=== PATIENT | male | born 1940 | race Caucasian/White ===

== ENCOUNTER → 2017-02-26 | Outpatient (CLI) | payer OTHER ==
[~2017-02-26] VITALS: Ht 165.1 cm; Wt 70.1 kg
[~2017-02-26] MED LIST: ACET-1222 PO; ACET650S10 PO; AMLO-110 PO; ATOR10TA88 PO; CLB/200 PO; FERR1TAB13 PO; FINA5TAB PO; FLV1 PO; LOVA20TA4 PO; METH2.5T PO; MULT-506 PO; OXYC-57 PO; PRLSR20 PO; PSEU30TA20 PO; RXC5 PO; TAMS0.4C59 PO; TERA1CAP63 PO; TRAM-10 PO; TRMCR2515 TOP; XRL10 PO; [UNRECOGNIZED DRUG - CODE] PO
[2017-02-26 14:38] VITALS: Ht 165.1 cm; Wt 70.1 kg
--- NOTE | 2017-02-26 15:14 | PAT Medication Instructions ---
Service Date Feb 26, 2017. Current Home Medication List Acetaminophen (Tylenol), 1,300 MG PO Q6H PRN for RN Amlodipine (Norvasc), 5 MG PO HS Atorvastatin (Lipitor), 10 MG PO QPM Celecoxib (CeleBREX), 200 MG PO PRN Finasteride (Proscar), 5 MG PO HS Multivitamin (Multivitamin), 1 TABLET PO QAM Oxycodone/Acetaminophen 5MG/325MG (Percocet 5MG/325MG), 1 TABLET PO Q4H PRN for Pain Terazosin Hcl (Hytrin), 10 MG PO HS Medication Instructions For Your Scheduled Surgery - Hold the following medications the morning of surgery: Celecoxib (CeleBREX), 200 MG PO PRN (otherwise okay to continue per surgeon) Multivitamin (Multivitamin), 1 TABLET PO QAM - Take the following medications the morning of surgery with a sip of water OTHERWISE NOTHING TO EAT OR DRINK AFTER MIDNIGHT: Acetaminophen (Tylenol), 1,300 MG PO Q6H PRN (may take if needed up to 4 hours prior to surgery) Oxycodone/Acetaminophen 5MG/325MG (Percocet 5MG/325MG), 1 TABLET PO Q4H PRN for Pain (may take if needed up to 4 hours prior to surgery) - Take the following medications as scheduled the night before surgery: Amlodipine (Norvasc), 5 MG PO HS Terazosin Hcl (Hytrin), 10 MG PO HS Atorvastatin (Lipitor), 10 MG PO QPM Finasteride (Proscar), 5 MG PO HS Acetaminophen (Tylenol), 1,300 MG PO Q6H PRN Oxycodone/Acetaminophen 5MG/325MG (Percocet 5MG/325MG), If you have any questions please call us at [phone] or [phone] or [phone]
[2017-02-26 15:57] LABS: BASO % 0.3 %; BASO ABS # 0.02 K/uL (0-0.2); COMPLETE YES; EOS % 0.8 %; HEMATOCRIT 31.2 % (42-52); IG% 0.2 %; LYMPH % 12.6 %; LYMPH ABS # 0.77 K/uL (1.2-3.4); MEAN CELL VOLUME 88.6 fL (80-100); MEAN CORPUSCULAR HEMOGLOBIN 27.3 pg (25-34); MEAN CORPUSCULAR HGB CONC 30.8 g/dl (32-36); MEAN PLATELET VOLUME 9.7 fL (7.4-10.4); NEUT % 78.1 %; PLATELET COUNT 330 K/uL (130-400); RED BLOOD COUNT 3.52 M/uL (4.7-6.1); WHITE BLOOD COUNT 6.13 K/uL (4.8-10.8)
--- NOTE | 2017-02-26 15:58 | DIAGNOSTIC IMAGING REPORT ---
CHEST 2 VIEWS ROUTINE HISTORY:77 yearsMal[age] exam. Patient is asymptomatic. COMPARISON: None available. TECHNIQUE: Frontal and lateral views of the chest. FINDINGS: Cardiomediastinal and hilar silhouettes are within normal limits. There is atherosclerosis of the aorta. No pneumothorax, pleural effusion or focal airspace consolidation. No overt pulmonary edema. Lungs are mildly hyperinflated. Metallic anchor device of the right humeral head is partially imaged from prior rotator cuff repair. There has been prior osteotomy of the left distal clavicle. IMPRESSION: Mild hyperinflation without acute cardiopulmonary process. The above report was generated using voice recognition software. It may contain grammatical, syntax or spelling errors. Electronically signed by: Saji Jefferson 02/26/2017 3:57 PM Dictated Date/Time: 02/26/2017 3:56 PM
[2017-02-26 16:01] LABS: URINE APPEARANCE CLEAR (CLEAR); URINE BILIRUBIN NEG (NEG); URINE COLOR YELLOW; URINE NITRITE NEG (NEG); URINE SPECIFIC GRAVITY 1.027 (1.000-1.030); UROBILINOGEN NEG (NEG); ZZUR CULT IF INDIC CLEAN CATCH NO
[2017-02-26 16:10] LABS: INR 1.1 (0.9-1.1); PARTIAL THROMBOPLASTIN RATIO 1.5; PROTHROMBIN TIME (PATIENT) 11.6 SECONDS (9.0-12.0)
[2017-02-26 16:15] LABS: BUN/CREATININE RATIO 20.6 (10-20); CREATININE 1.2 mg/dl (0.60-1.40); POTASSIUM 4.1 mmol/L (3.5-5.1)
[2017-02-26 16:15] LABS: MANUAL MICROSCOPIC REQUIRED? NO; REVIEW REQ? NO
[2017-02-27 07:21] LABS: ESTIMATED AVERAGE GLUCOSE 134 mg/dl; HA1C FLAG Normal (Normal)
--- NOTE | 2017-03-02 10:35 | History and Physical ---
History & Physical Date & Time of Service: Mar 02, 2017 at 10:29 Chief Complaint: Right Hip Degenerative Joint Disease Primary Care Physician: Robin Canseoc D.O. History of Present Illness Source: patient Chronic rt hip pain, failed injections, narcotics, tylenol and the use of a cane. Dx w end staged OA rt hip radiographically. Past Medical/Surgical History HTN Hyperlipidemia OA Acid reflux BPH Dental implants Social History Smoking Status: Former Smoker Alcohol Use: occasionally Drug Use: none Marital Status: Housing status: lives with family Multi-Drug Resistant Organisms History of MDRO: No Allergies Coded Allergies: Lisinopril (Unverified Allergy, Unknown, COUGH, 02/26/17) Home Medications Scheduled Amlodipine (Norvasc), 5 MG PO HS Atorvastatin (Lipitor), 10 MG PO QPM Celecoxib (CeleBREX), 200 MG PO PRN Finasteride (Proscar), 5 MG PO HS Multivitamin (Multivitamin), 1 TABLET PO QAM Terazosin Hcl (Hytrin), 10 MG PO HS Scheduled PRN Acetaminophen (Tylenol), 1,300 MG PO Q6H PRN for RN Oxycodone/Acetaminophen 5MG/325MG (Percocet 5MG/325MG), 1 TABLET PO Q4H PRN for Pain Review of Systems Musculoskeletal: + joint pain, + muscle pain (rt hip) Physical Exam General Appearance: WD/WN, no apparent distress Head: normocephalic, atraumatic Eyes: normal inspection, PERRL ENT: normal ENT inspection Respiratory/Chest: lungs clear Cardiovascular: regular rate, rhythm Abdomen/GI: normal bowel sounds, non tender +pain with PROM at the rt hip, + flexion contracture, rt hip, N/V+, 4/5 strength w pain Impression Assessment and Plan Right hip OA HTN Hyperlipidemia OA Acid reflux BPH Dental implants Advanced Directives Existing Living Will: No Existing 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
--- NOTE | 2017-05-18 11:26 | CODING QUERY MEDICAL NECESSITY ---
CQSUPPORTING DIAGNOSIS NEEDED A supporting diagnosis is required for the test/procedure performed on this patient in order for us to be reimbursed by the patient's insurance. Please provide a supporting diagnosis for the following test/procedure listed below next to the test name along with your signature. *If there is no additional diagnosis for this patient that would support the following test/procedure please document that below next to the test/procedure. Test(s)/Procedure(s) that require a supporting diagnosis: JAYY 02/26/17 GLYCATED HEMOGLOBIN TEST Provider Signature: Date: Thank you Jelly Galloway Health Information Management Once completed, please kindly fax back to [phone] For questions please call [phone]
== END | disposition home or self-care (01) ==
LOC: C.LAB 08:00 → EDSTATUS 03-03 12:46
PROVIDERS: ATTEND Orthopaedic Surgery Sports Medicine
DX: Z01.811 Encounter for preprocedural respiratory examination (principal); Z01.812 Encounter for preprocedural laboratory examination

== ENCOUNTER 2017-04-28 09:13 | Inpatient (IN) | payer OTHER ==
[2017-04-19 14:59] VITALS: BMI 24.0
--- NOTE | 2017-04-19 15:41 | PAT Medication Instructions ---
Service Date Apr 19, 2017. Current Home Medication List Acetaminophen (Acetaminophen Extra Stren), 2 TAB PO Q6 PRN for Pain Ferrous Sulfate (Kp Ferrous Sulfate), 1 TAB PO BID Finasteride (Proscar), 5 MG PO HS Folic Acid (Folic Acid), 1 TAB PO QAM Methotrexate (Methotrexate), 2.5 MG PO WK Multivitamin (Multivitamin), 1 TABLET PO QAM Omeprazole (Prilosec), 20 MG PO QAM Pseudoephedrine (Sudafed), 30 MG PO DAILY PRN for stuffiness Terazosin Hcl (Hytrin), 10 MG PO HS Tramadol (Ultram), 50 MG PO Q4H PRN for Pain Medication Instructions For Your Scheduled Surgery - Check with surgeon/outside sales associate for instructions: Methotrexate (Methotrexate), 2.5 MG PO WK - Hold the following medications the morning of surgery: Pseudoephedrine (Sudafed), 30 MG PO DAILY PRN for stuffiness Multivitamin (Multivitamin), 1 TABLET PO QAM Folic Acid (Folic Acid), 1 TAB PO QAM Ferrous Sulfate (Kp Ferrous Sulfate), 1 TAB PO BID - Take the following medications the morning of surgery with a sip of water: Acetaminophen (Acetaminophen Extra Stren), 2 TAB PO Q6 PRN for Pain (if needed) Omeprazole (Prilosec), 20 MG PO QAM Tramadol (Ultram), 50 MG PO Q4H PRN for Pain(okay to take up to 4 hours prior to surgery if needed) - Take the following medications as scheduled the night before surgery: Tramadol (Ultram), 50 MG PO Q4H PRN for Pain (if needed) Terazosin Hcl (Hytrin), 10 MG PO HS Pseudoephedrine (Sudafed), 30 MG PO DAILY PRN for stuffiness (if needed) Finasteride (Proscar), 5 MG PO HS Ferrous Sulfate (Kp Ferrous Sulfate), 1 TAB PO BID If you have any questions please call us at [phone] or [phone] or [phone]
--- NOTE | 2017-04-19 16:05 | DIAGNOSTIC IMAGING REPORT ---
LATERAL RADIOGRAPHS OF THE CERVICAL SPINE, INCLUDING FLEXION AND EXTENSION CLINICAL HISTORY: PREOP, RHEUMATOID ARTHRITIS COMPARISON STUDY: No previous studies for comparison. FINDINGS: Slight anterolisthesis of C7 on T1 is noted. This does not change with flexion or extension. C1-C2 alignment is anatomic. There is no evidence for cervical spine instability during flexion or extension. There is moderate disc space narrowing and osteophytosis at C5-6 and C6-C7. No fracture or suspicious lesion is identified on lateral projections. IMPRESSION: 1. No evidence for cervical spine instability during flexion or extension. 2. Moderate multilevel degenerative disc disease and facet arthrosis, most pronounced at C5-C6 and C6-C7. 3. Slight anterolisthesis of C7 on T1 which does not change with flexion or extension. Electronically signed by: Gautam Street M.D. 04/19/2017 4:03 PM Dictated Date/Time: 04/19/2017 4:02 PM
[2017-04-19 16:54] LABS: PARTIAL THROMBOPLASTIN RATIO 1.4; PROTHROMBIN TIME (PATIENT) 10.6 SECONDS (9.0-12.0)
--- NOTE | 2017-04-27 21:06 | HISTORY & PHYSICAL EXAMINATION ---
DATE OF ADMISSION: 04/27/2017 CHIEF COMPLAINT: Chronic right hip pain. HISTORY OF PRESENT ILLNESS: This is a 77-year-old male patient of Dr. Mendoza, who is complaining of chronic right hip pain, longstanding, now progressively getting worse. The patient has been diagnosed with end-stage osteoarthritis per clinical and radiographic exams. The patient has failed conservative treatment including, intraarticular injections, use of narcotic medication, see the medicine and the use of a walker. The patient has increased pain with weightbearing activities. His pain does interfere with his activities of daily living. The patient wishes to proceed with a right total hip arthroplasty. PAST MEDICAL HISTORY: Osteoarthritis, acid reflux, BPH, otherwise a healthy 77-year-old male. SOCIAL HISTORY: Nonsmoker, occasional drinker. PAST SURGICAL HISTORY: Shoulder surgery x3, hernia surgery, and carpal tunnel surgery. FAMILY HISTORY: Noncontributory. REVIEW OF SYSTEMS: The patient complains of chronic right hip pain. Otherwise, denies any shortness of breath, chest pain, nausea, vomiting or any other joint complaints. MEDICATIONS: 1. Finasteride 5 mg daily. 2. Terazosin 10 mg daily. 3. Methotrexate 2.5 mg six per week. 4. Omeprazole 20 mg daily. 5. Tylenol as needed. 6. Tramadol as needed. 7. Folic acid 1 mg daily. 8. Ferrous sulfate 325 b.i.d. ALLERGIES: No known drug allergies. PHYSICAL EXAMINATION: GENERAL: Well-developed, well-nourished 77-year-old male, in no acute distress. He is alert and oriented x3 and pleasant. HEENT: Normocephalic, atraumatic. Extraocular motions are intact. Pupils are equal and reactive to light. HEART: Regular rate and rhythm, no murmurs appreciated. LUNGS: Clear. ABDOMEN: Soft, nontender, bowel sounds present. EXTREMITIES: Right hip reveals a range of motion of negative 15 to 115. He does have crepitation, soreness with pain to passive range of motion. He has 4/5 strength in his lower right extremity. NEUROLOGIC: Neurovascularly, he is intact in his right lower extremity. DIAGNOSES: 1. Right hip end-stage osteoarthritis, failure of conservative treatment with a history of osteoarthritis. 2. Acid reflux. 3. Benign prostatic hyperplasia. PLAN: The patient was advised of his diagnosis. Indications, risks, benefits, and postop course have all been reviewed. The patient wishes to proceed with right total hip arthroplasty. Necessary consent forms, preoperative testing and clearances will be obtained.
[2017-04-28] VITALS (8 sets, daily range): BP systolic 94–131; BP diastolic 54–85; PULSE 68–88; TEMP 36.5–37.3; O2SAT 94–99; Ht 165.1 cm; Wt 66.7 kg
[~2017-04-28] VITALS: Ht 165.1 cm; Wt 66.7 kg
[~2017-04-28 09:13] MED LIST changes: -ACET650S10 PO; +ACETAMINOPHEN 500 MG TAB PO SCH; -AMLO-110 PO; -ATOR10TA88 PO; +BUPIVACAINE 0.5 % 5 MG/1 ML PF 10ML VIAL ONE; +CEFAZOLIN 1000MG/55 ML D5W 55 ML IV SCH; -CLB/200 PO; +CeleBREX 200 MG CAP PO SCH; +DEXAMETHASONE 4 MG TAB PO SCH; +FAMOTIDINE 20 MG TAB PO SCH; +GABAPENTIN 300 MG CAP PO SCH; +LACTATED RINGER'S 1000ML 1,000 ML IV SCH; +LACTATED RINGER'S 1000ML 500 ML IV ONE; +LACTATED RINGER'S 1000ML IV SCH; -LOVA20TA4 PO; +METOCLOPRAMIDE HCL 10 MG TAB PO SCH; -OXYC-57 PO; +ROPIVACAINE 5MG/ML 30 ML 150 MG, BUPIVACAINE/EPINEPHR 0.5% MPF 30 ML, KETOROLAC TROMETH... INFIL SCH; -RXC5 PO; -TAMS0.4C59 PO; -TRMCR2515 TOP; -XRL10 PO; -[UNRECOGNIZED DRUG - CODE] PO
[2017-04-28] MEDS ORDERED: FENTANYL CITRATE INJ 50 MCG/1 ML 2 ML VIAL ONE (11:03)
[2017-04-28] MEDS ORDERED: MIDAZOLAM HCL 1 MG/ML 2ML VIAL ONE (11:03)
--- NOTE | 2017-04-28 11:13 | History & Physical Bridge Note ---
H&P Re-Evaluation Bridge Note: I have examined the patient, reviewed the History & Physical and in the interval since the performance of the History & Physical I have noted the following changes of clinical significance: No changes noted
[2017-04-28] MEDS: TRANEXAMIC ACID INJ 1,000 MG in SODIUM CHLORIDE 0.9% 100ML 100 ML IV SCH ×2 (11:18→17:28)
[2017-04-28] MEDS ORDERED: FENTANYL CITRATE INJ 50 MCG/1 ML 2 ML VIAL IV PRN (11:30)
[2017-04-28] MEDS ORDERED: ATROPINE SULFATE 0.1 MG/ML 5ML SYR IV PRN (11:30)
[2017-04-28] MEDS ORDERED: ONDANSETRON INJ 2 MG/ML 2 ML VIAL IV PRN (11:30)
[2017-04-28] MEDS ORDERED: EpHEDrine SULFATE INJ 50 MG/ML AMP IV PRN (11:30)
[2017-04-28] MEDS ORDERED: ORTHO JOINT ANESTHETIC ONE (11:47)
[2017-04-28] MEDS ORDERED: POVIDONE-IODINE OP SOLN 30 ML BTL ONE (11:47)
[2017-04-28] MEDS ORDERED: BACITRACIN 50000 UNIT VIAL ONE (11:47)
[2017-04-28] MEDS ORDERED: PROPOFOL IV EMULSION 10 MG/ML 20 ML VIAL IV ONE (12:19)
[2017-04-28] MEDS ORDERED: LIDOCAINE HCL 2% 2 ML VIAL (20MG/ML) ONE (12:19)
[2017-04-28] MEDS ORDERED: ZOLPIDEM TARTRATE 5 MG TAB PO PRN (15:00)
[2017-04-28] MEDS ORDERED: PSEUDOEPHEDRINE HCL 30 MG TAB PO PRN (15:00)
[2017-04-28] MEDS ORDERED: NO NSAIDS SCH (15:00)
[2017-04-28] MEDS ORDERED: DiphenhydrAMINE HCL 50 MG/ML VIAL IV PRN (15:00)
[2017-04-28] MEDS ORDERED: MAGNESIUM HYDROXIDE SUSP 30 ML UDC PO PRN (15:00)
[2017-04-28] MEDS ORDERED: ALUMINUM/MAGNESIUM/SIMETH (MAALOX MAX) 30 ML UDC PO PRN (15:00)
[2017-04-28] MEDS ORDERED: MoRPHine SULFATE 2 MG/ML CARP IV PRN (15:00)
--- NOTE | 2017-04-28 15:00 | Anesthesiology Progress Note ---
Anesthesia Post Op Note Date & Time Apr 28, 2017 at 14:59 Vital Signs Pain Intensity: 0 Vital Signs Past 12 Hours Date Time Temp Pulse Resp B/P (MAP) Pulse Ox O2 Delivery O2 Flow Rate FiO2 04/28/17 14:49 62 16 98 04/28/17 14:49 62 16 04/28/17 14:46 124/71 04/28/17 14:44 67 23 97 04/28/17 14:44 67 23 04/28/17 14:41 118/67 04/28/17 14:40 116/73 04/28/17 14:39 75 22 92 04/28/17 14:39 70 22 04/28/17 14:39 37.2 71 16 116/73 95 Nasal Cannula 2 04/28/17 09:51 37.3 88 20 129/85 94 Room Air Notes Mental Status: alert / awake / arousable, participated in evaluation Pt Amnestic to Procedure: Yes Nausea / Vomiting: adequately controlled Pain: adequately controlled Airway Patency, RR, SpO2: stable & adequate BP & HR: stable & adequate Hydration State: stable & adequate Neuraxial Anesthesia: was administered, sensory block is resolving Anesthetic Complications: no major complications apparent
--- NOTE | 2017-04-28 15:14 | [facility] Operative Report ---
Operative Report Operative Date Apr 28, 2017. Pre-Operative Diagnosis Right hip end-stage osteoarthritis Post-Operative Diagnosis same Procedure(s) Performed Right total hip arthroplasty Surgeon Dr Mendoza [employer] Surgeon(s) Sourav Botello PA-C Estimated Blood Loss 100cc Findings end stage osteoarthritis arthritis and rheumatoid arthritis with grade 4 degenerative arthritis possible traumatic chondral injury to acetabulum Specimens As per Surgeon A. Right Femoral Head Drains 2 Hemovac Anesthesia spinal, sedation,orhtomix Complication(s) None Disposition Recovery Room / PACU Indications End-stage arthritis right hip Description of Procedure Patient taken to the operating room and anesthetized under spinal anesthesia. Patient was placed supine on the operating table. Exam of the involved extremity demonstrated he had some decreased internal rotation and flexion he also has some flexion contracture of his right knee. He was a thin individual.. Patient was placed on a sacral pad the involved leg was placed on a foot bump to flex knee 90 and hip 60. A [place]-type approach was performed to the right hip. A longitudinal lateral incision was made over the hip. The skin was incised sharply. The fat was divided down to the fascia. Subcutaneous bleeders are cauterized. There was some thickened trochanteric bursa. Trochanter bursa was resected. The gluteus medius was noted to be intact.. A split was made in the gluteus medius muscle between the anterior 40 % and posterior 60%. The minimus was divided longitudinally reflected off the underlying capsule. The capsule was incised down to the hip joint. Intra- articular findings demonstrated grade 4 wear on the superior head of the femur with surrounding osteophytes and the acetabulum had a large cleft with some articular cartilage loss possibly from old trauma and a hypertrophic labrum with circumferential osteophytes and synovium that had significant synovitis and inflammatory changes consistent with rheumatoid arthritis.. An incision was made through the gluteus medius leaving a cuff of tendon for repair on the greater trochanter. The vastus lateralis was split longitudinally for about 3 cm. A muscular capsular flap was elevated off the hip. The hip was dislocated with use of bone hook with flexion and external rotation. The femoral neck cut was made approximately 15 mm proximal to the lesser trochanter in neutral anteversion. Head and neck fragment were removed. T A sharp Rose superior tractor was placed and a a blunt Rose retractor was placed anteriorly a double angled inferior retractor was placed on the ishium. The acetabular labrum was resected all osteophytes were resected soft tissue in the acetabular fossa was resected. An intracapsular release was performed. Some the capsule was resected for exposure. The first reamer 48 mm was used to medialize reaming to the inner table and then sequential reamers for the acetabulum were used in 2 mm increments up to a size 58 mm reamer. I used the [employer] total hip arthroplasty system using a PSL type cup. Trial reduction demonstrated a 58 millimeter cup was the appropriate size and fit. The placement of the final implant was performed after irrigating the acetabulum with antibiotic solution with pulsatile lavage. The position of the cup was approximately 15 anteversion 45 abduction. Good fixation was performed. 2 screws were placed in the posterior superior quadrant for further fixation through the cup. The acetabular liner was impacted into position. The 36 mm G 10 acetabular liner was used. Retractors removed and attention was taken to the femur. The femur was exposed with flexion external rotation. Canal reamer was used followed by sequential broaches up to a size 4 with 127 neck angle. This had a good fit and fill. Trial reduction was performed on 127 neck angle based on preoperative templating. A +2.5 neck length gave equal leg lengths and stable range of motion through full flexion flexion adduction and internal rotation and extension and external rotation. The trials removed a Betadine soak was performed the hip was copiously irrigated with antibiotic solution with bacitracin the anesthetic cocktail was injected and after irrigation again and the final implant was impacted which was the Accolade 2 size #4 with 127 neck angle. The Biolox ceramic head size 36 with +2.5 mm neck was used. After final implants were placed the reduction was noted to be stable. 2 drains were placed deep. These were brought out laterally and connected to Hemovac. The minimus was closed with interrupted [id number] #1 Vicryl sutures. The medius was closed with transosseous #5 FiberWire sutures using Manny Arcadio stitch technique. Lateral row soft tissue repair was performed with figure of 8 #2 FiberWire sutures. The medius split was closed with interrupted figure-of- eight #1 Vicryl sutures. The vastus lateralis was closed with interrupted figure eight Vicryl sutures. The fascia shin was closed with interrupted figure of 8 number 1 Vicryl sutures. The fat was closed with [id number] # 2 Vicryl sutures. Skin was closed with corinne sterile silvalon dressing was applied. The patient tolerated procedure well.Sourav HUYNH , my physician hotel administrative assistant assisted me in the procedure with patient positioning And draping soft tissue retraction instrument management suture management and assisted in the outer layer closure and will participate in the postoperative care the patient thank you. I attest to the content of the Intraoperative Record and any orders documented therein. Any exceptions are noted below.
--- NOTE | 2017-04-28 15:35 | DIAGNOSTIC IMAGING REPORT ---
SINGLE VIEW PELVIS; SINGLE VIEW RIGHT HIP CLINICAL HISTORY: Postoperative examination. FINDINGS: An AP portable view of the hips and pelvis with a crosstable lateral portable view of the right hip are obtained. A bipolar right hip arthroplasty is in near-anatomic alignment. At least 2 cortical lag screws transfixes the acetabular cup. No acute fracture is identified. Mild arthritic change is seen in the left hip. There are expected postoperative changes overlying the right hip including skin clips, subcutaneous gas, a surgical drain, and soft tissue swelling. Calcified phleboliths are seen in the pelvis. IMPRESSION: Expected postoperative findings status post right hip arthroplasty. No acute fracture is seen. Electronically signed by: Haider Mullins M.D. 04/28/2017 3:33 PM Dictated Date/Time: 04/28/2017 3:33 PM
[2017-04-28] MEDS: D5W AND 1/2NSS + 20MEQ KCL 1,000 ML IV SCH (17:20)
[2017-04-28] MEDS: FERROUS GLUCONATE 324 MG TAB PO SCH (18:16)
[2017-04-28] MEDS: OXYCODONE HCL 10 MG TABCR (OXYCONTIN) PO SCH (18:16)
--- NOTE | 2017-04-28 19:57 | Medical Consult ---
Consultation Date of Consultation: Apr 28, 2017. Attending Physician: Javy Mendoza M.D. Reason for Consultation: Post Op Medical Management History of Present Illness 77 year old male who is s/p right ORA today by Dr. Mendoza. Patient has been having increasing right hip pain for the past several months. He failed outpatient conservative measures and therefore presented for the planned procedure today. Post operatively the patient is doing well. He reports his pain is well controlled. He denies numbness or tingling to the RLE. No chest pain or shortness of breath. He denies lightheadedness and dizziness. No abdominal pain or nausea. He has been ambulating in the halls. Past Medical/Surgical History Medical Problems: (1) BPH (benign prostatic hyperplasia) Status: Chronic (2) Renal cyst Status: Chronic (3) Rheumatoid arthritis Status: Chronic Surgical Problems: (1) H/O inguinal hernia repair Status: Chronic (2) Hx of nasal septoplasty Status: Chronic (3) S/P carpal tunnel release Status: Chronic (4) S/P rotator cuff repair Status: Chronic Family History FH: CAD (coronary artery disease) BROTHER Social History Smoking Status: Former Smoker Alcohol Use: none Allergies Coded Allergies: Lisinopril (Verified Adverse Reaction, Unknown, COUGH, 04/28/17) Home Medications Sudafed (Pseudoephedrine HCl) 30 Mg Tab 30 Mg PO DAILY PRN Kp Ferrous Sulfate (Ferrous Sulfate) 325 Mg Tab 1 Tab PO BID 30 Days Folic Acid 1 Mg Tab 1 Tab PO QAM Ultram (Tramadol HCl) 50 Mg Tab 50 Mg PO Q4H PRN Prilosec (Omeprazole) 20 Mg Capcr 20 Mg PO QAM Methotrexate 2.5 Mg Tab 2.5 Mg PO WK Acetaminophen Extra Stren (Acetaminophen) 500 Mg Tab 2 Tab PO Q6 PRN Proscar (Finasteride) 5 Mg Tab 5 Mg PO HS Multivitamin (Multivitamins) Tab 1 Tablet PO QAM Hytrin (Terazosin Hcl) 10 Mg Cap 10 Mg PO HS Current Inpatient Medications Current Inpatient Medications Medications (Trade) Dose Ordered Sig/Yrn Route Start Time Stop Time Status Last Admin Dose Admin Potassium Chloride/Dextrose/ Sod Cl 1,000 ml @ 100 mls/hr Q10H IV 04/28/17 17:00 04/29/17 16:59 04/28/17 17:20 100 MLS/HR Miscellaneous Medication (No Nsaids) 1 ea UD N/A 04/28/17 15:00 05/28/17 14:59 Oxycodone HCl (Roxicodone Immediate Rel Tab) 1 TABLET FOR PAIN RATING... Q4H PRN PO 04/28/17 15:00 05/12/17 14:59 Morphine Sulfate (MoRPHine SULFATE INJ) 2 mg 4XDQ3H PRN IV 04/28/17 15:00 05/12/17 14:59 Acetaminophen (Tylenol Tab) 1,000 mg Q8 PO 04/28/17 22:00 05/28/17 21:59 Magnesium Hydroxide (Milk Of Magnesia Susp) 30 ml Q6H PRN PO 04/28/17 15:00 05/28/17 14:59 Docusate Sodium (coLACE CAP) 100 mg BID PO 04/28/17 21:00 05/28/17 20:59 Diphenhydramine HCl (Benadryl Cap) 25 mg Q8H PRN PO 04/28/17 15:00 05/28/17 14:59 Diphenhydramine HCl (Benadryl Inj) 25 mg Q8H PRN IV 04/28/17 15:00 05/28/17 14:59 Al Hydrox/Mg Hydrox/Simethicone (Maalox Max Susp) 15 ml Q4H PRN PO 04/28/17 15:00 05/28/17 14:59 Zolpidem Tartrate (Ambien Tab) 5 mg HSZ PRN PO 04/28/17 15:00 05/28/17 14:59 Multivitamins (Multivitamin Tab) 1 tab QAM PO 04/29/17 09:00 05/29/17 08:59 Ferrous Gluconate (Ferrous Gluconate Tab) 324 mg TIDM PO 04/28/17 17:45 05/28/17 17:59 04/28/17 18:16 324 MG Pantoprazole Sodium (Protonix Tab) 40 mg QAM PO 04/29/17 09:00 05/29/17 08:59 Cefazolin Sodium 1000 mg/Dextrose 55 ml @ 100 mls/hr Q8H IV 04/28/17 20:00 04/29/17 04:32 Oxycodone HCl (Oxycontin Tab) 10 mg Q12H PO 04/28/17 18:00 05/12/17 17:59 04/28/17 18:16 10 MG Finasteride (Proscar Tab) 5 mg HS PO 04/28/17 21:00 05/28/17 20:59 Folic Acid (Folvite Tab) 1 mg QAM PO 04/29/17 09:00 05/29/17 08:59 Pseudoephedrine HCl (Sudafed Tab) 30 mg DAILY PRN PO 04/28/17 15:00 05/28/17 14:59 Terazosin HCl (Hytrin Cap) 10 mg HS PO 04/28/17 21:00 05/28/17 20:59 Rivaroxaban (Xarelto Tab) 10 mg Q24H PO 04/29/17 15:00 05/29/17 14:59 Review of Systems ROS per HPI, all other systems reviewed and negative Physical Exam Date Time Temp Pulse Resp B/P (MAP) Pulse Ox O2 Delivery O2 Flow Rate FiO2 04/28/17 18:54 36.5 82 18 94/54 (67) 96 Room Air 04/28/17 17:53 37.2 84 18 118/70 (86) 98 Nasal Cannula 2.0 04/28/17 16:50 36.5 70 18 111/66 (81) 98 Nasal Cannula 2.0 04/28/17 16:28 36.5 71 18 131/80 (97) 99 Nasal Cannula 2.0 04/28/17 16:15 Nasal Cannula 2.0 04/28/17 15:45 99 Nasal Cannula 2.0 04/28/17 15:45 36.6 68 18 120/70 (87) 99 Nasal Cannula 2.0 04/28/17 15:39 37.5 04/28/17 15:37 66 15 99 04/28/17 15:37 65 15 04/28/17 15:36 126/77 04/28/17 15:32 66 17 99 04/28/17 15:32 66 17 04/28/17 15:31 128/76 04/28/17 15:27 66 20 04/28/17 15:27 66 20 97 04/28/17 15:26 128/76 04/28/17 15:22 66 15 04/28/17 15:22 66 15 97 04/28/17 15:21 121/72 04/28/17 15:17 65 20 04/28/17 15:17 66 20 97 04/28/17 15:16 119/71 04/28/17 15:12 68 14 95 04/28/17 15:12 65 14 04/28/17 15:11 127/73 04/28/17 15:08 37.5 04/28/17 15:07 64 13 97 04/28/17 15:07 65 13 04/28/17 15:06 64 18 04/28/17 15:06 64 18 112/76 97 04/28/17 15:01 64 15 04/28/17 15:01 65 15 120/70 98 04/28/17 15:00 63 16 98 04/28/17 15:00 63 16 04/28/17 14:56 122/74 04/28/17 14:55 63 13 98 04/28/17 14:55 64 13 04/28/17 14:51 107/71 04/28/17 14:50 64 14 04/28/17 14:50 63 14 97 04/28/17 14:49 62 16 98 04/28/17 14:49 62 16 04/28/17 14:46 124/71 04/28/17 14:44 67 23 97 04/28/17 14:44 67 23 04/28/17 14:41 118/67 04/28/17 14:40 116/73 04/28/17 14:39 75 22 92 04/28/17 14:39 70 22 04/28/17 14:39 37.2 71 16 116/73 95 Nasal Cannula 2 04/28/17 09:51 37.3 88 20 129/85 94 Room Air General Appearance: no apparent distress Head: normocephalic, atraumatic Eyes: normal inspection, sclerae normal ENT: hearing grossly normal Neck: supple, no JVD Respiratory/Chest: lungs clear, normal breath sounds, no respiratory distress Cardiovascular: regular rate, rhythm, no edema, normal peripheral pulses Abdomen/GI: normal bowel sounds, non tender, soft Extremities/Musculoskelatal: + pertinent finding (s/p right hip surgery, surgical dressing intact, CSM checks intact to RLE ) Neurologic/Psych: no motor/sensory deficits, alert, normal mood/affect, oriented x 3 Skin: normal color, warm/dry Assessment & Plan S/P RIGHT ORA - POD#0 - activity and wound care orders as per ortho - pain control with bowel regimen - PT/OT - monitor H/H for acute blood loss anemia and transfuse blood products PRN RHEUMATOID ARTHRITIS - methotrexate on hold during the immediate post op period BPH - continue terazosin and finasteride DVT PROPHYLAXIS - Xarelto as per ortho Thank you for this consultation. We will follow the patient with you during their hospital stay. You can reach a member of the [facility]ist Team 15/03 via pager @ . Attending addendum: Agree with the above H&P consultation; please refer to above for more details. Patient is a 77 yo male who is post op from R ORA; he states that he was in severe pain prior to surgery and had failed conservative measures. He was just seen ambulating in the halls with a walker and minimum assistance. He denies any complaints other than a pulling sensation at the incision/drain sites. No pain. Cardiac: RR, S1 and S2 auscultated Resp: CTA B/L no wheezes, rales, rhonchi GI: soft, NT, ND, +BS POSTOPERATIVE STATE: S/P R ORA -pain control, activity, DVT prophylaxis as per primary team -will monitor for post op anemia of blood loss -encourage bowel regimen -encourage IS -resume home meds as above
[2017-04-28] MEDS: CEFAZOLIN IV 1,000 MG in DEXTROSE 5% 50ML 50 ML IV SCH (20:12)
[2017-04-28] MEDS: FINASTERIDE 5 MG TAB PO SCH (21:08)
[2017-04-28] MEDS: DOCUSATE SODIUM 100 MG CAP PO SCH (21:09)
[2017-04-28] MEDS: ACETAMINOPHEN 500 MG TAB PO SCH (21:40)
[2017-04-29] MEDS: D5W AND 1/2NSS + 20MEQ KCL 1,000 ML IV SCH (02:58)
[2017-04-29 03:00] VITALS: BP 127/60; PULSE 65; TEMP 36.8; O2SAT 95
[2017-04-29] MEDS: CEFAZOLIN IV 1,000 MG in DEXTROSE 5% 50ML 50 ML IV SCH (04:19)
[2017-04-29] MEDS: ACETAMINOPHEN 500 MG TAB PO SCH ×3 (05:53→21:31)
[2017-04-29] MEDS: OXYCODONE HCL 10 MG TABCR (OXYCONTIN) PO SCH ×2 (05:53→18:02)
[2017-04-29 05:58] LABS: BASO % 0.1 %; BASO ABS # 0.01 K/uL (0-0.2); HEMATOCRIT 26.4 % (42-52); IG% 0.4 %; LYMPH % 4.8 %; LYMPH ABS # 0.58 K/uL (1.2-3.4); MEAN CELL VOLUME 90.1 fL (80-100); MEAN CORPUSCULAR HEMOGLOBIN 28.7 pg (25-34); MEAN CORPUSCULAR HGB CONC 31.8 g/dl (32-36); MEAN PLATELET VOLUME 9.5 fL (7.4-10.4); MONO % 8.4 %; NEUT % 86.3 %; PLATELET COUNT 326 K/uL (130-400); RED BLOOD COUNT 2.93 M/uL (4.7-6.1); WHITE BLOOD COUNT 12.21 K/uL (4.8-10.8)
[2017-04-29 06:17] LABS: INR 1.1 (0.9-1.1); PROTHROMBIN TIME (PATIENT) 11.3 SECONDS (9.0-12.0)
[2017-04-29 06:34] LABS: BUN/CREATININE RATIO 20.5 (10-20); CALCIUM 8.7 mg/dl (8.5-10.1); CREATININE 1.1 mg/dl (0.60-1.40); POTASSIUM 4.3 mmol/L (3.5-5.1)
[2017-04-29 07:13] VITALS: BP 115/66; PULSE 67; TEMP 36.5; O2SAT 96
[2017-04-29 07:22] LABS: ANISOCYTOSIS PRESENT; COMPLETE YES; HYPERSEGMENTED POLYS 1+
--- NOTE | 2017-04-29 07:44 | Orthopedic Progress Note ---
Orthopedic Progress Note Date of Service Apr 29, 2017. Subjective Post OP Day: 1 Reports: feeling well Objective N/V intact, dressing C/D/I (Hemovac in place), toes mobile Date Time Temp Pulse Resp B/P (MAP) Pulse Ox O2 Delivery O2 Flow Rate FiO2 04/29/17 07:13 36.5 67 16 115/66 (82) 96 Room Air 04/29/17 03:00 36.8 65 18 127/60 (82) 95 Room Air 04/28/17 23:28 Room Air 04/28/17 23:18 36.7 70 16 100/54 (69) 96 Room Air 04/28/17 21:05 105/69 (81) 04/28/17 18:54 36.5 82 18 94/54 (67) 96 Room Air 04/28/17 17:53 37.2 84 18 118/70 (86) 98 Nasal Cannula 2.0 04/28/17 16:50 36.5 70 18 111/66 (81) 98 Nasal Cannula 2.0 04/28/17 16:28 36.5 71 18 131/80 (97) 99 Nasal Cannula 2.0 04/28/17 16:15 Nasal Cannula 2.0 04/28/17 15:45 99 Nasal Cannula 2.0 04/28/17 15:45 36.6 68 18 120/70 (87) 99 Nasal Cannula 2.0 04/28/17 15:39 37.5 04/28/17 15:37 66 15 99 04/28/17 15:37 65 15 04/28/17 15:36 126/77 04/28/17 15:32 66 17 99 04/28/17 15:32 66 17 04/28/17 15:31 128/76 04/28/17 15:27 66 20 04/28/17 15:27 66 20 97 04/28/17 15:26 128/76 04/28/17 15:22 66 15 04/28/17 15:22 66 15 97 04/28/17 15:21 121/72 04/28/17 15:17 65 20 04/28/17 15:17 66 20 97 04/28/17 15:16 119/71 04/28/17 15:12 68 14 95 04/28/17 15:12 65 14 04/28/17 15:11 127/73 04/28/17 15:08 37.5 04/28/17 15:07 64 13 97 04/28/17 15:07 65 13 04/28/17 15:06 64 18 04/28/17 15:06 64 18 112/76 97 04/28/17 15:01 64 15 04/28/17 15:01 65 15 120/70 98 04/28/17 15:00 63 16 98 04/28/17 15:00 63 16 04/28/17 14:56 122/74 04/28/17 14:55 63 13 98 04/28/17 14:55 64 13 04/28/17 14:51 107/71 04/28/17 14:50 64 14 04/28/17 14:50 63 14 97 04/28/17 14:49 62 16 98 04/28/17 14:49 62 16 04/28/17 14:46 124/71 04/28/17 14:44 67 23 97 04/28/17 14:44 67 23 04/28/17 14:41 118/67 04/28/17 14:40 116/73 04/28/17 14:39 75 22 92 04/28/17 14:39 70 22 04/28/17 14:39 37.2 71 16 116/73 95 Nasal Cannula 2 04/28/17 09:51 37.3 88 20 129/85 94 Room Air Laboratory Results 24 Hours: Test 04/29/17 05:23 White Blood Count 12.21 K/uL Red Blood Count 2.93 M/uL Hemoglobin 8.4 g/dL Hematocrit 26.4 % Mean Corpuscular Volume 90.1 fL Mean Corpuscular Hemoglobin 28.7 pg Mean Corpuscular Hemoglobin Concent 31.8 g/dl Platelet Count 326 K/uL Mean Platelet Volume 9.5 fL Neutrophils (%) (Auto) 86.3 % Lymphocytes (%) (Auto) 4.8 % Monocytes (%) (Auto) 8.4 % Eosinophils (%) (Auto) 0.0 % Basophils (%) (Auto) 0.1 % Neutrophils # (Auto) 10.54 K/uL Lymphocytes # (Auto) 0.58 K/uL Monocytes # (Auto) 1.03 K/uL Eosinophils # (Auto) 0.00 K/uL Basophils # (Auto) 0.01 K/uL Prothromb Time International Ratio 1.1 Prothrombin Time 11.3 SECONDS Assessment & Plan Assessment: 77 yo male stable POD #1 s/p right ORA, acute blood loss anemia, VSS Plan: 1. Med management 2. DVT prophylaxis- Xarelian SCDs 3. PT/OT 4. D/C planning- home w/ HH
[2017-04-29] MEDS: DOCUSATE SODIUM 100 MG CAP PO SCH ×2 (08:32→20:40)
[2017-04-29] MEDS: MULTIVITAMIN TAB PO SCH (08:33)
[2017-04-29] MEDS: FERROUS GLUCONATE 324 MG TAB PO SCH ×3 (08:33→18:02)
[2017-04-29] MEDS: PANTOprazole SOD 40 MG TAB PO SCH (08:33)
--- NOTE | 2017-04-29 09:19 | Anesthesiology Progress Note ---
Anesthesia Post Op Note Date & Time Apr 29, 2017 at 09:19 Vital Signs Pain Intensity: 0.0 Vital Signs Past 12 Hours Date Time Temp Pulse Resp B/P (MAP) Pulse Ox O2 Delivery O2 Flow Rate FiO2 04/29/17 07:13 36.5 67 16 115/66 (82) 96 Room Air 04/29/17 03:00 36.8 65 18 127/60 (82) 95 Room Air 04/28/17 23:28 Room Air 04/28/17 23:18 36.7 70 16 100/54 (69) 96 Room Air Notes Mental Status: alert / awake / arousable, participated in evaluation Pt Amnestic to Procedure: Yes Nausea / Vomiting: adequately controlled Pain: adequately controlled Airway Patency, RR, SpO2: stable & adequate BP & HR: stable & adequate Hydration State: stable & adequate Neuraxial Anesthesia: sensory block resolved Anesthetic Complications: no major complications apparent
[2017-04-29 09:25] VITALS: BP 104/64; PULSE 91; O2SAT 98
[2017-04-29 11:07] VITALS: BP 103/55; PULSE 81; TEMP 36.8; O2SAT 96
[2017-04-29] MEDS: OXYCODONE HCL IR 5 MG TAB (IMMEDIATE RELEASE) PO PRN ×3 (11:37→23:42)
--- NOTE | 2017-04-29 13:05 | Progress Note ---
Internal Med Progress Note Date of Service: Apr 29, 2017. Provider Documentation: Hospitalist Medicine Consultation follow up SUBJECTIVE: Patient s/p hip arthroplasty. Seen sitting on chair. Patient denies chest pain or shortness of breath or abdominal pain. Has ice pack next to right hip where he had surgery. Surgical site with hemovac drainage. OBJECTIVE: General Appearance: no apparent distress Head: normocephalic, atraumatic Eyes: normal inspection, sclerae normal, EOMI ENT: hearing grossly normal Neck: supple, no JVD Respiratory/Chest: lungs clear, normal breath sounds, no respiratory distress Cardiovascular: regular rate, rhythm, no JVD Abdomen/GI: normal bowel sounds, non tender, soft Extremities/Musculoskelatal: Has ice pack next to right hip where he had surgery. Surgical site with hemovac drainage Neurologic/Psych: no motor/sensory deficits, alert, normal mood/affect, oriented x 3 Skin: normal color, warm/dry ASSESSMENT & PLAN: S/P RIGHT ORA - POD#1 - activity and wound care orders as per ortho - pain control with bowel regimen - PT/OT - Hemoglobin 8.4 today RHEUMATOID ARTHRITIS -can restart methotrexate for treatment of rheumatoid arthritis maintenance regimen upon discharge BPH - continue terazosin and finasteride DVT PROPHYLAXIS - Xarelto as per ortho Vital Signs: Date Time Temp Pulse Resp B/P (MAP) Pulse Ox O2 Delivery O2 Flow Rate FiO2 04/29/17 11:07 36.8 81 16 103/55 (71) 96 Room Air 04/29/17 09:25 91 98 04/29/17 08:35 Room Air 04/29/17 07:13 36.5 67 16 115/66 (82) 96 Room Air 04/29/17 03:00 36.8 65 18 127/60 (82) 95 Room Air 04/28/17 23:28 Room Air 04/28/17 23:18 36.7 70 16 100/54 (69) 96 Room Air 04/28/17 21:05 105/69 (81) 04/28/17 18:54 36.5 82 18 94/54 (67) 96 Room Air 04/28/17 17:53 37.2 84 18 118/70 (86) 98 Nasal Cannula 2.0 04/28/17 16:50 36.5 70 18 111/66 (81) 98 Nasal Cannula 2.0 9/6/17 16:28 36.5 71 18 131/80 (97) 99 Nasal Cannula 2.0 04/28/17 16:15 Nasal Cannula 2.0 /6/17 15:45 99 Nasal Cannula 2.0 /6/17 15:45 36.6 68 18 120/70 (87) 99 Nasal Cannula 2.0 04/28/17 15:39 37.5 04/28/17 15:37 66 15 99 /6/17 15:37 65 15 04/28/17 15:36 126/77 17 15:32 66 17 99 /6/17 15:32 66 17 /17 15:31 128/76 17 15:27 66 20 04/28/17 15:27 66 20 97 04/28/17 15:26 128/76 04/28/17 15:22 66 15 04/28/17 15:22 66 15 97 04/28/17 15:21 121/72 04/28/17 15:17 65 20 04/28/17 15:17 66 20 97 04/28/17 15:16 119/71 04/28/17 15:12 68 14 95 04/28/17 15:12 65 14 04/28/17 15:11 127/73 04/28/17 15:08 37.5 04/28/17 15:07 64 13 97 04/28/17 15:07 65 13 04/28/17 15:06 64 18 04/28/17 15:06 64 18 112/76 97 04/28/17 15:01 64 15 04/28/17 15:01 65 15 120/70 98 04/28/17 15:00 63 16 98 04/28/17 15:00 63 16 04/28/17 14:56 122/74 04/28/17 14:55 63 13 98 04/28/17 14:55 64 13 04/28/17 14:51 107/71 04/28/17 14:50 64 14 04/28/17 14:50 63 14 97 04/28/17 14:49 62 16 98 04/28/ 14:49 62 16 04/28/17 14:46 124/71 04/28/17 14:44 67 23 97 04/28/ 14:44 67 23 04/28/17 14:41 118/67 04/28/17 14:40 116/73 04/28/17 14:39 75 22 92 04/28/17 14:39 70 22 04/28/17 14:39 37.2 71 16 116/73 95 Nasal Cannula 2 Lab Results: Results Past 24 Hours Test 04/29/17 05:23 Range/Units White Blood Count 12.21 4.8-10.8 K/uL Red Blood Count 2.93 4.7-6.1 M/uL Hemoglobin 8.4 14.0-18.0 g/dL Hematocrit 26.4 42-52 % Mean Corpuscular Volume 90.1 80-100 fL Mean Corpuscular Hemoglobin 28.7 25-34 pg Mean Corpuscular Hemoglobin Concent 31.8 32-36 g/dl Platelet Count 326 130-400 K/uL Mean Platelet Volume 9.5 7.4-10.4 fL Neutrophils (%) (Auto) 86.3 % Lymphocytes (%) (Auto) 4.8 % Monocytes (%) (Auto) 8.4 % Eosinophils (%) (Auto) 0.0 % Basophils (%) (Auto) 0.1 % Neutrophils # (Auto) 10.54 1.4-6.5 K/uL Lymphocytes # (Auto) 0.58 1.2-3.4 K/uL Monocytes # (Auto) 1.03 0.11-0.59 K/uL Eosinophils # (Auto) 0.00 0-0.5 K/uL Basophils # (Auto) 0.01 0-0.2 K/uL RDW Standard Deviation 63.0 36.4-46.3 fL RDW Coefficient of Variation 19.1 11.5-14.5 % Immature Granulocyte % (Auto) 0.4 % Immature Granulocyte # (Auto) 0.05 0.00-0.02 K/uL Hypersegmented Polys 1+ Anisocytosis PRESENT Prothrombin Time 11.3 9.0-12.0 SECONDS Prothromb Time International Ratio 1.1 0.9-1.1 Sodium Level 138 136-145 mmol/L Potassium Level 4.3 3.5-5.1 mmol/L Chloride Level 105 98-107 mmol/L Carbon Dioxide Level 26 21-32 mmol/L Anion Gap 7.0 3-11 mmol/L Blood Urea Nitrogen 23 7-18 mg/dl Creatinine 1.10 0.60-1.40 mg/dl Est Creatinine Clear Calc Drug Dose 48.9 ml/min Estimated GFR () 74.7 Estimated GFR (Non- 64.4 BUN/Creatinine Ratio 20.5 10-20 Random Glucose 175 70-99 mg/dl Calcium Level 8.7 8.5-10.1 mg/dl
[2017-04-29] MEDS: RIVAROXABAN 10 MG TAB PO SCH (14:55)
[2017-04-29 15:52] VITALS: BP 145/68; PULSE 98; TEMP 36.8; O2SAT 95
[2017-04-29] MEDS: FINASTERIDE 5 MG TAB PO SCH (21:31)
[2017-04-29 23:01] VITALS: BP 128/69; PULSE 85; TEMP 37.3; O2SAT 95
[2017-04-30] MEDS: OXYCODONE HCL 10 MG TABCR (OXYCONTIN) PO SCH ×2 (05:16→18:02)
[2017-04-30] MEDS: ACETAMINOPHEN 500 MG TAB PO SCH ×3 (05:16→20:53)
[2017-04-30 07:34] VITALS: BP 117/58; PULSE 79; TEMP 36.7; O2SAT 95
--- NOTE | 2017-04-30 07:54 | Progress Note ---
Orthopedic SOAP Note Subjective Date of Service: Apr 30, 2017. Reports: feeling well, pain controlled w PO medications Objective N/V intact, hip located, dressing C/D/I Date Time Temp Pulse Resp B/P (MAP) Pulse Ox O2 Delivery O2 Flow Rate FiO2 04/30/17 07:34 36.7 79 16 117/58 (77) 95 Room Air 04/29/17 23:30 Room Air 04/29/17 23:01 37.3 85 17 128/69 (88) 95 Room Air 04/29/17 15:52 36.8 98 18 145/68 (93) 95 Room Air 04/29/17 15:20 Room Air 04/29/17 11:07 36.8 81 16 103/55 (71) 96 Room Air 04/29/17 09:25 91 98 04/29/17 08:35 Room Air Assessment 77 yo male stable POD #2 s/p right ORA, acute blood loss anemia, VSS Plan 1. Med management 2. DVT prophylaxis- Xarelto, SCDs 3. PT/OT 4. D/C planning- home w/ HH
[2017-04-30 08:11] LABS: HEMATOCRIT 25.1 % (42-52); MEAN CELL VOLUME 90.6 fL (80-100); MEAN CORPUSCULAR HEMOGLOBIN 29.2 pg (25-34); MEAN CORPUSCULAR HGB CONC 32.3 g/dl (32-36); MEAN PLATELET VOLUME 8.9 fL (7.4-10.4); PLATELET COUNT 272 K/uL (130-400); RED BLOOD COUNT 2.77 M/uL (4.7-6.1); WHITE BLOOD COUNT 7.05 K/uL (4.8-10.8)
[2017-04-30] MEDS: DOCUSATE SODIUM 100 MG CAP PO SCH ×2 (08:22→20:52)
[2017-04-30] MEDS: MULTIVITAMIN TAB PO SCH (08:22)
[2017-04-30] MEDS: FERROUS GLUCONATE 324 MG TAB PO SCH ×3 (08:22→18:00)
[2017-04-30] MEDS: PANTOprazole SOD 40 MG TAB PO SCH (08:22)
[2017-04-30] MEDS: OXYCODONE HCL IR 5 MG TAB (IMMEDIATE RELEASE) PO PRN (11:55)
[2017-04-30] MEDS: RIVAROXABAN 10 MG TAB PO SCH (14:31)
[2017-04-30 15:16] VITALS: BP 111/64; PULSE 110; TEMP 37.1; O2SAT 93
[2017-04-30 16:30] VITALS: O2SAT 93
[2017-04-30] MEDS: FINASTERIDE 5 MG TAB PO SCH (20:52)
[2017-04-30 22:57] VITALS: BP 98/52; PULSE 104; TEMP 37.4; O2SAT 96
[2017-05-01] MEDS: ACETAMINOPHEN 500 MG TAB PO SCH ×2 (05:52→14:50)
[2017-05-01] MEDS: OXYCODONE HCL 10 MG TABCR (OXYCONTIN) PO SCH (05:53)
[2017-05-01 06:55] VITALS: BP 134/66; PULSE 103; TEMP 37.4; O2SAT 97
[2017-05-01] MEDS: MULTIVITAMIN TAB PO SCH (08:43)
[2017-05-01] MEDS: DOCUSATE SODIUM 100 MG CAP PO SCH (08:43)
[2017-05-01] MEDS: OXYCODONE HCL IR 5 MG TAB (IMMEDIATE RELEASE) PO PRN (08:56)
[2017-05-01] MEDS: FERROUS GLUCONATE 324 MG TAB PO SCH ×2 (08:57→13:35)
[2017-05-01] MEDS: PANTOprazole SOD 40 MG TAB PO SCH (08:57)
--- NOTE | 2017-05-01 09:59 | Orthopedic Progress Note ---
Orthopedic Progress Note Date of Service May 01, 2017. Subjective Post OP Day: 2 Reports: feeling well, Denies: chest pain, SOB, nausea / vomiting, light headedness Additional Notes: Awake, alert, sitting in chair. States that he was a little "loopy" yesterday which he feels was from some of his pain medications. No other complaints. Hip "feels fine". Objective calves soft nontender, N/V intact, hip located, dressing C/D/I, A&O x3, toes mobile Date Time Temp Pulse Resp B/P (MAP) Pulse Ox O2 Delivery O2 Flow Rate FiO2 05/01/17 07:15 Room Air 05/01/17 06:55 37.4 103 17 134/66 (88) 97 Room Air 05/01/17 00:15 Room Air 04/30/17 22:57 37.4 104 16 98/52 (67) 96 Room Air 04/30/17 16:30 93 Room Air 04/30/17 15:16 37.1 110 16 111/64 (80) 93 Room Air Laboratory Results 24 Hours: Test 05/01/17 09:45 Assessment & Plan Assessment: 77 yo male stable POD #3 s/p right ORA, acute blood loss anemia Mild Tachycardia today, otherwise asymptomatic Plan: DC Oxycontin. Likely the cause of his confusion yesterday Recheck H/H today Continue PT/OT Possible dc to home today with HH services if H/H stable and tolerating current pain regimen. Inhouse Planning Pain Management: PO Tylenol, Oxy IR DVT Prophylaxis: TEDs, SCDs, Xarelto Discharge Planning Discharge Planning: home with home health
[2017-05-01] MEDS ORDERED: RXC5 PO (10:04)
[2017-05-01] MEDS ORDERED: XRL10 PO ×2 (10:04→11:27)
[2017-05-01] MEDS ORDERED: ACET-1222 PO (10:04)
[2017-05-01 10:10] LABS: HEMATOCRIT 27.4 % (42-52); MEAN CORPUSCULAR HEMOGLOBIN 28.2 pg (25-34); MEAN PLATELET VOLUME 9.2 fL (7.4-10.4); PLATELET COUNT 348 K/uL (130-400); RED BLOOD COUNT 3.01 M/uL (4.7-6.1); WHITE BLOOD COUNT 8.44 K/uL (4.8-10.8)
--- NOTE | 2017-05-01 10:10 | Discharge Instructions ---
Discharge Instructions Date of Service May 01, 2017. Admission Reason for Admission: Right Hip Degenerative Joint Disease Discharge Discharge Diagnosis / Problem: Right Hip Djd Discharge Goals Goal(s): Decrease discomfort, Improve function Activity Recommendations Activity Limitations: per Instructions/Follow-up section Weightbearing Status: Right non-weightbearing . Instructions / Follow-Up Instructions / Follow-Up ACTIVITY RECOMMENDATIONS: SELF CARE INSTRUCTIONS AFTER TOTAL HIP REPLACEMENT Until the incision and soft tissues around your hip have healed, there is a possibility that the hip prosthesis could dislocate. A. Observe the following precautions to prevent dislocation: 1. Don't bend your hip greater than 90 degrees. 2. Avoid crossing your legs or ankles while standing or lying. 3. Sit with your feet placed 6 inches apart. 4. When sitting, keep your knees below your hips. Sit on a firm surface, avoid deep, soft chairs and couches. Use an elevated toilet seat in the bathroom. 5. Don't bend over at the waist. Use a long handled shoehorn and a sock aid to help you put on your shoes and socks. A building insulation installer can help you cook pickled meat objects that are too high or too low to reach. 6. Keep car riding to a minimum for at least one month after surgery. B. Your balance may be shaky for a while. Use crutches or a walker until directed by your doctor. C. Use hand rails when walking on stairs. D. Wear low heeled shoes with non-slip soles. E. Be sure that your floors are free of things that could trip you - throw rugs , electrical cords, small objects. Avoid wet and waxed floors, especially with crutches and canes. F. Try to walk several times a day with rest periods between. G. Continue with all the exercises taught to you in the hospital. Again, make walking a part of your daily routine. SPECIAL CARE INSTRUCTIONS: VERY IMPORTANT TO READ AND REVIEW A. You may still be at risk for phlebitis and blood clots. 1. Wear surgical stockings (MERVAT hose) for 2 weeks after surgery to improve circulation and reduce swelling. 2. Take Xarelto once daily for 4 weeks. This is your blood thinner B. You must take antibiotics before having dental work, bladder, bowel and other surgery. Your doctor will provide you with a permanent card to carry describing precautions. C. Call [facility] if you have a fever, redness or swelling around the incision, cloudy drainage from incision, or sudden increase in pain in your hip, not relieved by your regular pain medication. D. Please call the office at if you have any concerns or questions about your operation or recovery. * YOU MAY SHOWER, NO TUB BATHS UNTIL CLEARED BY YOUR DOCTOR. * WEAR MERVAT HOSE 20 HOURS PER DAY FOR 2 WEEKS. * YOU SHOULD USE A WALKER OR CRUTCHES FOR 2-4 WEEKS. THIS WILL HELP PREVENT STRAIN ON YOUR HIP MUSCLE AND ALLOW IT TO HEAL PROPERLY. YOU MAY WEAN TO A CANE TOLERATED. * MOST PATIENTS WILL HAVE HOME NURSING FOR THERAPY. IF YOU DECIDE TO DO OUTPATIENT PHYSICAL THERAPY, PLEASE SCHEDULE THIS 3 TIMES PER WEEK. * Silverlon- This is a large adhesive bandage that contains silver ions. This helps your incision heal by fighting off bacteria and protecting it from the outside environment. You are permitted to shower with this dressing. This will remain on your incision for 7 days and then should be removed. Some visible blood or drainage through the dressing window is normal. If there is significant drainage or leaking noted before the 7 days notify your doctor's office immediately. Once removed, keep incision clean and dry. If there is any drainage or redness noted, please call your surgeon. . FOLLOW UP VISIT: If appointment is not already scheduled: Please call [facility] to make a follow-up appointment for 2 weeks after your surgery at . Current Hospital Diet Patient's current hospital diet: Regular Diet Discharge Diet Recommended Diet: Regular Diet Procedures Procedures Performed: Right Total Hip Arthroplasty Uncemented Pending Studies Studies pending at discharge: no Laboratory Results Hemoglobin A1c Test 02/26/17 15:21 Range/Units Estimated Average Glucose 134 mg/dl Hemoglobin A1c 6.3 H 4.5-5.6 % Medical Emergencies . Who to Call and When: Medical Emergencies: If at any time you feel your situation is an emergency, please call 911 immediately. . Non-Emergent Contact Non-Emergency issues call your: Surgeon Call Non-Emergent contact if: temperature is above 101.5, your pain is not controlled, your pain is worsening, wound has increased drainage, wound has increased redness . "Provider Documentation" section prepared by Sourav Botello. . VTE Core Measure Inpt VTE Proph given/why not?: Other Anticoagulation, T.E.Luiz Stockings, SCD's [place] Drug Monitoring Program Search Results: patient reviewed within database, no issues identified
[2017-05-01 10:41] LABS: BUN/CREATININE RATIO 15.2 (10-20); CALCIUM 8.9 mg/dl (8.5-10.1); CREATININE 1.1 mg/dl (0.60-1.40); POTASSIUM 3.6 mmol/L (3.5-5.1)
[2017-05-01] MEDS ORDERED: TRAM-10 PO (11:12)
[2017-05-01] MEDS ORDERED: NURSING VERBAL MED ORDER ONE (11:30)
[2017-05-01] MEDS ORDERED: TRAMADOL HCL 50 MG TAB PO PRN (11:45)
[2017-05-01 13:42] VITALS: BP 134/66; PULSE 103; TEMP 37.4; O2SAT 97
[2017-05-01] MEDS: RIVAROXABAN 10 MG TAB PO SCH (14:49)
--- NOTE | 2017-05-07 00:12 | DISCHARGE SUMMARY ---
DISCHARGE DIAGNOSIS: Degenerative joint disease, right hip. SECONDARY DIAGNOSES: Gastroesophageal reflux disease, benign prostatic hypertrophy. CONSULTS: AMARJIT Mendieta/Dr. Barcenas. COMPLICATIONS: None. PROCEDURES: Right total hip arthroplasty performed by Dr. Mendoza on 04/28/2017. BRIEF HISTORY: As dictated in the history and physical. HOSPITAL SUMMARY: The patient was admitted on the above noted date and had the above noted surgery performed which he tolerated well. On the first postoperative day, patient was feeling well and had no complaints. Neurovascularly intact. Dressings clean, dry and intact. Toes were mobile. Vital signs were stable and he was afebrile. Hemoglobin was 8.4 and he was started on physical therapy protocol and continued on DVT prophylaxis and pain management. By his second postoperative day, he was awake and alert, sitting in his chair; and states that he was a little loopy the day before on pain medications, but had no other complaints, the hip was feeling fine, and he was oriented. Calves were soft and nontender. Neurovascularly intact. Hip was located. Dressings clean, dry and intact. Toes were mobile. Vital signs were stable and he was afebrile. He was progressing well with his physical therapy. OxyContin had been discontinued because of his somewhat confusion on the day before. He was otherwise remaining stable and it was felt he could be discharged to home on 05/01/2017. For further review, please see chart. LAB AND X-RAY DATA: As per chart. DISCHARGE INSTRUCTIONS: The patient was discharged to home in satisfactory condition with home health services on 05/01/2017. DIET: Regular. ACTIVITY: Follow ORA instruction sheets and special care instructions as noted. Follow up with Dr. Mendoza in 2 weeks. The patient to call for appointment if one has not been made for you. DISCHARGE MEDICATIONS: Rivaroxaban 10 mg p.o. daily x30 days. Resume home meds as listed. The patient to have acetaminophen 500 mg tablet 2 tablets p.o. q. 8 hours for 30 days, tramadol 50 mg tablet 1-2 tabs p.o. q. 4 hours p.r.n. pain. Stop taking methotrexate.
== END 2017-05-01 15:45 | disposition home health service (06) | DRG 470 ==
LOC: C.ACU 09:13 → C.3E 09:44 → ENRESERV 15:18
PROVIDERS: ADMIT Orthopaedic Surgery Sports Medicine; ATTEND Orthopaedic Surgery Sports Medicine
PROC: 0SR90JZ Replacement of Right Hip Joint with Synthetic Substitute, Open Approach (ICD-10-PCS; principal; 2017-04-28 11:50)
DX: M16.11 Unilateral primary osteoarthritis, right hip (principal); D62 Acute posthemorrhagic anemia; M06.9 Rheumatoid arthritis, unspecified; N40.0 Benign prostatic hyperplasia without lower urinary tract symptoms; K21.9 Gastro-esophageal reflux disease without esophagitis; Z51.81 Encounter for therapeutic drug level monitoring; Z79.899 Other long term (current) drug therapy; Z79.52 Long term (current) use of systemic steroids; Z87.891 Personal history of nicotine dependence; Z82.49 Family history of ischemic heart disease and other diseases of the circulatory system

== ENCOUNTER 2017-08-04 06:08 | Inpatient (IN) | payer OTHER ==
[2017-07-06 11:06] VITALS: BMI 24.0
--- NOTE | 2017-07-06 11:41 | PAT Medication Instructions ---
Service Date Jul 06, 2017. Current Home Medication List Acetaminophen (Tylenol), 1,000 MG PO prn Ferrous Sulfate (Kp Ferrous Sulfate), 1 TAB PO BID Finasteride (Proscar), 5 MG PO HS Folic Acid (Folic Acid), 1 TAB PO QAM Leflunomide (Arava), 20 MG PO HS Multivitamin (Multivitamin), 1 TABLET PO QAM Omeprazole (Prilosec), 20 MG PO QAM Prednisone (Prednisone), 5 MG PO QAM Pseudoephedrine Hcl (Sudafed Nasal Decongestan), 1 TAB PO prn Terazosin Hcl (Hytrin), 10 MG PO HS Medication Instructions For Your Scheduled Surgery - Hold the following medications the morning of surgery: Folic Acid (Folic Acid), 1 TAB PO QAM Multivitamin (Multivitamin), 1 TABLET PO QAM Pseudoephedrine Hcl (Sudafed Nasal Decongestan), 1 TAB PO prn Ferrous Sulfate (Kp Ferrous Sulfate), 1 TAB PO BID - Take the following medications the morning of surgery with a sip of water OTHERWISE NOTHING TO EAT OR DRINK AFTER MIDNIGHT: Omeprazole (Prilosec), 20 MG PO QAM Prednisone (Prednisone), 5 MG PO QAM Acetaminophen (Tylenol), 1,000 MG PO prn (may take if needed up to 4 hours prior to surgery) - Take the following medications as scheduled the night before surgery: Leflunomide (Arava), 20 MG PO HS Finasteride (Proscar), 5 MG PO HS Terazosin Hcl (Hytrin), 10 MG PO HS Acetaminophen (Tylenol), 1,000 MG PO prn Pseudoephedrine Hcl (Sudafed Nasal Decongestan), 1 TAB PO prn Ferrous Sulfate (Kp Ferrous Sulfate), 1 TAB PO BID If you have any questions please call us at [phone] or [phone] or [phone]
[2017-07-06 12:56] LABS: BASO % 0.3 %; BASO ABS # 0.02 K/uL (0-0.2); COMPLETE YES; EOS % 0.7 %; HEMATOCRIT 33.6 % (42-52); IG% 0.4 %; LYMPH % 9.7 %; LYMPH ABS # 0.68 K/uL (1.2-3.4); MEAN CELL VOLUME 88.9 fL (80-100); MEAN CORPUSCULAR HEMOGLOBIN 26.2 pg (25-34); MEAN CORPUSCULAR HGB CONC 29.5 g/dl (32-36); MEAN PLATELET VOLUME 9.9 fL (7.4-10.4); NEUT % 84.9 %; PLATELET COUNT 205 K/uL (130-400); RED BLOOD COUNT 3.78 M/uL (4.7-6.1); WHITE BLOOD COUNT 7.03 K/uL (4.8-10.8)
[2017-07-06 13:05] LABS: PARTIAL THROMBOPLASTIN RATIO 1.3; PROTHROMBIN TIME (PATIENT) 10.4 SECONDS (9.0-12.0)
[2017-07-06 13:14] LABS: URINE APPEARANCE CLEAR (CLEAR); URINE BILIRUBIN NEG (NEG); URINE COLOR YELLOW; URINE NITRITE NEG (NEG); URINE PH 5.5 (4.5-7.5); URINE SPECIFIC GRAVITY 1.017 (1.000-1.030); UROBILINOGEN NEG (NEG); ZZUR CULT IF INDIC CLEAN CATCH NO
[2017-07-06 13:19] LABS: MANUAL MICROSCOPIC REQUIRED? NO; REVIEW REQ? NO
[2017-07-06 13:29] LABS: ESTIMATED AVERAGE GLUCOSE 103 mg/dl; HA1C FLAG Normal (Normal)
--- NOTE | 2017-08-03 20:12 | HISTORY & PHYSICAL EXAMINATION ---
DATE OF ADMISSION: 08/04/2017 CHIEF COMPLAINT: Chronic left knee pain. HISTORY OF PRESENT ILLNESS: This is a 77-year-old male patient of Dr. Mendoza'becki complaining of chronic left knee pain, longstanding, now progressively getting worse. The patient has failed conservative treatment including intraarticular injections, anti-inflammatories, narcotics, and the use of a brace and a cane. The patient has increased pain with weightbearing activities and his pain does interfere with his activities of daily living. PAST MEDICAL HISTORY: Osteoarthritis, rheumatoid arthritis, acid reflux, BPH. PAST SURGICAL HISTORY: Left shoulder, right shoulder, hernia, right hip replacement, right carpal tunnel and vocal cord nodule surgery. REVIEW OF SYSTEMS: The patient complains of chronic left knee pain, otherwise denies any shortness of breath, chest pain, nausea, vomiting or any other joint complaints. FAMILY HISTORY: Noncontributory. MEDICATIONS: Include terazosin 10 mg daily, finasteride 5 mg daily, Tylenol as needed, iron 325 mg daily, Prilosec 10 mg daily, Folic acid 1 mg daily, leflunomide 20 mg daily, Prednisone 5 mg daily. ALLERGIES: No known drug allergies. PHYSICAL EXAMINATION: GENERAL: Well-developed, well-nourished 77-year-old male in no acute distress. He is alert and oriented x3 and pleasant. HEENT: Normocephalic, atraumatic. Extraocular motions are intact. Pupils are equal and reactive to light. HEART: Regular rate and rhythm. No murmurs are appreciated. LUNGS: Clear. ABDOMEN: Soft and nontender, bowel sounds are present. EXTREMITIES: Left knee reveals a varus deformity with mild effusion. He has medial joint line tenderness. He has crepitation with passive range of motion. He has 5/5 strength. NEUROLOGIC: Neurovascularly he is intact in his left lower extremity. DIAGNOSES: Left knee end-stage osteoarthritis, rheumatoid arthritis, acid reflux, benign prostate hypertrophy. PLAN: The patient was advised of his diagnosis. Indications, risks, benefits, and postop course have all been reviewed. The patient wishes to proceed with a left total knee arthroplasty. Necessary consent forms, preoperative testing and clearances will be obtained.
[2017-08-04] VITALS (9 sets, daily range): BP systolic 134–164; BP diastolic 75–94; PULSE 64–93; TEMP 36.3–36.7; O2SAT 93–98; Ht 165.1 cm; Wt 68.4 kg
[~2017-08-04] VITALS: Ht 165.1 cm; Wt 68.4 kg
[~2017-08-04 06:08] MED LIST changes: -ACET-1222 PO; +ACET-1256 PO; -BUPIVACAINE 0.5 % 5 MG/1 ML PF 10ML VIAL ONE; +CEFAZOLIN 1000MG IV PUSH 5 ML IV SCH; -CEFAZOLIN 1000MG/55 ML D5W 55 ML IV SCH; +HYDROCORTISONE IV 100 MG in SYRINGE 0 ML IV SCH; +LEFL20TA PO; -METH2.5T PO; +PRED-301 PO; -PSEU30TA20 PO; +PSEU30TA3 PO; +ROPIVACAINE 5MG/ML 30 ML 150 MG, BUPIVACAINE 0.5% MPF INJ 30 ML, EpINEphrine HCL INJ 0.... INFIL SCH; -ROPIVACAINE 5MG/ML 30 ML 150 MG, BUPIVACAINE/EPINEPHR 0.5% MPF 30 ML, KETOROLAC TROMETH... INFIL SCH; -TRAM-10 PO
[2017-08-04] MEDS ORDERED: BUPIVACAINE 0.5 % 5 MG/1 ML PF 10ML VIAL ONE (06:25)
[2017-08-04] MEDS ORDERED: BUPIVACAINE 0.25% 30 ML VIAL ONE (06:25)
[2017-08-04] MEDS ORDERED: EpINEphrine INJ 1MG/ML AMP 1 MG/ML AMP ONE (06:26)
[2017-08-04] MEDS ORDERED: DEXAMETHASONE SOD INJ 4 MG/ML VIAL ONE (06:26)
[2017-08-04] MEDS ORDERED: POVIDONE-IODINE OP SOLN 30 ML BTL ONE (06:53)
[2017-08-04] MEDS ORDERED: BACITRACIN 50000 UNIT VIAL ONE (06:53)
[2017-08-04] MEDS ORDERED: ORTHO JOINT ANESTHETIC ONE (06:53)
[2017-08-04] MEDS ORDERED: DOCU-94 PO (07:00)
[2017-08-04] MEDS: TRANEXAMIC ACID INJ 1,000 MG in SYRINGE 0 ML IV SCH ×2 (07:03→11:23)
[2017-08-04] MEDS ORDERED: MIDAZOLAM HCL 1 MG/ML 2ML VIAL ONE (07:24)
[2017-08-04] MEDS ORDERED: FENTANYL CITRATE INJ 50 MCG/1 ML 2 ML VIAL ONE (07:24)
[2017-08-04] MEDS ORDERED: LIDOCAINE HCL 2% 2 ML VIAL (20MG/ML) ONE ×2 (07:25→10:23)
[2017-08-04] MEDS ORDERED: PROPOFOL IV EMULSION 10 MG/ML 20 ML VIAL IV ONE ×2 (07:25→10:23)
[2017-08-04] MEDS ORDERED: FENTANYL CITRATE INJ 50 MCG/1 ML 2 ML VIAL IV PRN (08:15)
[2017-08-04] MEDS ORDERED: EpHEDrine SULFATE INJ 50 MG/ML AMP IV PRN (08:15)
[2017-08-04] MEDS ORDERED: ONDANSETRON INJ 2 MG/ML 2 ML VIAL IV PRN ×2 (08:15→10:45)
[2017-08-04] MEDS ORDERED: ATROPINE SULFATE 0.1 MG/ML 5ML SYR IV PRN (08:15)
--- NOTE | 2017-08-04 10:05 | [facility] Post Operative Brief Note ---
Immediate Operative Summary Operative Date Aug 04, 2017. Pre-Operative Diagnosis Left Knee End-Stage Osteoarthritis Post-Operative Diagnosis Same Procedure(s) Performed Left Total Knee Arthroplasty Surgeon Dr. Javy Mendoza Childcare Worker Surgeon(s) Sourav Botello PA-C Estimated Blood Loss 10 ML Findings tricompartmental djd oa varus grade 4 medial Specimens A. Left Knee Bone and Tissue Drains 2 hemovac Anesthesia spinal sedation adductor block and orthomix Complication(s) None Disposition Recovery Room / PACU
[2017-08-04] MEDS ORDERED: MAGNESIUM HYDROXIDE SUSP 30 ML UDC PO PRN (10:45)
[2017-08-04] MEDS ORDERED: ALUMINUM/MAGNESIUM/SIMETH (MAALOX MAX) 30 ML UDC PO PRN (10:45)
--- NOTE | 2017-08-04 11:01 | DIAGNOSTIC IMAGING REPORT ---
LEFT KNEE 2 VIEWS History: Left total knee arthroplasty. Degenerative arthritis. Postop. FINDINGS: The patient is status post a left total knee arthroplasty. The hardware is intact. No fracture or dislocation. Skin corinne and surgical drains are in place. IMPRESSION: Left total knee arthroplasty. No evidence for hardware complication. Electronically signed by: Delfino Ruelas M.D. 08/04/2017 10:59 AM Dictated Date/Time: 08/04/2017 10:59 AM
--- NOTE | 2017-08-04 11:27 | Anesthesiology Progress Note ---
Anesthesia Post Op Note Date & Time Aug 04, 2017 at 11:27 Vital Signs Pain Intensity: 0 Vital Signs Past 12 Hours Date Time Temp Pulse Resp B/P (MAP) Pulse Ox O2 Delivery O2 Flow Rate FiO2 08/04/17 11:15 36.4 63 12 144/80 100 Nasal Cannula 2 08/04/17 11:00 66 12 140/84 99 Nasal Cannula 2 08/04/17 10:50 69 14 145/79 97 Nasal Cannula 2 08/04/17 10:40 73 12 138/81 99 Nasal Cannula 2 08/04/17 10:30 36.0 80 15 137/78 98 Nasal Cannula 2 08/04/17 06:45 36.7 93 20 163/94 95 Room Air Notes Mental Status: alert / awake / arousable, participated in evaluation Pt Amnestic to Procedure: Yes Nausea / Vomiting: adequately controlled Pain: adequately controlled Airway Patency, RR, SpO2: stable & adequate BP & HR: stable & adequate Hydration State: stable & adequate Anesthetic Complications: no major complications apparent
[2017-08-04] MEDS: TRAMADOL HCL 50 MG TAB PO PRN ×2 (13:08→19:29)
--- NOTE | 2017-08-04 13:12 | Medical Consult ---
Consultation Date of Consultation: Aug 04, 2017. Attending Physician: Javy Mendoza M.D. Reason for Consultation: Post Op Medical Management History of Present Illness 77 year old male who is s/p left knee replacement today by Dr. Mendoza. Post op the patient is doing well. He reports his pain is well controlled. He reports some mild residual numbness to the BLLE. He denies chest pain and shortness of breath. No abdominal pain, nausea, or vomiting. He denies lightheadedness and dizziness. Past Medical/Surgical History Medical Problems: (1) BPH (benign prostatic hyperplasia) Status: Chronic (2) Chronic anemia Status: Chronic (3) Renal cyst Status: Chronic (4) Rheumatoid arthritis Status: Chronic Surgical Problems: (1) H/O inguinal hernia repair Status: Chronic (2) History of left knee replacement Status: Chronic (3) History of right hip replacement Status: Chronic (4) Hx of nasal septoplasty Status: Chronic (5) S/P carpal tunnel release Status: Chronic (6) S/P rotator cuff repair Status: Chronic Family History FH: CAD (coronary artery disease) BROTHER Social History Smoking Status: Former Smoker Alcohol Use: occasionally Allergies Coded Allergies: Lisinopril (Verified Adverse Reaction, Mild, COUGH, 08/04/17) Home Medications Colace (Docusate Sodium) 100 Mg Cap 1 Cap PO HS 15 Days Sudafed Nasal Decongestan (Pseudoephedrine Hcl) 30 Mg Tab 1 Tab PO PRN 10 Days Tylenol (Acetaminophen) 500 Mg Tab 1,000 Mg PO PRN Prednisone 5 Mg Tab 5 Mg PO QAM Arava (Leflunomide) 20 Mg Tab 20 Mg PO HS Kp Ferrous Sulfate (Ferrous Sulfate) 325 Mg Tab 1 Tab PO BID 30 Days Folic Acid 1 Mg Tab 1 Tab PO QAM Prilosec (Omeprazole) 20 Mg Capcr 20 Mg PO QAM Proscar (Finasteride) 5 Mg Tab 5 Mg PO HS Multivitamin (Multivitamins) Tab 1 Tablet PO QAM Hytrin (Terazosin Hcl) 10 Mg Cap 10 Mg PO HS Current Inpatient Medications Current Inpatient Medications Medications (Trade) Dose Ordered Sig/Yrn Route Start Time Stop Time Status Last Admin Dose Admin Lactated Ringer's 1,000 ml @ 60 mls/hr [id number] IV 08/04/17 06:00 08/04/17 22:39 Cefazolin Sodium 5 ml @ 1.667 mls/ min PREOP IV 08/04/17 06:00 08/04/17 18:00 08/04/17 08:37 1.667 MLS/MIN Acetaminophen (Tylenol Tab) 1,000 mg PREOP PO 08/04/17 06:00 08/04/17 18:00 08/04/17 07:02 1,000 MG Celecoxib (CeleBREX CAP) 200 mg PREOP PO 08/04/17 06:00 08/04/17 18:00 08/04/17 07:02 200 MG Dexamethasone (Decadron Tab) 8 mg PREOP PO 08/04/17 06:00 08/04/17 18:00 08/04/17 07:02 8 MG Famotidine (Pepcid Tab) 20 mg PREOP PO 08/04/17 06:00 08/04/17 18:00 08/04/17 07:02 20 MG Gabapentin (Neurontin Cap) 300 mg PREOP PO 08/04/17 06:00 08/04/17 18:00 08/04/17 07:01 300 MG Metoclopramide HCl (Reglan Tab) 10 mg PREOP PO 08/04/17 06:00 08/04/17 18:00 08/04/17 07:02 10 MG Lactated Ringer's 1,000 ml @ 15 mls/hr Q24H IV 08/04/17 06:00 08/05/17 05:59 Fentanyl Citrate (Fentanyl Inj) 50 mcg Q5M PRN IV 08/04/17 08:15 08/04/17 13:15 Ondansetron HCl (Zofran Inj) 4 mg ONE PRN IV 08/04/17 08:15 08/04/17 13:15 Ephedrine Sulfate (EpHEDrine SULFATE INJ) 5 mg Q5M PRN IV 08/04/17 08:15 08/04/17 13:15 Atropine Sulfate (Atropine Sulfate 0.1MG/Ml Inj) 0.5 mg Q1M PRN IV 08/04/17 08:15 08/04/17 13:15 Finasteride (Proscar Tab) 5 mg HS PO 08/04/17 21:00 09/03/17 20:59 Prednisone (PredniSONE TAB) 5 mg QAM PO 08/05/17 09:00 09/04/17 08:59 Terazosin HCl (Hytrin Cap) 10 mg HS PO 08/04/17 21:00 09/03/17 20:59 Potassium Chloride/Dextrose/ Sod Cl 1,000 ml @ 100 mls/hr Q10H IV 08/04/17 13:15 08/05/17 10:31 Cefazolin Sodium 1000 mg/Syringe 5 ml @ 100 mls/hr Q8H IV 08/04/17 16:00 08/05/17 00:02 Ketorolac Tromethamine (Toradol Inj) 15 mg Q6H IV. 08/04/17 14:00 08/05/17 08:01 Acetaminophen/ Hydrocodone Bitart ([place] 5/325 Tab) 1 TABLET FOR PAIN RATING... Q4H PRN PO 08/04/17 10:45 08/18/17 10:44 Magnesium Hydroxide (Milk Of Magnesia Susp) 30 ml Q6H PRN PO 08/04/17 10:45 09/03/17 10:44 Senna (Senokot Tab) 17.2 mg HS PO 08/04/17 21:00 09/03/17 20:59 Docusate Sodium (coLACE CAP) 100 mg BID PO 08/04/17 21:00 09/03/17 20:59 Al Hydrox/Mg Hydrox/Simethicone (Maalox Max Susp) 15 ml Q4H PRN PO 08/04/17 10:45 09/03/17 10:44 Multivitamins (Multivitamin Tab) 1 tab QAM PO 08/05/17 09:00 09/04/17 08:59 Ondansetron HCl (Zofran Inj) 4 mg Q6H PRN IV 08/04/17 10:45 09/03/17 10:44 Ferrous Gluconate (Ferrous Gluconate Tab) 324 mg TIDM PO 08/04/17 17:45 09/03/17 17:44 Tramadol HCl (Ultram Tab) 1 tablet for pain rating... Q4H PRN PO 08/04/17 10:45 09/03/17 10:44 Aspirin (Ecotrin Tab) 81 mg BID PO 08/04/17 21:00 09/03/17 20:59 Ranitidine HCl (zANTac TAB) 150 mg BID PO 08/04/17 21:00 09/03/17 20:59 Review of Systems ROS per HPI, all other systems reviewed and negative Physical Exam Date Time Temp Pulse Resp B/P (MAP) Pulse Ox O2 Delivery O2 Flow Rate FiO2 08/04/17 12:35 36.3 71 18 134/83 (100) 96 Room Air 08/04/17 11:30 Nasal Cannula 2.0 08/04/17 11:30 36.6 70 16 138/78 (98) 96 Nasal Cannula 2.0 08/04/17 11:30 Nasal Cannula 08/04/17 11:15 36.4 63 12 144/80 100 Nasal Cannula 2 08/04/17 11:00 66 12 140/84 99 Nasal Cannula 2 08/04/17 10:50 69 14 145/79 97 Nasal Cannula 2 08/04/17 10:40 73 12 138/81 99 Nasal Cannula 2 08/04/17 10:30 36.0 80 15 137/78 98 Nasal Cannula 2 08/04/17 06:45 36.7 93 20 163/94 95 Room Air General Appearance: WD/WN, no apparent distress Head: normocephalic, atraumatic Eyes: normal inspection, EOMI, sclerae normal ENT: hearing grossly normal, + pertinent finding (mucous membranes moist) Neck: supple, no JVD, trachea midline Respiratory/Chest: lungs clear, normal breath sounds, no respiratory distress Cardiovascular: regular rate, rhythm, no edema, normal peripheral pulses Abdomen/GI: normal bowel sounds, non tender, soft, no organomegaly Extremities/Musculoskelatal: + pertinent finding (s/p left knee surgery, surgical dressing intact, drain in place draining bloody drainage, CSM checks intact to LLE) Neurologic/Psych: no motor/sensory deficits, alert, normal mood/affect, oriented x 3 Skin: normal color, warm/dry Assessment & Plan S/P LEFT TKA - POD#0 - activity and wound care orders as per ortho - pain control with bowel regimen - PT/OT - monitor H/H for acute blood loss anemia and transfuse blood products PRN RHEUMATOID ARTHRITIS - continue chronic prednisone - leflunomide on hold due to recent surgery BPH - continue terazosin CHRONIC ANEMIA - monitor H/H - continue iron replacement DVT PROPHYLAXIS - ASA 81mg BID per ortho Thank you for this consultation. We will follow the patient with you during their hospital stay. You can reach a member of the [facility]ist Team 15/03 via pager @ . ADDENDUM: This is a 77 year old male with a PMH of Rheumatoid Arthritis on prednisone and leflunomide, BPH, chronic anemia - presents for a scheduled L TKA. Doing well post-operatively. Pain controlled drain is in place, draining blood we will monitor labs start prednisone, hold leflunomide for about a week DVT ppx - as per ortho
[2017-08-04] MEDS: D5W AND 1/2NSS + 20MEQ KCL 1,000 ML IV SCH ×2 (13:47→23:35)
[2017-08-04] MEDS: KETOROLAC TROMETHAMINE 15 MG/ML VIAL IV. SCH ×2 (13:49→22:05)
[2017-08-04] MEDS: CEFAZOLIN IV 1,000 MG in SYRINGE 0 ML IV SCH ×2 (16:30→23:35)
[2017-08-04] MEDS: FERROUS GLUCONATE 324 MG TAB PO SCH (19:28)
--- NOTE | 2017-08-04 20:36 | OPERATIVE REPORT ---
DATE OF OPERATION: 08/04/2017 INDICATION FOR PROCEDURE: The patient is a 77-year-old male who presents with chronic progressive osteoarthritis in his left knee. He has end-stage osteoarthritis and he has failed all conservative management including injections. He radiographically has [id number] in the medial compartment with a varus knee. He has a tight varus knee with a varus thrust when he walks with some dressing out of his MCL. He does have a little pseudolaxity on the medial side on exam as well. He does have tricompartmental DJD with [id number] to medial compartment with some minor bone loss. PREOPERATIVE DIAGNOSIS: End-stage osteoarthritis, left knee. POSTOPERATIVE DIAGNOSIS: Same. PROCEDURE: Left total knee arthroplasty. SURGEON: Dr. Mendoza. FORMS ANALYST: AMINA Sorto. ANESTHESIA: Spinal, adductor nerve block and Orthomix. OPERATIVE PROCEDURE: The patient was taken to the operating room and anesthetized under anesthesia as dictated. He was placed supine on the operating room table. Pneumatic tourniquet was placed into his left upper thigh. Left lower extremity was prepped and draped in sterile fashion. Exam was as per dictation. He had good range of motion. After his leg was prepped and draped, elevated and exsanguinated, the tourniquet was raised to 300 mmHg. An anterior incision was made across the left knee. Skin was incised sharply and subcutaneous flaps were elevated. He had some thickened prepatellar bursitis that was resected. The incision was made through medial retinaculum and was extended up in the mid third of the quadriceps tendon and extended down to the medial tibial tubercle. Intraarticular findings demonstrated a varus knee, grade 4 DJD, eburnated bone on medial sided. Tricompartmental areas of grade 4 DJD on the lateral femoral condyle, small areas of wear there down to grade 4, as well as the patella had area of grade 4 DJD on this well. There were tricompartmental osteophytes. The [employer] 2.0 total knee arthroplasty system was used using iCurrent MRI templating. Used template for a 6 femur, 5 tibia. The knee was exposed by excising the infrapatellar fat pad, excising the fat pad over the anterior femur just below the joint line for placement of the component in that area. The lateral synovial bands were released. The cruciate ligaments were resected. The meniscal remnants were resected. We had to do some releases around the medial and posteromedial knee because he had a tight medial compartment. The femur was exposed. The custom femoral cutting block was pinned in position and the distal femoral cut was made. The 5-1 cutting block was placed at the 6 femur component. Anterior and posterior chamfer cuts were made. The knee was then extended. A subperiosteal dissection was performed around the lateral patella and then the patella width was measured and width was reproduced using a 35 mm patellar component and drill holes were made for the patellar component. We used a free hand cut technique for the cut. The excess lateral facet was beveled off to prevent any impingement. Then the tibia was subluxed and the custom tibial cutting block was pinned in position and the proximal tibial cut was made. The size 5 tibial trial was externally rotated in line with the tibial tubercle, pinned in position and the punch for the stem was used. The 6 femoral trial was inserted, centered and the notch cutting devices were used. Collet was placed. We did a trial reduction and still too tight medially compared to his laterally because the lateral collateral ligaments were stretched out from his varus thrust. So, we went ahead and used the lamina unit nurse pie crusted the MCL, so just to get the ligaments in appropriate balance and then went ahead and did a 50 mm trial which gave him full extension, flexion and no midflexion instability and had full range of motion and stability. The patella tracked centrally. The trials were removed and then the anesthetic cocktail was injected per protocol. The knee was copiously irrigated with pulsatile lavage antibiotic solution with bacitracin. The bony surfaces were dried. The final components were cemented with Simplex G cement. Final components were a 6 Oxinium posterior stabilized [employer] 2.0 femur for the left knee the 5 tibial baseplate. The 15 high flex poly insert and 35 patella. While the cement cured, the Betadine soaked was used per protocol. Then after cement cured, the knee was copiously irrigated with pulsatile lavage antibiotic solution and bacitracin. Then, the quadriceps tendon and medial retinaculum were closed with interrupted [id number] #1 Vicryl sutures. Subcutaneous tissues closed with interrupted 2-0 Vicryl sutures. The skin was then closed with corinne, sterile dressings were applied and the patient tolerated the procedure well. AMINA Sorto was my server service assistant and he functioned as diver assistant through the entire procedure. He assisted in leg positioning, soft tissue retraction, instrument management, and he performed the fascial, subcutaneous and skin closure and will participate in postoperative care of the patient. I attest to the content of the Intraoperative Record and any orders documented therein. Any exception s are noted below.
[2017-08-04] MEDS: DOCUSATE SODIUM 100 MG CAP PO SCH (21:00)
[2017-08-04] MEDS: ASPIRIN 81 MG ECTAB PO SCH (22:02)
[2017-08-04] MEDS: FINASTERIDE 5 MG TAB PO SCH (22:03)
[2017-08-04] MEDS: SENNA 8.6 MG TAB PO SCH (22:04)
[2017-08-04] MEDS: RANITIDINE HCL 150 MG TAB PO SCH (22:04)
[2017-08-05] VITALS (8 sets, daily range): BP systolic 134–156; BP diastolic 72–91; PULSE 66–83; TEMP 36.6–36.7; O2SAT 93–97
[2017-08-05] MEDS: KETOROLAC TROMETHAMINE 15 MG/ML VIAL IV. SCH ×2 (01:36→08:09)
[2017-08-05 05:48] LABS: HEMATOCRIT 30.1 % (42-52); MEAN CELL VOLUME 84.1 fL (80-100); MEAN CORPUSCULAR HEMOGLOBIN 25.7 pg (25-34); MEAN CORPUSCULAR HGB CONC 30.6 g/dl (32-36); PLATELET COUNT 219 K/uL (130-400); RED BLOOD COUNT 3.58 M/uL (4.7-6.1); WHITE BLOOD COUNT 13.28 K/uL (4.8-10.8)
[2017-08-05 06:18] LABS: BUN/CREATININE RATIO 22.1 (10-20); CALCIUM 8.5 mg/dl (8.5-10.1); CREATININE 1.07 mg/dl (0.60-1.40); POTASSIUM 4.2 mmol/L (3.5-5.1)
[2017-08-05] MEDS: FERROUS GLUCONATE 324 MG TAB PO SCH ×3 (08:10→19:04)
[2017-08-05] MEDS: RANITIDINE HCL 150 MG TAB PO SCH ×2 (08:10→20:44)
[2017-08-05] MEDS: DOCUSATE SODIUM 100 MG CAP PO SCH ×2 (08:10→20:44)
[2017-08-05] MEDS: ASPIRIN 81 MG ECTAB PO SCH ×2 (08:10→20:44)
[2017-08-05] MEDS: MULTIVITAMIN TAB PO SCH (08:11)
[2017-08-05] MEDS: D5W AND 1/2NSS + 20MEQ KCL 1,000 ML IV SCH (09:03)
--- NOTE | 2017-08-05 10:29 | Orthopedic Progress Note ---
Orthopedic Progress Note Date of Service Aug 05, 2017. Subjective Post OP Day: 1 Reports: feeling well, pain controlled w PO medications, Denies: complaints, chest pain, SOB, nausea / vomiting, light headedness, calf pain Objective calves soft nontender, N/V intact, capillary refill less than 2 sec., dressing C /D/I, A&O x3, toes mobile Date Time Temp Pulse Resp B/P (MAP) Pulse Ox O2 Delivery O2 Flow Rate FiO2 08/05/17 07:00 36.7 81 18 156/72 (100) 95 Room Air 08/05/17 03:19 36.7 66 14 139/74 (95) 97 Room Air 08/04/17 23:53 36.5 64 16 146/75 (98) 94 Room Air 08/04/17 23:46 Room Air 08/04/17 18:44 36.6 70 18 155/87 (109) 96 Room Air 08/04/17 15:50 Room Air 08/04/17 14:50 36.5 67 18 149/83 (105) 93 Room Air 08/04/17 14:24 36.6 68 20 137/79 (98) 95 Room Air 08/04/17 13:34 36.5 75 19 152/84 (106) 95 Room Air 08/04/17 12:35 36.3 71 18 134/83 (100) 96 Room Air 08/04/17 12:00 36.4 71 19 164/88 (113) 98 Nasal Cannula 2.0 08/04/17 11:30 Nasal Cannula 2.0 08/04/17 11:30 36.6 70 16 138/78 (98) 96 Nasal Cannula 2.0 08/04/17 11:30 Nasal Cannula 08/04/17 11:15 36.4 63 12 144/80 100 Nasal Cannula 2 08/04/17 11:00 66 12 140/84 99 Nasal Cannula 2 08/04/17 10:50 69 14 145/79 97 Nasal Cannula 2 08/04/17 10:40 73 12 138/81 99 Nasal Cannula 2 08/04/17 10:30 36.0 80 15 137/78 98 Nasal Cannula 2 Laboratory Results 24 Hours: Test 08/05/17 05:30 Hematocrit 30.1 % Hemoglobin 9.2 g/dL Assessment & Plan Assessment: POD #1, Left TKA Plan: pt/ ot DVT Proph- ASA D/C planning- Home w HH As per medicine. Inhouse Planning Pain Management: [place] DVT Prophylaxis: TEDs, SCDs, ASA Discharge Planning Discharge Planning: home with home health Pain Management: [place] DVT Prophylaxis: TEDs, ASA Therapy: Physical Therapy, Occupational Therapy
[2017-08-05] MEDS: TRAMADOL HCL 50 MG TAB PO PRN ×2 (12:43→17:06)
--- NOTE | 2017-08-05 18:23 | Progress Note ---
Internal Med Progress Note Date of Service: Aug 05, 2017. Provider Documentation: SUBJECTIVE: no complain of SOB or chest pain no fever or chills minimum pain on left knee OBJECTIVE: Vital Signs-as noted below Exam: General-no sign of distress Eyes-sclera non icteric , PERRLA/EOMI ENT-moist oral mucosa , normal oropharynx Neck-trachea midline , no thyromegaly Lungs-clear to auscultate , no wheeze or rales Heart-regular S1/S2 Abdomen-soft, non tender Extremities-s/p left knee surgery Neuro-AAO x3, no focal neurological deficit Lab data as noted below. ASSESSMENT & PLAN: S/P LEFT TKA - POD# 1 -recovering well post op cont PT/OT further post op management as per Ortho RHEUMATOID ARTHRITIS - continue chronic prednisone - leflunomide on hold due to recent surgery -can be resumed one week post op BPH - continue terazosin CHRONIC ANEMIA - Hb at approx baseline - continue iron replacement DVT PROPHYLAXIS - ASA 81mg BID per ortho DISPOSITION per Primary team medically stable Vital Signs: Date Time Temp Pulse Resp B/P (MAP) Pulse Ox O2 Delivery O2 Flow Rate FiO2 08/06/17 08:21 36.8 89 16 95 Room Air 08/06/17 08:13 36.8 89 16 148/76 (100) 95 Room Air 08/06/17 08:00 95 Room Air 08/06/17 06:48 36.7 95 18 176/96 (122) 93 Room Air 08/05/17 23:30 Room Air 08/05/17 23:13 36.6 83 16 150/91 (110) 93 Room Air 08/05/17 20:02 95 Room Air 08/05/17 19:50 36.7 76 20 151/86 (107) 95 Room Air 08/05/17 15:58 36.7 68 20 134/76 (95) 93 Room Air 08/05/17 15:15 Room Air 08/05/17 11:37 36.6 69 18 143/76 (98) 95 Room Air Lab Results:
[2017-08-05] MEDS: HYDROCODONE/ACETAMOPHEN 5/325MG TAB PO PRN (20:10)
[2017-08-05] MEDS: SENNA 8.6 MG TAB PO SCH (20:45)
[2017-08-05] MEDS: FINASTERIDE 5 MG TAB PO SCH (20:45)
[2017-08-06] MEDS: TRAMADOL HCL 50 MG TAB PO PRN (06:42)
[2017-08-06 06:48] VITALS: BP 176/96; PULSE 95; TEMP 36.7; O2SAT 93
[2017-08-06] MEDS: HYDROCODONE/ACETAMOPHEN 5/325MG TAB PO PRN (07:56)
[2017-08-06] MEDS: FERROUS GLUCONATE 324 MG TAB PO SCH ×2 (07:57→12:20)
[2017-08-06 08:00] VITALS: O2SAT 95
[2017-08-06 08:13] VITALS: BP 148/76; PULSE 89; TEMP 36.8; O2SAT 95
[2017-08-06 08:21] VITALS: BP 148/76; PULSE 89; TEMP 36.8; O2SAT 95
--- NOTE | 2017-08-06 09:10 | Orthopedic Progress Note ---
Orthopedic Progress Note Date of Service Aug 06, 2017. Subjective Post OP Day: 2 Reports: feeling well, pain controlled w PO medications, Denies: complaints, chest pain, SOB, nausea / vomiting, light headedness, calf pain Objective calves soft nontender, N/V intact, capillary refill less than 2 sec., dressing C /D/I, A&O x3, toes mobile SILVERLON IN TACT Date Time Temp Pulse Resp B/P (MAP) Pulse Ox O2 Delivery O2 Flow Rate FiO2 08/06/17 08:21 36.8 89 16 95 Room Air 08/06/17 08:13 36.8 89 16 148/76 (100) 95 Room Air 08/06/17 08:00 95 Room Air 08/06/17 06:48 36.7 95 18 176/96 (122) 93 Room Air 08/05/17 23:30 Room Air 08/05/17 23:13 36.6 83 16 150/91 (110) 93 Room Air 08/05/17 20:02 95 Room Air 08/05/17 19:50 36.7 76 20 151/86 (107) 95 Room Air 08/05/17 15:58 36.7 68 20 134/76 (95) 93 Room Air 08/05/17 15:15 Room Air 08/05/17 11:37 36.6 69 18 143/76 (98) 95 Room Air Assessment & Plan Assessment: POD #2, Left TKA Plan: pt/ ot DVT Proph- ASA D/C planning- Home w HH TODAY As per medicine. Inhouse Planning Pain Management: Tra Bender DVT Prophylaxis: TEDs, SCDs, ASA Discharge Planning Discharge Planning: home with home health Pain Management: Nye DVT Prophylaxis: TEDs, ASA Therapy: Physical Therapy, Occupational Therapy
[2017-08-06] MEDS ORDERED: HYDR-5688 PO (09:13)
[2017-08-06] MEDS ORDERED: ASPEC81 PO (09:13)
--- NOTE | 2017-08-06 09:14 | Discharge Instructions ---
Discharge Instructions Date of Service Aug 06, 2017. Admission Reason for Admission: Left Knee Osteoarthritis Discharge Discharge Diagnosis / Problem: LEFT TKA Discharge Goals Goal(s): Improve function Activity Recommendations Activity Limitations: as noted below . Instructions / Follow-Up Instructions / Follow-Up ACTIVITY RECOMMENDATIONS: SELF CARE INSTRUCTIONS AFTER TOTAL KNEE REPLACEMENT A. You may need to continue a physical therapy program after discharge from the hospital. There are several options available to you. Your doctor will assist you in selecting the best one for you. 1. An out-patient facility 2 to 3 times a week for therapy or home therapy. 2. Continue working on all exercises taught to you in the hospital. Your goals should be to increase bending of your knee to 90 degrees and beyond and to fully straighten your knee. B. You may progress at your own pace from walking with a walker or crutches to a cane; then to no assistive devices. C. Make walking a part of your daily routine. Be up as much as comfortable with rest periods throughout the day. Rest with leg elevation is very important. Use the ice wrap frequently for the first 3-4 weeks. D. There are no restrictions on activities. You may ride in a car, shop, participate in journeyman carpenter and all social activities. E. Wear the long elastic stockings (MERVAT hose) 20 hours a day for 2 weeks after surgery. They can be removed several times a day for laundering and for a bath. F. You may shower, no tub baths until cleared by your doctor. SPECIAL CARE INSTRUCTIONS: VERY IMPORTANT TO READ AND REVIEW A. There are a few signs you need to watch for after you are home. Call [facility] if you notice any of the followin. Increased severe knee pain. Some pain is expected especially when you exercise. 2. Increased swelling in your leg or knee; pain or swelling of the calf muscle in either lower leg. 3. Any fluid drainage from the incision. 4. Shortness of breath or chest pain. B. Please call [facility] at if you have any concerns or questions about your operation or recovery. The doctor or his nurse will return your call promptly. C. You must take antibiotics before dental work, bladder, bowel or other surgery. Your doctor will provide you with a permanent care to carry describing this precaution. IMPORTANT: * REMEMBER TO TAKE ASPIRIN, 81 MG, TWICE DAILY FOR 4 WEEKS UNLESS OTHERWISE DIRECTED. THIS IS YOUR BLOOD THINNER. * HIGH RISK PATIENTS MAY BE PRESCRIBED A STRONGER BLOOD THINNER. THIS WILL BE PROVIDED AT DISCHARGE. * CALL IF INCREASED PAIN, REDNESS, DRAINAGE OR FEVER GREATER THAT 101. * WEAR MERVAT HOSE 20 HOURS PER DAY FOR 2 WEEKS. * YOU MAY HAVE A LARGE BAND-AID LIKE DRESSING (SILVERON). THIS WILL REMAIN ON YOUR INCISION FOR 7 DAYS, THEN CAN BE REMOVED. IF INCISION IS LEAKING THROUGH DRESSING, CALL THE OFFICE . FOLLOW UP VISIT: If appointment is not already scheduled: Please call [facility] to make a follow-up appointment for 2 weeks after your surgery at . Current Hospital Diet Patient's current hospital diet: Regular Diet Discharge Diet Recommended Diet: Regular Diet Procedures Procedures Performed: Left Total Knee Arthroplasty Pending Studies Studies pending at discharge: no Laboratory Results Hemoglobin A1c Test 07/06/17 11:51 Range/Units Estimated Average Glucose 103 mg/dl Hemoglobin A1c 5.2 4.5-5.6 % Medical Emergencies . Who to Call and When: Medical Emergencies: If at any time you feel your situation is an emergency, please call 911 immediately. . Non-Emergent Contact Non-Emergency issues call your: Primary Care Provider . "Provider Documentation" section prepared by Carlos Dunlap. . VTE Core Measure Inpt VTE Proph given/why not?: Other Anticoagulation (ASA), T.E.D. Stockings, SCD's [place] Drug Monitoring Program Search Results: patient reviewed within database, no issues identified
[2017-08-06] MEDS: ASPIRIN 81 MG ECTAB PO SCH (09:32)
[2017-08-06] MEDS: RANITIDINE HCL 150 MG TAB PO SCH (09:32)
[2017-08-06] MEDS: DOCUSATE SODIUM 100 MG CAP PO SCH (09:32)
[2017-08-06] MEDS: MULTIVITAMIN TAB PO SCH (09:32)
[2017-08-06 09:39] VITALS: O2SAT 95
--- NOTE | 2017-08-06 11:25 | DISCHARGE SUMMARY ---
DISCHARGE DIAGNOSIS: Degenerative joint disease left knee. SECONDARY DIAGNOSES: Rheumatoid arthritis, GERD, BPH, osteoarthritis. CONSULTS: AMARJIT Mendieta/Dr. Nicola DO. COMPLICATIONS: None. PROCEDURES: Left total knee arthroplasty performed by Dr. Mendoza in 08/04/2017. BRIEF HISTORY: As dictated in history and physical. HOSPITAL SUMMARY: The patient was admitted on the above-noted date and had the above-noted surgery performed which the patient tolerated well. On first postoperative day, he was feeling well and pain was controlled and had no complaints. Calves were soft, nontender, neurovascularly intact. Dressings clean, dry and intact. Toes were mobile. Vital signs were stable. He was afebrile. Hemoglobin was 9.2. He had mild increase in his systolic blood pressure which was treated accordingly by medicine service. By his second postoperative day, he was feeling well, pain was controlled, calves were soft, nontender, neurovascularly intact. Dressings clean, dry and intact. Toes were mobile. Vital signs were stable. He was afebrile. He was progressing well with his physical therapy and remained medically stable and it was felt that he could be discharged to home with home health services. For further review, please see chart. LAB AND X-RAY DATA: As per chart. DISCHARGE INSTRUCTIONS: The patient was discharged to home in satisfactory condition on 08/06/2017. DIET: Regular. ACTIVITY: Follow TKA instruction sheets and special care instructions as noted. Follow up with Dr. Mendoza in 2 weeks. The patient to call for appointment if one has not been made for you. DISCHARGE MEDICATIONS: Aspirin 81 mg p.o. b.i.d., [place] 5/325 1-2 tabs p.o. q. 4 hours p.r.n. Resume home meds as listed and stop taking Tylenol at home.
== END 2017-08-06 12:21 | disposition home health service (06) | DRG 470 ==
LOC: C.ACU 06:08 → C.3E 06:30 → ENRESERV 10:55
PROVIDERS: ADMIT Orthopaedic Surgery Sports Medicine; ATTEND Orthopaedic Surgery Sports Medicine
PROC: 0SRD0J9 Replacement of Left Knee Joint with Synthetic Substitute, Cemented, Open Approach (ICD-10-PCS; principal; 2017-08-04 08:30)
DX: M17.12 Unilateral primary osteoarthritis, left knee (principal); K21.9 Gastro-esophageal reflux disease without esophagitis; N40.0 Benign prostatic hyperplasia without lower urinary tract symptoms; M06.9 Rheumatoid arthritis, unspecified; D64.9 Anemia, unspecified; Z79.52 Long term (current) use of systemic steroids; Z79.899 Other long term (current) drug therapy; Z87.891 Personal history of nicotine dependence

== ENCOUNTER → 2017-10-08 | Outpatient (CLI) | payer OTHER ==
[~2017-10-08] MED LIST changes: -ACET-1256 PO; -ACETAMINOPHEN 500 MG TAB PO SCH; +ASPEC81 PO; -CEFAZOLIN 1000MG IV PUSH 5 ML IV SCH; -CeleBREX 200 MG CAP PO SCH; -DEXAMETHASONE 4 MG TAB PO SCH; +DOCU-94 PO; -FAMOTIDINE 20 MG TAB PO SCH; -GABAPENTIN 300 MG CAP PO SCH; +HYDR-5688 PO; -HYDROCORTISONE IV 100 MG in SYRINGE 0 ML IV SCH; -LACTATED RINGER'S 1000ML 1,000 ML IV SCH; -LACTATED RINGER'S 1000ML 500 ML IV ONE; -LACTATED RINGER'S 1000ML IV SCH; -METOCLOPRAMIDE HCL 10 MG TAB PO SCH; -ROPIVACAINE 5MG/ML 30 ML 150 MG, BUPIVACAINE 0.5% MPF INJ 30 ML, EpINEphrine HCL INJ 0.... INFIL SCH
[2017-10-08 13:24] LABS: BLOOD UREA NITROGEN 47 mg/dl (7-18); CALCIUM 9.2 mg/dl (8.5-10.1); CARBON DIOXIDE 25 mmol/L (21-32); CREATININE 2.49 mg/dl (0.60-1.40); GLUCOSE 99 mg/dl (70-99); POTASSIUM 3.6 mmol/L (3.5-5.1); SODIUM 140 mmol/L (136-145)
== END | disposition home or self-care (01) ==
LOC: C.LABMFLN 09:05
PROVIDERS: ATTEND Family Medicine
DX: N17.9 Acute kidney failure, unspecified (principal)

== ENCOUNTER 2017-10-17 11:42 | Inpatient (IN) | payer OTHER ==
[~2017-10-17] VITALS: Ht 165.1 cm; Wt 65.7 kg
[2017-10-17] MEDS ORDERED: ACET325T82 PO (12:23)
[2017-10-17] MEDS ORDERED: METO25TA56 PO (12:23)
[2017-10-17] MEDS ORDERED: PRED20TA PO (12:23)
[2017-10-17] MEDS ORDERED: ASCO500T16 PO (12:23)
[2017-10-17] MEDS ORDERED: TAMS0.4C38 PO (12:23)
[2017-10-17] MEDS ORDERED: POTA10CA28 PO (12:23)
[2017-10-17] MEDS ORDERED: RANI150T85 PO (12:23)
[2017-10-17] MEDS ORDERED: TYLOTC500 PO (12:25)
[2017-10-17] MEDS ORDERED: HYDROCODONE/ACETAMIN 5/325MG TAB PO STA (13:26)
[2017-10-17 13:36] LABS: EOS % 0.1 %; EOS ABS # 0.02 K/uL (0-0.5); HEMATOCRIT 32.1 % (42-52); HEMOGLOBIN 10.1 g/dL (14.0-18.0); IG# 0.09 K/uL (0.00-0.02); LYMPH % 2.7 %; LYMPH ABS # 0.56 K/uL (1.2-3.4); MEAN CELL VOLUME 84.3 fL (80-100); MEAN CORPUSCULAR HEMOGLOBIN 26.5 pg (25-34); MEAN CORPUSCULAR HGB CONC 31.5 g/dl (32-36); MEAN PLATELET VOLUME 10.3 fL (7.4-10.4); MONO % 4.4 %; MONO ABS # 0.91 K/uL (0.11-0.59); NEUT % 92.4 %; NEUT ABS # 19.33 K/uL (1.4-6.5); PLATELET COUNT 182 K/uL (130-400); RED CELL DISTRIBUTION WIDTH CV 23.5 % (11.5-14.5); WHITE BLOOD COUNT 20.91 K/uL (4.8-10.8)
[2017-10-17 13:49] LABS: CREATININE 2.11 mg/dl (0.60-1.40); POTASSIUM 4.2 mmol/L (3.5-5.1)
[2017-10-17] MEDS ORDERED: CEFTRIAXONE SOD INJ 1 GM ADDVIAL IV STA (14:24)
--- NOTE | 2017-10-17 14:59 | EMERGENCY ROOM VISIT NOTE ---
History First contact with patient: 13:10 Chief Complaint: FLANK PAIN Stated Complaint: RECENT ACUTE RENAL FAILURE,SEVERE LEFT FLANK PAIN History of Present Illness The patient is a 77 year old male who presents to the Emergency Room with complaints of left back pain. The patient was recently hospitalized at [facility] for acute renal failure from September 24 - October 06. His also states that she thinks he had a UTI at that time. She does not know what antibiotic he was on. She states that his urine has cleared but he has a catheter in place and she noticed over the past 2 days that the urine looks more red and has sediment in the urine. The home health nurse did a urine micral on him yesterday and it revealed positive blood positive nitrates and positive leukocytes. This was sent to his family physician, Dr. Calvo but since it was a week and it was not addressed yet. The patient also states that he has some burning sensation over the suprapubic region. Due to having the catheter he cannot say if he is having urgency or frequency. The patient denies any fever. The also stated that he had repeat labs done on October 14 and she thinks his creatinine was 2 but does not know what his BUN was at that time. He was taking 60 mg of prednisone daily but just dropped down to 40 mg daily. He has been seeing Dr. Vargas, nephrology but the states they would like to get switched over to a mammal control agent with [facility] since he is being switched over to Dr. Garcia and Dr. salmeron at [facility] urology and has an appointment set up on Wednesday. This is for his prostate. Since her family doctor is Dr. Calvo, [facility] physician group they would like to get all their physicians within [facility] group. Review of Systems 10 system review was performed and was negative unless stated otherwise history of present illness. Past Medical/Surgical History Medical Problems: (1) BPH (benign prostatic hyperplasia) (2) Chronic anemia (3) Renal cyst (4) Rheumatoid arthritis Surgical Problems: (1) H/O inguinal hernia repair (2) History of left knee replacement (3) History of right hip replacement (4) Hx of nasal septoplasty (5) S/P carpal tunnel release (6) S/P rotator cuff repair Acute renal failure Family History FH: CAD (coronary artery disease) BROTHER Social History Smoking Status: Former Smoker Alcohol Use: none Marital Status: Housing Status: lives with family Occupation Status: retired Current/Historical Medications Scheduled Ascorbic Acid (Ascorbic Acid), Unknown Dose PO BID Aspirin (Aspirin EC Low Dose), 81 MG PO BID Docusate Sodium (Colace), 1 CAP PO HS Ferrous Sulfate (Kp Ferrous Sulfate), 1 TAB PO BID Finasteride (Proscar), 5 MG PO HS Folic Acid (Folic Acid), 1 TAB PO QAM Metoprolol Tartrate (Lopressor) (Lopressor), 25 MG PO DAILY Multivitamin (Multivitamin), 1 TABLET PO QAM Omeprazole (Prilosec), 20 MG PO QAM Potassium Chloride (Micro-K Ext Rel), 20 MEQ PO BID Prednisone (Prednisone), 40 MG PO DAILY Ranitidine (Zantac), 150 MG PO BID Tamsulosin Hcl (Flomax), 0.4 MG PO DAILY Scheduled PRN Acetaminophen (Tylenol), 1,000 MG PO UD PRN for Pain Physical Exam Vital Signs Date Time Temp Pulse Resp B/P (MAP) Pulse Ox O2 Delivery O2 Flow Rate FiO2 10/17/17 13:43 78 18 161/62 95 Room Air 10/17/17 11:47 36.6 74 20 183/88 98 Room Air Physical Exam GENERAL: 77-year-old male appears in no acute distress. MENTAL Status: Alert and oriented 3. MOUTH: Mucosa is moist NECK: Supple, no lymphadenopathy noted. No carotid bruits noted. LUNGS: Clear auscultation without wheezes rales or rhonchi. CARDIAC: Regular rate and rhythm without murmur. Pulses is full and equal throughout. BACK: Left CVA tenderness noted. ABDOMEN: Positive bowel sounds all 4 quadrants. Soft, mild tenderness palpation over the suprapubic region and left lower quadrant otherwise nontender to palpation without organomegaly or masses. EXTREMITIES: No cyanosis or edema noted. Medical Decision & Procedures Laboratory Results 10/17/17 13:15 Red Blood Count 3.81, Mean Corpuscular Volume 84.3, Mean Corpuscular Hemoglobin 26.5, Mean Corpuscular Hemoglobin Concent 31.5, Mean Platelet Volume 10.3, Neutrophils (%) (Auto) 92.4, Lymphocytes (%) (Auto) 2.7, Monocytes (%) (Auto) 4.4, Eosinophils (%) (Auto) 0.1, Basophils (%) (Auto) 0.0, Neutrophils # (Auto) 19.33, Lymphocytes # (Auto) 0.56, Monocytes # (Auto) 0.91, Eosinophils # (Auto) 0.02, Basophils # (Auto) 0.00 10/17/17 13:15 Test 10/17/17 13:15 10/17/17 14:08 White Blood Count 20.91 K/uL (4.8-10.8) Red Blood Count 3.81 M/uL (4.7-6.1) Hemoglobin 10.1 g/dL (14.0-18.0) Hematocrit 32.1 % (42-52) Mean Corpuscular Volume 84.3 fL (80-100) Mean Corpuscular Hemoglobin 26.5 pg (25-34) Mean Corpuscular Hemoglobin Concent 31.5 g/dl (32-36) Platelet Count 182 K/uL (130-400) Mean Platelet Volume 10.3 fL (7.4-10.4) Neutrophils (%) (Auto) 92.4 % Lymphocytes (%) (Auto) 2.7 % Monocytes (%) (Auto) 4.4 % Eosinophils (%) (Auto) 0.1 % Basophils (%) (Auto) 0.0 % Neutrophils # (Auto) 19.33 K/uL (1.4-6.5) Lymphocytes # (Auto) 0.56 K/uL (1.2-3.4) Monocytes # (Auto) 0.91 K/uL (0.11-0.59) Eosinophils # (Auto) 0.02 K/uL (0-0.5) Basophils # (Auto) 0.00 K/uL (0-0.2) RDW Standard Deviation 70.0 fL (36.4-46.3) RDW Coefficient of Variation 23.5 % (11.5-14.5) Immature Granulocyte % (Auto) 0.4 % Immature Granulocyte # (Auto) 0.09 K/uL (0.00-0.02) Anisocytosis PRESENT Anion Gap 7.0 mmol/L (3-11) Est Creatinine Clear Calc Drug Dose 25.5 ml/min Estimated GFR () 34.0 Estimated GFR (Non- 29.3 BUN/Creatinine Ratio 23.4 (10-20) Calcium Level 9.0 mg/dl (8.5-10.1) Urine Color DK YELLOW Urine Appearance CLOUDY (CLEAR) Urine pH 8.5 (4.5-7.5) Urine Specific [place] 1.016 (1.000-1.030) Urine Protein 1+ (NEG) Urine Glucose (UA) NEG (NEG) Urine Ketones NEG (NEG) Urine Occult Blood 3+ (NEG) Urine Nitrite POS (NEG) Urine Bilirubin NEG (NEG) Urine Urobilinogen NEG (NEG) Urine Leukocyte Esterase LARGE (NEG) Urine WBC (Auto) >30 /hpf (0-5) Urine RBC (Auto) >30 /hpf (0-4) Urine Hyaline Casts (Auto) 1-5 /lpf (0-5) Urine Epithelial Cells (Auto) 0-5 /lpf (0-5) Urine Bacteria (Auto) 1+ (NEG) Medications Administered Medications (Trade) Dose Ordered Sig/Yrn Route Start Time Stop Time Status Last Admin Dose Admin Acetaminophen/ Hydrocodone Bitart ([place] 5/325 Tab) 1 tab NOW STAT PO 10/17/17 13:26 10/17/17 13:30 DC 10/17/17 13:37 1 TAB ED Course The patient was evaluated. Patient is EMR medication list were reviewed. The patient's last renal profile that we have on record here from October 08, 2017 reveal a BUN of 47 and a creatinine of 2.49. I am having the machine adjuster leader case trim get the recent records from [facility] for his recent hospitalization from September 24 - October 06. IV access was obtained. CBC and renal profile was ordered. Urinalysis and culture was also ordered. The patient was given [place] 5/325 mg 1 tablet p.o. for pain. Labs are reviewed. The patient's white count was elevated at 20,000. His BUN was 49 and creatinine 2.11. Urinalysis revealed positive leukocytes, positive blood positive nitrates and positive bacteria. Culture is pending. Blood cultures were ordered. Lactic acid was ordered. The patient was given Rocephin 1 g IV. The patient was independently evaluated by Dr. Padilla who agreed with treatment plan. The patient was informed of all findings. The hospitalist was consulted for admission. Medical Decision Differential diagnoses include UTI, pyelonephritis, sepsis, ureteral calculi, acute renal failure Due to the patient's recent history of hospitalization with acute renal failure and UTI my suspicions were high for the same at this time. [place] Drug Monitoring Program Search Results: patient reviewed within database Medication Reconcilliation Current Medication List: was personally reviewed by me Blood Pressure Screening Patient's blood pressure: Elevated blood pressure Blood pressure disposition: Elevated BP felt to be situational Impression Primary Impression: Urinary tract infection Additional Impressions: Acute renal failure Leukocytosis Departure Information Dispostion Being Evaluated By Hospitalist Condition GOOD Referrals Haider Calvo M.D. (PCP) Patient Instructions [facility] Problem Qualifiers Primary Impression: Urinary tract infection Urinary tract infection type: acute cystitis Hematuria presence: with hematuria Qualified Codes: N30.01 - Acute cystitis with hematuria Additional Impressions: Acute renal failure Acute renal failure type: unspecified Qualified Codes: N17.9 - Acute kidney failure, unspecified Leukocytosis Leukocytosis type: unspecified Qualified Codes: D72.829 - Elevated white blood cell count, unspecified
[2017-10-17 15:06] VITALS: BMI 24.1
--- NOTE | 2017-10-17 15:28 | History and Physical ---
History & Physical Date & Time of Service: Oct 17, 2017 at 15:27 Chief Complaint: Recent Acute Renal Failure,Severe Left Flank Pain Primary Care Physician: Haider Calvo M.D. History of Present Illness 77 yo male PMH: Rheumatoid arthritis on prednisone, BPH, Anemia of chronic disease, HTN, HLD, primary OA, presents to ED with 12 hour hx of Left-sided CVA pain and suprapubic pain on top of a 3 day hx of increasing sediment, pus, and orange color of urine in his indwelling catheter. He was recently admitted to [facility] from 09/24- for TYRONE in setting of urinary retention 2/2 worsening BPH. During that admission he was found to have left sided hydroureteronephrosis. Was treated for complicated UTI with rocephin x 5 days. He had been seen by urology who had discussed possibility of inserting a stent but as he clinically improved, they decided to opt for outpatient follow up, which has not occurred yet. He has been afebrile, no chills/nausea/vomiting/ chest pain/dyspnea Past Medical/Surgical History Medical Problems: (1) BPH (benign prostatic hyperplasia) (2) Chronic anemia (3) CVA tenderness (4) Renal cyst (5) Rheumatoid arthritis (6) Suprapubic pain, acute Surgical Problems: (1) H/O inguinal hernia repair (2) History of left knee replacement (3) History of right hip replacement (4) Hx of nasal septoplasty (5) S/P carpal tunnel release (6) S/P rotator cuff repair Family History FH: CAD (coronary artery disease) BROTHER Social History Smoking Status: Former Smoker Marital Status: Housing status: lives with family Occupational Status: retired Multi-Drug Resistant Organisms History of MDRO: No Allergies Coded Allergies: Lisinopril (Verified Adverse Reaction, Mild, COUGH, 08/04/17) Home Medications Scheduled Ascorbic Acid (Ascorbic Acid), Unknown Dose PO BID Aspirin (Aspirin EC Low Dose), 81 MG PO BID Docusate Sodium (Colace), 1 CAP PO HS Ferrous Sulfate (Kp Ferrous Sulfate), 1 TAB PO BID Finasteride (Proscar), 5 MG PO HS Folic Acid (Folic Acid), 1 TAB PO QAM Metoprolol Tartrate (Lopressor) (Lopressor), 25 MG PO DAILY Multivitamin (Multivitamin), 1 TABLET PO QAM Omeprazole (Prilosec), 20 MG PO QAM Potassium Chloride (Micro-K Ext Rel), 20 MEQ PO BID Prednisone (Prednisone), 40 MG PO DAILY Ranitidine (Zantac), 150 MG PO BID Tamsulosin Hcl (Flomax), 0.4 MG PO DAILY Scheduled PRN Acetaminophen (Tylenol), 1,000 MG PO UD PRN for Pain Review of Systems Constitutional: + weight loss (30 pounds in last several months), No fever, No chills, No sweats, No weakness, No fatigue, No problem reported Respiratory: No cough, No sputum, No wheezing, No shortness of breath, No dyspnea on exertion, No dyspnea at rest, No hemoptysis, No problem reported Cardiovascular: No chest pain, No orthopnea, No PND, No claudication, No palpitations, No problem reported Abdomen: + pain (left flank and suprapubic), No nausea, No vomiting, No diarrhea, No constipation, No GI bleeding, No problem reported Genitourinary - Male: + hematuria, + urinary retention (indwelling catheter), + problem reported (chronic worsening BPH) Physical Exam Vital Signs Date Time Temp Pulse Resp B/P (MAP) Pulse Ox O2 Delivery O2 Flow Rate FiO2 10/17/17 13:43 78 18 161/62 95 Room Air 10/17/17 11:47 36.6 74 20 183/88 98 Room Air General Appearance: WD/WN, no apparent distress Head: normocephalic, atraumatic Eyes: normal inspection, PERRL, EOMI, sclerae normal ENT: hearing grossly normal, pharynx normal, + pertinent finding (dry mucous membranes) Neck: no JVD, no carotid bruits, trachea midline Respiratory/Chest: chest non-tender, lungs clear, normal breath sounds, no respiratory distress, no accessory muscle use Cardiovascular: regular rate, rhythm, no JVD, no murmur, normal peripheral pulses Abdomen/GI: normal bowel sounds, soft, + tenderness (Left flank, suprapubic) Back: normal inspection, + left CVA tenderness Extremities/Musculoskelatal: normal inspection, no calf tenderness, normal range of motion, non-tender, + pedal edema (trace to 1+ bilaterally) 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, no motor/sensory deficits, alert, normal mood/affect, oriented x 3 Skin: normal color, warm/dry, no rash Diagnostics Laboratory Results Results Past 24 Hours Test 10/17/17 13:15 10/17/17 14:08 Range/Units White Blood Count 20.91 4.8-10.8 K/uL Red Blood Count 3.81 4.7-6.1 M/uL Hemoglobin 10.1 14.0-18.0 g/dL Hematocrit 32.1 42-52 % Mean Corpuscular Volume 84.3 80-100 fL Mean Corpuscular Hemoglobin 26.5 25-34 pg Mean Corpuscular Hemoglobin Concent 31.5 32-36 g/dl Platelet Count 182 130-400 K/uL Mean Platelet Volume 10.3 7.4-10.4 fL Neutrophils (%) (Auto) 92.4 % Lymphocytes (%) (Auto) 2.7 % Monocytes (%) (Auto) 4.4 % Eosinophils (%) (Auto) 0.1 % Basophils (%) (Auto) 0.0 % Neutrophils # (Auto) 19.33 1.4-6.5 K/uL Lymphocytes # (Auto) 0.56 1.2-3.4 K/uL Monocytes # (Auto) 0.91 0.11-0.59 K/uL Eosinophils # (Auto) 0.02 0-0.5 K/uL Basophils # (Auto) 0.00 0-0.2 K/uL RDW Standard Deviation 70.0 36.4-46.3 fL RDW Coefficient of Variation 23.5 11.5-14.5 % Immature Granulocyte % (Auto) 0.4 % Immature Granulocyte # (Auto) 0.09 0.00-0.02 K/uL Anisocytosis PRESENT Sodium Level 139 136-145 mmol/L Potassium Level 4.2 3.5-5.1 mmol/L Chloride Level 103 98-107 mmol/L Carbon Dioxide Level 29 21-32 mmol/L Anion Gap 7.0 3-11 mmol/L Blood Urea Nitrogen 49 7-18 mg/dl Creatinine 2.11 0.60-1.40 mg/dl Est Creatinine Clear Calc Drug Dose 25.5 ml/min Estimated GFR () 34.0 Estimated GFR (Non- 29.3 BUN/Creatinine Ratio 23.4 10-20 Random Glucose 90 70-99 mg/dl Calcium Level 9.0 8.5-10.1 mg/dl Urine Color DK YELLOW Urine Appearance CLOUDY CLEAR Urine pH 8.5 4.5-7.5 Urine Specific [place] 1.016 1.000-1.030 Urine Protein 1+ NEG Urine Glucose (UA) NEG NEG Urine Ketones NEG NEG Urine Occult Blood 3+ NEG Urine Nitrite POS NEG Urine Bilirubin NEG NEG Urine Urobilinogen NEG NEG Urine Leukocyte Esterase LARGE NEG Urine WBC (Auto) >30 0-5 /hpf Urine RBC (Auto) >30 0-4 /hpf Urine Hyaline Casts (Auto) 1-5 0-5 /lpf Urine Epithelial Cells (Auto) 0-5 0-5 /lpf Urine Bacteria (Auto) 1+ NEG Microbiology Results 10/17/17 Blood Culture, Ordered Pending 10/17/17 Blood Culture, Ordered Pending 10/17/17 Urine Culture, Received Pending Diagnostic Radiology CT OF THE ABDOMEN AND PELVIS WITHOUT CONTRAST, STONE PROTOCOL CLINICAL HISTORY: Left flank pain. COMPARISON STUDY: None. TECHNIQUE: Helical axial images of the abdomen and pelvis were obtained without IV or oral contrast according to renal stone protocol. A dose lowering technique was utilized adhering to the principles of ALARA. FINDINGS: Unenhanced images of the liver, spleen, adrenal glands are unremarkable with exception of calcified granulomas within the spleen. There is moderate dilatation of the pancreatic duct to the level the ampulla, measuring 6 mm in caliber. There is no biliary ductal dilatation. There is no pancreatic glandular atrophy. No pancreatic mass is identified although sensitivity is diminished on this unenhanced exam. There is no pneumatosis, free air or portal venous gas. There is no evidence for a bowel obstruction. There is left colon diverticulosis without evidence for acute diverticulitis. The appendix is normal. There is no lymphadenopathy. There are numerous bilateral renal lesions. These are suboptimally assessed on this exam but the majority measure water attenuation and likely reflect cysts. There is a 1.5 cm hypodense lesion within the midpole of the right kidney. There is a complex 4 cm cystic lesion within the midpole of the left kidney which contains thin septations with thin calcification. There is moderate left hydroureteronephrosis with moderate perinephric infiltration. The left ureter is dilated to the level of the distal left ureter. As a 3 mm calculus within the left lateral aspect of the bladder. There is marked enlargement of the prostate. The prostate indents the base of the bladder. A Geiger balloon is present within the bladder. Evaluation of the bladder suboptimal given lack of contrast as well as streak artifact from right hip arthroplasty. There are punctate bilateral renal calculi. There are no suspicious osseous lesions. IMPRESSION: 1. Moderate left hydroureteronephrosis with dilatation of the left ureter to the level the distal ureter. No ureteral calculi. Moderate left perinephric infiltration. Differential considerations for the dilatation include a recently passed calculus, occult distal left ureteral/bladder urothelial lesion or infectious process. Urologic consultation might be considered. A short-term follow-up CT could be obtained to evaluate for resolution of the left hydroureteronephrosis. No right hydronephrosis. Marked enlargement of the prostate. 2. Punctate bilateral nephrolithiasis. 3. Numerous bilateral renal lesions are suboptimally assessed on this exam but likely reflect cysts. 4 cm cystic left renal lesion contains thin septations within calcification. This is probably benign but a follow-up nonemergent renal protocol CT or MRI is recommended. 1.5 cm hypodense right renal lesion which favors a hyperdense cyst which can be assessed on subsequent study. Electronically signed by: Gautam Street M.D. 10/17/2017 4:41 PM Dictated Date/Time: 10/17/2017 4:28 PM Impression Assessment and Plan 77 yo male PMH: Rheumatoid arthritis on prednisone, BPH, Anemia of chronic disease, HTN, HLD, primary OA, presented to ED with 12 hour hx of Left-sided CVA pain and suprapubic pain on top of a 3 day hx of increasing sediment, pus, and orange color of urine in his indwelling catheter. Recent admission to [facility] from 09/24- for TYRONE in setting of urinary retention 2/2 worsening BPH. During that admission he was found to have left sided hydroureteronephrosis. Was treated for complicated UTI with rocephin x 5 days. He had been seen by urology who had discussed possibility of inserting a stent but as he clinically improved, they decided to opt for outpatient follow up, which has not occurred yet. He has been afebrile, no chills/nausea/vomiting/chest pain/dyspnea. CT showed moderate left hydroureteronephrosis with dilatation of the left ureter to the level the distal ureter. No ureteral calculi. Moderate left perinephric infiltration. Pyelonephritis/Left VUJ obstruction/L Hydroureteronephrosis Ceftriaxone x 1 G given in ED; will continue as clinically stable; if becomes more septic, in which case change to zosyn Urology consulted [facility] 22 Lactate 2.4: repeat at 1830 1 mg dilaudid given in ED Percocet prn q4; consider other options in setting of TYRONE (fentanyl) IVF 100 mL/hr NPO until urology assesses. Considering recent admission of L VUJ obstruction, with worsening symptoms, would likely benefit from intervention/stenting Acute Kidney Injury Cr: 2.11, at baseline from recent admission to [facility], but far worse than prior relatively recent baseline Continue to hold amlodipine 5 (held prior to admission) IVF 100mL/hr Repeat BMP at 1830 BPH, chronic x 15 years, worsening Continue flomax and finasteride Patient started on indwelling catheter at [facility] Microcytic anemia of chronic disease Likely related to RA Hgb 10.1 Continue iron supplementation Had been given procrit at [facility] as well as 4 units of venofer RA Continue to hold leflunomide 2/2 recent weight loss Steroid taper from recent hospitalization, converted from 60 mg to 40 mg today; he is unsure of steroid taper length/course Takes 5 mg daily at baseline HTN Metoprolol 25 mg OD HLD ASA 81 mg DVTP: Heparin Code: Full Dispo: Med/surg. Would involve PT/OT after decision re: urology intervention Resident Physician Supervision Note: I interviewed and examined the patient. Discussed with Dr. Brown and agree with findings and plan as documented in the note. Any exceptions or clarifications are listed here: None Documented By: Arie Dick flank pain, worsening suprapubic pain and increased sediment in cath no f/c/s ongoing ureteral obstruction vitals noted fatigued but nad breathing unlabored CT reviweed personally as well as report, labs reviewed dr brown d/w urology who notes they'll see pt today flank pain / hydronephrosis / subacute renal failure (?how much reversible) / infection (recurrent vs resolving?) w septic picture (but not severe fortunately ) -abx, urology eval - anticipate cysto and stenting in near future Level of Care Med/Surg Resuscitation Status FULL RESUSCITATION VTE Prophylaxis VTE Risk Assessment Done? Y/N: Yes Risk Level: Moderate Given or contraindicated: Unfractionated heparin SQ
[2017-10-17 15:44] VITALS: O2SAT 95; Ht 165.1 cm; Wt 65.7 kg
[2017-10-17] MEDS ORDERED: MAGNESIUM HYDROXIDE SUSP 30 ML UDC PO PRN (15:45)
[2017-10-17] MEDS ORDERED: ONDANSETRON INJ 2 MG/ML 2 ML VIAL IV PRN (15:45)
[2017-10-17] MEDS ORDERED: ALUMINUM/MAGNESIUM/SIMETH (MAALOX MAX) 30 ML UDC PO PRN (15:45)
[2017-10-17] MEDS ORDERED: ACETAMINOPHEN 325 MG TAB PO PRN (15:45)
[2017-10-17] MEDS ORDERED: HEPARIN SOD 5000 UNIT/0.5 ML CARP SQ SCH (15:45)
[2017-10-17] MEDS ORDERED: POLYETHYLENE (MIRALAX) 17 GM PACK PO PRN (15:45)
[2017-10-17] MEDS ORDERED: HYDROmorphone INJ 1 MG/ML SYR ONE (15:56)
--- NOTE | 2017-10-17 16:42 | DIAGNOSTIC IMAGING REPORT ---
CT OF THE ABDOMEN AND PELVIS WITHOUT CONTRAST, STONE PROTOCOL CLINICAL HISTORY: Left flank pain. COMPARISON STUDY: None. TECHNIQUE: Helical axial images of the abdomen and pelvis were obtained without IV or oral contrast according to renal stone protocol. A dose lowering technique was utilized adhering to the principles of ALARA. FINDINGS: Unenhanced images of the liver, spleen, adrenal glands are unremarkable with exception of calcified granulomas within the spleen. There is moderate dilatation of the pancreatic duct to the level the ampulla, measuring 6 mm in caliber. There is no biliary ductal dilatation. There is no pancreatic glandular atrophy. No pancreatic mass is identified although sensitivity is diminished on this unenhanced exam. There is no pneumatosis, free air or portal venous gas. There is no evidence for a bowel obstruction. There is left colon diverticulosis without evidence for acute diverticulitis. The appendix is normal. There is no lymphadenopathy. There are numerous bilateral renal lesions. These are suboptimally assessed on this exam but the majority measure water attenuation and likely reflect cysts. There is a 1.5 cm hypodense lesion within the midpole of the right kidney. There is a complex 4 cm cystic lesion within the midpole of the left kidney which contains thin septations with thin calcification. There is moderate left hydroureteronephrosis with moderate perinephric infiltration. The left ureter is dilated to the level of the distal left ureter. As a 3 mm calculus within the left lateral aspect of the bladder. There is marked enlargement of the prostate. The prostate indents the base of the bladder. A Geiger balloon is present within the bladder. Evaluation of the bladder suboptimal given lack of contrast as well as streak artifact from right hip arthroplasty. There are punctate bilateral renal calculi. There are no suspicious osseous lesions. IMPRESSION: 1. Moderate left hydroureteronephrosis with dilatation of the left ureter to the level the distal ureter. No ureteral calculi. Moderate left perinephric infiltration. Differential considerations for the dilatation include a recently passed calculus, occult distal left ureteral/bladder urothelial lesion or infectious process. Urologic consultation might be considered. A short-term follow-up CT could be obtained to evaluate for resolution of the left hydroureteronephrosis. No right hydronephrosis. Marked enlargement of the prostate. 2. Punctate bilateral nephrolithiasis. 3. Numerous bilateral renal lesions are suboptimally assessed on this exam but likely reflect cysts. 4 cm cystic left renal lesion contains thin septations within calcification. This is probably benign but a follow-up nonemergent renal protocol CT or MRI is recommended. 1.5 cm hypodense right renal lesion which favors a hyperdense cyst which can be assessed on subsequent study. Electronically signed by: Gautam Street M.D. 10/17/2017 4:41 PM Dictated Date/Time: 10/17/2017 4:28 PM
[2017-10-17 17:03] VITALS: BP 154/88; PULSE 96; TEMP 36.8; O2SAT 95
[2017-10-17] MEDS: SODIUM CHLORIDE 0.9% 1000ML 1,000 ML IV SCH (17:43)
[2017-10-17] MEDS: FERROUS SULFATE 325 MG TAB PO SCH (17:44)
[2017-10-17] MEDS ORDERED: PIPERACILL/TAZOBAC IV 3.375 GM in DEXTROSE 5% 100ML 100 ML IV ONE (18:57)
[2017-10-17] MEDS ORDERED: PIPERACILL/TAZOBAC CONSULT ACTIVE PRN (19:00)
--- NOTE | 2017-10-17 19:00 | Urology Consultation ---
History General Date of Service: Oct 17, 2017. Chief Complaint: Retention. Left [place]/Pyelo Primary Care Physician: Haider Calvo M.D. Pt seen a urologist before?: Yes History of Present Illness Presents with UTI and flank pain on left. Has history of Retention and UTI with significant BPH. Had catheter placed 1 month ago due to retention and UTI. Has been draining well but recently developed new and worsening symptoms with discharge from catheter and flank pain on left radiating to abd and pelvis. Comes in waves and moderate at times. Improved currently with hydration and supportive care. Admitted for IV abx and monitoring. Imaging shows hydroureter to bladder without obvious obstructing stone or other blockage. Large prostate partially obscured by hip implant artifact. notable thickening of bladder and ? large median lobe of prostate. had seen urologist approx 1 year ago for worsening issues. Currently on dual therapy but worsening urinary problems. Laboratory Labs were reviewed and are within normal limits unless listed below. Labs are available in the chart and at [facility] Problem List Medical Problems: (1) Acute renal failure Status: Acute (2) Leukocytosis Status: Acute (3) Urinary tract infection Status: Acute Past History arthritis Past Surgical History: orthopedic surgery Family History FH: CAD (coronary artery disease) BROTHER Social History Hx Tobacco Use In Past Year?: No (SMOKED QUIT 40+ YRS AGO) Marital status: Housing status: lives with family Occupation status: retired History of MDRO No Allergies Coded Allergies: Lisinopril (Verified Adverse Reaction, Mild, COUGH, 08/04/17) Medications Home Medications: Home Meds and Scripts Medications Dose Route/Sig Max Daily Dose Days Date Category Tylenol (Acetaminophen) 500 Mg Tab 1,000 Mg PO UD PRN 10/17/17 Reported Flomax (Tamsulosin Hcl) 0.4 Mg Cap 0.4 Mg PO DAILY 10/17/17 Reported Zantac (Ranitidine HCl) 150 Mg Tab 150 Mg PO BID 10/17/17 Reported Ascorbic Acid 500 Mg Tab Unknown Dose PO BID 10/17/17 Reported Micro-K Ext Rel (Potassium Chloride) 10 Meq Capcr 20 Meq PO BID 10/17/17 Reported Prednisone 20 Mg Tab 40 Mg PO DAILY 10/17/17 Reported Lopressor (Metoprolol Tartrate) 25 Mg Tab 25 Mg PO DAILY 10/17/17 Reported Aspirin EC Low Dose (Aspirin) 81 Mg Ectab 81 Mg PO BID 30 08/06/17 Rx Colace (Docusate Sodium) 100 Mg Cap 1 Cap PO HS 15 08/04/17 Reported Kp Ferrous Sulfate (Ferrous Sulfate) 325 Mg Tab 1 Tab PO BID 30 04/19/17 Reported Folic Acid 1 Mg Tab 1 Tab PO QAM 04/19/17 Reported Prilosec (Omeprazole) 20 Mg Capcr 20 Mg PO QAM 04/19/17 Reported Proscar (Finasteride) 5 Mg Tab 5 Mg PO HS 02/26/17 Reported Multivitamin (Multivitamins) Tab 1 Tablet PO QAM 02/12/12 Reported Inpatient Medications: Current Inpatient Medications Medications (Trade) Dose Ordered Sig/Yrn Route Start Time Stop Time Status Last Admin Dose Admin Acetaminophen (Tylenol Tab) 650 mg Q4H PRN PO 10/17/17 15:45 11/16/17 15:44 Al Hydrox/Mg Hydrox/Simethicone (Maalox Max Susp) 15 ml Q4H PRN PO 10/17/17 15:45 11/16/17 15:44 Magnesium Hydroxide (Milk Of Magnesia Susp) 30 ml Q6H PRN PO 10/17/17 15:45 11/16/17 15:44 Polyethylene (Miralax Powder Packet) 17 gm DAILY PRN PO 10/17/17 15:45 11/16/17 15:44 Ondansetron HCl (Zofran Inj) 4 mg Q6H PRN IV 10/17/17 15:45 11/16/17 15:44 Aspirin (Ecotrin Tab) 81 mg BID PO 10/17/17 20:00 11/16/17 20:59 Finasteride (Proscar Tab) 5 mg HS PO 10/17/17 21:00 11/16/17 20:59 Folic Acid (Folvite Tab) 1 mg QAM PO 10/18/17 08:00 11/17/17 08:59 Metoprolol Tartrate (Lopressor Tab) 25 mg DAILY PO 10/18/17 08:00 11/17/17 08:59 Multivitamins (Multivitamin Tab) 1 tab QAM PO 10/18/17 08:00 11/17/17 08:59 Potassium Chloride (Klor-Con Tab) 20 meq BID PO 10/17/17 20:00 11/16/17 20:59 Prednisone (PredniSONE TAB) 40 mg DAILY PO 10/18/17 08:00 11/17/17 08:59 Ranitidine HCl (zANTac TAB) 150 mg BID PO 10/17/17 20:00 11/16/17 20:59 Tamsulosin HCl (Flomax Cap) 0.4 mg DAILY PO 10/18/17 08:00 11/17/17 08:59 Ferrous Sulfate (Feosol Tab) 325 mg BIDM PO 10/17/17 17:00 11/16/17 17:59 10/17/17 17:44 325 MG Pantoprazole Sodium (Protonix Tab) 40 mg QAM PO 10/18/17 08:00 11/17/17 08:59 Sodium Chloride 1,000 ml @ 100 mls/hr Q10H IV 10/17/17 16:00 11/16/17 15:59 10/17/17 17:43 100 MLS/HR Oxycodone/ Acetaminophen (Percocet 5-325mg Tab) 1 tab Q4H PRN PO 10/17/17 15:45 10/31/17 15:44 Piperacillin Sod/ Tazobactam Sod 3.375 gm/Dextrose 115 ml @ 200 mls/hr Q6 IV 10/18/17 00:00 10/28/17 00:00 UNV Miscellaneous Information (Consult) 1 ea UD PRN N/A 10/17/17 19:00 11/16/17 18:59 UNV Review of Systems Review of Systems All Other Systems: Reviewed and Negative (all reviewed. pertinent positives and negatives in HPI) Physical Exam Vital Signs: Vital Signs Past 12 Hours Date Time Temp Pulse Resp B/P (MAP) Pulse Ox O2 Delivery O2 Flow Rate FiO2 10/17/17 17:03 36.8 96 19 154/88 (110) 95 Room Air 10/17/17 16:37 89 17 151/87 95 Room Air 10/17/17 15:44 95 Room Air 10/17/17 15:30 90 16 157/91 95 Room Air 10/17/17 13:43 78 18 161/62 95 Room Air 10/17/17 11:47 36.6 74 20 183/88 98 Room Air Physical Exam: General Appearance: WD/WN, no apparent distress Eyes: bilateral eyes normal inspection ENT: normal ENT inspection, hearing grossly normal Neck: supple, no JVD Respiratory/Chest: no respiratory distress, no accessory muscle use Cardiovascular: regular rate, rhythm Gastrointestinal: Abdomen: diffuse Bladder: normal bladder Renal: cva tenderness Genitourinary - Male: Penis: normal penis (Wright in place draining clear urine with white sediment ) Extremities: normal range of motion, non-tender, normal inspection, no pedal edema, no calf tenderness 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 Retention 2. Pyelonephritis 3. Left hydronephrosis Plan to continue drainage and monitor for resolution of UTI/pyelo. Discussed option of stent and drainage. Currently doing okay with wright. Has 12 Fr wright in for almost 1 month. Will likely need to change catheter to larger calibre with next change. Had appt with my office on this wednesday to establish care with one of my partners. Will likely need surgical intervention at some point due to multiple UTI and retention failing dual therapy for BPH. Discussed some of these options. Will await urine culture and sensitivities. Will add diet for time being. Will add antifungal due to sediment and concern with wright. Will follow. Considering changing catheter if not improving. If sudden change or worsening or nonresolution, may need left stent. Imaging reviewed and intrepretted by myself.
[2017-10-17 19:13] LABS: CALCIUM 8.6 mg/dl (8.5-10.1); CREATININE 2.47 mg/dl (0.60-1.40); POTASSIUM 4.6 mmol/L (3.5-5.1)
[2017-10-17 19:32] VITALS: O2SAT 95
[2017-10-17] MEDS ORDERED: SODIUM CHLORIDE 0.9% 1000ML 1,000 ML IV STA (19:39)
[2017-10-17] MEDS: OXYCODONE/ACETAMINOPHEN 5-325 TAB PO PRN (19:48)
[2017-10-17] MEDS: ASPIRIN 81 MG ECTAB PO SCH (19:49)
[2017-10-17] MEDS: POTASSIUM CHLORIDE 20 MEQ TABCR PO SCH (19:49)
[2017-10-17] MEDS: FINASTERIDE 5 MG TAB PO SCH (19:50)
[2017-10-17] MEDS: RANITIDINE HCL 150 MG TAB PO SCH (19:50)
[2017-10-17] MEDS: FLUCONAZOLE / NSS 100 MG in PREMIXED NSS 50 ML IV SCH (20:27)
[2017-10-17 23:10] VITALS: BP 105/61; PULSE 98; TEMP 36.7; O2SAT 98
[2017-10-18] VITALS (7 sets, daily range): BP systolic 110–160; BP diastolic 64–81; PULSE 59–89; TEMP 36.3–36.7; O2SAT 95–99
[2017-10-18] MEDS: OXYCODONE/ACETAMINOPHEN 5-325 TAB PO PRN ×4 (02:18→21:48)
[2017-10-18] MEDS: PIPERACILL/TAZOBAC IV 3.375 GM in DEXTROSE 5% 100ML IV SCH ×3 (02:19→18:00)
[2017-10-18] MEDS ORDERED: SODIUM CHLORIDE 0.9% 1000ML 1,000 ML IV STA (04:33)
[2017-10-18] MEDS ORDERED: NURSING VERBAL MED ORDER ONE (04:45)
[2017-10-18] MEDS: SODIUM CHLORIDE 0.9% 1000ML 1,000 ML IV SCH ×3 (06:14→21:42)
[2017-10-18 06:35] LABS: HEMATOCRIT 25.6 % (42-52); HEMOGLOBIN 7.9 g/dL (14.0-18.0); MEAN CORPUSCULAR HEMOGLOBIN 26.2 pg (25-34); MEAN CORPUSCULAR HGB CONC 30.9 g/dl (32-36); MEAN PLATELET VOLUME 10.6 fL (7.4-10.4); PLATELET COUNT 136 K/uL (130-400); RED CELL DISTRIBUTION WIDTH CV 24.8 % (11.5-14.5)
[2017-10-18 07:07] LABS: CALCIUM 7.4 mg/dl (8.5-10.1); CREATININE 2.86 mg/dl (0.60-1.40); POTASSIUM 4.6 mmol/L (3.5-5.1)
[2017-10-18] MEDS: METOPROLOL TARTRATE 25 MG TAB PO SCH (09:14)
[2017-10-18] MEDS: MULTIVITAMIN TAB PO SCH (09:14)
[2017-10-18] MEDS: TAMSULOSIN HCL 0.4 MG CAP PO SCH (09:14)
[2017-10-18] MEDS: ASPIRIN 81 MG ECTAB PO SCH ×2 (09:15→21:38)
[2017-10-18] MEDS: RANITIDINE HCL 150 MG TAB PO SCH ×2 (09:15→21:39)
[2017-10-18] MEDS: FERROUS SULFATE 325 MG TAB PO SCH ×2 (09:16→17:30)
[2017-10-18] MEDS: POTASSIUM CHLORIDE 20 MEQ TABCR PO SCH ×2 (09:16→21:40)
[2017-10-18] MEDS: PANTOprazole SOD 40 MG TAB PO SCH (09:17)
--- NOTE | 2017-10-18 09:39 | Progress Note ---
Subjective Date of Service: Oct 18, 2017. (Sherry Ruelas CRNP) Subjective Pt evaluation today including: conversation w/ patient, chart review, lab review Voiding: wright catheter in place (patent, draining clear, yellow urine) 77 yo male with left hydro, sepsis. Pt continues to have back pain this morning. White count increased slightly to 23.60 this morning. Cr trending up to 2.86. Blood cultures growing gram positive bacilli. UC&S growing staph aureus. (Sherry Ruelas CRNP) Problem List Medical Problems: (1) Acute renal failure Status: Acute (2) Leukocytosis Status: Acute (3) Urinary tract infection Status: Acute (Sherry Ruelas CRNP) Review of Systems Constitutional: No fever, No chills Respiratory: No shortness of breath Cardiac: No chest pain Abdomen: + pain (suprapubic pain ), No nausea, No vomiting Musculoskeletal: + problem reported (low back pain ) Heme: No abnormal bleeding/bruising (Sherry Ruelas CRNP) Objective Vital Signs Date Time Temp Pulse Resp B/P (MAP) Pulse Ox O2 Delivery O2 Flow Rate FiO2 10/18/17 08:27 95 Room Air 10/18/17 07:39 36.7 89 19 110/64 (79) 96 Room Air 10/18/17 00:40 Room Air 10/17/17 23:10 36.7 98 21 105/61 (76) 98 Room Air 10/17/17 19:32 95 Room Air 10/17/17 17:03 36.8 96 19 154/88 (110) 95 Room Air 10/17/17 16:37 89 17 151/87 95 Room Air 10/17/17 15:44 95 Room Air 10/17/17 15:30 90 16 157/91 95 Room Air 10/17/17 13:43 78 18 161/62 95 Room Air 10/17/17 11:47 36.6 74 20 183/88 98 Room Air (Sherry Ruelas CRNP) Physical Exam General Appearance: no apparent distress Eyes: normal inspection ENT: hearing grossly normal Neck: no JVD Respiratory/Chest: no respiratory distress, no accessory muscle use Cardiovascular: no JVD Extremities: normal inspection Neurologic/Psychiatric: alert, normal mood/affect, oriented x 3 Skin: normal color (Sherry Ruelas COOLER MAN) Laboratory Results Last 24 Hours Test 10/17/17 13:15 10/17/17 14:08 10/17/17 15:31 10/17/17 18:48 White Blood Count 20.91 K/uL Red Blood Count 3.81 M/uL Hemoglobin 10.1 g/dL Hematocrit 32.1 % Mean Corpuscular Volume 84.3 fL Mean Corpuscular Hemoglobin 26.5 pg Mean Corpuscular Hemoglobin Concent 31.5 g/dl Platelet Count 182 K/uL Mean Platelet Volume 10.3 fL Neutrophils (%) (Auto) 92.4 % Lymphocytes (%) (Auto) 2.7 % Monocytes (%) (Auto) 4.4 % Eosinophils (%) (Auto) 0.1 % Basophils (%) (Auto) 0.0 % Neutrophils # (Auto) 19.33 K/uL Lymphocytes # (Auto) 0.56 K/uL Monocytes # (Auto) 0.91 K/uL Eosinophils # (Auto) 0.02 K/uL Basophils # (Auto) 0.00 K/uL RDW Standard Deviation 70.0 fL RDW Coefficient of Variation 23.5 % Immature Granulocyte % (Auto) 0.4 % Immature Granulocyte # (Auto) 0.09 K/uL Anisocytosis PRESENT Sodium Level 139 mmol/L 139 mmol/L Potassium Level 4.2 mmol/L 4.6 mmol/L Chloride Level 103 mmol/L 103 mmol/L Carbon Dioxide Level 29 mmol/L 30 mmol/L Anion Gap 7.0 mmol/L 6.0 mmol/L Blood Urea Nitrogen 49 mg/dl 53 mg/dl Creatinine 2.11 mg/dl 2.47 mg/dl Est Creatinine Clear Calc Drug Dose 25.5 ml/min 21.8 ml/min Estimated GFR () 34.0 28.1 Estimated GFR (Non- 29.3 24.2 BUN/Creatinine Ratio 23.4 21.3 Random Glucose 90 mg/dl 91 mg/dl Calcium Level 9.0 mg/dl 8.6 mg/dl Urine Color DK YELLOW Urine Appearance CLOUDY Urine pH 8.5 Urine Specific [place] 1.016 Urine Protein 1+ Urine Glucose (UA) NEG Urine Ketones NEG Urine Occult Blood 3+ Urine Nitrite POS Urine Bilirubin NEG Urine Urobilinogen NEG Urine Leukocyte Esterase LARGE Urine WBC (Auto) >30 /hpf Urine RBC (Auto) >30 /hpf Urine Hyaline Casts (Auto) 1-5 /lpf Urine Epithelial Cells (Auto) 0-5 /lpf Urine Bacteria (Auto) 1+ Lactic Acid Level 2.4 mmol/L 1.9 mmol/L Test 10/18/17 05:50 White Blood Count 23.60 K/uL Red Blood Count 3.01 M/uL Hemoglobin 7.9 g/dL Hematocrit 25.6 % Mean Corpuscular Volume 85.0 fL Mean Corpuscular Hemoglobin 26.2 pg Mean Corpuscular Hemoglobin Concent 30.9 g/dl RDW Standard Deviation 74.0 fL RDW Coefficient of Variation 24.8 % Platelet Count 136 K/uL Mean Platelet Volume 10.6 fL Sodium Level 140 mmol/L Potassium Level 4.6 mmol/L Chloride Level 106 mmol/L Carbon Dioxide Level 27 mmol/L Anion Gap 7.0 mmol/L Blood Urea Nitrogen 56 mg/dl Creatinine 2.86 mg/dl Est Creatinine Clear Calc Drug Dose 18.8 ml/min Estimated GFR () 23.5 Estimated GFR (Non- 20.3 BUN/Creatinine Ratio 19.6 Random Glucose 81 mg/dl Calcium Level 7.4 mg/dl (Sherry Ruelas CRNP) Assessment and Plan A/P: Left hydronephrosis, BPH with obstruction, sepsis, suspected pyelonephritis AFVSS. Pt with persistent pain; rising Cr. Suspect pyelonephritis. Discussed with Dr. Love this morning, will plan for cysto with left ureteral stent placement today. Risks and benefits of the procedure discussed with the pt. All questions answered. Will order a pre-op chest x-ray and EKG. Continue IV abx and fluconazole pending culture sensitivities. Would then transition to 4-6 weeks of oral abx such as Cipro or Bactrim DS to tx for suspected prostatitis. Pt scheduled to f/u with Dr. Garcia this Wednesday10-22-17. Will keep as scheduled to discuss options for management of BPH. Will continue to follow along with primary service. (Sherry Ruelas CRNP) Urinary retention; left hydro; leukocytosis; infection - discussed the findings - recommended cysto and left ureteral stent placement - will eval prostate during the scope for future interventions (Graham Love M.D.)
--- NOTE | 2017-10-18 10:13 | DIAGNOSTIC IMAGING REPORT ---
CHEST 2 VIEWS ROUTINE CLINICAL HISTORY: 77 years-old Male presenting with pre-op. TECHNIQUE: PA and lateral views of the chest were obtained. COMPARISON: 02/26/2017. FINDINGS: Atherosclerosis of the aortic arch. Cardiac silhouette normal in size. Lungs and pleural spaces clear. Degenerative changes of the thoracic spine. Anchors noted in the right humeral head. Chronic widening of the acromioclavicular joints greater on the left. Upper abdomen normal. IMPRESSION: 1. No acute cardiopulmonary disease. Electronically signed by: Keith Alanis M.D. 10/18/2017 10:12 AM Dictated Date/Time: 10/18/2017 10:11 AM
--- NOTE | 2017-10-18 10:39 | Family Medicine Progress Note ---
Progress Note Date of Service Oct 18, 2017. Subjective Pt evaluation today including: conversation w/ patient, physical exam, chart review, lab review, review of inpatient medication list Pain: Bilateral back pain and suprapubic pain noted PO Intake: NPO except meds Voiding: wright catheter in place Mr. Hoffman reports suprapubic pain and bilateral flank pain. He states yesterday the flank pain was left sided, but today he is experiencing the pain on both sides. He denies fever, chills, chest pain, SOB, n/v, or feeling dizzy. He notes he has had this catheter in for almost 1 month. Constitutional: No fever, No chills Respiratory: No cough, No sputum, No wheezing, No shortness of breath Cardiovascular: No chest pain Abdomen: + pain, No nausea, No vomiting Male : No hematuria All Other Systems: Reviewed and Negative Medications Current Inpatient Medications Medications (Trade) Dose Ordered Sig/Yrn Route Start Time Stop Time Status Last Admin Dose Admin Acetaminophen (Tylenol Tab) 650 mg Q4H PRN PO 10/17/17 15:45 11/16/17 15:44 Al Hydrox/Mg Hydrox/Simethicone (Maalox Max Susp) 15 ml Q4H PRN PO 10/17/17 15:45 11/16/17 15:44 Magnesium Hydroxide (Milk Of Magnesia Susp) 30 ml Q6H PRN PO 10/17/17 15:45 11/16/17 15:44 Polyethylene (Miralax Powder Packet) 17 gm DAILY PRN PO 10/17/17 15:45 11/16/17 15:44 Ondansetron HCl (Zofran Inj) 4 mg Q6H PRN IV 10/17/17 15:45 11/16/17 15:44 Aspirin (Ecotrin Tab) 81 mg BID PO 10/17/17 20:00 11/16/17 20:59 10/18/17 09:15 81 MG Finasteride (Proscar Tab) 5 mg HS PO 10/17/17 21:00 11/16/17 20:59 10/17/17 19:50 5 MG Folic Acid (Folvite Tab) 1 mg QAM PO 10/18/17 08:00 11/17/17 08:59 10/18/17 09:16 1 MG Metoprolol Tartrate (Lopressor Tab) 25 mg DAILY PO 10/18/17 08:00 11/17/17 08:59 10/18/17 09:14 25 MG Multivitamins (Multivitamin Tab) 1 tab QAM PO 10/18/17 08:00 11/17/17 08:59 10/18/17 09:14 1 TAB Potassium Chloride (Klor-Con Tab) 20 meq BID PO 10/17/17 20:00 11/16/17 20:59 10/18/17 09:16 20 MEQ Prednisone (PredniSONE TAB) 40 mg DAILY PO 10/18/17 08:00 11/17/17 08:59 10/18/17 09:15 40 MG Ranitidine HCl (zANTac TAB) 150 mg BID PO 10/17/17 20:00 11/16/17 20:59 10/18/17 09:15 150 MG Tamsulosin HCl (Flomax Cap) 0.4 mg DAILY PO 10/18/17 08:00 11/17/17 08:59 10/18/17 09:14 0.4 MG Ferrous Sulfate (Feosol Tab) 325 mg BIDM PO 10/17/17 17:00 11/16/17 17:59 10/18/17 09:16 325 MG Pantoprazole Sodium (Protonix Tab) 40 mg QAM PO 10/18/17 08:00 11/17/17 08:59 10/18/17 09:17 40 MG Sodium Chloride 1,000 ml @ 100 mls/hr Q10H IV 10/17/17 16:00 11/16/17 15:59 10/18/17 06:14 100 MLS/HR Oxycodone/ Acetaminophen (Percocet 5-325mg Tab) 1 tab Q4H PRN PO 10/17/17 15:45 10/31/17 15:44 10/18/17 09:17 1 TAB Miscellaneous Information (Consult) 1 ea UD PRN N/A 10/17/17 19:00 11/16/17 18:59 Fluconazole/ Sodium Chloride 100 mg/Prmx 50 ml @ 100 mls/hr Q24H IV 10/17/17 20:00 10/27/17 19:59 10/17/17 20:27 100 MLS/HR Piperacillin Sod/ Tazobactam Sod 3.375 gm/Dextrose 115 ml @ 28.75 mls/ hr Q8H IV 10/18/17 02:00 10/27/17 01:59 10/18/17 09:48 28.75 MLS/HR Objective Vital Signs Date Time Temp Pulse Resp B/P (MAP) Pulse Ox O2 Delivery O2 Flow Rate FiO2 10/18/17 09:15 Room Air 10/18/17 08:27 95 Room Air 10/18/17 07:39 36.7 89 19 110/64 (79) 96 Room Air 10/18/17 00:40 Room Air 10/17/17 23:10 36.7 98 21 105/61 (76) 98 Room Air 10/17/17 19:32 95 Room Air 10/17/17 17:03 36.8 96 19 154/88 (110) 95 Room Air 10/17/17 16:37 89 17 151/87 95 Room Air 10/17/17 15:44 95 Room Air 10/17/17 15:30 90 16 157/91 95 Room Air 10/17/17 13:43 78 18 161/62 95 Room Air Physical Exam General Appearance: WD/WN, no apparent distress, + pertinent finding (wright catheter in place, draining dark yellow urine) Respiratory/Chest: chest non-tender, lungs clear, normal breath sounds, no respiratory distress Cardiovascular: regular rate, rhythm, no edema, no gallop, no JVD, no murmur Abdomen: normal bowel sounds, soft, + tenderness (over suprapubic area), + pertinent finding (b/l flank tenderness) Laboratory Results Last 24 Hours Test 10/17/17 14:08 10/17/17 15:31 10/17/17 18:48 10/18/17 05:50 Urine Color DK YELLOW Urine Appearance CLOUDY Urine pH 8.5 Urine Specific [place] 1.016 Urine Protein 1+ Urine Glucose (UA) NEG Urine Ketones NEG Urine Occult Blood 3+ Urine Nitrite POS Urine Bilirubin NEG Urine Urobilinogen NEG Urine Leukocyte Esterase LARGE Urine WBC (Auto) >30 /hpf Urine RBC (Auto) >30 /hpf Urine Hyaline Casts (Auto) 1-5 /lpf Urine Epithelial Cells (Auto) 0-5 /lpf Urine Bacteria (Auto) 1+ Lactic Acid Level 2.4 mmol/L 1.9 mmol/L Sodium Level 139 mmol/L 140 mmol/L Potassium Level 4.6 mmol/L 4.6 mmol/L Chloride Level 103 mmol/L 106 mmol/L Carbon Dioxide Level 30 mmol/L 27 mmol/L Anion Gap 6.0 mmol/L 7.0 mmol/L Blood Urea Nitrogen 53 mg/dl 56 mg/dl Creatinine 2.47 mg/dl 2.86 mg/dl Est Creatinine Clear Calc Drug Dose 21.8 ml/min 18.8 ml/min Estimated GFR () 28.1 23.5 Estimated GFR (Non- 24.2 20.3 BUN/Creatinine Ratio 21.3 19.6 Random Glucose 91 mg/dl 81 mg/dl Calcium Level 8.6 mg/dl 7.4 mg/dl White Blood Count 23.60 K/uL Red Blood Count 3.01 M/uL Hemoglobin 7.9 g/dL Hematocrit 25.6 % Mean Corpuscular Volume 85.0 fL Mean Corpuscular Hemoglobin 26.2 pg Mean Corpuscular Hemoglobin Concent 30.9 g/dl RDW Standard Deviation 74.0 fL RDW Coefficient of Variation 24.8 % Platelet Count 136 K/uL Mean Platelet Volume 10.6 fL Test 10/18/17 11:30 Prothrombin Time 12.5 SECONDS Prothromb Time International Ratio 1.2 Assessment and Plan Mr. Hoffman is a 77 year old male with a past medical history of rheumatoid arthritis on prednisone, BPH, Anemia of chronic disease, HTN, HLD, primary OA who was admitted for 12 hours of left-sided CVA pain and suprapubic pain on top of a 3 day hx of increasing sediment, pus, and orange color of urine in his indwelling catheter. Recent admission to [facility] from 09/24- for TYRONE in setting of urinary retention secondary to worsening BPH. During that admission he was found to have left sided hydroureteronephrosis. Was treated for complicated UTI with rocephin x 5 days. He had been seen by urology who had discussed possibility of inserting a stent but as he clinically improved, they decided to opt for outpatient follow up, which has not occurred yet. Pyelonephritis/Left VUJ obstruction/L Hydroureteronephrosis - Ceftriaxone x 1 G given in ED - currently on zosyn - CT showed moderate left hydroureteronephrosis with dilatation of the left ureter to the level the distal ureter. No ureteral calculi. Moderate left perinephric infiltration. - blood cultures grew gram positive cocci x2 and urine culture grew staph aureus - may need widening of coverage to include MRSA - will consult ID - thank you to urology for consult - NPO for cystoscopy and placement of left ureteral stent today - continue IV zosyn (2.25 g IV q 8 hours due to EGFR) and fluconazole pending culture sensitivities - 4-6 weeks oral cipro or bactrim on d/c for suspected prostatitis - WCC elevated at 23 - Lactate 2.4, repeat 1.9 - Percocet prn q4h for pain management - NaCl at 100 mL/hr Acute Kidney Injury - creatinine elevated to 2.86. Pt states baseline recently has been around 2, but this is far worse than prior relatively recent baseline of 1 in 2017 - urinary output decreased - pt produced 19mls/kg/hr yesterday - Continue to hold amlodipine (held prior to admission) - thank you to nephrology for consult - monitor serial BMP - outpatient metabolic stone eval once stable - contrast and abdominal CT/MRI for left kidney complex cyst after resolution of TYRONE Anemia - likely anemia of chronic disease related to RA - Hgb dropped from 10.1 to 7.9 -> probably dilutional - will transfuse if Hgb drops below 7.5 as per nephro recommendations - Type and screen ordered - Continue iron supplementation - 325mg ferrous sulfate bid - Had been given procrit at [facility] as well as 4 units of venofer BPH, chronic x 15 years, worsening - Continue flomax and finasteride - Patient started on indwelling catheter at [facility] RA - Continue to hold leflunomide 2/2 recent weight loss - Steroid taper from recent hospitalization - was taking 60mg on admission. Today, he received 40mg. Will taper to 20mg tomorrow. - Takes 5 mg daily at baseline - continue folic acid HTN - continue Metoprolol 25 mg OD - continue ASA 81 mg DVT Prophylaxis: SCDs Code: Full Dispo: remains on med/surg Resident Physician Supervision Note: I was present with the resident physician during the history and exam. I discussed the case with the resident and agree with the findings and plan as documented in the note. Patient for cystoscopy and possible ureteral stenting this afternoon; appreciate nephrology and infectious disease consultations. 1) daptomycin added to current regimen pending culture sensitivities 2) consider transfusion if hemoglobin less than 7.5 3) cystoscopy and possible ureteral stenting this afternoon 4) continue present taper (from prior hospitalization) Documented By: Mino Holder Resident Tracking Resident Involvement: Resident Care Provided Care Provided: Adult Hospital Medicine
[2017-10-18] MEDS ORDERED: CONSULT PHARMACY STA (11:28)
--- NOTE | 2017-10-18 11:28 | Nephrology Consultation ---
Nephrology Consultation Date & Providers Date of Consultation: Oct 18, 2017. Primary Care Provider: Haider Calvo M.D. Referring Provider: Reason for Consultation TYRONE History of Present Illness Mr. Hoffman is a 77 year old white male who is seen at the request of Dr. Isaacs for evaluation of TYRONE. Medical records in the hospital EMR were reviewed and are summarized as follows: Mr. Hoffman resides in [place], [place]. His PCP is Dr. Calvo. Mr. Hoffman has had two recent hospitalizations at [facility] and has requested admission to [facility] with the [facility] for evaluation of TYRONE, BPH and L hydronephrosis. Mr. Hoffman notes that he may have passed a kidney stone several years ago. He did not require hospitalization or further outpatient evaluation at that time. He has no CKD that he is aware of. Medical records indicate that his baseline creatinine was ~ 1.0 in 08/08. Mr. Hoffman was hospitalized 09/09 at [facility] w/ diarrhea and TYRONE. Creatinine was 4.1 on admission but improved to 2.6 with IV hydration. Abdominal CT performed at that time did reveal L hydronephrosis and BPH but no kidney stone was seen. A wright catheter was placed and Mr. Hoffman was scheduled for outpatient follow up w/ Dr. Haley and [facility]. On 09/24/17 Mr. Hoffman was readmitted to [facility] for evaluation of worsening kidney function. Urine microscopy was positive for eosinophils and patient's Prednisone dose was increased from 5 mg to 40 mg daily for treatment of potential AIN. IVF was administered. Again creatinine improved to 2.4 and Mr. Hoffman was discharged from the hospital. On 10/08 Mr. Hoffman was seen by his PCP. He was experiencing low grade fever and L flank pain. Creatinine was relatively stable at 2.6. Dr. Calvo advised hospital evaluation for probable pyelonephritis. Mr. Hoffman requested hospitalization at [facility] and care provided by [facility]. This morning Mr. Hoffman is resting comfortably flat in bed on room air. He currently denies fever, flank pain or diarrhea. He is receiving broad spectrum antibiotic therapy. Contrast negative abdominal CT films were reviewed this morning - bilateral punctate kidney stones, bilateral kidney cysts, L lower pole kidney cyst appears complex, moderate L hydronephrosis, 3 mm stone within the L side of the bladder. Urine culture is positive for staph aureus. Sensitivities are pending. Case discussed w/ Urology this morning - patient is scheduled for cystoscopy w/ L ureteral stent insertion this afternoon. Past Medical/Surgical History Medical: # Baseline creatinine 0.9 08/08 # BPH # Kidney stones # HTN # Iron deficiency anemia # Chronic GERD # Chronic constipation # Remote h/o tobacco use # Arthritis managed w/ Leflunomide and Prednisone therapy Surgical: # Hip & knee replacement Allergies Coded Allergies: Lisinopril (Verified Adverse Reaction, Mild, COUGH, 08/04/17) Inpatient Medications Current Inpatient Medications Medications (Trade) Dose Ordered Sig/Yrn Route Start Time Stop Time Status Last Admin Dose Admin Acetaminophen (Tylenol Tab) 650 mg Q4H PRN PO 10/17/17 15:45 11/16/17 15:44 Al Hydrox/Mg Hydrox/Simethicone (Maalox Max Susp) 15 ml Q4H PRN PO 10/17/17 15:45 11/16/17 15:44 Magnesium Hydroxide (Milk Of Magnesia Susp) 30 ml Q6H PRN PO 10/17/17 15:45 11/16/17 15:44 Polyethylene (Miralax Powder Packet) 17 gm DAILY PRN PO 10/17/17 15:45 11/16/17 15:44 Ondansetron HCl (Zofran Inj) 4 mg Q6H PRN IV 10/17/17 15:45 11/16/17 15:44 Aspirin (Ecotrin Tab) 81 mg BID PO 10/17/17 20:00 11/16/17 20:59 10/18/17 09:15 81 MG Finasteride (Proscar Tab) 5 mg HS PO 10/17/17 21:00 11/16/17 20:59 10/17/17 19:50 5 MG Folic Acid (Folvite Tab) 1 mg QAM PO 10/18/17 08:00 11/17/17 08:59 10/18/17 09:16 1 MG Metoprolol Tartrate (Lopressor Tab) 25 mg DAILY PO 10/18/17 08:00 11/17/17 08:59 10/18/17 09:14 25 MG Multivitamins (Multivitamin Tab) 1 tab QAM PO 10/18/17 08:00 11/17/17 08:59 10/18/17 09:14 1 TAB Potassium Chloride (Klor-Con Tab) 20 meq BID PO 10/17/17 20:00 11/16/17 20:59 10/18/17 09:16 20 MEQ Prednisone (PredniSONE TAB) 40 mg DAILY PO 10/18/17 08:00 11/17/17 08:59 10/18/17 09:15 40 MG Ranitidine HCl (zANTac TAB) 150 mg BID PO 10/17/17 20:00 11/16/17 20:59 10/18/17 09:15 150 MG Tamsulosin HCl (Flomax Cap) 0.4 mg DAILY PO 10/18/17 08:00 11/17/17 08:59 10/18/17 09:14 0.4 MG Ferrous Sulfate (Feosol Tab) 325 mg BIDM PO 10/17/17 17:00 11/16/17 17:59 10/18/17 09:16 325 MG Pantoprazole Sodium (Protonix Tab) 40 mg QAM PO 10/18/17 08:00 11/17/17 08:59 10/18/17 09:17 40 MG Sodium Chloride 1,000 ml @ 100 mls/hr Q10H IV 10/17/17 16:00 11/16/17 15:59 10/18/17 06:14 100 MLS/HR Oxycodone/ Acetaminophen (Percocet 5-325mg Tab) 1 tab Q4H PRN PO 10/17/17 15:45 10/31/17 15:44 10/18/17 09:17 1 TAB Miscellaneous Information (Consult) 1 ea UD PRN N/A 10/17/17 19:00 11/16/17 18:59 Fluconazole/ Sodium Chloride 100 mg/Prmx 50 ml @ 100 mls/hr Q24H IV 10/17/17 20:00 10/27/17 19:59 10/17/17 20:27 100 MLS/HR Piperacillin Sod/ Tazobactam Sod 3.375 gm/Dextrose 115 ml @ 28.75 mls/ hr Q8H IV 10/18/17 02:00 10/27/17 01:59 10/18/17 09:48 28.75 MLS/HR Family History FH: CAD (coronary artery disease) BROTHER Negative for CKD / ESRD Social History Smoking Status: Former Smoker Marital Status: Housing Status: lives with family Occupation: retired . Retired. 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 Review of Systems Constitutional: No fever Respiratory: No cough Cardiovascular: No chest pain Abdomen: No pain, No nausea, No vomiting, No diarrhea A complete review of systems was performed. Pertinent positives are noted above. All other systems are negative. Physical Exam Date Time Temp Pulse Resp B/P (MAP) Pulse Ox O2 Delivery O2 Flow Rate FiO2 10/18/17 09:15 Room Air 10/18/17 08:27 95 Room Air 10/18/17 07:39 36.7 89 19 110/64 (79) 96 Room Air 10/18/17 00:40 Room Air 10/17/17 23:10 36.7 98 21 105/61 (76) 98 Room Air 10/17/17 19:32 95 Room Air 10/17/17 17:03 36.8 96 19 154/88 (110) 95 Room Air 10/17/17 16:37 89 17 151/87 95 Room Air 10/17/17 15:44 95 Room Air 10/17/17 15:30 90 16 157/91 95 Room Air 10/17/17 13:43 78 18 161/62 95 Room Air 10/17/17 11:47 36.6 74 20 183/88 98 Room Air General Appearance: no apparent distress Head: normocephalic, atraumatic Eyes: PERRL, EOMI Neck: no adenopathy, no JVD Respiratory/Chest: lungs clear, no respiratory distress Cardiovascular: regular rate, rhythm Abdomen/GI: normal bowel sounds, non tender, soft Back: + left CVA tenderness Extremities/Musculoskelatal: no calf tenderness, no pedal edema Neurologic/Psych: alert, oriented x 3 Skin: warm/dry Laboratory Results Last 24 Hours Test 10/17/17 13:15 10/17/17 14:08 10/17/17 15:31 10/17/17 18:48 White Blood Count 20.91 K/uL Red Blood Count 3.81 M/uL Hemoglobin 10.1 g/dL Hematocrit 32.1 % Mean Corpuscular Volume 84.3 fL Mean Corpuscular Hemoglobin 26.5 pg Mean Corpuscular Hemoglobin Concent 31.5 g/dl Platelet Count 182 K/uL Mean Platelet Volume 10.3 fL Neutrophils (%) (Auto) 92.4 % Lymphocytes (%) (Auto) 2.7 % Monocytes (%) (Auto) 4.4 % Eosinophils (%) (Auto) 0.1 % Basophils (%) (Auto) 0.0 % Neutrophils # (Auto) 19.33 K/uL Lymphocytes # (Auto) 0.56 K/uL Monocytes # (Auto) 0.91 K/uL Eosinophils # (Auto) 0.02 K/uL Basophils # (Auto) 0.00 K/uL RDW Standard Deviation 70.0 fL RDW Coefficient of Variation 23.5 % Immature Granulocyte % (Auto) 0.4 % Immature Granulocyte # (Auto) 0.09 K/uL Anisocytosis PRESENT Sodium Level 139 mmol/L 139 mmol/L Potassium Level 4.2 mmol/L 4.6 mmol/L Chloride Level 103 mmol/L 103 mmol/L Carbon Dioxide Level 29 mmol/L 30 mmol/L Anion Gap 7.0 mmol/L 6.0 mmol/L Blood Urea Nitrogen 49 mg/dl 53 mg/dl Creatinine 2.11 mg/dl 2.47 mg/dl Est Creatinine Clear Calc Drug Dose 25.5 ml/min 21.8 ml/min Estimated GFR () 34.0 28.1 Estimated GFR (Non- 29.3 24.2 BUN/Creatinine Ratio 23.4 21.3 Random Glucose 90 mg/dl 91 mg/dl Calcium Level 9.0 mg/dl 8.6 mg/dl Urine Color DK YELLOW Urine Appearance CLOUDY Urine pH 8.5 Urine Specific [place] 1.016 Urine Protein 1+ Urine Glucose (UA) NEG Urine Ketones NEG Urine Occult Blood 3+ Urine Nitrite POS Urine Bilirubin NEG Urine Urobilinogen NEG Urine Leukocyte Esterase LARGE Urine WBC (Auto) >30 /hpf Urine RBC (Auto) >30 /hpf Urine Hyaline Casts (Auto) 1-5 /lpf Urine Epithelial Cells (Auto) 0-5 /lpf Urine Bacteria (Auto) 1+ Lactic Acid Level 2.4 mmol/L 1.9 mmol/L Test 10/18/17 05:50 White Blood Count 23.60 K/uL Red Blood Count 3.01 M/uL Hemoglobin 7.9 g/dL Hematocrit 25.6 % Mean Corpuscular Volume 85.0 fL Mean Corpuscular Hemoglobin 26.2 pg Mean Corpuscular Hemoglobin Concent 30.9 g/dl RDW Standard Deviation 74.0 fL RDW Coefficient of Variation 24.8 % Platelet Count 136 K/uL Mean Platelet Volume 10.6 fL Sodium Level 140 mmol/L Potassium Level 4.6 mmol/L Chloride Level 106 mmol/L Carbon Dioxide Level 27 mmol/L Anion Gap 7.0 mmol/L Blood Urea Nitrogen 56 mg/dl Creatinine 2.86 mg/dl Est Creatinine Clear Calc Drug Dose 18.8 ml/min Estimated GFR () 23.5 Estimated GFR (Non- 20.3 BUN/Creatinine Ratio 19.6 Random Glucose 81 mg/dl Calcium Level 7.4 mg/dl Impression (1) Acute renal failure (2) Hydronephrosis (3) Kidney stones (4) Pyelonephritis (5) BPH (benign prostatic hyperplasia) (6) Renal cyst (7) Chronic anemia Recommendations ACUTE KIDNEY INJURY: -- Agree w/ cystoscopy w/ stenting to assess for and alleviate any obstruction of the L ureter -- Will monitor serial PRP ANEMIA: -- Will check INR and order type & screen prior to Urologic procedure this afternoon -- Recommend transfusion if Hgb drops below 7.5 or if patient becomes symptomatic ID: -- Preliminary culture is positive for Staph aureus. -- Recommend reducing Zosyn to 2.25 g IV q 8 hours due to EGFR 18 - 20 cc/min -- Will consult Pharmacy to assist w/ antibiotic dosing -- Await sensitivities. Patient may require Vancomycin RHEUM: -- Patient has a h/o RA treated w/ Leflunomide and Prednisone therapy -- Recommend tapering Prednisone therapy to 5 - 10 mg per day KIDNEY STONES: -- Will benefit from outpatient metabolic stone evaluation once medically stable KIDNEY CYSTS: -- L kidney has complex cyst in the lower pole. Patient will likely require contrast + abdominal CT or MRI once kidney function recovers
[2017-10-18 11:48] LABS: INR 1.2 (0.9-1.1)
[2017-10-18] MEDS ORDERED: LIDOCAINE HCL 2% 2 ML VIAL (20MG/ML) ONE (15:01)
[2017-10-18] MEDS ORDERED: SODIUM CHLORIDE 0.9% INJ 10 ML VIAL ONE (15:01)
[2017-10-18] MEDS ORDERED: PROPOFOL IV EMULSION 10 MG/ML 20 ML VIAL IV ONE ×2 (15:01→15:58)
[2017-10-18] MEDS ORDERED: FENTANYL CITRATE INJ 50 MCG/1 ML 2 ML VIAL ONE (15:02)
[2017-10-18] MEDS ORDERED: MIDAZOLAM HCL 1 MG/ML 2ML VIAL ONE (15:02)
[2017-10-18] MEDS ORDERED: KETAMINE HCL INJ 50 MG/ML 10 ML VIAL ONE (15:02)
[2017-10-18] MEDS ORDERED: ONDANSETRON INJ 2 MG/ML 2 ML VIAL IV PRN (15:15)
[2017-10-18] MEDS ORDERED: FENTANYL CITRATE INJ 50 MCG/1 ML 2 ML VIAL IV PRN (15:15)
[2017-10-18] MEDS ORDERED: EpHEDrine SULFATE INJ 50 MG/ML AMP IV PRN (15:15)
[2017-10-18] MEDS ORDERED: ATROPINE SULFATE 0.1 MG/ML 5ML SYR IV PRN (15:15)
[2017-10-18] MEDS ORDERED: PROMETHAZINE HCL INJ 6.25 MG in SODIUM CHLORIDE 0.9% 50ML 50 ML IV PRN (15:15)
--- NOTE | 2017-10-18 15:23 | Medical Consult ---
Consultation Date of Consultation: Oct 18, 2017. Attending Physician: Mino Holder D.O. Reason for Consultation: Gram-positive cocci bacteremia History of Present Illness 77-year-old male with longstanding rheumatoid arthritis on prednisone therapy, BPH, chronic kidney disease, who was hospitalized in August with acute kidney injury and obstructive uropathy. Had Geiger placed because of obstruction from enlarged prostate, but apparently patient developed complicated urinary tract infection and was given course of IV ceftriaxone. He was discharged home for plans for follow-up for his left hydronephrosis. Over the days prior to admission, patient developed progressively worsening left flank pain associated with cloudy urine and fever. He was admitted to the hospital, found to have significant left hydronephrosis on CT scan, read by me, and blood and urine cultures now growing Staph aureus, sensitivities are pending. Patient now waiting OR for probable stenting. Patient has been started on IV Zosyn. Past Medical/Surgical History Medical Problems: (1) Acute renal failure Status: Acute (2) Leukocytosis Status: Acute (3) Urinary tract infection Status: Acute Medical Problems: (1) BPH (benign prostatic hyperplasia) (2) Chronic anemia (3) CVA tenderness (4) Hydronephrosis (5) Kidney stones (6) Pyelonephritis (7) Renal cyst (8) Rheumatoid arthritis (9) Suprapubic pain, acute Surgical Problems: (1) H/O inguinal hernia repair (2) History of left knee replacement (3) History of right hip replacement (4) Hx of nasal septoplasty (5) S/P carpal tunnel release (6) S/P rotator cuff repair Family History FH: CAD (coronary artery disease) BROTHER Social History Smoking Status: Former Smoker Marital Status: Housing Status: lives with family Occupation Status: retired Allergies Coded Allergies: Lisinopril (Verified Adverse Reaction, Mild, COUGH, 08/04/17) Current Inpatient Medications Current Inpatient Medications Medications (Trade) Dose Ordered Sig/Yrn Route Start Time Stop Time Status Last Admin Dose Admin Acetaminophen (Tylenol Tab) 650 mg Q4H PRN PO 10/17/17 15:45 11/16/17 15:44 Al Hydrox/Mg Hydrox/Simethicone (Maalox Max Susp) 15 ml Q4H PRN PO 10/17/17 15:45 11/16/17 15:44 Magnesium Hydroxide (Milk Of Magnesia Susp) 30 ml Q6H PRN PO 10/17/17 15:45 11/16/17 15:44 Polyethylene (Miralax Powder Packet) 17 gm DAILY PRN PO 10/17/17 15:45 11/16/17 15:44 Ondansetron HCl (Zofran Inj) 4 mg Q6H PRN IV 10/17/17 15:45 11/16/17 15:44 Aspirin (Ecotrin Tab) 81 mg BID PO 10/17/17 20:00 11/16/17 20:59 10/18/17 09:15 81 MG Finasteride (Proscar Tab) 5 mg HS PO 10/17/17 21:00 11/16/17 20:59 10/17/17 19:50 5 MG Folic Acid (Folvite Tab) 1 mg QAM PO 10/18/17 08:00 11/17/17 08:59 10/18/17 09:16 1 MG Metoprolol Tartrate (Lopressor Tab) 25 mg DAILY PO 10/18/17 08:00 11/17/17 08:59 10/18/17 09:14 25 MG Multivitamins (Multivitamin Tab) 1 tab QAM PO 10/18/17 08:00 11/17/17 08:59 10/18/17 09:14 1 TAB Potassium Chloride (Klor-Con Tab) 20 meq BID PO 10/17/17 20:00 11/16/17 20:59 10/18/17 09:16 20 MEQ Ranitidine HCl (zANTac TAB) 150 mg BID PO 10/17/17 20:00 11/16/17 20:59 10/18/17 09:15 150 MG Tamsulosin HCl (Flomax Cap) 0.4 mg DAILY PO 10/18/17 08:00 11/17/17 08:59 10/18/17 09:14 0.4 MG Ferrous Sulfate (Feosol Tab) 325 mg BIDM PO 10/17/17 17:00 11/16/17 17:59 10/18/17 09:16 325 MG Pantoprazole Sodium (Protonix Tab) 40 mg QAM PO 10/18/17 08:00 11/17/17 08:59 10/18/17 09:17 40 MG Sodium Chloride 1,000 ml @ 100 mls/hr Q10H IV 10/17/17 16:00 11/16/17 15:59 10/18/17 13:49 100 MLS/HR Oxycodone/ Acetaminophen (Percocet 5-325mg Tab) 1 tab Q4H PRN PO 10/17/17 15:45 10/31/17 15:44 10/18/17 09:17 1 TAB Miscellaneous Information (Consult) 1 ea UD PRN N/A 10/17/17 19:00 11/16/17 18:59 Fluconazole/ Sodium Chloride 100 mg/Prmx 50 ml @ 100 mls/hr Q24H IV 10/17/17 20:00 10/27/17 19:59 10/17/17 20:27 100 MLS/HR Piperacillin Sod/ Tazobactam Sod 3.375 gm/Dextrose 115 ml @ 28.75 mls/ hr Q8H IV 10/18/17 02:00 10/27/17 01:59 10/18/17 09:48 28.75 MLS/HR Prednisone (PredniSONE TAB) 20 mg DAILY PO 10/19/17 08:00 11/17/17 08:59 Fentanyl Citrate (Fentanyl Inj) 50 mcg Q5M PRN IV 10/18/17 15:15 10/18/17 20:00 Ondansetron HCl (Zofran Inj) 4 mg ONE PRN IV 10/18/17 15:15 Promethazine HCl 6.25 mg/Sodium Chloride 50.25 ml @ 202 mls/hr ONE PRN IV 10/18/17 15:15 Ephedrine Sulfate (EpHEDrine SULFATE INJ) 5 mg Q5M PRN IV 10/18/17 15:15 10/18/17 20:00 Atropine Sulfate (Atropine Sulfate 0.1mg/ml Inj) 0.5 mg Q1M PRN IV 10/18/17 15:15 10/18/17 20:00 Review of Systems Constitutional: + weakness, No fever Eyes: No problem reported ENT: No problem reported Respiratory: No problem reported Cardiovascular: No problem reported Abdomen: + pain Genitourinary - Male: + problem reported (Indwelling Geiger with cloudy urine, left flank pain) Neurologic: No problem reported Psychiatric: No problem reported Endocrine: No problem reported Hematologic / Lymphatic: No problem reported Integumentary: No problem reported Allergic / Immunologic: No problem reported Physical Exam Date Time Temp Pulse Resp B/P (MAP) Pulse Ox O2 Delivery O2 Flow Rate FiO2 10/18/17 14:41 36.5 58 18 106/65 (79) 95 Room Air 10/18/17 14:34 36.4 62 20 110/64 (79) 95 Room Air 10/18/17 09:15 Room Air 10/18/17 08:27 95 Room Air 10/18/17 07:39 36.7 89 19 110/64 (79) 96 Room Air 10/18/17 00:40 Room Air 10/17/17 23:10 36.7 98 21 105/61 (76) 98 Room Air 10/17/17 19:32 95 Room Air 10/17/17 17:03 36.8 96 19 154/88 (110) 95 Room Air 10/17/17 16:37 89 17 151/87 95 Room Air 10/17/17 15:44 95 Room Air 10/17/17 15:30 90 16 157/91 95 Room Air General Appearance: WD/WN, no apparent distress Head: normocephalic, atraumatic Eyes: normal inspection, EOMI, sclerae normal ENT: normal ENT inspection, hearing grossly normal, pharynx normal Neck: supple, no adenopathy, thyroid normal, trachea midline Respiratory/Chest: chest non-tender, lungs clear, normal breath sounds, no respiratory distress Cardiovascular: regular rate, rhythm, no gallop, no murmur Abdomen/GI: normal bowel sounds, non tender, soft, no organomegaly Back: normal inspection, + left CVA tenderness Extremities/Musculoskelatal: normal inspection, no calf tenderness, normal capillary refill, non-tender Neurologic/Psych: alert, oriented x 3 Skin: normal color, warm/dry, no rash Lymphatic: no adenopathy Laboratory Results Date/Time Source Procedure Growth Status 10/17/17 15:39 Blood Blood Culture - Preliminary Gram Positive Cocci Resulted 10/17/17 15:31 Blood Blood Culture - Preliminary Gram Positive Cocci Resulted Last 24 Hours Test 10/17/17 15:31 10/17/17 18:48 10/18/17 05:50 10/18/17 11:30 Lactic Acid Level 2.4 mmol/L 1.9 mmol/L Sodium Level 139 mmol/L 140 mmol/L Potassium Level 4.6 mmol/L 4.6 mmol/L Chloride Level 103 mmol/L 106 mmol/L Carbon Dioxide Level 30 mmol/L 27 mmol/L Anion Gap 6.0 mmol/L 7.0 mmol/L Blood Urea Nitrogen 53 mg/dl 56 mg/dl Creatinine 2.47 mg/dl 2.86 mg/dl Est Creatinine Clear Calc Drug Dose 21.8 ml/min 18.8 ml/min Estimated GFR () 28.1 23.5 Estimated GFR (Non- 24.2 20.3 BUN/Creatinine Ratio 21.3 19.6 Random Glucose 91 mg/dl 81 mg/dl Calcium Level 8.6 mg/dl 7.4 mg/dl White Blood Count 23.60 K/uL Red Blood Count 3.01 M/uL Hemoglobin 7.9 g/dL Hematocrit 25.6 % Mean Corpuscular Volume 85.0 fL Mean Corpuscular Hemoglobin 26.2 pg Mean Corpuscular Hemoglobin Concent 30.9 g/dl RDW Standard Deviation 74.0 fL RDW Coefficient of Variation 24.8 % Platelet Count 136 K/uL Mean Platelet Volume 10.6 fL Prothrombin Time 12.5 SECONDS Prothromb Time International Ratio 1.2 Test 10/18/17 15:00 CT OF THE ABDOMEN AND PELVIS WITHOUT CONTRAST, STONE PROTOCOL CLINICAL HISTORY: Left flank pain. COMPARISON STUDY: None. TECHNIQUE: Helical axial images of the abdomen and pelvis were obtained without IV or oral contrast according to renal stone protocol. A dose lowering technique was utilized adhering to the principles of ALARA. FINDINGS: Unenhanced images of the liver, spleen, adrenal glands are unremarkable with exception of calcified granulomas within the spleen. There is moderate dilatation of the pancreatic duct to the level the ampulla, measuring 6 mm in caliber. There is no biliary ductal dilatation. There is no pancreatic glandular atrophy. No pancreatic mass is identified although sensitivity is diminished on this unenhanced exam. There is no pneumatosis, free air or portal venous gas. There is no evidence for a bowel obstruction. There is left colon diverticulosis without evidence for acute diverticulitis. The appendix is normal. There is no lymphadenopathy. There are numerous bilateral renal lesions. These are suboptimally assessed on this exam but the majority measure water attenuation and likely reflect cysts. There is a 1.5 cm hypodense lesion within the midpole of the right kidney. There is a complex 4 cm cystic lesion within the midpole of the left kidney which contains thin septations with thin calcification. There is moderate left hydroureteronephrosis with moderate perinephric infiltration. The left ureter is dilated to the level of the distal left ureter. As a 3 mm calculus within the left lateral aspect of the bladder. There is marked enlargement of the prostate. The prostate indents the base of the bladder. A Geiger balloon is present within the bladder. Evaluation of the bladder suboptimal given lack of contrast as well as streak artifact from right hip arthroplasty. There are punctate bilateral renal calculi. There are no suspicious osseous lesions. IMPRESSION: 1. Moderate left hydroureteronephrosis with dilatation of the left ureter to the level the distal ureter. No ureteral calculi. Moderate left perinephric infiltration. Differential considerations for the dilatation include a recently passed calculus, occult distal left ureteral/bladder urothelial lesion or infectious process. Urologic consultation might be considered. A short-term follow-up CT could be obtained to evaluate for resolution of the left hydroureteronephrosis. No right hydronephrosis. Marked enlargement of the prostate. 2. Punctate bilateral nephrolithiasis. 3. Numerous bilateral renal lesions are suboptimally assessed on this exam but likely reflect cysts. 4 cm cystic left renal lesion contains thin septations within calcification. This is probably benign but a follow-up nonemergent renal protocol CT or MRI is recommended. 1.5 cm hypodense right renal lesion which favors a hyperdense cyst which can be assessed on subsequent study. Electronically signed by: Gautam Street M.D. 10/17/2017 4:41 PM Dictated Date/Time: 10/17/2017 4:28 PM The status of this report is Signed. Draft = Not yet reviewed or approved by Radiologist. Signed = Reviewed and approved by Radiologist. <AttendingPhy></AttendingPhy> <FamilyPhy>Haider Calvo M.D.</FamilyPhy> < PrimaryPhy>Haider Calvo M.D.</PrimaryPhy> <UnitNumber>[id number]</UnitNumber> < VisitNumber>[id number]</VisitNumber> <PatientName>JOEY MONCADA</PatientName> <DateOfBirth>1940</DateOfBirth> <Location>[facility]</Location> <ServiceDate></ServiceDate> <MNE>ESINDI</MNE> <OrderingPhy>Arie Dick D.O.</ OrderingPhy> <OrderingPhyMNE>f rep ord dr serrato</OrderingPhyMNE> <DictatingPhyMNE> f rep dict dr serrato</DictatingPhyMNE> <CCListMNE>f rep Assessment & Plan Gram-positive bacteremia with positive urine culture for Staph aureus in the setting of obstructive uropathy and left hydronephrosis. Patient awaiting urologic intervention with probable stenting. Will add IV daptomycin until final blood culture identification and sensitivities available. Length of IV antibiotics yet to be determined. Will follow.
[2017-10-18] MEDS ORDERED: DAPTOmycin IV 400 MG in SODIUM CHLORIDE 0.9% 50ML 50 ML IV SCH (15:30)
[2017-10-18] MEDS ORDERED: PHENYLEPHRINE 100MCG/ML 5ML SYR ONE (15:58)
[2017-10-18] MEDS ORDERED: Cysto-Conray II 17.2% 250ML BOTTLE ONE (16:12)
--- NOTE | 2017-10-18 16:29 | [facility] Operative Report ---
Operative Report Operative Date Oct 18, 2017. Pre-Operative Diagnosis Hydronephrosis, Urinary Retention Post-Operative Diagnosis Hydronephrosis, Urinary Retention Procedure(s) Performed Cystoscopy, Left Ureteral Stent Insertion ([id number]) Surgeon Dr. Love Rn Orthopaedic Surgeon(s) none Estimated Blood Loss 0 ml Findings grossly purulent urine in the left kidney; severe J-hooking of the ureter Specimens none per surgoen Drains 20F wright; [id number] stent Anesthesia Type MAC Complication(s) none Disposition no Recovery Room / PACU Indications leukocytosis; hydronephrosis; BPH Description of Procedure Patient was identified in the preoperative holding area, appropriate informed consents reviewed and completed he was transported to the operating suite. After note he has been on Zosyn and ceftriaxone on the floor no additional antibiotics were provided at the immediate time of surgery. Upon arrival in the operative suite he received appropriate sedation was placed in dorsal lithotomy position where his catheter was removed and he was sterilely prepped and draped in standard fashion. I began the case by passing a 22 Israeli cystoscope with 30 lens. Inspection of the urethra revealed no evidence of stricture disease. His prostate was inspected and noted to be quite large. He has significant lateral lobe hypertrophy as well as a large intravesical component. It does appear that he would be a candidate for a TURP in the future to help with his retention. Following my inspection of the prostate, conducted a full evaluation of the bladder. He is moderately to severely trabeculated. As I search for the ureteral orifices, the right ureteral orifice was easily identified the left appear to be easily identified as well. Given the left hydronephrosis, I turned my attention to this left ureteral orifice and attempted to cannulate it with a sensor wire and open-ended catheter. Became immediately apparent at the angle of this ureter was going to be easy to allow quick cannulation. I ultimately switched to an angle tipped sensor wire as well as a Squad Leader catheter and a 70 lens to help facilitate appropriate visualization and angulation to allow the wire to pass. After numerous efforts and struggles, I was able to successfully guide a wire into the ureter and around the severely J-hooked distal aspect. With care, I was able to pass the catheter over this wire into the mid ureter before straightening the distal J-hook. I then was able to advance the wire further encountering's further tortuosity in the proximal ureter. I was able to pass a significant amount of wire through the loop of the proximal ureter and into the kidney before advancing the catheter over it and then retracting slightly to straighten this aspect of the ureter as well. After positioning the tip of the catheter into the presumed renal pelvis, I withdrew the wire and I injected a small amount of contrast into the renal pelvis to confirm my location. Fortunately, this did confirm a renal pelvic location. As I gently marcello back on the catheter with a syringe, I noted purulent urine from the left kidney. A wire was replaced in the mid kidney followed by placement of a 6 Israeli by 22- 32 cm double-J ureteral stent. A good curl in the midportion of the kidney as well as in the bladder. A 20 Israeli coud catheter was placed without difficulty and the case was concluded. He was reversed from anesthesia and taken to the PACU in stable condition. I attest to the content of the Intraoperative Record and any orders documented therein. Any exceptions are noted below.
--- NOTE | 2017-10-18 16:37 | DIAGNOSTIC IMAGING REPORT ---
RETROGRADE INCLUDES KUB CLINICAL HISTORY: LEFT SIDE STENT PLACEMENT COMPARISON STUDY: CT scan dated 10/17/2017 FINDINGS: 4 intraoperative fluoroscopic spot images are provided for interpretation. 116 seconds of fluoroscopic time was utilized. Images demonstrate retrograde catheterization of the left ureter. There is left-sided hydronephrosis. The final image demonstrates the proximal pigtail of a left-sided nephroureteral stent IMPRESSION: Intraprocedural radiographs demonstrating left-sided hydronephrosis and placement of a left-sided nephroureteral stent Electronically signed by: Cheng Duarte M.D. 10/18/2017 4:36 PM Dictated Date/Time: 10/18/2017 4:34 PM
[2017-10-18] MEDS: DAPTOmycin IV 400 MG in SYRINGE 0 ML IV SCH (17:30)
--- NOTE | 2017-10-18 17:34 | Anesthesiology Progress Note ---
Anesthesia Post Op Note Date & Time Oct 18, 2017 at 17:34 Vital Signs Pain Intensity: 0 Vital Signs Past 12 Hours Date Time Temp Pulse Resp B/P (MAP) Pulse Ox O2 Delivery O2 Flow Rate FiO2 10/18/17 17:00 36.2 63 14 148/90 99 Nasal Cannula 2 10/18/17 16:50 36.2 66 14 130/86 98 Nasal Cannula 2 10/18/17 16:40 56 14 141/75 98 Nasal Cannula 2 10/18/17 16:32 36.2 56 14 139/75 98 Nasal Cannula 2 10/18/17 14:41 36.5 58 18 106/65 (79) 95 Room Air 10/18/17 14:34 36.4 62 20 110/64 (79) 95 Room Air 10/18/17 09:15 Room Air 10/18/17 08:27 95 Room Air 10/18/17 07:39 36.7 89 19 110/64 (79) 96 Room Air Notes Mental Status: alert / awake / arousable, participated in evaluation Pt Amnestic to Procedure: Yes Nausea / Vomiting: adequately controlled Pain: adequately controlled Airway Patency, RR, SpO2: stable & adequate BP & HR: stable & adequate Hydration State: stable & adequate Anesthetic Complications: no major complications apparent
[2017-10-18 19:05] LABS: HEMATOCRIT 27.2 % (42-52); HEMOGLOBIN 8.3 g/dL (14.0-18.0); MEAN CELL VOLUME 85.5 fL (80-100); MEAN CORPUSCULAR HEMOGLOBIN 26.1 pg (25-34); MEAN CORPUSCULAR HGB CONC 30.5 g/dl (32-36); MEAN PLATELET VOLUME 10.6 fL (7.4-10.4); PLATELET COUNT 127 K/uL (130-400); RED CELL DISTRIBUTION WIDTH SD 75.1 fL (36.4-46.3); WHITE BLOOD COUNT 19.36 K/uL (4.8-10.8)
[2017-10-18 19:23] LABS: CREATININE 3.07 mg/dl (0.60-1.40); POTASSIUM 5.1 mmol/L (3.5-5.1)
[2017-10-18] MEDS: FLUCONAZOLE / NSS 100 MG in PREMIXED NSS 50 ML IV SCH (21:38)
[2017-10-18] MEDS: FINASTERIDE 5 MG TAB PO SCH (21:39)
[2017-10-19] VITALS: O2SAT 97
[2017-10-19] MEDS: PIPERACILL/TAZOBAC IV 3.375 GM in DEXTROSE 5% 100ML IV SCH (02:22)
[2017-10-19] MEDS: OXYCODONE/ACETAMINOPHEN 5-325 TAB PO PRN ×4 (03:30→19:53)
[2017-10-19 03:54] VITALS: BP 151/80; PULSE 79; TEMP 36.7; O2SAT 96
[2017-10-19 05:42] LABS: HEMATOCRIT 24.5 % (42-52); HEMOGLOBIN 7.8 g/dL (14.0-18.0); MEAN CELL VOLUME 84.5 fL (80-100); MEAN CORPUSCULAR HEMOGLOBIN 26.9 pg (25-34); MEAN CORPUSCULAR HGB CONC 31.8 g/dl (32-36); MEAN PLATELET VOLUME 10.5 fL (7.4-10.4); PLATELET COUNT 112 K/uL (130-400); RED CELL DISTRIBUTION WIDTH CV 24.6 % (11.5-14.5); RED CELL DISTRIBUTION WIDTH SD 73.3 fL (36.4-46.3); WHITE BLOOD COUNT 17.18 K/uL (4.8-10.8)
[2017-10-19 06:17] LABS: CALCIUM 7.9 mg/dl (8.5-10.1); CREATININE 2.98 mg/dl (0.60-1.40); POTASSIUM 4.3 mmol/L (3.5-5.1)
[2017-10-19 07:07] VITALS: BP 130/69; PULSE 69; TEMP 36.3; O2SAT 96
[2017-10-19] MEDS: MULTIVITAMIN TAB PO SCH (08:23)
[2017-10-19] MEDS: PANTOprazole SOD 40 MG TAB PO SCH (08:23)
[2017-10-19] MEDS: RANITIDINE HCL 150 MG TAB PO SCH ×2 (08:23→19:54)
[2017-10-19] MEDS: METOPROLOL TARTRATE 25 MG TAB PO SCH (08:24)
[2017-10-19] MEDS: FERROUS SULFATE 325 MG TAB PO SCH ×2 (08:24→16:11)
[2017-10-19] MEDS: TAMSULOSIN HCL 0.4 MG CAP PO SCH (08:25)
[2017-10-19] MEDS: POTASSIUM CHLORIDE 20 MEQ TABCR PO SCH ×2 (08:25→19:53)
[2017-10-19] MEDS: ASPIRIN 81 MG ECTAB PO SCH ×2 (08:25→19:54)
[2017-10-19 08:44] LABS: EOS % 0.6 %; HEMATOCRIT 27.6 % (42-52); HEMOGLOBIN 8.6 g/dL (14.0-18.0); IG# 0.05 K/uL (0.00-0.02); LYMPH % 4.5 %; LYMPH ABS # 0.79 K/uL (1.2-3.4); MEAN CELL VOLUME 84.7 fL (80-100); MEAN CORPUSCULAR HEMOGLOBIN 26.4 pg (25-34); MEAN CORPUSCULAR HGB CONC 31.2 g/dl (32-36); MEAN PLATELET VOLUME 10.6 fL (7.4-10.4); MONO % 1.8 %; MONO ABS # 0.32 K/uL (0.11-0.59); NEUT % 92.8 %; NEUT ABS # 16.43 K/uL (1.4-6.5); PLATELET COUNT 132 K/uL (130-400); RED CELL DISTRIBUTION WIDTH CV 24.9 % (11.5-14.5); RED CELL DISTRIBUTION WIDTH SD 74.1 fL (36.4-46.3); WHITE BLOOD COUNT 17.69 K/uL (4.8-10.8)
--- NOTE | 2017-10-19 09:01 | Family Medicine Progress Note ---
Progress Note Date of Service Oct 19, 2017. Subjective Pt evaluation today including: conversation w/ patient, physical exam, chart review, lab review, review of inpatient medication list Pain: Suprapubic pain noted PO Intake: Tolerating PO intake Voiding: wright catheter in place Mr. Hoffman reports he feels as though he has turned the corner today. His bilateral back pain has resolved. He remains with suprapubic pain that occurs in waves, and is quite severe. He notes that percocet takes the edge off of the pain. He denies fever, chills, n/v, chest pain, SOB and is eating and drinking well. Constitutional: No fever, No chills Respiratory: No cough, No sputum, No wheezing, No shortness of breath Cardiovascular: No chest pain Abdomen: + pain, No nausea, No vomiting Male : + hematuria All Other Systems: Reviewed and Negative Medications Current Inpatient Medications Medications (Trade) Dose Ordered Sig/Yrn Route Start Time Stop Time Status Last Admin Dose Admin Acetaminophen (Tylenol Tab) 650 mg Q4H PRN PO 10/17/17 15:45 11/16/17 15:44 Al Hydrox/Mg Hydrox/Simethicone (Maalox Max Susp) 15 ml Q4H PRN PO 10/17/17 15:45 11/16/17 15:44 Magnesium Hydroxide (Milk Of Magnesia Susp) 30 ml Q6H PRN PO 10/17/17 15:45 11/16/17 15:44 Polyethylene (Miralax Powder Packet) 17 gm DAILY PRN PO 10/17/17 15:45 11/16/17 15:44 Ondansetron HCl (Zofran Inj) 4 mg Q6H PRN IV 10/17/17 15:45 11/16/17 15:44 Aspirin (Ecotrin Tab) 81 mg BID PO 10/17/17 20:00 11/16/17 20:59 10/19/17 08:25 81 MG Finasteride (Proscar Tab) 5 mg HS PO 10/17/17 21:00 11/16/17 20:59 10/18/17 21:39 5 MG Folic Acid (Folvite Tab) 1 mg QAM PO 10/18/17 08:00 11/17/17 08:59 10/19/17 08:25 1 MG Metoprolol Tartrate (Lopressor Tab) 25 mg DAILY PO 10/18/17 08:00 11/17/17 08:59 10/19/17 08:24 25 MG Multivitamins (Multivitamin Tab) 1 tab QAM PO 10/18/17 08:00 11/17/17 08:59 10/19/17 08:23 1 TAB Potassium Chloride (Klor-Con Tab) 20 meq BID PO 10/17/17 20:00 11/16/17 20:59 10/19/17 08:25 20 MEQ Ranitidine HCl (zANTac TAB) 150 mg BID PO 10/17/17 20:00 11/16/17 20:59 10/19/17 08:23 150 MG Tamsulosin HCl (Flomax Cap) 0.4 mg DAILY PO 10/18/17 08:00 11/17/17 08:59 10/19/17 08:25 0.4 MG Ferrous Sulfate (Feosol Tab) 325 mg BIDM PO 10/17/17 17:00 11/16/17 17:59 10/19/17 08:24 325 MG Pantoprazole Sodium (Protonix Tab) 40 mg QAM PO 10/18/17 08:00 11/17/17 08:59 10/19/17 08:23 40 MG Sodium Chloride 1,000 ml @ 100 mls/hr Q10H IV 10/17/17 16:00 11/16/17 15:59 10/18/17 21:42 100 MLS/HR Oxycodone/ Acetaminophen (Percocet 5-325mg Tab) 1 tab Q4H PRN PO 10/17/17 15:45 10/31/17 15:44 10/19/17 08:16 1 TAB Miscellaneous Information (Consult) 1 ea UD PRN N/A 10/17/17 19:00 11/16/17 18:59 Fluconazole/ Sodium Chloride 100 mg/Prmx 50 ml @ 100 mls/hr Q24H IV 10/17/17 20:00 10/27/17 19:59 10/18/17 21:38 100 MLS/HR Prednisone (PredniSONE TAB) 20 mg DAILY PO 10/19/17 08:00 11/17/17 08:59 10/19/17 08:22 20 MG Ondansetron HCl (Zofran Inj) 4 mg ONE PRN IV 10/18/17 15:15 Promethazine HCl 6.25 mg/Sodium Chloride 50.25 ml @ 202 mls/hr ONE PRN IV 10/18/17 15:15 Daptomycin 400 mg/ Syringe 8 ml @ 4 mls/min Q48H IV 10/18/17 16:00 11/01/17 15:59 10/18/17 17:30 4 MLS/MIN Piperacillin Sod/ Tazobactam Sod 3.375 gm/Dextrose 115 ml @ 28.75 mls/ hr Q12H IV 10/19/17 14:00 10/27/17 01:59 Oxybutynin Chloride (Ditropan Tab) 5 mg TID PO 10/19/17 14:00 11/18/17 13:59 UNV Objective Vital Signs Date Time Temp Pulse Resp B/P (MAP) Pulse Ox O2 Delivery O2 Flow Rate FiO2 10/19/17 07:07 36.3 69 17 130/69 (89) 96 Room Air 10/19/17 03:54 36.7 79 20 151/80 (103) 96 Room Air 10/19/17 00:00 97 Room Air 10/18/17 23:20 36.5 73 18 125/76 (92) 95 Room Air 10/18/17 20:23 36.4 68 20 124/75 (91) 96 Room Air 10/18/17 20:23 97 Nasal Cannula 2.0 10/18/17 19:33 36.3 59 20 160/81 (107) 97 Room Air 10/18/17 17:15 99 Nasal Cannula 2.0 10/18/17 17:00 36.2 63 14 148/90 99 Nasal Cannula 2 10/18/17 16:50 36.2 66 14 130/86 98 Nasal Cannula 2 10/18/17 16:40 56 14 141/75 98 Nasal Cannula 2 10/18/17 16:32 36.2 56 14 139/75 98 Nasal Cannula 2 10/18/17 14:41 36.5 58 18 106/65 (79) 95 Room Air 10/18/17 14:34 36.4 62 20 110/64 (79) 95 Room Air 10/18/17 09:15 Room Air Physical Exam General Appearance: WD/WN, no apparent distress Respiratory/Chest: chest non-tender, lungs clear, normal breath sounds, no respiratory distress, no accessory muscle use Cardiovascular: regular rate, rhythm, no edema, no gallop, no JVD Abdomen: soft, + tenderness (over suprapubic region), + pertinent finding (no flank tenderness) Laboratory Results Last 24 Hours Test 10/18/17 11:30 10/18/17 18:29 10/18/17 20:22 10/19/17 05:20 Prothrombin Time 12.5 SECONDS Prothromb Time International Ratio 1.2 White Blood Count 19.36 K/uL 17.18 K/uL Red Blood Count 3.18 M/uL 2.90 M/uL Hemoglobin 8.3 g/dL 7.8 g/dL Hematocrit 27.2 % 24.5 % Mean Corpuscular Volume 85.5 fL 84.5 fL Mean Corpuscular Hemoglobin 26.1 pg 26.9 pg Mean Corpuscular Hemoglobin Concent 30.5 g/dl 31.8 g/dl RDW Standard Deviation 75.1 fL 73.3 fL RDW Coefficient of Variation 25.0 % 24.6 % Platelet Count 127 K/uL 112 K/uL Mean Platelet Volume 10.6 fL 10.5 fL Sodium Level 138 mmol/L 139 mmol/L Potassium Level 5.1 mmol/L 4.3 mmol/L Chloride Level 106 mmol/L 108 mmol/L Carbon Dioxide Level 23 mmol/L 22 mmol/L Anion Gap 8.0 mmol/L 9.0 mmol/L Blood Urea Nitrogen 58 mg/dl 56 mg/dl Creatinine 3.07 mg/dl 2.98 mg/dl Est Creatinine Clear Calc Drug Dose 17.5 ml/min 18.1 ml/min Estimated GFR () 21.6 22.4 Estimated GFR (Non- 18.6 19.3 BUN/Creatinine Ratio 18.8 18.9 Random Glucose 139 mg/dl 108 mg/dl Calcium Level 8.0 mg/dl 7.9 mg/dl Bedside Glucose 131 mg/dl Test 10/19/17 07:50 10/19/17 08:25 Bedside Glucose 95 mg/dl White Blood Count 17.69 K/uL Red Blood Count 3.26 M/uL Hemoglobin 8.6 g/dL Hematocrit 27.6 % Mean Corpuscular Volume 84.7 fL Mean Corpuscular Hemoglobin 26.4 pg Mean Corpuscular Hemoglobin Concent 31.2 g/dl Platelet Count 132 K/uL Mean Platelet Volume 10.6 fL Neutrophils (%) (Auto) 92.8 % Lymphocytes (%) (Auto) 4.5 % Monocytes (%) (Auto) 1.8 % Eosinophils (%) (Auto) 0.6 % Basophils (%) (Auto) 0.0 % Neutrophils # (Auto) 16.43 K/uL Lymphocytes # (Auto) 0.79 K/uL Monocytes # (Auto) 0.32 K/uL Eosinophils # (Auto) 0.10 K/uL Basophils # (Auto) 0.00 K/uL RDW Standard Deviation 74.1 fL RDW Coefficient of Variation 24.9 % Immature Granulocyte % (Auto) 0.3 % Immature Granulocyte # (Auto) 0.05 K/uL Assessment and Plan Mr. Hoffman is a 77 year old male with a past medical history of rheumatoid arthritis on prednisone, BPH, Anemia of chronic disease, HTN, HLD, primary OA who was admitted for 12 hours of left-sided CVA pain and suprapubic pain on top of a 3 day hx of increasing sediment, pus, and orange color of urine in his indwelling catheter. Recent admission to [facility] from 09/24- for TYRONE in setting of urinary retention secondary to worsening BPH. During that admission he was found to have left sided hydroureteronephrosis. Was treated for complicated UTI with rocephin x 5 days. He had been seen by urology who had discussed possibility of inserting a stent but as he clinically improved, they decided to opt for outpatient follow up, which has not occurred yet. Pyelonephritis/Left VUJ obstruction/L Hydroureteronephrosis - currently on daptomycin (thank you to ID for consult) - d/c zosyn as urine culture shows staph aureus is pansensitive - blood cultures positive x2 for staph aureus as well - pt may need PICC line on d/c for extended abx coverage - will discuss w/ID - CT showed moderate left hydroureteronephrosis with dilatation of the left ureter to the level the distal ureter. No ureteral calculi. Moderate left perinephric infiltration. - thank you to urology for consult - left ureteral stent placed yesterday - d/c fluconazole - 4-6 weeks oral cipro on d/c for suspected prostatitis - Percocet prn q4h for pain management - NaCl increased from 100 mL/hr to 150mls/hr Acute Kidney Injury - creatinine elevated to 2.98. Pt states baseline recently has been around 2, but this is far worse than prior relatively recent baseline of 1 in 2017 - creatinine has not improved since yesterday, but urine output improved - Continue to hold amlodipine (held prior to admission) - thank you to nephrology for consult - monitor serial BMP - outpatient metabolic stone eval once stable - contrast and abdominal CT/MRI for left kidney complex cyst after resolution of TYRONE Anemia - likely anemia of chronic disease related to RA - improved from 7.8 to 8.6 today - will transfuse if Hgb drops below 7.5 as per nephro recommendations - Type and screen ordered - Continue iron supplementation - 325mg ferrous sulfate bid - Had been given procrit at [facility] as well as 4 units of venofer BPH, chronic x 15 years, worsening - Continue flomax and finasteride - Patient started on indwelling catheter at [facility] RA - Continue to hold leflunomide 2/2 recent weight loss - Steroid taper from recent hospitalization - was taking 60mg on admission. Tapered back down to 5mg - his baseline - continue folic acid HTN - continue Metoprolol 25 mg OD - continue ASA 81 mg DVT Prophylaxis: SCDs Code: Full Dispo: remains on med/surg Resident Physician Supervision Note: I interviewed and examined the patient. Discussed with the resident and agree with findings and plan as documented in the note. I also discussed the case with urology and nephrology. Any exceptions or clarifications are listed here: I my examination, the patient had a focal area of suprapubic tenderness. PLAN 1) Increase IVF to 150 cc/hr 2) Decrease Prednisone to 5 mg (his chronic dose). 3) Will discuss antibiotics with ID and pharmacy. Documented By: Mino Holder Resident Tracking Resident Involvement: Resident Care Provided Care Provided: Adult Hospital Medicine
--- NOTE | 2017-10-19 09:05 | Progress Note ---
Subjective Date of Service: Oct 19, 2017. Subjective Pt evaluation today including: conversation w/ patient, physical exam, chart review, lab review Moderate stent pain overnight -no longer CVA tenderness, now with left lower quadrant tenderness Mild hematuria Some improvement in his leukocytosis No improvement in his renal function yet Problem List Medical Problems: (1) Acute renal failure Status: Acute (2) Leukocytosis Status: Acute (3) Urinary tract infection Status: Acute Review of Systems Constitutional: No see HPI, No fever, No chills, No sweats, No weight loss, No weakness, No fatigue, No problem reported Eyes: No see HPI, No worsening of vision, No eye pain, No redness, No discharge , No diplopia, No problem reported ENT: No see HPI, No hearing loss, No unusual epistaxis, No nasal symptoms, No sore throat, No tinnitus, No dental problems, No trouble swallowing, No problem reported Respiratory: No see HPI, No cough, No sputum, No wheezing, No shortness of breath, No dyspnea on exertion, No dyspnea at rest, No hemoptysis, No problem reported Cardiac: No see HPI, No chest pain, No orthopnea, No PND, No edema, No claudication, No palpitations, No problem reported Breast: No see HPI, No breast lump, No change in shape, No nipple discharge, No breast pain, No problem reported Abdomen: + pain Musculoskeletal: No see HPI, No joint pain, No muscle pain, No swelling, No calf pain, No problem reported Male : + see HPI, + dysuria, + hematuria, No urinary frequency, No incontinence, No nocturia more than once/night, No slowing stream, No sexual dysfunction, No problem reported Neurologic: No see HPI, No memory loss, No paralysis, No weakness, No numbness/ tingling, No vertigo, No balance problems, No problem reported Psychiatric: No see HPI, No depression symptoms, No anhedonism, No anxiety, No insomnia, No substance abuse, No problem reported Objective Vital Signs Date Time Temp Pulse Resp B/P (MAP) Pulse Ox O2 Delivery O2 Flow Rate FiO2 10/19/17 07:07 36.3 69 17 130/69 (89) 96 Room Air 10/19/17 03:54 36.7 79 20 151/80 (103) 96 Room Air 10/19/17 00:00 97 Room Air 10/18/17 23:20 36.5 73 18 125/76 (92) 95 Room Air 10/18/17 20:23 36.4 68 20 124/75 (91) 96 Room Air 10/18/17 20:23 97 Nasal Cannula 2.0 10/18/17 19:33 36.3 59 20 160/81 (107) 97 Room Air 10/18/17 17:15 99 Nasal Cannula 2.0 10/18/17 17:00 36.2 63 14 148/90 99 Nasal Cannula 2 10/18/17 16:50 36.2 66 14 130/86 98 Nasal Cannula 2 10/18/17 16:40 56 14 141/75 98 Nasal Cannula 2 10/18/17 16:32 36.2 56 14 139/75 98 Nasal Cannula 2 10/18/17 14:41 36.5 58 18 106/65 (79) 95 Room Air 10/18/17 14:34 36.4 62 20 110/64 (79) 95 Room Air 10/18/17 09:15 Room Air Physical Exam General Appearance: no apparent distress Eyes: normal inspection ENT: hearing grossly normal Neck: no adenopathy Respiratory/Chest: no respiratory distress, no accessory muscle use Cardiovascular: no edema Abdomen: non tender, soft Extremities: non-tender, no pedal edema, no calf tenderness Neurologic/Psychiatric: alert, normal mood/affect, oriented x 3 Skin: warm/dry Lymphatic: no adenopathy Laboratory Results Last 24 Hours Test 10/18/17 11:30 10/18/17 18:29 10/18/17 20:22 10/19/17 05:20 Prothrombin Time 12.5 SECONDS Prothromb Time International Ratio 1.2 White Blood Count 19.36 K/uL 17.18 K/uL Red Blood Count 3.18 M/uL 2.90 M/uL Hemoglobin 8.3 g/dL 7.8 g/dL Hematocrit 27.2 % 24.5 % Mean Corpuscular Volume 85.5 fL 84.5 fL Mean Corpuscular Hemoglobin 26.1 pg 26.9 pg Mean Corpuscular Hemoglobin Concent 30.5 g/dl 31.8 g/dl RDW Standard Deviation 75.1 fL 73.3 fL RDW Coefficient of Variation 25.0 % 24.6 % Platelet Count 127 K/uL 112 K/uL Mean Platelet Volume 10.6 fL 10.5 fL Sodium Level 138 mmol/L 139 mmol/L Potassium Level 5.1 mmol/L 4.3 mmol/L Chloride Level 106 mmol/L 108 mmol/L Carbon Dioxide Level 23 mmol/L 22 mmol/L Anion Gap 8.0 mmol/L 9.0 mmol/L Blood Urea Nitrogen 58 mg/dl 56 mg/dl Creatinine 3.07 mg/dl 2.98 mg/dl Est Creatinine Clear Calc Drug Dose 17.5 ml/min 18.1 ml/min Estimated GFR () 21.6 22.4 Estimated GFR (Non- 18.6 19.3 BUN/Creatinine Ratio 18.8 18.9 Random Glucose 139 mg/dl 108 mg/dl Calcium Level 8.0 mg/dl 7.9 mg/dl Bedside Glucose 131 mg/dl Test 10/19/17 07:50 10/19/17 08:25 Bedside Glucose 95 mg/dl White Blood Count 17.69 K/uL Red Blood Count 3.26 M/uL Hemoglobin 8.6 g/dL Hematocrit 27.6 % Mean Corpuscular Volume 84.7 fL Mean Corpuscular Hemoglobin 26.4 pg Mean Corpuscular Hemoglobin Concent 31.2 g/dl Platelet Count 132 K/uL Mean Platelet Volume 10.6 fL Neutrophils (%) (Auto) 92.8 % Lymphocytes (%) (Auto) 4.5 % Monocytes (%) (Auto) 1.8 % Eosinophils (%) (Auto) 0.6 % Basophils (%) (Auto) 0.0 % Neutrophils # (Auto) 16.43 K/uL Lymphocytes # (Auto) 0.79 K/uL Monocytes # (Auto) 0.32 K/uL Eosinophils # (Auto) 0.10 K/uL Basophils # (Auto) 0.00 K/uL RDW Standard Deviation 74.1 fL RDW Coefficient of Variation 24.9 % Immature Granulocyte % (Auto) 0.3 % Immature Granulocyte # (Auto) 0.05 K/uL Assessment and Plan Urinary retention; left hydronephrosis; leukocytosis; renal failure Stent placed yesterday -very challenging placement secondary to tortuosity of the ureter, all suspected to be driven by enlargement of the prostate and subsequent ureteral obstruction. Grossly purulent urine drained from the left kidney after stent placement. Current pain is as expected after his procedure. Geiger catheter in position again Lengthy discussion today about our plan from here Continue antibiotics -priority #1 will be complete control of any infectious process Once we have achieved resolution of infectious issues, we can consider planning for TURP and potential stent removal He reports his renal function was quite good several months ago, and I am hopeful we will make some progress back towards his baseline -he is being followed by Dr. Dey as well For the time being, he needs to continue with a left ureteral stent
[2017-10-19] MEDS: SODIUM CHLORIDE 0.9% 1000ML 1,000 ML IV SCH ×3 (09:58→23:12)
--- NOTE | 2017-10-19 11:09 | Anesthesiology Progress Note ---
Anesthesia Post Op Note Date & Time Oct 19, 2017 at 11:07 Vital Signs Pain Intensity: 8.0 Vital Signs Past 12 Hours Date Time Temp Pulse Resp B/P (MAP) Pulse Ox O2 Delivery O2 Flow Rate FiO2 10/19/17 09:25 Room Air 10/19/17 08:15 Room Air 10/19/17 07:07 36.3 69 17 130/69 (89) 96 Room Air 10/19/17 03:54 36.7 79 20 151/80 (103) 96 Room Air 10/19/17 00:00 97 Room Air 10/18/17 23:20 36.5 73 18 125/76 (92) 95 Room Air Notes Mental Status: alert / awake / arousable, participated in evaluation Pt Amnestic to Procedure: Yes Nausea / Vomiting: adequately controlled Pain: adequately controlled Airway Patency, RR, SpO2: stable & adequate BP & HR: stable & adequate Hydration State: stable & adequate Anesthetic Complications: no major complications apparent Awake, pain improved with post op pain medication. Satisfied with anesthesia care. VSS.
--- NOTE | 2017-10-19 11:16 | Nephrology Progress Note ---
Nephrology Progress Note Date of Service Oct 19, 2017. Chief Complaint TYRONE Subjective Mr. Hoffman was seen & examined in his hospital room this morning. He tolerated cystoscopy w/ stent placement well without complication. He has a wright catheter in place draining bloody urine. Mr. Hoffman currently denies fever. He reports that his flank pain is mildly improved. Review of Systems Constitutional: No fever Cardiovascular: No chest pain Respiratory: No dyspnea at rest Abdomen: No pain, No nausea, No vomiting Extremities: No leg edema A complete review of systems was performed. Pertinent positives are noted above. All other systems are negative. Vital Signs Last 8 Hrs Date Time Temp Pulse Resp B/P (MAP) Pulse Ox O2 Delivery O2 Flow Rate FiO2 10/19/17 09:25 Room Air 10/19/17 08:15 Room Air 10/19/17 07:07 36.3 69 17 130/69 (89) 96 Room Air 10/19/17 03:54 36.7 79 20 151/80 (103) 96 Room Air Last Recorded Weight Weight (Kilograms): 65.700 Physical Exam General Appearance: no apparent distress Head: normocephalic, atraumatic Eyes: PERRL, EOMI Neck: no adenopathy Respiratory/Chest: lungs clear, no respiratory distress Cardiovascular: regular rate, rhythm Abdomen/GI: normal bowel sounds, non tender, soft Genitourinary - Male: + pertinent finding (wright catheter w/ bloody urine) Extremities/Musculoskelatal: no calf tenderness, no pedal edema Neurologic/Psych: alert, oriented x 3 Family History FH: CAD (coronary artery disease) BROTHER Negative for CKD / ESRD Social History Smoking Status: Former smoker Marital Status: Housing Status: lives with family Occupation: retired . Retired. 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 Laboratory Results Past 24 Hours 10/18/17 18:29 10/19/17 05:20 10/19/17 08:25 Red Blood Count 3.26, Mean Corpuscular Volume 84.7, Mean Corpuscular Hemoglobin 26.4, Mean Corpuscular Hemoglobin Concent 31.2, Mean Platelet Volume 10.6, Neutrophils (%) (Auto) 92.8, Lymphocytes (%) (Auto) 4.5, Monocytes (%) (Auto) 1.8, Eosinophils (%) (Auto) 0.6, Basophils (%) (Auto) 0.0, Neutrophils # (Auto) 16.43, Lymphocytes # (Auto) 0.79, Monocytes # (Auto) 0.32, Eosinophils # (Auto) 0.10, Basophils # (Auto) 0.00 10/18/17 18:29 10/19/17 05:20 Test 10/18/17 11:30 10/18/17 18:29 10/18/17 20:22 10/19/17 05:20 Prothrombin Time 12.5 SECONDS (9.0-12.0) Prothromb Time International Ratio 1.2 (0.9-1.1) Red Blood Count 3.18 M/uL (4.7-6.1) 2.90 M/uL (4.7-6.1) Mean Corpuscular Volume 85.5 fL (80-100) 84.5 fL (80-100) Mean Corpuscular Hemoglobin 26.1 pg (25-34) 26.9 pg (25-34) Mean Corpuscular Hemoglobin Concent 30.5 g/dl (32-36) 31.8 g/dl (32-36) RDW Standard Deviation 75.1 fL (36.4-46.3) 73.3 fL (36.4-46.3) RDW Coefficient of Variation 25.0 % (11.5-14.5) 24.6 % (11.5-14.5) Mean Platelet Volume 10.6 fL (7.4-10.4) 10.5 fL (7.4-10.4) Anion Gap 8.0 mmol/L (3-11) 9.0 mmol/L (3-11) Est Creatinine Clear Calc Drug Dose 17.5 ml/min 18.1 ml/min Estimated GFR () 21.6 22.4 Estimated GFR (Non- 18.6 19.3 BUN/Creatinine Ratio 18.8 (10-20) 18.9 (10-20) Calcium Level 8.0 mg/dl (8.5-10.1) 7.9 mg/dl (8.5-10.1) Bedside Glucose 131 mg/dl (70-99) Test 10/19/17 07:50 10/19/17 08:25 Bedside Glucose 95 mg/dl (70-99) White Blood Count 17.69 K/uL (4.8-10.8) Red Blood Count 3.26 M/uL (4.7-6.1) Hemoglobin 8.6 g/dL (14.0-18.0) Hematocrit 27.6 % (42-52) Mean Corpuscular Volume 84.7 fL (80-100) Mean Corpuscular Hemoglobin 26.4 pg (25-34) Mean Corpuscular Hemoglobin Concent 31.2 g/dl (32-36) Platelet Count 132 K/uL (130-400) Mean Platelet Volume 10.6 fL (7.4-10.4) Neutrophils (%) (Auto) 92.8 % Lymphocytes (%) (Auto) 4.5 % Monocytes (%) (Auto) 1.8 % Eosinophils (%) (Auto) 0.6 % Basophils (%) (Auto) 0.0 % Neutrophils # (Auto) 16.43 K/uL (1.4-6.5) Lymphocytes # (Auto) 0.79 K/uL (1.2-3.4) Monocytes # (Auto) 0.32 K/uL (0.11-0.59) Eosinophils # (Auto) 0.10 K/uL (0-0.5) Basophils # (Auto) 0.00 K/uL (0-0.2) RDW Standard Deviation 74.1 fL (36.4-46.3) RDW Coefficient of Variation 24.9 % (11.5-14.5) Immature Granulocyte % (Auto) 0.3 % Immature Granulocyte # (Auto) 0.05 K/uL (0.00-0.02) Anisocytosis PRESENT Microcytosis PRESENT Echinocytes 1+ Allergies Coded Allergies: Lisinopril (Verified Adverse Reaction, Mild, COUGH, 08/04/17) Medications Current Inpatient Medications Medications (Trade) Dose Ordered Sig/Yrn Route Start Time Stop Time Status Last Admin Dose Admin Acetaminophen (Tylenol Tab) 650 mg Q4H PRN PO 10/17/17 15:45 11/16/17 15:44 Al Hydrox/Mg Hydrox/Simethicone (Maalox Max Susp) 15 ml Q4H PRN PO 10/17/17 15:45 11/16/17 15:44 Magnesium Hydroxide (Milk Of Magnesia Susp) 30 ml Q6H PRN PO 10/17/17 15:45 11/16/17 15:44 Polyethylene (Miralax Powder Packet) 17 gm DAILY PRN PO 10/17/17 15:45 11/16/17 15:44 Ondansetron HCl (Zofran Inj) 4 mg Q6H PRN IV 10/17/17 15:45 11/16/17 15:44 Aspirin (Ecotrin Tab) 81 mg BID PO 10/17/17 20:00 11/16/17 20:59 10/19/17 08:25 81 MG Finasteride (Proscar Tab) 5 mg HS PO 10/17/17 21:00 11/16/17 20:59 10/18/17 21:39 5 MG Folic Acid (Folvite Tab) 1 mg QAM PO 10/18/17 08:00 11/17/17 08:59 10/19/17 08:25 1 MG Metoprolol Tartrate (Lopressor Tab) 25 mg DAILY PO 10/18/17 08:00 11/17/17 08:59 10/19/17 08:24 25 MG Multivitamins (Multivitamin Tab) 1 tab QAM PO 10/18/17 08:00 11/17/17 08:59 10/19/17 08:23 1 TAB Potassium Chloride (Klor-Con Tab) 20 meq BID PO 10/17/17 20:00 11/16/17 20:59 10/19/17 08:25 20 MEQ Ranitidine HCl (zANTac TAB) 150 mg BID PO 10/17/17 20:00 11/16/17 20:59 10/19/17 08:23 150 MG Tamsulosin HCl (Flomax Cap) 0.4 mg DAILY PO 10/18/17 08:00 11/17/17 08:59 10/19/17 08:25 0.4 MG Ferrous Sulfate (Feosol Tab) 325 mg BIDM PO 10/17/17 17:00 11/16/17 17:59 10/19/17 08:24 325 MG Pantoprazole Sodium (Protonix Tab) 40 mg QAM PO 10/18/17 08:00 11/17/17 08:59 10/19/17 08:23 40 MG Sodium Chloride 1,000 ml @ 100 mls/hr Q10H IV 10/17/17 16:00 11/16/17 15:59 10/19/17 09:58 100 MLS/HR Oxycodone/ Acetaminophen (Percocet 5-325mg Tab) 1 tab Q4H PRN PO 10/17/17 15:45 10/31/17 15:44 10/19/17 08:16 1 TAB Miscellaneous Information (Consult) 1 ea UD PRN N/A 10/17/17 19:00 11/16/17 18:59 Fluconazole/ Sodium Chloride 100 mg/Prmx 50 ml @ 100 mls/hr Q24H IV 10/17/17 20:00 10/27/17 19:59 10/18/17 21:38 100 MLS/HR Prednisone (PredniSONE TAB) 20 mg DAILY PO 10/19/17 08:00 11/17/17 08:59 10/19/17 08:22 20 MG Daptomycin 400 mg/ Syringe 8 ml @ 4 mls/min Q48H IV 10/18/17 16:00 11/01/17 15:59 10/18/17 17:30 4 MLS/MIN Piperacillin Sod/ Tazobactam Sod 3.375 gm/Dextrose 115 ml @ 28.75 mls/ hr Q12H IV 10/19/17 14:00 10/27/17 01:59 Oxybutynin Chloride (Ditropan Tab) 5 mg TID PO 10/19/17 14:00 11/18/17 13:59 Impression (1) Acute renal failure (2) Hydronephrosis (3) Kidney stones (4) Pyelonephritis (5) BPH (benign prostatic hyperplasia) (6) Renal cyst (7) Chronic anemia Recommendations ACUTE KIDNEY INJURY: -- Urology operative note reviewed today. Patient underwent cystoscopy w/ L ureteral stent placement yesterday. Purulent urine obtained from ureteral stent following placement -- Kidney function is unchanged but electrolyte balance is acceptable. Urine output has improved. ANEMIA: -- INR is 1.2. Hgb has improved to 8.6 ID: -- Blood & urine cultures are + for Staph Aureus sensitive to Daptomycin -- Recommend narrowing antibiotic spectrum. Pharmacy is assisting w/ drug dosing due to TYRONE. -- Await further ID input RHEUM: -- Patient has a h/o RA treated w/ Leflunomide and Prednisone therapy -- Recommend tapering Prednisone therapy to 5 - 10 mg per day KIDNEY STONES: -- Will benefit from outpatient metabolic stone evaluation once medically stable KIDNEY CYSTS: -- L kidney has complex cyst in the lower pole. Patient will likely require contrast + abdominal CT or MRI once kidney function recovers
[2017-10-19] MEDS: OXYBUTYNIN CHLORIDE 5 MG TAB PO SCH ×2 (13:53→19:54)
[2017-10-19] MEDS ORDERED: PIPERACILL/TAZOBAC IV 3.375 GM in DEXTROSE 5% 100ML IV SCH (14:00)
[2017-10-19 15:55] VITALS: BP 152/78; PULSE 68; TEMP 36.4; O2SAT 98
[2017-10-19] MEDS: FINASTERIDE 5 MG TAB PO SCH (19:55)
--- NOTE | 2017-10-19 20:52 | Infectious Disease Progress Nt ---
Progress Note Date of Service Oct 19, 2017. Subjective Pt evaluation today including: conversation w/ patient, physical exam, chart review, lab review, review of studies, conversation w/ farm service consultant, review of inpatient medication list Patient is status post placement of ureteral stent with copious purulent material from kidney obtained. Feels better, less flank and abdominal pain. Currently afebrile and hemodynamically stable. All Other Systems: Reviewed and Negative Medications Current Inpatient Medications Medications (Trade) Dose Ordered Sig/Yrn Route Start Time Stop Time Status Last Admin Dose Admin Acetaminophen (Tylenol Tab) 650 mg Q4H PRN PO 10/17/17 15:45 11/16/17 15:44 Al Hydrox/Mg Hydrox/Simethicone (Maalox Max Susp) 15 ml Q4H PRN PO 10/17/17 15:45 11/16/17 15:44 Magnesium Hydroxide (Milk Of Magnesia Susp) 30 ml Q6H PRN PO 10/17/17 15:45 11/16/17 15:44 Polyethylene (Miralax Powder Packet) 17 gm DAILY PRN PO 10/17/17 15:45 11/16/17 15:44 Ondansetron HCl (Zofran Inj) 4 mg Q6H PRN IV 10/17/17 15:45 11/16/17 15:44 Aspirin (Ecotrin Tab) 81 mg BID PO 10/17/17 20:00 11/16/17 20:59 10/19/17 19:54 81 MG Finasteride (Proscar Tab) 5 mg HS PO 10/17/17 21:00 11/16/17 20:59 10/19/17 19:55 5 MG Folic Acid (Folvite Tab) 1 mg QAM PO 10/18/17 08:00 11/17/17 08:59 10/19/17 08:25 1 MG Metoprolol Tartrate (Lopressor Tab) 25 mg DAILY PO 10/18/17 08:00 11/17/17 08:59 10/19/17 08:24 25 MG Multivitamins (Multivitamin Tab) 1 tab QAM PO 10/18/17 08:00 11/17/17 08:59 10/19/17 08:23 1 TAB Potassium Chloride (Klor-Con Tab) 20 meq BID PO 10/17/17 20:00 11/16/17 20:59 10/19/17 19:53 20 MEQ Ranitidine HCl (zANTac TAB) 150 mg BID PO 10/17/17 20:00 11/16/17 20:59 10/19/17 19:54 150 MG Tamsulosin HCl (Flomax Cap) 0.4 mg DAILY PO 10/18/17 08:00 11/17/17 08:59 10/19/17 08:25 0.4 MG Ferrous Sulfate (Feosol Tab) 325 mg BIDM PO 10/17/17 17:00 11/16/17 17:59 10/19/17 16:11 325 MG Pantoprazole Sodium (Protonix Tab) 40 mg QAM PO 10/18/17 08:00 11/17/17 08:59 10/19/17 08:23 40 MG Sodium Chloride 1,000 ml @ 150 mls/hr Q6H40M IV 10/17/17 16:00 11/16/17 15:59 10/19/17 16:32 150 MLS/HR Oxycodone/ Acetaminophen (Percocet 5-325mg Tab) 1 tab Q4H PRN PO 10/17/17 15:45 10/31/17 15:44 10/19/17 19:53 1 TAB Daptomycin 400 mg/ Syringe 8 ml @ 4 mls/min Q48H IV 10/18/17 16:00 11/01/17 15:59 10/18/17 17:30 4 MLS/MIN Oxybutynin Chloride (Ditropan Tab) 5 mg TID PO 10/19/17 14:00 11/18/17 13:59 10/19/17 19:54 5 MG Prednisone (PredniSONE TAB) 5 mg DAILY PO 10/20/17 08:00 11/17/17 08:59 Objective Vital Signs Date Time Temp Pulse Resp B/P (MAP) Pulse Ox O2 Delivery O2 Flow Rate FiO2 10/19/17 15:55 36.4 68 22 152/78 (102) 98 Room Air 10/19/17 09:25 Room Air 10/19/17 08:15 Room Air 10/19/17 07:07 36.3 69 17 130/69 (89) 96 Room Air 10/19/17 03:54 36.7 79 20 151/80 (103) 96 Room Air 2/27/18 00:00 97 Room Air 10/18/17 23:20 36.5 73 18 125/76 (92) 95 Room Air Physical Exam General Appearance: WD/WN, no apparent distress Eyes: normal inspection, EOMI, sclerae normal ENT: normal ENT inspection, hearing grossly normal, pharynx normal Neck: supple, no adenopathy, thyroid normal, trachea midline Respiratory/Chest: chest non-tender, lungs clear, normal breath sounds, no respiratory distress Cardiovascular: regular rate, rhythm, no gallop, no murmur Abdomen: normal bowel sounds, non tender, soft, no organomegaly, + pertinent finding (Geiger with bloody urine) Extremities: non-tender, no calf tenderness, normal capillary refill Neurologic/Psychiatric: alert, oriented x 3 Skin: normal color, warm/dry, no rash Lymphatic: no adenopathy Laboratory Results RUN DATE: 10/19/17 [facility] LAB PAGE 1 RUN TIME: 1109 Specimen Inquiry PATIENT: JOEY MONCADA LOC: [place] U # : [id number] AGE/SX: 77/M ROOM: E407 REG : 10/17/[address]: Mino Holder D.O : 1940 BED: 1 DIS : STATUS: ADM IN TLOC: SPEC #: [id number] ROBBIE: 10/17/17 STATUS: COMP REQ #: [id number] RECD: 10/17/[address] [facility] [address]: Maria Del Carmen Villegas PA-C SOURCE: BLOOD ENTR: 10/17/17-[address] [facility] [address]: Haider Calvo M.D. SPDESC: Chris Padilla M.D. Miller, Howard I., MD, Urology ORDERED: BLOOD CULTURE COMMENTS: Comments to [employer] SAME TIME DIFFERENT SITES Procedure Result Verified Site BLD CULT Final 10/19/17-1109 Organism 1 STAPHYLOCOCCUS AUREUS SENS NO SENSITIVITY TO FOLLOW PLEASE SEE CULTURE NUMBER [id number] FOR SENSITIVITIES. Phoned Positive Blood Culture Gram Stain Report to DAYLIN LOW on 10/18/17 At 0424 By CRISTIAN. Results were verbalized back to CRISTIAN. Last 24 Hours Test 10/19/17 05:20 10/19/17 07:50 10/19/17 08:25 10/19/17 11:33 White Blood Count 17.18 K/uL 17.69 K/uL Red Blood Count 2.90 M/uL 3.26 M/uL Hemoglobin 7.8 g/dL 8.6 g/dL Hematocrit 24.5 % 27.6 % Mean Corpuscular Volume 84.5 fL 84.7 fL Mean Corpuscular Hemoglobin 26.9 pg 26.4 pg Mean Corpuscular Hemoglobin Concent 31.8 g/dl 31.2 g/dl RDW Standard Deviation 73.3 fL 74.1 fL RDW Coefficient of Variation 24.6 % 24.9 % Platelet Count 112 K/uL 132 K/uL Mean Platelet Volume 10.5 fL 10.6 fL Sodium Level 139 mmol/L Potassium Level 4.3 mmol/L Chloride Level 108 mmol/L Carbon Dioxide Level 22 mmol/L Anion Gap 9.0 mmol/L Blood Urea Nitrogen 56 mg/dl Creatinine 2.98 mg/dl Est Creatinine Clear Calc Drug Dose 18.1 ml/min Estimated GFR () 22.4 Estimated GFR (Non- 19.3 BUN/Creatinine Ratio 18.9 Random Glucose 108 mg/dl Calcium Level 7.9 mg/dl Bedside Glucose 95 mg/dl Neutrophils (%) (Auto) 92.8 % Lymphocytes (%) (Auto) 4.5 % Monocytes (%) (Auto) 1.8 % Eosinophils (%) (Auto) 0.6 % Basophils (%) (Auto) 0.0 % Neutrophils # (Auto) 16.43 K/uL Lymphocytes # (Auto) 0.79 K/uL Monocytes # (Auto) 0.32 K/uL Eosinophils # (Auto) 0.10 K/uL Basophils # (Auto) 0.00 K/uL Immature Granulocyte % (Auto) 0.3 % Immature Granulocyte # (Auto) 0.05 K/uL Anisocytosis PRESENT Microcytosis PRESENT Echinocytes 1+ Test 10/19/17 16:51 Bedside Glucose 156 mg/dl Assessment and Plan Staph aureus bacteremia with positive urine culture for methicillin sensitive Staph aureus in the setting of obstructive uropathy and left hydronephrosis. Patient now status post stent placement, status post dose of daptomycin yesterday. If blood cultures confirm methicillin sensitive Staph aureus, will change to IV cefazolin tomorrow. Will likely require several weeks of IV antibiotic therapy. Will follow.
[2017-10-19 23:39] VITALS: BP 158/94; PULSE 69; TEMP 36.4; O2SAT 95
[2017-10-20] VITALS (9 sets, daily range): BP systolic 136–188; BP diastolic 70–84; PULSE 46–78; TEMP 36.2–36.7; O2SAT 91–97
[2017-10-20] MEDS: SODIUM CHLORIDE 0.9% 1000ML 1,000 ML IV SCH ×3 (06:00→18:41)
[2017-10-20] MEDS: OXYCODONE/ACETAMINOPHEN 5-325 TAB PO PRN ×3 (06:05→22:18)
[2017-10-20 07:19] LABS: HEMATOCRIT 22.9 % (42-52); HEMOGLOBIN 7.2 g/dL (14.0-18.0); MEAN CELL VOLUME 84.8 fL (80-100); MEAN CORPUSCULAR HEMOGLOBIN 26.7 pg (25-34); MEAN CORPUSCULAR HGB CONC 31.4 g/dl (32-36); RED CELL DISTRIBUTION WIDTH CV 24.8 % (11.5-14.5); RED CELL DISTRIBUTION WIDTH SD 73.7 fL (36.4-46.3)
[2017-10-20 07:51] LABS: MEAN PLATELET VOLUME 10.7 fL (7.4-10.4); PLATELET COUNT 97 K/uL (130-400)
[2017-10-20 07:52] LABS: EOS % 0.7 %; EOS ABS # 0.06 K/uL (0-0.5); IG# 0.01 K/uL (0.00-0.02); LYMPH % 5.7 %; LYMPH ABS # 0.48 K/uL (1.2-3.4); MONO % 3.7 %; MONO ABS # 0.31 K/uL (0.11-0.59); NEUT % 89.8 %; NEUT ABS # 7.54 K/uL (1.4-6.5)
[2017-10-20 07:57] LABS: CREATININE 2.52 mg/dl (0.60-1.40); POTASSIUM 4.1 mmol/L (3.5-5.1)
[2017-10-20] MEDS: FERROUS SULFATE 325 MG TAB PO SCH ×2 (08:09→16:58)
[2017-10-20] MEDS: TAMSULOSIN HCL 0.4 MG CAP PO SCH (08:09)
[2017-10-20] MEDS: ASPIRIN 81 MG ECTAB PO SCH (08:09)
[2017-10-20] MEDS: OXYBUTYNIN CHLORIDE 5 MG TAB PO SCH ×3 (08:09→20:55)
[2017-10-20] MEDS: RANITIDINE HCL 150 MG TAB PO SCH ×2 (08:10→20:55)
[2017-10-20] MEDS: MULTIVITAMIN TAB PO SCH (08:10)
[2017-10-20] MEDS: POTASSIUM CHLORIDE 20 MEQ TABCR PO SCH ×2 (08:10→20:55)
[2017-10-20] MEDS: PANTOprazole SOD 40 MG TAB PO SCH (08:10)
[2017-10-20] MEDS: METOPROLOL TARTRATE 25 MG TAB PO SCH (08:10)
--- NOTE | 2017-10-20 09:20 | Progress Note ---
Subjective Date of Service: Oct 20, 2017. Subjective Pt evaluation today including: conversation w/ patient, chart review, lab review Voiding: wright catheter in place (patent, draining yellow urine ) 77 yo male s/p left ureteral stent placement. Pt reports his bladder pain has improved since being irrigated for a clot yesterday afternoon. Cr improved slightly to 2.52 this morning. H&H noted to be 7.2 and 22.9. Problem List Medical Problems: (1) Acute renal failure Status: Acute (2) Leukocytosis Status: Acute (3) Urinary tract infection Status: Acute Review of Systems Constitutional: No fever, No chills Respiratory: No shortness of breath Cardiac: No chest pain Abdomen: No pain, No nausea, No vomiting Heme: No abnormal bleeding/bruising Objective Vital Signs Date Time Temp Pulse Resp B/P (MAP) Pulse Ox O2 Delivery O2 Flow Rate FiO2 10/20/17 07:25 36.7 78 20 155/70 (98) 97 10/20/17 00:00 Room Air 10/19/17 23:39 36.4 69 20 158/94 (115) 95 Room Air 10/19/17 20:00 Room Air 10/19/17 15:55 36.4 68 22 152/78 (102) 98 Room Air 10/19/17 09:25 Room Air Physical Exam General Appearance: no apparent distress Eyes: normal inspection ENT: hearing grossly normal Neck: no JVD Respiratory/Chest: no respiratory distress, no accessory muscle use Cardiovascular: no JVD Extremities: normal inspection Neurologic/Psychiatric: alert, normal mood/affect, oriented x 3 Skin: normal color Laboratory Results Last 24 Hours Test 10/19/17 11:33 10/19/17 16:51 10/19/17 20:55 10/20/17 06:55 Bedside Glucose 156 mg/dl 149 mg/dl White Blood Count 8.40 K/uL Red Blood Count 2.70 M/uL Hemoglobin 7.2 g/dL Hematocrit 22.9 % Mean Corpuscular Volume 84.8 fL Mean Corpuscular Hemoglobin 26.7 pg Mean Corpuscular Hemoglobin Concent 31.4 g/dl Platelet Count 97 K/uL Mean Platelet Volume 10.7 fL Neutrophils (%) (Auto) 89.8 % Lymphocytes (%) (Auto) 5.7 % Monocytes (%) (Auto) 3.7 % Eosinophils (%) (Auto) 0.7 % Basophils (%) (Auto) 0.0 % Neutrophils # (Auto) 7.54 K/uL Lymphocytes # (Auto) 0.48 K/uL Monocytes # (Auto) 0.31 K/uL Eosinophils # (Auto) 0.06 K/uL Basophils # (Auto) 0.00 K/uL RDW Standard Deviation 73.7 fL RDW Coefficient of Variation 24.8 % Immature Granulocyte % (Auto) 0.1 % Immature Granulocyte # (Auto) 0.01 K/uL Platelet Estimate DECREASED Anisocytosis PRESENT Echinocytes 1+ Sodium Level 140 mmol/L Potassium Level 4.1 mmol/L Chloride Level 112 mmol/L Carbon Dioxide Level 21 mmol/L Anion Gap 7.0 mmol/L Blood Urea Nitrogen 42 mg/dl Creatinine 2.52 mg/dl Est Creatinine Clear Calc Drug Dose 21.4 ml/min Estimated GFR () 27.4 Estimated GFR (Non- 23.6 BUN/Creatinine Ratio 16.8 Random Glucose 94 mg/dl Calcium Level 8.0 mg/dl Test 10/20/17 07:34 Bedside Glucose 138 mg/dl Assessment and Plan POD #2 s/p cysto and left ureteral stent placement, sepsis AFVSS. Bladder pain improved. Will continue wright catheter for now. Plan for outpatient TURP once infection adequately treated. Will arrange for outpatient f/u with Dr. Love. Management of IV abx per Dr. Jacobson for UTI. Suspect prostatitis and would transition to 3 weeks of oral Bactrim once finished with the IV abx. Discussed this morning's H&H with hospitalist service. Will allow to manage. No further management at this time. Will sign off for now. Recall PRN issues.
--- NOTE | 2017-10-20 11:06 | Nephrology Progress Note ---
Nephrology Progress Note Date of Service Oct 20, 2017. Chief Complaint TYRONE Subjective Mr. Hoffman was seen & examined in his hospital room this morning. He complains of suprapubic pain. He has had gross hematuria. He currently denies fever or flank pain. Review of Systems Constitutional: No fever Cardiovascular: No chest pain Respiratory: No dyspnea at rest Abdomen: No nausea, No vomiting Extremities: No leg edema A complete review of systems was performed. Pertinent positives are noted above. All other systems are negative. Vital Signs Last 8 Hrs Date Time Temp Pulse Resp B/P (MAP) Pulse Ox O2 Delivery O2 Flow Rate FiO2 10/20/17 09:50 Room Air 10/20/17 07:25 36.7 78 20 155/70 (98) 97 Last Recorded Weight Weight (Kilograms): 65.700 Physical Exam General Appearance: no apparent distress Head: normocephalic, atraumatic Eyes: PERRL, EOMI Neck: no adenopathy Respiratory/Chest: lungs clear, no respiratory distress Cardiovascular: regular rate, rhythm Abdomen/GI: normal bowel sounds, soft Genitourinary - Male: + pertinent finding (wright catheter in place draining grossly bloody urine) Extremities/Musculoskelatal: no calf tenderness, no pedal edema Neurologic/Psych: alert, oriented x 3 Family History FH: CAD (coronary artery disease) BROTHER Negative for CKD / ESRD Social History Smoking Status: Former smoker Marital Status: Housing Status: lives with family Occupation: retired . Retired. 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 Laboratory Results Past 24 Hours 10/20/17 06:55 Red Blood Count 2.70, Mean Corpuscular Volume 84.8, Mean Corpuscular Hemoglobin 26.7, Mean Corpuscular Hemoglobin Concent 31.4, Mean Platelet Volume 10.7, Neutrophils (%) (Auto) 89.8, Lymphocytes (%) (Auto) 5.7, Monocytes (%) (Auto) 3.7, Eosinophils (%) (Auto) 0.7, Basophils (%) (Auto) 0.0, Neutrophils # (Auto) 7.54, Lymphocytes # (Auto) 0.48, Monocytes # (Auto) 0.31, Eosinophils # (Auto) 0.06, Basophils # (Auto) 0.00 10/20/17 06:55 Test 10/19/17 11:33 10/19/17 16:51 10/19/17 20:55 10/20/17 06:55 Bedside Glucose 156 mg/dl (70-99) 149 mg/dl (70-99) White Blood Count 8.40 K/uL (4.8-10.8) Red Blood Count 2.70 M/uL (4.7-6.1) Hemoglobin 7.2 g/dL (14.0-18.0) Hematocrit 22.9 % (42-52) Mean Corpuscular Volume 84.8 fL (80-100) Mean Corpuscular Hemoglobin 26.7 pg (25-34) Mean Corpuscular Hemoglobin Concent 31.4 g/dl (32-36) Platelet Count 97 K/uL (130-400) Mean Platelet Volume 10.7 fL (7.4-10.4) Neutrophils (%) (Auto) 89.8 % Lymphocytes (%) (Auto) 5.7 % Monocytes (%) (Auto) 3.7 % Eosinophils (%) (Auto) 0.7 % Basophils (%) (Auto) 0.0 % Neutrophils # (Auto) 7.54 K/uL (1.4-6.5) Lymphocytes # (Auto) 0.48 K/uL (1.2-3.4) Monocytes # (Auto) 0.31 K/uL (0.11-0.59) Eosinophils # (Auto) 0.06 K/uL (0-0.5) Basophils # (Auto) 0.00 K/uL (0-0.2) RDW Standard Deviation 73.7 fL (36.4-46.3) RDW Coefficient of Variation 24.8 % (11.5-14.5) Immature Granulocyte % (Auto) 0.1 % Immature Granulocyte # (Auto) 0.01 K/uL (0.00-0.02) Platelet Estimate DECREASED Anisocytosis PRESENT Echinocytes 1+ Anion Gap 7.0 mmol/L (3-11) Est Creatinine Clear Calc Drug Dose 21.4 ml/min Estimated GFR () 27.4 Estimated GFR (Non- 23.6 BUN/Creatinine Ratio 16.8 (10-20) Calcium Level 8.0 mg/dl (8.5-10.1) Test 10/20/17 07:34 Bedside Glucose 138 mg/dl (70-99) Allergies Coded Allergies: Lisinopril (Verified Adverse Reaction, Mild, COUGH, 08/04/17) Medications Current Inpatient Medications Medications (Trade) Dose Ordered Sig/Yrn Route Start Time Stop Time Status Last Admin Dose Admin Acetaminophen (Tylenol Tab) 650 mg Q4H PRN PO 10/17/17 15:45 11/16/17 15:44 Al Hydrox/Mg Hydrox/Simethicone (Maalox Max Susp) 15 ml Q4H PRN PO 10/17/17 15:45 11/16/17 15:44 Magnesium Hydroxide (Milk Of Magnesia Susp) 30 ml Q6H PRN PO 10/17/17 15:45 11/16/17 15:44 Polyethylene (Miralax Powder Packet) 17 gm DAILY PRN PO 10/17/17 15:45 11/16/17 15:44 Ondansetron HCl (Zofran Inj) 4 mg Q6H PRN IV 10/17/17 15:45 11/16/17 15:44 Aspirin (Ecotrin Tab) 81 mg BID PO 10/17/17 20:00 11/16/17 20:59 10/20/17 08:09 81 MG Finasteride (Proscar Tab) 5 mg HS PO 10/17/17 21:00 11/16/17 20:59 10/19/17 19:55 5 MG Folic Acid (Folvite Tab) 1 mg QAM PO 10/18/17 08:00 11/17/17 08:59 10/20/17 08:10 1 MG Metoprolol Tartrate (Lopressor Tab) 25 mg DAILY PO 10/18/17 08:00 11/17/17 08:59 10/20/17 08:10 25 MG Multivitamins (Multivitamin Tab) 1 tab QAM PO 10/18/17 08:00 11/17/17 08:59 10/20/17 08:10 1 TAB Potassium Chloride (Klor-Con Tab) 20 meq BID PO 10/17/17 20:00 11/16/17 20:59 10/20/17 08:10 20 MEQ Ranitidine HCl (zANTac TAB) 150 mg BID PO 10/17/17 20:00 11/16/17 20:59 10/20/17 08:10 150 MG Tamsulosin HCl (Flomax Cap) 0.4 mg DAILY PO 10/18/17 08:00 11/17/17 08:59 10/20/17 08:09 0.4 MG Ferrous Sulfate (Feosol Tab) 325 mg BIDM PO 10/17/17 17:00 11/16/17 17:59 10/20/17 08:09 325 MG Pantoprazole Sodium (Protonix Tab) 40 mg QAM PO 10/18/17 08:00 11/17/17 08:59 10/20/17 08:10 40 MG Sodium Chloride 1,000 ml @ 75 mls/hr [id number] IV 10/17/17 16:00 11/16/17 15:59 10/20/17 06:00 150 MLS/HR Oxycodone/ Acetaminophen (Percocet 5-325mg Tab) 1 tab Q4H PRN PO 10/17/17 15:45 10/31/17 15:44 10/20/17 06:05 1 TAB Daptomycin 400 mg/ Syringe 8 ml @ 4 mls/min Q48H IV 10/18/17 16:00 11/01/17 15:59 10/18/17 17:30 4 MLS/MIN Oxybutynin Chloride (Ditropan Tab) 5 mg TID PO 10/19/17 14:00 11/18/17 13:59 10/20/17 08:09 5 MG Prednisone (PredniSONE TAB) 5 mg DAILY PO 10/20/17 08:00 11/17/17 08:59 10/20/17 08:10 5 MG Impression (1) Acute renal failure (2) Hydronephrosis (3) Kidney stones (4) Pyelonephritis (5) BPH (benign prostatic hyperplasia) (6) Renal cyst (7) Chronic anemia Recommendations ACUTE KIDNEY INJURY: -- BPH resulting in L ureteral obstruction s/p cystoscopy w/ stenting 10/19 -- Kidney function is mildly improved, electrolyte balance is acceptable. Urine output has matched IVF. Will continue gentle hydration ANEMIA: -- INR is 1.2. Hgb is trending down. Consider transfusion to maintain Hgb > 8.0 ID: -- Blood & urine cultures are + for Staph Aureus sensitive to Daptomycin -- Await further ID input RHEUM: -- Patient has a h/o RA treated w/ Leflunomide and Prednisone therapy -- Prednisone has been reduced to 5 mg daily KIDNEY STONES: -- Will benefit from outpatient metabolic stone evaluation once medically stable KIDNEY CYSTS: -- L kidney has complex cyst in the lower pole. Patient will likely require contrast + abdominal CT or MRI once kidney function recovers
--- NOTE | 2017-10-20 12:11 | Family Medicine Progress Note ---
Progress Note Date of Service Oct 20, 2017. Subjective Pt evaluation today including: conversation w/ patient, physical exam, chart review, lab review, review of inpatient medication list Pain: Suprapubic pain noted PO Intake: Tolerating PO intake Voiding: wright catheter in place Mr. Hoffman reports his suprapubic pain is slowly resolving. He states he still feels twinges of pain every so often but that they are not as severe as they were before. He denies fever, chills, n/v, chest pain or SOB. He is able to ambulate without dizziness. Constitutional: No fever, No chills Respiratory: No cough, No sputum, No shortness of breath Cardiovascular: No chest pain Abdomen: + pain, No nausea, No vomiting Male : + hematuria All Other Systems: Reviewed and Negative Medications Current Inpatient Medications Medications (Trade) Dose Ordered Sig/Yrn Route Start Time Stop Time Status Last Admin Dose Admin Acetaminophen (Tylenol Tab) 650 mg Q4H PRN PO 10/17/17 15:45 11/16/17 15:44 Al Hydrox/Mg Hydrox/Simethicone (Maalox Max Susp) 15 ml Q4H PRN PO 10/17/17 15:45 11/16/17 15:44 Magnesium Hydroxide (Milk Of Magnesia Susp) 30 ml Q6H PRN PO 10/17/17 15:45 11/16/17 15:44 Polyethylene (Miralax Powder Packet) 17 gm DAILY PRN PO 10/17/17 15:45 11/16/17 15:44 Ondansetron HCl (Zofran Inj) 4 mg Q6H PRN IV 10/17/17 15:45 11/16/17 15:44 Aspirin (Ecotrin Tab) 81 mg BID PO 10/17/17 20:00 11/16/17 20:59 10/20/17 08:09 81 MG Finasteride (Proscar Tab) 5 mg HS PO 10/17/17 21:00 11/16/17 20:59 10/19/17 19:55 5 MG Folic Acid (Folvite Tab) 1 mg QAM PO 10/18/17 08:00 11/17/17 08:59 10/20/17 08:10 1 MG Metoprolol Tartrate (Lopressor Tab) 25 mg DAILY PO 10/18/17 08:00 11/17/17 08:59 10/20/17 08:10 25 MG Multivitamins (Multivitamin Tab) 1 tab QAM PO 10/18/17 08:00 11/17/17 08:59 10/20/17 08:10 1 TAB Potassium Chloride (Klor-Con Tab) 20 meq BID PO 10/17/17 20:00 11/16/17 20:59 10/20/17 08:10 20 MEQ Ranitidine HCl (zANTac TAB) 150 mg BID PO 10/17/17 20:00 11/16/17 20:59 10/20/17 08:10 150 MG Tamsulosin HCl (Flomax Cap) 0.4 mg DAILY PO 10/18/17 08:00 11/17/17 08:59 10/20/17 08:09 0.4 MG Ferrous Sulfate (Feosol Tab) 325 mg BIDM PO 10/17/17 17:00 11/16/17 17:59 10/20/17 08:09 325 MG Pantoprazole Sodium (Protonix Tab) 40 mg QAM PO 10/18/17 08:00 11/17/17 08:59 10/20/17 08:10 40 MG Sodium Chloride 1,000 ml @ 75 mls/hr [id number] IV 10/17/17 16:00 11/16/17 15:59 10/20/17 06:00 150 MLS/HR Oxycodone/ Acetaminophen (Percocet 5-325mg Tab) 1 tab Q4H PRN PO 10/17/17 15:45 10/31/17 15:44 10/20/17 06:05 1 TAB Daptomycin 400 mg/ Syringe 8 ml @ 4 mls/min Q48H IV 10/18/17 16:00 11/01/17 15:59 10/18/17 17:30 4 MLS/MIN Oxybutynin Chloride (Ditropan Tab) 5 mg TID PO 10/19/17 14:00 11/18/17 13:59 10/20/17 08:09 5 MG Prednisone (PredniSONE TAB) 5 mg DAILY PO 10/20/17 08:00 11/17/17 08:59 10/20/17 08:10 5 MG Objective Vital Signs Date Time Temp Pulse Resp B/P (MAP) Pulse Ox O2 Delivery O2 Flow Rate FiO2 10/20/17 09:50 Room Air 10/20/17 07:25 36.7 78 20 155/70 (98) 97 10/20/17 00:00 Room Air 10/19/17 23:39 36.4 69 20 158/94 (115) 95 Room Air 10/19/17 20:00 Room Air 10/19/17 15:55 36.4 68 22 152/78 (102) 98 Room Air Physical Exam General Appearance: WD/WN, no apparent distress, + pertinent finding (wright catheter in place draining dark orange urine) Respiratory/Chest: lungs clear, normal breath sounds, no respiratory distress, no accessory muscle use Cardiovascular: regular rate, rhythm, no edema, no gallop, no murmur Abdomen: soft, + tenderness (mildly tender over suprapubic area) Laboratory Results Last 24 Hours Test 10/19/17 16:51 10/19/17 20:55 10/20/17 06:55 10/20/17 07:34 Bedside Glucose 156 mg/dl 149 mg/dl 138 mg/dl White Blood Count 8.40 K/uL Red Blood Count 2.70 M/uL Hemoglobin 7.2 g/dL Hematocrit 22.9 % Mean Corpuscular Volume 84.8 fL Mean Corpuscular Hemoglobin 26.7 pg Mean Corpuscular Hemoglobin Concent 31.4 g/dl Platelet Count 97 K/uL Mean Platelet Volume 10.7 fL Neutrophils (%) (Auto) 89.8 % Lymphocytes (%) (Auto) 5.7 % Monocytes (%) (Auto) 3.7 % Eosinophils (%) (Auto) 0.7 % Basophils (%) (Auto) 0.0 % Neutrophils # (Auto) 7.54 K/uL Lymphocytes # (Auto) 0.48 K/uL Monocytes # (Auto) 0.31 K/uL Eosinophils # (Auto) 0.06 K/uL Basophils # (Auto) 0.00 K/uL RDW Standard Deviation 73.7 fL RDW Coefficient of Variation 24.8 % Immature Granulocyte % (Auto) 0.1 % Immature Granulocyte # (Auto) 0.01 K/uL Platelet Estimate DECREASED Anisocytosis PRESENT Echinocytes 1+ Sodium Level 140 mmol/L Potassium Level 4.1 mmol/L Chloride Level 112 mmol/L Carbon Dioxide Level 21 mmol/L Anion Gap 7.0 mmol/L Blood Urea Nitrogen 42 mg/dl Creatinine 2.52 mg/dl Est Creatinine Clear Calc Drug Dose 21.4 ml/min Estimated GFR () 27.4 Estimated GFR (Non- 23.6 BUN/Creatinine Ratio 16.8 Random Glucose 94 mg/dl Calcium Level 8.0 mg/dl Test 10/20/17 11:43 Bedside Glucose 99 mg/dl Assessment and Plan Mr. Hoffman is a 77 year old male with a past medical history of rheumatoid arthritis on prednisone, BPH, Anemia of chronic disease, HTN, HLD, primary OA who was admitted for 12 hours of left-sided CVA pain and suprapubic pain on top of a 3 day hx of increasing sediment, pus, and orange color of urine in his indwelling catheter. Recent admission to [facility] from 09/24- for TYRONE in setting of urinary retention secondary to worsening BPH. During that admission he was found to have left sided hydroureteronephrosis. Was treated for complicated UTI with rocephin x 5 days. He had been seen by urology who had discussed possibility of inserting a stent but as he clinically improved, they decided to opt for outpatient follow up, which has not occurred yet. Pyelonephritis/Left VUJ obstruction/L Hydroureteronephrosis - currently on daptomycin (thank you to ID for consult) - blood cultures positive x2 for mckenzie-sensitive staph aureus as well - pt consented for PICC line - as per ID, will d/c on 2 weeks of IV daptomycin 400mg q48h - will place PICC line on d/c in dominant arm to preserve non dominant arm in case fistula needs to be placed for dialysis - CT showed moderate left hydroureteronephrosis with dilatation of the left ureter to the level the distal ureter. No ureteral calculi. Moderate left perinephric infiltration. - thank you to urology for consult - left ureteral stent placed - keep wright in - f/u in outpatient setting for TURP once infection resolves - recommend 3 weeks of treatment with bactrim after IV abx for suspected prostatitis - Percocet prn q4h for pain management - decrease IVF to 75 mls/hr given adequate oral intake Acute Kidney Injury - creatinine improved slightly to 2.52 from 2.98. Pt states baseline recently has been around 2, but this is far worse than prior relatively recent baseline of 1 in 2017 - Continue to hold amlodipine (held prior to admission) - thank you to nephrology for consult - monitor serial BMP - outpatient metabolic stone eval once stable - contrast and abdominal CT/MRI for left kidney complex cyst after resolution of TYRONE Anemia - likely anemia of chronic disease related to RA, worsened by hematuria - decreased from 8.6 to 7.2 today - in setting of ongoing hematuria, transfuse with 1 unit and follow h&h - fobt ordered as well to rule out GI source - Continue iron supplementation - 325mg ferrous sulfate bid - Had been given procrit at [facility] as well as 4 units of venofer BPH, chronic x 15 years, worsening - Continue flomax and finasteride - Patient started on indwelling catheter at [facility] RA - Continue to hold leflunomide 2/2 recent weight loss - continue 5mg of prednisone (baseline) - continue folic acid HTN - continue Metoprolol 25 mg OD - hold ASA 81 mg given low Hgb & bleeding DVT Prophylaxis: SCDs Code: Full Dispo: remains on med/surg Resident Physician Supervision Note: I interviewed and examined the patient. Discussed with the resident physician and agree with findings and plan as documented in the note. Any exceptions or clarifications are listed here: 1) Transfuse today and monitor HgB (> 8) 2) IVF and monitor BMP. 3) Will clarify outpatient recommendation for IV antibiotics - daptomycin or cefazolin. PICC in dominant arm to preserve non-dominant arm if HD access needed. Documented By: Mino Holder Resident Tracking Resident Involvement: Resident Care Provided Care Provided: Adult Hospital Medicine
[2017-10-20] MEDS: DAPTOmycin IV 400 MG in SYRINGE 0 ML IV SCH (15:33)
[2017-10-20] MEDS: FINASTERIDE 5 MG TAB PO SCH (20:55)
[2017-10-21] MEDS ORDERED: HydrALAZINE HCL 20 MG/ML VIAL IV. STA (01:39)
[2017-10-21 02:29] VITALS: BP 169/78
[2017-10-21 06:12] LABS: HEMATOCRIT 25.8 % (42-52); HEMOGLOBIN 8.1 g/dL (14.0-18.0); MEAN CELL VOLUME 84.6 fL (80-100); MEAN CORPUSCULAR HEMOGLOBIN 26.6 pg (25-34); MEAN CORPUSCULAR HGB CONC 31.4 g/dl (32-36); MEAN PLATELET VOLUME 10.2 fL (7.4-10.4); PLATELET COUNT 125 K/uL (130-400); RED CELL DISTRIBUTION WIDTH CV 24.3 % (11.5-14.5); RED CELL DISTRIBUTION WIDTH SD 72.8 fL (36.4-46.3); WHITE BLOOD COUNT 7.96 K/uL (4.8-10.8)
[2017-10-21 06:41] LABS: CALCIUM 8.3 mg/dl (8.5-10.1); CREATININE 2.29 mg/dl (0.60-1.40); POTASSIUM 4.2 mmol/L (3.5-5.1)
[2017-10-21 08:09] VITALS: BP 183/80; PULSE 78; TEMP 37.7; O2SAT 96
[2017-10-21] MEDS: SODIUM CHLORIDE 0.9% 1000ML 1,000 ML IV SCH (08:11)
[2017-10-21] MEDS: OXYCODONE/ACETAMINOPHEN 5-325 TAB PO PRN ×2 (08:24→19:10)
[2017-10-21] MEDS: MULTIVITAMIN TAB PO SCH (09:40)
[2017-10-21] MEDS: METOPROLOL TARTRATE 25 MG TAB PO SCH ×2 (09:41→20:35)
[2017-10-21] MEDS: OXYBUTYNIN CHLORIDE 5 MG TAB PO SCH ×3 (09:41→20:38)
[2017-10-21] MEDS: PANTOprazole SOD 40 MG TAB PO SCH (09:41)
[2017-10-21] MEDS: RANITIDINE HCL 150 MG TAB PO SCH ×2 (09:41→20:37)
[2017-10-21] MEDS: FERROUS SULFATE 325 MG TAB PO SCH ×2 (09:41→17:37)
[2017-10-21] MEDS: POTASSIUM CHLORIDE 20 MEQ TABCR PO SCH ×2 (09:42→20:36)
[2017-10-21] MEDS: TAMSULOSIN HCL 0.4 MG CAP PO SCH (09:42)
[2017-10-21 09:46] LABS: BASO % 0.1 %; BASO ABS # 0.01 K/uL (0-0.2); EOS % 1.7 %; EOS ABS # 0.14 K/uL (0-0.5); IG# 0.02 K/uL (0.00-0.02); LYMPH % 7.5 %; MONO % 5.5 %; MONO ABS # 0.44 K/uL (0.11-0.59); NEUT ABS # 6.81 K/uL (1.4-6.5)
--- NOTE | 2017-10-21 10:25 | Progress Note ---
Subjective Date of Service: Oct 21, 2017. Subjective The patient is out of bed to chair. He is status post stenting with significant purulent drainage from the kidney. Urine cultures growing MSSA blood cultures from the 25th are growing MSSA as well. Repeat cultures have not been obtained. He remains on daptomycin.A white blood cell count is much improved. There was a low-grade fever 377 this morning he has otherwise been afebrile. He is tolerating antibiotics well. Problem List Medical Problems: (1) Acute renal failure Status: Acute (2) Leukocytosis Status: Acute (3) Urinary tract infection Status: Acute Objective Vital Signs Date Time Temp Pulse Resp B/P (MAP) Pulse Ox O2 Delivery O2 Flow Rate FiO2 10/21/17 08:09 37.7 78 16 183/80 (114) 96 Room Air 10/21/17 02:29 169/78 (108) 10/21/17 00:00 Room Air 10/20/17 23:35 36.7 74 18 188/83 (118) 96 Room Air 10/20/17 16:00 Room Air 10/20/17 15:28 165/84 (111) 10/20/17 15:16 36.2 75 20 91 Room Air 10/20/17 14:25 36.7 50 20 136/76 10/20/17 13:55 36.7 59 20 145/73 10/20/17 13:25 36.7 46 18 155/78 10/20/17 13:12 36.4 62 18 150/80 10/20/17 12:52 36.6 53 18 155/75 Laboratory Results Item Value Date Time Blood Culture - Final Complete 10/17/17 1531 Blood Staphylococcus Aureus Blood Culture - Final Complete 10/17/17 1539 Blood Staphylococcus Aureus Urine Culture - Final Complete 10/17/17 1408 Urine,Catheterized Staphylococcus Aureus Last 24 Hours Test 10/20/17 11:43 10/20/17 16:50 10/20/17 20:51 10/21/17 05:40 Bedside Glucose 99 mg/dl 126 mg/dl 103 mg/dl White Blood Count 7.96 K/uL Red Blood Count 3.05 M/uL Hemoglobin 8.1 g/dL Hematocrit 25.8 % Mean Corpuscular Volume 84.6 fL Mean Corpuscular Hemoglobin 26.6 pg Mean Corpuscular Hemoglobin Concent 31.4 g/dl Platelet Count 125 K/uL Mean Platelet Volume 10.2 fL Neutrophils (%) (Auto) 85.0 % Lymphocytes (%) (Auto) 7.5 % Monocytes (%) (Auto) 5.5 % Eosinophils (%) (Auto) 1.7 % Basophils (%) (Auto) 0.1 % Neutrophils # (Auto) 6.81 K/uL Lymphocytes # (Auto) 0.60 K/uL Monocytes # (Auto) 0.44 K/uL Eosinophils # (Auto) 0.14 K/uL Basophils # (Auto) 0.01 K/uL RDW Standard Deviation 72.8 fL RDW Coefficient of Variation 24.3 % Immature Granulocyte % (Auto) 0.2 % Immature Granulocyte # (Auto) 0.02 K/uL Nucleated RBC Absolute Count (auto) 0.00 K/uL Nucleated Red Blood Cells % 0.0 % Hypochromasia PRESENT Anisocytosis PRESENT Sodium Level 142 mmol/L Potassium Level 4.2 mmol/L Chloride Level 113 mmol/L Carbon Dioxide Level 24 mmol/L Anion Gap 5.0 mmol/L Blood Urea Nitrogen 32 mg/dl Creatinine 2.29 mg/dl Est Creatinine Clear Calc Drug Dose 23.5 ml/min Estimated GFR () 30.8 Estimated GFR (Non- 26.5 BUN/Creatinine Ratio 13.8 Random Glucose 107 mg/dl Calcium Level 8.3 mg/dl Test 10/21/17 07:27 10/21/17 09:50 Bedside Glucose 113 mg/dl Assessment and Plan (1) MSSA (methicillin susceptible Staphylococcus aureus) septicemia Assessment & Plan: He can be transitioned from daptomycin to Ancef as all cultures are growing MSSA. Repeat blood cultures will be obtained. An echo will also be needed to rule out any endocarditis. I would suggest some a 4 week course intravenous antibiotics. I would hold off on PICC line until blood cultures are negative. He will need weekly CBC Chem 7 while on antibiotics. (2) Urinary tract infection Problem Qualifiers (1) Urinary tract infection: Urinary tract infection type: acute cystitis Hematuria presence: with hematuria Qualified Codes: N30.01 - Acute cystitis with hematuria
[2017-10-21] MEDS ORDERED: CEFAZOLIN IV 1,000 MG in DEXTROSE 5% 50ML 50 ML IV SCH (10:30)
[2017-10-21 10:45] LABS: INFLUENZA B ANTIGEN Neg for Influ B (NEG)
[2017-10-21] MEDS ORDERED: CEFAZOLIN IV 1,000 MG in SYRINGE 0 ML IV SCH (10:45)
--- NOTE | 2017-10-21 11:26 | Nephrology Progress Note ---
Nephrology Progress Note Date of Service Oct 21, 2017. Chief Complaint TYRONE Subjective Mr. Hoffman was seen & examined in his hospital room this morning. He complains of suprapubic discomfort associated with his ureteral stent. He denies fever or flank discomfort. Mr. Hoffman reports that he is tolerating his diet and has remained ambulatory. He hopes to return home soon. Review of Systems Constitutional: No fever Cardiovascular: No chest pain Respiratory: No dyspnea at rest Abdomen: + problem reported (suprapubic discomfort) Genitourinary - Male: + gross hematuria Extremities: No leg edema A complete review of systems was performed. Pertinent positives are noted above. All other systems are negative. Vital Signs Last 8 Hrs Date Time Temp Pulse Resp B/P (MAP) Pulse Ox O2 Delivery O2 Flow Rate FiO2 10/21/17 10:53 Room Air 10/21/17 08:09 37.7 78 16 183/80 (114) 96 Room Air Last Recorded Weight Weight (Kilograms): 65.700 Physical Exam General Appearance: no apparent distress Head: normocephalic, atraumatic Eyes: PERRL, EOMI Neck: no adenopathy Respiratory/Chest: lungs clear, no respiratory distress Cardiovascular: regular rate, rhythm Abdomen/GI: normal bowel sounds, non tender, soft Genitourinary - Male: + pertinent finding (wright catheter draining bloody urine ) Extremities/Musculoskelatal: no calf tenderness, no pedal edema Neurologic/Psych: alert, oriented x 3 Family History FH: CAD (coronary artery disease) BROTHER Negative for CKD / ESRD Social History Smoking Status: Former smoker Marital Status: Housing Status: lives with family Occupation: retired . Retired. 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 Laboratory Results Past 24 Hours 10/21/17 05:40 Red Blood Count 3.05, Mean Corpuscular Volume 84.6, Mean Corpuscular Hemoglobin 26.6, Mean Corpuscular Hemoglobin Concent 31.4, Mean Platelet Volume 10.2, Neutrophils (%) (Auto) 85.0, Lymphocytes (%) (Auto) 7.5, Monocytes (%) (Auto) 5.5, Eosinophils (%) (Auto) 1.7, Basophils (%) (Auto) 0.1, Neutrophils # (Auto) 6.81, Lymphocytes # (Auto) 0.60, Monocytes # (Auto) 0.44, Eosinophils # (Auto) 0.14, Basophils # (Auto) 0.01 10/21/17 05:40 Test 10/20/17 11:43 10/20/17 16:50 10/20/17 20:51 10/21/17 05:40 Bedside Glucose 99 mg/dl (70-99) 126 mg/dl (70-99) 103 mg/dl (70-99) White Blood Count 7.96 K/uL (4.8-10.8) Red Blood Count 3.05 M/uL (4.7-6.1) Hemoglobin 8.1 g/dL (14.0-18.0) Hematocrit 25.8 % (42-52) Mean Corpuscular Volume 84.6 fL (80-100) Mean Corpuscular Hemoglobin 26.6 pg (25-34) Mean Corpuscular Hemoglobin Concent 31.4 g/dl (32-36) Platelet Count 125 K/uL (130-400) Mean Platelet Volume 10.2 fL (7.4-10.4) Neutrophils (%) (Auto) 85.0 % Lymphocytes (%) (Auto) 7.5 % Monocytes (%) (Auto) 5.5 % Eosinophils (%) (Auto) 1.7 % Basophils (%) (Auto) 0.1 % Neutrophils # (Auto) 6.81 K/uL (1.4-6.5) Lymphocytes # (Auto) 0.60 K/uL (1.2-3.4) Monocytes # (Auto) 0.44 K/uL (0.11-0.59) Eosinophils # (Auto) 0.14 K/uL (0-0.5) Basophils # (Auto) 0.01 K/uL (0-0.2) RDW Standard Deviation 72.8 fL (36.4-46.3) RDW Coefficient of Variation 24.3 % (11.5-14.5) Immature Granulocyte % (Auto) 0.2 % Immature Granulocyte # (Auto) 0.02 K/uL (0.00-0.02) Nucleated RBC Absolute Count (auto) 0.00 K/uL (0-0) Nucleated Red Blood Cells % 0.0 % Hypochromasia PRESENT Anisocytosis PRESENT Anion Gap 5.0 mmol/L (3-11) Est Creatinine Clear Calc Drug Dose 23.5 ml/min Estimated GFR () 30.8 Estimated GFR (Non- 26.5 BUN/Creatinine Ratio 13.8 (10-20) Calcium Level 8.3 mg/dl (8.5-10.1) Test 10/21/17 07:27 10/21/17 09:50 Bedside Glucose 113 mg/dl (70-99) Influenza Type A Antigen Neg for Influ A (NEG) Influenza Type B Antigen Neg for Influ B (NEG) Allergies Coded Allergies: Lisinopril (Verified Adverse Reaction, Mild, COUGH, 08/04/17) Medications Current Inpatient Medications Medications (Trade) Dose Ordered Sig/Yrn Route Start Time Stop Time Status Last Admin Dose Admin Acetaminophen (Tylenol Tab) 650 mg Q4H PRN PO 10/17/17 15:45 11/16/17 15:44 Al Hydrox/Mg Hydrox/Simethicone (Maalox Max Susp) 15 ml Q4H PRN PO 10/17/17 15:45 11/16/17 15:44 Magnesium Hydroxide (Milk Of Magnesia Susp) 30 ml Q6H PRN PO 10/17/17 15:45 11/16/17 15:44 Polyethylene (Miralax Powder Packet) 17 gm DAILY PRN PO 10/17/17 15:45 11/16/17 15:44 Ondansetron HCl (Zofran Inj) 4 mg Q6H PRN IV 10/17/17 15:45 11/16/17 15:44 Aspirin (Ecotrin Tab) 81 mg BID PO 10/17/17 20:00 11/16/17 20:59 Future Hold 10/20/17 08:09 81 MG Finasteride (Proscar Tab) 5 mg HS PO 10/17/17 21:00 11/16/17 20:59 10/20/17 20:55 5 MG Folic Acid (Folvite Tab) 1 mg QAM PO 10/18/17 08:00 11/17/17 08:59 10/21/17 09:42 1 MG Metoprolol Tartrate (Lopressor Tab) 25 mg DAILY PO 10/18/17 08:00 11/17/17 08:59 10/21/17 09:41 25 MG Multivitamins (Multivitamin Tab) 1 tab QAM PO 10/18/17 08:00 11/17/17 08:59 10/21/17 09:40 1 TAB Potassium Chloride (Klor-Con Tab) 20 meq BID PO 10/17/17 20:00 11/16/17 20:59 10/21/17 09:42 20 MEQ Ranitidine HCl (zANTac TAB) 150 mg BID PO 10/17/17 20:00 11/16/17 20:59 10/21/17 09:41 150 MG Tamsulosin HCl (Flomax Cap) 0.4 mg DAILY PO 10/18/17 08:00 11/17/17 08:59 10/21/17 09:42 0.4 MG Ferrous Sulfate (Feosol Tab) 325 mg BIDM PO 10/17/17 17:00 11/16/17 17:59 10/21/17 09:41 325 MG Pantoprazole Sodium (Protonix Tab) 40 mg QAM PO 10/18/17 08:00 11/17/17 08:59 10/21/17 09:41 40 MG Sodium Chloride 1,000 ml @ 75 mls/hr [id number] IV 10/17/17 16:00 11/16/17 15:59 10/21/17 08:11 75 MLS/HR Oxycodone/ Acetaminophen (Percocet 5-325mg Tab) 1 tab Q4H PRN PO 10/17/17 15:45 10/31/17 15:44 10/21/17 08:24 1 TAB Oxybutynin Chloride (Ditropan Tab) 5 mg TID PO 10/19/17 14:00 11/18/17 13:59 10/21/17 09:41 5 MG Prednisone (PredniSONE TAB) 5 mg DAILY PO 10/20/17 08:00 11/17/17 08:59 10/21/17 09:40 5 MG Cefazolin Sodium 1000 mg/Syringe 7.5 ml @ 2.5 mls/min Q12H IV 10/21/17 10:45 11/04/17 10:44 Impression (1) Acute renal failure (2) Hydronephrosis (3) Kidney stones (4) Pyelonephritis (5) BPH (benign prostatic hyperplasia) (6) Renal cyst (7) Chronic anemia Recommendations ACUTE KIDNEY INJURY: -- BPH resulting in L ureteral obstruction s/p cystoscopy w/ stenting 10/19 -- Kidney function is mildly improved (creatinine 2.2 this am), electrolyte balance is acceptable. OK to discharge from Nephrology perspective. Will ask my office staff to schedule outpatient labs and follow up visit within 7 - 14 days -- Will need outpatient Urology appointment ANEMIA: -- INR is 1.2. Hgb improved to 8.1 this am ID: -- Blood & urine cultures are + for Staph Aureus sensitive to Daptomycin -- ID recommends a 4 week course of IV Ancef RHEUM: -- Patient has a h/o RA treated w/ Leflunomide and Prednisone therapy -- Prednisone has been reduced to 5 mg daily KIDNEY STONES: -- Will benefit from outpatient metabolic stone evaluation once medically stable KIDNEY CYSTS: -- L kidney has complex cyst in the lower pole. Patient will likely require contrast + abdominal CT or MRI once kidney function recovers
[2017-10-21 12:32] VITALS: BP 171/79
--- NOTE | 2017-10-21 15:05 | Family Medicine Progress Note ---
Progress Note Date of Service Oct 21, 2017. Subjective Pt evaluation today including: conversation w/ patient, physical exam, chart review, lab review, review of inpatient medication list Pain: Suprapubic pain reported PO Intake: Tolerating PO intake Voiding: wright catheter in place Mr. Hoffman reports he feels well today. He denies fever, chills, n/v, dizziness whilst ambulating. He notes his suprapubic and flank pain remain, but that they are not constant, but occur every so often. He states the pain is occurring less frequently day by day, but that the intensity is about the same Constitutional: No fever, No chills Respiratory: No cough, No sputum, No shortness of breath Cardiovascular: No chest pain, No edema Abdomen: No nausea, No vomiting All Other Systems: Reviewed and Negative Medications Current Inpatient Medications Medications (Trade) Dose Ordered Sig/Yrn Route Start Time Stop Time Status Last Admin Dose Admin Acetaminophen (Tylenol Tab) 650 mg Q4H PRN PO 10/17/17 15:45 11/16/17 15:44 Al Hydrox/Mg Hydrox/Simethicone (Maalox Max Susp) 15 ml Q4H PRN PO 10/17/17 15:45 11/16/17 15:44 Magnesium Hydroxide (Milk Of Magnesia Susp) 30 ml Q6H PRN PO 10/17/17 15:45 11/16/17 15:44 Polyethylene (Miralax Powder Packet) 17 gm DAILY PRN PO 10/17/17 15:45 11/16/17 15:44 Ondansetron HCl (Zofran Inj) 4 mg Q6H PRN IV 10/17/17 15:45 11/16/17 15:44 Aspirin (Ecotrin Tab) 81 mg BID PO 10/17/17 20:00 11/16/17 20:59 Future Hold 10/20/17 08:09 81 MG Finasteride (Proscar Tab) 5 mg HS PO 10/17/17 21:00 11/16/17 20:59 10/20/17 20:55 5 MG Folic Acid (Folvite Tab) 1 mg QAM PO 10/18/17 08:00 11/17/17 08:59 10/21/17 09:42 1 MG Multivitamins (Multivitamin Tab) 1 tab QAM PO 2/26/18 08:00 11/17/17 08:59 10/21/17 09:40 1 TAB Potassium Chloride (Klor-Con Tab) 20 meq BID PO 10/17/17 20:00 11/16/17 20:59 10/21/17 09:42 20 MEQ Ranitidine HCl (zANTac TAB) 150 mg BID PO 10/17/17 20:00 11/16/17 20:59 10/21/17 09:41 150 MG Tamsulosin HCl (Flomax Cap) 0.4 mg DAILY PO 10/18/17 08:00 11/17/17 08:59 10/21/17 09:42 0.4 MG Ferrous Sulfate (Feosol Tab) 325 mg BIDM PO 10/17/17 17:00 11/16/17 17:59 10/21/17 09:41 325 MG Pantoprazole Sodium (Protonix Tab) 40 mg QAM PO 10/18/17 08:00 11/17/17 08:59 10/21/17 09:41 40 MG Oxycodone/ Acetaminophen (Percocet 5-325mg Tab) 1 tab Q4H PRN PO 10/17/17 15:45 10/31/17 15:44 10/21/17 08:24 1 TAB Oxybutynin Chloride (Ditropan Tab) 5 mg TID PO 10/19/17 14:00 11/18/17 13:59 10/21/17 14:14 5 MG Prednisone (PredniSONE TAB) 5 mg DAILY PO 10/20/17 08:00 11/17/17 08:59 10/21/17 09:40 5 MG Metoprolol Tartrate (Lopressor Tab) 25 mg BID PO 10/21/17 20:00 11/17/17 08:59 Daptomycin 400 mg/ Syringe 8 ml @ 4 mls/min Q48H IV 10/22/17 09:00 11/05/17 08:59 Objective Vital Signs Date Time Temp Pulse Resp B/P (MAP) Pulse Ox O2 Delivery O2 Flow Rate FiO2 10/21/17 15:11 36.5 60 16 154/80 (104) 98 Room Air 10/21/17 12:32 171/79 (109) 10/21/17 11:21 Room Air 10/21/17 10:53 Room Air 10/21/17 08:09 37.7 78 16 183/80 (114) 96 Room Air 10/21/17 02:29 169/78 (108) 10/21/17 00:00 Room Air 10/20/17 23:35 36.7 74 18 188/83 (118) 96 Room Air Physical Exam General Appearance: WD/WN, no apparent distress Respiratory/Chest: lungs clear, normal breath sounds, no respiratory distress, no accessory muscle use Cardiovascular: regular rate, rhythm, no edema Abdomen: soft, + pertinent finding (mildly tender over one small spot in left suprapubic/groin region) Extremities: no pedal edema, no calf tenderness Laboratory Results Last 24 Hours Test 10/20/17 16:50 10/20/17 20:51 10/21/17 05:40 10/21/17 07:27 Bedside Glucose 126 mg/dl 103 mg/dl 113 mg/dl White Blood Count 7.96 K/uL Red Blood Count 3.05 M/uL Hemoglobin 8.1 g/dL Hematocrit 25.8 % Mean Corpuscular Volume 84.6 fL Mean Corpuscular Hemoglobin 26.6 pg Mean Corpuscular Hemoglobin Concent 31.4 g/dl Platelet Count 125 K/uL Mean Platelet Volume 10.2 fL Neutrophils (%) (Auto) 85.0 % Lymphocytes (%) (Auto) 7.5 % Monocytes (%) (Auto) 5.5 % Eosinophils (%) (Auto) 1.7 % Basophils (%) (Auto) 0.1 % Neutrophils # (Auto) 6.81 K/uL Lymphocytes # (Auto) 0.60 K/uL Monocytes # (Auto) 0.44 K/uL Eosinophils # (Auto) 0.14 K/uL Basophils # (Auto) 0.01 K/uL RDW Standard Deviation 72.8 fL RDW Coefficient of Variation 24.3 % Immature Granulocyte % (Auto) 0.2 % Immature Granulocyte # (Auto) 0.02 K/uL Nucleated RBC Absolute Count (auto) 0.00 K/uL Nucleated Red Blood Cells % 0.0 % Hypochromasia PRESENT Anisocytosis PRESENT Sodium Level 142 mmol/L Potassium Level 4.2 mmol/L Chloride Level 113 mmol/L Carbon Dioxide Level 24 mmol/L Anion Gap 5.0 mmol/L Blood Urea Nitrogen 32 mg/dl Creatinine 2.29 mg/dl Est Creatinine Clear Calc Drug Dose 23.5 ml/min Estimated GFR () 30.8 Estimated GFR (Non- 26.5 BUN/Creatinine Ratio 13.8 Random Glucose 107 mg/dl Calcium Level 8.3 mg/dl Test 10/21/17 09:50 10/21/17 11:42 Influenza Type A Antigen Neg for Influ A Influenza Type B Antigen Neg for Influ B Bedside Glucose 108 mg/dl Assessment and Plan Mr. Hoffman is a 77 year old male with a past medical history of rheumatoid arthritis on prednisone, BPH, Anemia of chronic disease, HTN, HLD, primary OA who was admitted for 12 hours of left-sided CVA pain and suprapubic pain on top of a 3 day hx of increasing sediment, pus, and orange color of urine in his indwelling catheter. Recent admission to [facility] from 09/24- for TYRONE in setting of urinary retention secondary to worsening BPH. During that admission he was found to have left sided hydroureteronephrosis. Was treated for complicated UTI with rocephin x 5 days. He had been seen by urology who had discussed possibility of inserting a stent but as he clinically improved, they decided to opt for outpatient follow up, which has not occurred yet. Bacteremia secondary to Pyelonephritis/Left VUJ obstruction/L Hydroureteronephrosis - urine cultures and blood cultures positive x2 for mckenzie-sensitive staph aureus - thank you to ID for consult - currently on daptomycin day 4 - ECHO tomorrow to rule out endocarditis - pt consented for PICC line - as per ID, will d/c on 2 weeks of IV daptomycin 400mg q48h - will place PICC line on d/c in dominant arm to preserve non dominant arm in case fistula needs to be placed for dialysis - awaiting repeat negative blood cultures to place PICC line - CT showed moderate left hydroureteronephrosis with dilatation of the left ureter to the level the distal ureter. No ureteral calculi. Moderate left perinephric infiltration. - thank you to urology for consult - left ureteral stent placed - keep wright in - f/u in outpatient setting for TURP once infection resolves - recommend 3 weeks of treatment with bactrim after IV abx for suspected prostatitis - Percocet prn q4h for pain management - d/c IVF given adequate oral intake Acute Kidney Injury - creatinine continuing to improve - now 2.29. states baseline recently has been around 2, but this is far worse than prior relatively recent baseline of 1 in 2017 - Continue to hold amlodipine (held prior to admission due to concerns it may have caused AIN) - thank you to nephrology for consult - ok to d/c from nephro point of view - outpatient metabolic stone eval once stable - contrast and abdominal CT/MRI for left kidney complex cyst in outpatient setting Anemia - likely anemia of chronic disease related to RA, worsened by hematuria - transfused with 1 unit yesterday - improved from 7.2 to 8.1 - will continue to monitor - FOBT negative - Continue iron supplementation - 325mg ferrous sulfate bid - Had been given procrit at [facility] as well as 4 units of venofer BPH, chronic x 15 years, worsening - Continue flomax and finasteride - Patient started on indwelling catheter at [facility] RA - Continue to hold leflunomide 2/2 recent weight loss - continue 5mg of prednisone (baseline) - continue folic acid HTN - pt's blood pressure has been on the higher side - as high as 180 systolic - increase Metoprolol 25 mg from daily to BID with hold parameters - hold ASA 81 mg given low Hgb & bleeding DVT Prophylaxis: SCDs Code: Full Dispo: remains on med/surg. Eventual d/c with homehealth. Resident Physician Supervision Note: I was present with resident during the history and exam. I discussed the case with the resident and agree with the findings and plan as documented in the note. Patient was out of bed and in general reported feeling better. Repeat blood cultures drawn today. Infectious disease and nephrology consultations reviewed and appreciated. PLAN 1) PIC line in dominant arm once repeat blood cultures are negative. 2) IV antibiotic regimens per infectious disease recommendation. 3) monitor hemoglobin; transfuse to keep hemoglobin greater than 8. 4) transthoracic echocardiogram; suspicion for endocarditis is low. 5) continue to monitor renal function; we will need outpatient nephrology follow -up upon discharge. 6) outpatient urology appointment upon discharge for more definitive treatment of his obstruction. Documented By: Mino Holder Resident Tracking Resident Involvement: Resident Care Provided Care Provided: Adult Hospital Medicine
[2017-10-21 15:11] VITALS: BP 154/80; PULSE 60; TEMP 36.5; O2SAT 98
[2017-10-21] MEDS: FINASTERIDE 5 MG TAB PO SCH (20:37)
[2017-10-22 00:44] VITALS: BP 188/95; PULSE 61; TEMP 36.6; O2SAT 96
[2017-10-22 07:02] LABS: HEMATOCRIT 25.7 % (42-52); HEMOGLOBIN 8.1 g/dL (14.0-18.0); MEAN CELL VOLUME 85.4 fL (80-100); MEAN CORPUSCULAR HEMOGLOBIN 26.9 pg (25-34); MEAN CORPUSCULAR HGB CONC 31.5 g/dl (32-36); MEAN PLATELET VOLUME 10.6 fL (7.4-10.4); PLATELET COUNT 121 K/uL (130-400); RED CELL DISTRIBUTION WIDTH CV 23.9 % (11.5-14.5); RED CELL DISTRIBUTION WIDTH SD 72.8 fL (36.4-46.3); WHITE BLOOD COUNT 6.62 K/uL (4.8-10.8)
--- NOTE | 2017-10-22 07:19 | Family Medicine Progress Note ---
Progress Note Date of Service Oct 22, 2017. Subjective Pt evaluation today including: conversation w/ patient, physical exam, chart review, lab review, review of inpatient medication list Pain: Suprapubic pain reported PO Intake: Tolerating PO intake Voiding: wright catheter in place Mr. Hoffman remains with his nagging suprapubic pain that occurs every so often. He notes he had to get his wright irrigated this morning as he was experiencing worsening discomfort and a sensation of a full bladder. He notes these symptoms resolved after the irrigation. He denies fever, chills, n/v and is ambulating without difficulty. , Constitutional: No fever, No chills Respiratory: No cough, No shortness of breath Cardiovascular: No chest pain Abdomen: + pain, No nausea, No vomiting All Other Systems: Reviewed and Negative Medications Current Inpatient Medications Medications (Trade) Dose Ordered Sig/Yrn Route Start Time Stop Time Status Last Admin Dose Admin Acetaminophen (Tylenol Tab) 650 mg Q4H PRN PO 10/17/17 15:45 11/16/17 15:44 Al Hydrox/Mg Hydrox/Simethicone (Maalox Max Susp) 15 ml Q4H PRN PO 10/17/17 15:45 11/16/17 15:44 Magnesium Hydroxide (Milk Of Magnesia Susp) 30 ml Q6H PRN PO 10/17/17 15:45 11/16/17 15:44 Polyethylene (Miralax Powder Packet) 17 gm DAILY PRN PO 10/17/17 15:45 11/16/17 15:44 Ondansetron HCl (Zofran Inj) 4 mg Q6H PRN IV 10/17/17 15:45 11/16/17 15:44 Aspirin (Ecotrin Tab) 81 mg BID PO 10/17/17 20:00 11/16/17 20:59 Future Hold 10/20/17 08:09 81 MG Finasteride (Proscar Tab) 5 mg HS PO 10/17/17 21:00 11/16/17 20:59 10/21/17 20:37 5 MG Folic Acid (Folvite Tab) 1 mg QAM PO 10/18/17 08:00 11/17/17 08:59 10/22/17 08:05 1 MG Multivitamins (Multivitamin Tab) 1 tab QAM PO 10/18/17 08:00 11/17/17 08:59 10/22/17 08:06 1 TAB Potassium Chloride (Klor-Con Tab) 20 meq BID PO 10/17/17 20:00 11/16/17 20:59 10/22/17 08:05 20 MEQ Ranitidine HCl (zANTac TAB) 150 mg BID PO 10/17/17 20:00 11/16/17 20:59 10/22/17 08:06 150 MG Tamsulosin HCl (Flomax Cap) 0.4 mg DAILY PO 10/18/17 08:00 11/17/17 08:59 10/22/17 08:05 0.4 MG Ferrous Sulfate (Feosol Tab) 325 mg BIDM PO 10/17/17 17:00 11/16/17 17:59 10/22/17 08:04 325 MG Pantoprazole Sodium (Protonix Tab) 40 mg QAM PO 10/18/17 08:00 11/17/17 08:59 10/22/17 08:06 40 MG Oxycodone/ Acetaminophen (Percocet 5-325mg Tab) 1 tab Q4H PRN PO 10/17/17 15:45 10/31/17 15:44 10/22/17 08:06 1 TAB Oxybutynin Chloride (Ditropan Tab) 5 mg TID PO 10/19/17 14:00 11/18/17 13:59 10/22/17 08:04 5 MG Prednisone (PredniSONE TAB) 5 mg DAILY PO 10/20/17 08:00 11/17/17 08:59 10/22/17 08:06 5 MG Metoprolol Tartrate (Lopressor Tab) 25 mg BID PO 10/21/17 20:00 11/17/17 08:59 10/22/17 08:06 25 MG Daptomycin 400 mg/ Syringe 8 ml @ 4 mls/min Q48H IV 10/22/17 09:00 11/05/17 08:59 10/22/17 09:25 4 MLS/MIN Objective Vital Signs Date Time Temp Pulse Resp B/P (MAP) Pulse Ox O2 Delivery O2 Flow Rate FiO2 10/22/17 11:05 Room Air 10/22/17 10:21 97 Room Air 10/22/17 08:10 36.6 65 20 172/90 (117) 97 Room Air 10/22/17 00:44 36.6 61 20 188/95 (126) 96 Room Air 10/22/17 00:00 Room Air 10/21/17 16:10 Room Air 10/21/17 15:11 36.5 60 16 154/80 (104) 98 Room Air Physical Exam General Appearance: WD/WN, no apparent distress, + pertinent finding (wright catheter in place draining light orange urine) Respiratory/Chest: lungs clear, normal breath sounds, no respiratory distress, no accessory muscle use Cardiovascular: regular rate, rhythm, no edema, no gallop, no JVD Abdomen: soft, + pertinent finding (mildly tender over one small area in left groin) Neurologic/Psychiatric: alert, normal mood/affect, oriented x 3 Laboratory Results Last 24 Hours Test 10/22/17 06:46 White Blood Count 6.62 K/uL Red Blood Count 3.01 M/uL Hemoglobin 8.1 g/dL Hematocrit 25.7 % Mean Corpuscular Volume 85.4 fL Mean Corpuscular Hemoglobin 26.9 pg Mean Corpuscular Hemoglobin Concent 31.5 g/dl RDW Standard Deviation 72.8 fL RDW Coefficient of Variation 23.9 % Platelet Count 121 K/uL Mean Platelet Volume 10.6 fL Sodium Level 138 mmol/L Potassium Level 3.8 mmol/L Chloride Level 108 mmol/L Carbon Dioxide Level 23 mmol/L Anion Gap 7.0 mmol/L Blood Urea Nitrogen 27 mg/dl Creatinine 2.26 mg/dl Est Creatinine Clear Calc Drug Dose 23.8 ml/min Estimated GFR () 31.3 Estimated GFR (Non- 27.0 BUN/Creatinine Ratio 12.1 Random Glucose 87 mg/dl Calcium Level 8.5 mg/dl Assessment and Plan Mr. Hoffman is a 77 year old male with a past medical history of rheumatoid arthritis on prednisone, BPH, Anemia of chronic disease, HTN, HLD, primary OA who was admitted for 12 hours of left-sided CVA pain and suprapubic pain on top of a 3 day hx of increasing sediment, pus, and orange color of urine in his indwelling catheter. Recent admission to [facility] from 09/24- for TYRONE in setting of urinary retention secondary to worsening BPH. During that admission he was found to have left sided hydroureteronephrosis. Was treated for complicated UTI with rocephin x 5 days. He had been seen by urology who had discussed possibility of inserting a stent but as he clinically improved, they decided to opt for outpatient follow up, which has not occurred yet. Bacteremia secondary to Pyelonephritis/Left VUJ obstruction/L Hydroureteronephrosis - urine cultures and blood cultures positive x2 for mckenzie-sensitive staph aureus - thank you to ID for consult - currently on daptomycin day 5 - ECHO pending to rule out endocarditis - pt consented for PICC line - as per ID, will d/c on 2 weeks of IV daptomycin 400mg q48h - will place PICC line on d/c in dominant arm to preserve non dominant arm in case fistula needs to be placed for dialysis - one repeat bcx positive for gram positive cocci. Awaiting results of second blood culture. - CT showed moderate left hydroureteronephrosis with dilatation of the left ureter to the level the distal ureter. No ureteral calculi. Moderate left perinephric infiltration. - thank you to urology for consult - left ureteral stent placed - keep wright in - f/u in outpatient setting for TURP once infection resolves - recommend 3 weeks of treatment with bactrim after IV abx for suspected prostatitis - Percocet prn q4h for pain management Acute Kidney Injury - creatinine continuing to improve - now 2.26. states baseline recently has been around 2, but this is far worse than prior relatively recent baseline of 1 in 2017 - Continue to hold amlodipine (held prior to admission due to concerns it may have caused AIN) - thank you to nephrology for consult - ok to d/c from nephro point of view - outpatient metabolic stone eval once stable - contrast and abdominal CT/MRI for left kidney complex cyst in outpatient setting Anemia - likely anemia of chronic disease related to RA, worsened by hematuria - transfused with 1 unit on 10/20 - remaining stable at 8.1 - will continue to monitor - FOBT negative - Continue iron supplementation - 325mg ferrous sulfate bid - Had been given procrit at [facility] as well as 4 units of venofer BPH, chronic x 15 years, worsening - Continue flomax and finasteride - Patient started on indwelling catheter at [facility] RA - Continue to hold leflunomide 2/2 recent weight loss - continue 5mg of prednisone (baseline) - continue folic acid HTN - pt's blood pressure has been on the higher side - as high as 180 systolic - continue Metoprolol 25 mg BID with hold parameters (home dose is 25mg daily) - hold ASA 81 mg given low Hgb & hematuria DVT Prophylaxis: SCDs Code: Full Dispo: remains on med/surg. Pending blood culture results. Resident Tracking Resident Involvement: Resident Care Provided Care Provided: Adult Hospital Medicine History Resident Physician Supervision Note: I was present with Dr. Schneider during the history and exam. I discussed the case with the resident and agree with the findings and plan as documented in the note. Any exceptions or clarifications are listed here. Resting comfortably in bed and eager to leave the hospital. At present, 1 +ve blood culture present, so will likely need discussion with ID prior to PICC placement. At present, continue current abx.
[2017-10-22 07:30] LABS: CALCIUM 8.5 mg/dl (8.5-10.1); CREATININE 2.26 mg/dl (0.60-1.40); POTASSIUM 3.8 mmol/L (3.5-5.1)
[2017-10-22] MEDS: FERROUS SULFATE 325 MG TAB PO SCH ×2 (08:04→17:51)
[2017-10-22] MEDS: OXYBUTYNIN CHLORIDE 5 MG TAB PO SCH ×3 (08:04→20:26)
[2017-10-22] MEDS: TAMSULOSIN HCL 0.4 MG CAP PO SCH (08:05)
[2017-10-22] MEDS: POTASSIUM CHLORIDE 20 MEQ TABCR PO SCH ×2 (08:05→20:26)
[2017-10-22] MEDS: RANITIDINE HCL 150 MG TAB PO SCH ×2 (08:06→20:27)
[2017-10-22] MEDS: PANTOprazole SOD 40 MG TAB PO SCH (08:06)
[2017-10-22] MEDS: MULTIVITAMIN TAB PO SCH (08:06)
[2017-10-22] MEDS: OXYCODONE/ACETAMINOPHEN 5-325 TAB PO PRN ×4 (08:06→23:38)
[2017-10-22] MEDS: METOPROLOL TARTRATE 25 MG TAB PO SCH ×2 (08:06→20:25)
[2017-10-22 08:10] VITALS: BP 172/90; PULSE 65; TEMP 36.6; O2SAT 97
[2017-10-22] MEDS: DAPTOmycin IV 400 MG in SYRINGE 0 ML IV SCH (09:25)
[2017-10-22 10:21] VITALS: O2SAT 97
--- NOTE | 2017-10-22 11:05 | Nephrology Progress Note ---
Nephrology Progress Note Date of Service Oct 22, 2017. Chief Complaint TYRONE Subjective Mr. Hoffman was seen & examined in his hospital room this morning. He complains of suprapubic discomfort related to his ureteral stent. Mr. Hoffman reports that he is awaiting an echocardiogram study and picc line insertion and then hopes to return home. Review of Systems Constitutional: No fever Cardiovascular: No chest pain Respiratory: No dyspnea at rest Abdomen: No pain, No vomiting Genitourinary - Male: + problem reported (suprapubic discomfort) Extremities: No leg edema A complete review of systems was performed. Pertinent positives are noted above. All other systems are negative. Vital Signs Last 8 Hrs Date Time Temp Pulse Resp B/P (MAP) Pulse Ox O2 Delivery O2 Flow Rate FiO2 10/22/17 10:21 97 Room Air 10/22/17 08:10 36.6 65 20 172/90 (117) 97 Room Air Last Recorded Weight Weight (Kilograms): 65.700 Physical Exam General Appearance: no apparent distress Head: normocephalic, atraumatic Eyes: PERRL, EOMI Neck: no adenopathy Respiratory/Chest: lungs clear, no respiratory distress Cardiovascular: regular rate, rhythm Abdomen/GI: normal bowel sounds, non tender, soft Genitourinary - Male: + pertinent finding (wright catheter in place draining clear yellow urine) Extremities/Musculoskelatal: no calf tenderness, no pedal edema Neurologic/Psych: alert, oriented x 3 Family History FH: CAD (coronary artery disease) BROTHER Negative for CKD / ESRD Social History Smoking Status: Former smoker Marital Status: Housing Status: lives with family Occupation: retired . Retired. 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 Laboratory Results Past 24 Hours 10/22/17 06:46 10/22/17 06:46 Test 10/21/17 11:42 10/22/17 06:46 Bedside Glucose 108 mg/dl (70-99) Red Blood Count 3.01 M/uL (4.7-6.1) Mean Corpuscular Volume 85.4 fL (80-100) Mean Corpuscular Hemoglobin 26.9 pg (25-34) Mean Corpuscular Hemoglobin Concent 31.5 g/dl (32-36) RDW Standard Deviation 72.8 fL (36.4-46.3) RDW Coefficient of Variation 23.9 % (11.5-14.5) Mean Platelet Volume 10.6 fL (7.4-10.4) Anion Gap 7.0 mmol/L (3-11) Est Creatinine Clear Calc Drug Dose 23.8 ml/min Estimated GFR () 31.3 Estimated GFR (Non- 27.0 BUN/Creatinine Ratio 12.1 (10-20) Calcium Level 8.5 mg/dl (8.5-10.1) Allergies Coded Allergies: Lisinopril (Verified Adverse Reaction, Mild, COUGH, 08/04/17) Medications Current Inpatient Medications Medications (Trade) Dose Ordered Sig/Yrn Route Start Time Stop Time Status Last Admin Dose Admin Acetaminophen (Tylenol Tab) 650 mg Q4H PRN PO 10/17/17 15:45 11/16/17 15:44 Al Hydrox/Mg Hydrox/Simethicone (Maalox Max Susp) 15 ml Q4H PRN PO 10/17/17 15:45 11/16/17 15:44 Magnesium Hydroxide (Milk Of Magnesia Susp) 30 ml Q6H PRN PO 10/17/17 15:45 11/16/17 15:44 Polyethylene (Miralax Powder Packet) 17 gm DAILY PRN PO 10/17/17 15:45 11/16/17 15:44 Ondansetron HCl (Zofran Inj) 4 mg Q6H PRN IV 10/17/17 15:45 11/16/17 15:44 Aspirin (Ecotrin Tab) 81 mg BID PO 10/17/17 20:00 11/16/17 20:59 Future Hold 10/20/17 08:09 81 MG Finasteride (Proscar Tab) 5 mg HS PO 10/17/17 21:00 11/16/17 20:59 10/21/17 20:37 5 MG Folic Acid (Folvite Tab) 1 mg QAM PO 10/18/17 08:00 11/17/17 08:59 10/22/17 08:05 1 MG Multivitamins (Multivitamin Tab) 1 tab QAM PO 10/18/17 08:00 11/17/17 08:59 10/22/17 08:06 1 TAB Potassium Chloride (Klor-Con Tab) 20 meq BID PO 10/17/17 20:00 11/16/17 20:59 10/22/17 08:05 20 MEQ Ranitidine HCl (zANTac TAB) 150 mg BID PO 10/17/17 20:00 11/16/17 20:59 10/22/17 08:06 150 MG Tamsulosin HCl (Flomax Cap) 0.4 mg DAILY PO 10/18/17 08:00 11/17/17 08:59 10/22/17 08:05 0.4 MG Ferrous Sulfate (Feosol Tab) 325 mg BIDM PO 10/17/17 17:00 11/16/17 17:59 10/22/17 08:04 325 MG Pantoprazole Sodium (Protonix Tab) 40 mg QAM PO 10/18/17 08:00 11/17/17 08:59 10/22/17 08:06 40 MG Oxycodone/ Acetaminophen (Percocet 5-325mg Tab) 1 tab Q4H PRN PO 10/17/17 15:45 10/31/17 15:44 10/22/17 08:06 1 TAB Oxybutynin Chloride (Ditropan Tab) 5 mg TID PO 10/19/17 14:00 11/18/17 13:59 10/22/17 08:04 5 MG Prednisone (PredniSONE TAB) 5 mg DAILY PO 10/20/17 08:00 11/17/17 08:59 10/22/17 08:06 5 MG Metoprolol Tartrate (Lopressor Tab) 25 mg BID PO 10/21/17 20:00 11/17/17 08:59 10/22/17 08:06 25 MG Daptomycin 400 mg/ Syringe 8 ml @ 4 mls/min Q48H IV 10/22/17 09:00 11/05/17 08:59 10/22/17 09:25 4 MLS/MIN Impression (1) Acute renal failure (2) Hydronephrosis (3) Kidney stones (4) Pyelonephritis (5) BPH (benign prostatic hyperplasia) (6) Renal cyst (7) Chronic anemia Recommendations ACUTE KIDNEY INJURY: -- BPH resulting in L ureteral obstruction s/p cystoscopy w/ stenting 10/19/17 -- Will need outpatient Urology appointment -- Kidney function is mildly improved (creatinine 2.2 this am), electrolyte balance is acceptable. OK to discharge from Nephrology perspective. I have instructed my office staff to schedule outpatient labs and follow up visit within 14 days -- No further Nephrology evaluation needed at this time. Will sign off. Please call if further Nephrology assistance is needed. ANEMIA: -- INR is 1.2. Hgb improved to 8.1 this am ID: -- Blood & urine cultures are + for Staph Aureus sensitive to Daptomycin -- ID recommends a 4 week course of IV Ancef RHEUM: -- Patient has a h/o RA treated w/ Leflunomide and Prednisone therapy -- Prednisone has been reduced to 5 mg daily KIDNEY STONES: -- Will benefit from outpatient metabolic stone evaluation once medically stable KIDNEY CYSTS: -- L kidney has complex cyst in the lower pole. Patient will likely require contrast + abdominal CT or MRI once kidney function recovers
[2017-10-22 15:09] VITALS: BP 161/77; PULSE 59; TEMP 36.6; O2SAT 95
[2017-10-22] MEDS ORDERED: DAPTOmycin IV 400 MG in SODIUM CHLORIDE 0.9% 50ML 50 ML IV SCH (16:00)
--- NOTE | 2017-10-22 16:21 | ECHOCARDIOGRAM REPORT ---
*NOTICE TO RECEIVING LIBERTARIAN AGENCY This information is strictly Confidential and protected under [place] law. [place] law prohibits you from making any further disclosure of this information unless further disclosure is expressly permitted by the written consent of the person to whom it pertains or is authorized by law. A general authorization for the release of medical or other information is not sufficient for this purpose. Hospital accepts no responsibility if the information is made available to any other person, INCLUDING THE PATIENT. Interpretation Summary * Name: JOEY MONCADA Study Date: 10/22/2017 01:27 PM BP: 188/95 mmHg * Patient Location: .4E\S\E407\S\1 HR: 61 * : 1940 (M/d/yyyy) Gender: Male Height: 65 in * Age: 77 yrs Ethnicity: [place] Weight: 144 lb * Ordering Physician: Isra Schneider * Referring Physician: Self, Referred * Performed By: Edith Joshua RDCS * * Reason For Study: Staph aureus bacteremia, rule out IE * BSA: 1.7 m2 * There is no evidence of a mass or vegetation. This does not rule out endocarditis. * -- Conclusions -- * Left ventricular systolic function is normal. * Diastolic dysfunction, Grade II, consistent with elevated left atrial pressure. * Right ventricular systolic pressure is elevated at 30-40mmHg. * The inferior vena cava is mildly dilated. Procedure Details * A complete two-dimensional transthoracic echocardiogram was performed (2D, M-mode, Doppler and color flow Doppler). Left Ventricle * The left ventricle is normal in size. * There is normal left ventricular wall thickness. * Left ventricular systolic function is normal. * Ejection Fraction = 55-60%. * Diastolic dysfunction, Grade II, consistent with elevated left atrial pressure. * The left ventricular wall motion is normal. Right Ventricle * The right ventricle is normal in size and function. * The right ventricular systolic function is normal as assessed by tricuspid annular plane systolic excursion (TAPSE) (normal >1.5 cm). Atria * The left atrial size is normal. * Right atrial size is normal. Mitral Valve * The mitral valve anatomy is normal. * Significant mitral regurgitation is absent. Tricuspid Valve * The tricuspid valve anatomy is normal. * There is trace tricuspid regurgitation. * Right ventricular systolic pressure is elevated at 30-40mmHg. Aortic Valve * The aortic valve is normal in structure and function. * The aortic valve is trileaflet. * No hemodynamically significant valvular aortic stenosis. * No aortic regurgitation is present. Great Vessels * The aortic root is normal size. Pericardium/Pleural * There is no pericardial effusion. Great Vessels * The inferior vena cava is mildly dilated. MMode 2D Measurements and Calculations IVSd 0.99 cm LVIDd 4.8 cm LVIDs 3.1 cm LVPWd 1.4 cm IVS/LVPW 0.73 FS 35.6 % EDV(Teich) 106.7 ml ESV(Teich) 37.3 ml EF(Teich) 65.0 % EDV(cubed) 109.5 ml ESV(cubed) 29.2 ml EF(cubed) 73.3 % LV mass(C)d 212.5 grams LV mass(C)dI 123.5 grams/m\S\2 SV(Teich) 69.4 ml SI(Teich) 40.3 ml/m\S\2 SV(cubed) 80.3 ml SI(cubed) 46.7 ml/m\S\2 Ao root diam 3.0 cm Ao root area 7.0 cm\S\2 ACS 1.9 cm LA dimension 3.9 cm asc Aorta Diam 2.5 cm LA/Ao 1.3 LVOT diam 2.0 cm LVOT area 3.1 cm\S\2 LVAd ap4 30.3 cm\S\2 LVLd ap4 8.0 cm EDV(MOD-sp4) 96.9 ml EDV(sp4-el) 97.6 ml LVAs ap4 17.3 cm\S\2 LVLs ap4 7.0 cm ESV(MOD-sp4) 38.3 ml ESV(sp4-el) 36.2 ml EF(MOD-sp4) 60.5 % EF(sp4-el) 62.9 % LVAd ap2 27.0 cm\S\2 LVLd ap2 7.9 cm EDV(MOD-sp2) 80.9 ml EDV(sp2-el) 78.5 ml LVAs ap2 15.1 cm\S\2 LVLs ap2 6.6 cm ESV(MOD-sp2) 30.4 ml ESV(sp2-el) 29.1 ml EF(MOD-sp2) 62.4 % EF(sp2-el) 63.0 % LVLd %diff -1.16 % EDV(MOD-bp) 88.7 ml LVLs %diff -5.74 % ESV(MOD-bp) 34.3 ml EF(MOD-bp) 61.4 % SV(MOD-sp4) 58.6 ml SI(MOD-sp4) 34.1 ml/m\S\2 SV(MOD-sp2) 50.5 ml SI(MOD-sp2) 29.4 ml/m\S\2 SV(MOD-bp) 54.4 ml SI(MOD-bp) 31.6 ml/m\S\2 SV(sp4-el) 61.3 ml SI(sp4-el) 35.6 ml/m\S\2 SV(sp2-el) 49.4 ml SI(sp2-el) 28.7 ml/m\S\2 Doppler Measurements and Calculations MV E max elaine 88.3 cm/sec MV A max elaine 57.7 cm/sec MV E/A 1.5 MV dec time 0.25 sec Ao V2 max 146.0 cm/sec Ao max PG 8.5 mmHg Ao max PG (full) 5.4 mmHg RASHID(V,A) 1.9 cm\S\2 RASHID(V,D) 1.9 cm\S\2 LV V1 max PG 3.1 mmHg LV V1 max 87.8 cm/sec PA V2 max 103.8 cm/sec PA max PG 4.3 mmHg PA acc slope 528.1 cm/sec\S\2 PA acc time 0.13 sec PI max elaine 142.4 cm/sec PI max PG 8.1 mmHg PI dec slope 126.1 cm/sec\S\2 PI P1/2t 330.7 msec TR max elaine 234.5 cm/sec PA pr(Accel) 22.0 mmHg
[2017-10-22] MEDS: FINASTERIDE 5 MG TAB PO SCH (20:25)
[2017-10-22 23:49] VITALS: BP 176/81; PULSE 59; TEMP 36.6; O2SAT 96
[2017-10-23] MEDS: OXYCODONE/ACETAMINOPHEN 5-325 TAB PO PRN ×4 (04:45→19:57)
[2017-10-23 05:50] LABS: BASO % 0.3 %; BASO ABS # 0.02 K/uL (0-0.2); EOS % 3.6 %; EOS ABS # 0.24 K/uL (0-0.5); HEMATOCRIT 25.1 % (42-52); HEMOGLOBIN 7.8 g/dL (14.0-18.0); IG# 0.04 K/uL (0.00-0.02); LYMPH % 12.8 %; LYMPH ABS # 0.86 K/uL (1.2-3.4); MEAN CELL VOLUME 86.3 fL (80-100); MEAN CORPUSCULAR HEMOGLOBIN 26.8 pg (25-34); MEAN CORPUSCULAR HGB CONC 31.1 g/dl (32-36); MONO % 4.5 %; NEUT % 78.2 %; NEUT ABS # 5.27 K/uL (1.4-6.5); PLATELET COUNT 122 K/uL (130-400); RED CELL DISTRIBUTION WIDTH CV 23.5 % (11.5-14.5); RED CELL DISTRIBUTION WIDTH SD 72.9 fL (36.4-46.3); WHITE BLOOD COUNT 6.73 K/uL (4.8-10.8)
[2017-10-23 06:23] LABS: CALCIUM 8.3 mg/dl (8.5-10.1); CREATININE 2.29 mg/dl (0.60-1.40); POTASSIUM 3.8 mmol/L (3.5-5.1)
--- NOTE | 2017-10-23 07:15 | Family Medicine Progress Note ---
Progress Note Date of Service Oct 23, 2017. Subjective Pt evaluation today including: conversation w/ patient, physical exam, chart review, lab review, review of inpatient medication list Pain: No pain reported PO Intake: Tolerating PO intake Voiding: wright catheter in place Mr. Hoffman reports he feels well today. His only concern is white discharge coming from his urethra, which he states has been present for a number of days, even before they changed his catheter on Wednesday. He denies abdominal pain, fever , n/v, chest pain, SOB, or dizziness whilst ambulating. Constitutional: No fever, No chills Cardiovascular: No chest pain Abdomen: No pain, No nausea, No vomiting All Other Systems: Reviewed and Negative Medications Current Inpatient Medications Medications (Trade) Dose Ordered Sig/Yrn Route Start Time Stop Time Status Last Admin Dose Admin Acetaminophen (Tylenol Tab) 650 mg Q4H PRN PO 10/17/17 15:45 11/16/17 15:44 Al Hydrox/Mg Hydrox/Simethicone (Maalox Max Susp) 15 ml Q4H PRN PO 10/17/17 15:45 11/16/17 15:44 Magnesium Hydroxide (Milk Of Magnesia Susp) 30 ml Q6H PRN PO 10/17/17 15:45 11/16/17 15:44 Polyethylene (Miralax Powder Packet) 17 gm DAILY PRN PO 10/17/17 15:45 11/16/17 15:44 Ondansetron HCl (Zofran Inj) 4 mg Q6H PRN IV 10/17/17 15:45 11/16/17 15:44 Aspirin (Ecotrin Tab) 81 mg BID PO 10/17/17 20:00 11/16/17 20:59 Future Hold 10/20/17 08:09 81 MG Finasteride (Proscar Tab) 5 mg HS PO 10/17/17 21:00 11/16/17 20:59 10/22/17 20:25 5 MG Folic Acid (Folvite Tab) 1 mg QAM PO 10/18/17 08:00 11/17/17 08:59 10/23/17 08:31 1 MG Multivitamins (Multivitamin Tab) 1 tab QAM PO 10/18/17 08:00 11/17/17 08:59 10/23/17 08:31 1 TAB Potassium Chloride (Klor-Con Tab) 20 meq BID PO 10/17/17 20:00 11/16/17 20:59 10/23/17 08:30 20 MEQ Ranitidine HCl (zANTac TAB) 150 mg BID PO 10/17/17 20:00 11/16/17 20:59 10/23/17 08:31 150 MG Tamsulosin HCl (Flomax Cap) 0.4 mg DAILY PO 10/18/17 08:00 11/17/17 08:59 10/23/17 08:30 0.4 MG Ferrous Sulfate (Feosol Tab) 325 mg BIDM PO 10/17/17 17:00 11/16/17 17:59 10/23/17 17:35 325 MG Pantoprazole Sodium (Protonix Tab) 40 mg QAM PO 10/18/17 08:00 11/17/17 08:59 10/23/17 08:31 40 MG Oxycodone/ Acetaminophen (Percocet 5-325mg Tab) 1 tab Q4H PRN PO 10/17/17 15:45 10/31/17 15:44 10/23/17 14:06 1 TAB Oxybutynin Chloride (Ditropan Tab) 5 mg TID PO 10/19/17 14:00 11/18/17 13:59 10/23/17 14:05 5 MG Prednisone (PredniSONE TAB) 5 mg DAILY PO 10/20/17 08:00 11/17/17 08:59 10/23/17 08:31 5 MG Metoprolol Tartrate (Lopressor Tab) 25 mg BID PO 10/21/17 20:00 11/17/17 08:59 10/23/17 08:31 25 MG Daptomycin 400 mg/ Syringe 8 ml @ 4 mls/min Q48H IV 10/22/17 09:00 11/05/17 08:59 10/22/17 09:25 4 MLS/MIN Objective Vital Signs Date Time Temp Pulse Resp B/P (MAP) Pulse Ox O2 Delivery O2 Flow Rate FiO2 10/23/17 16:24 Room Air 10/23/17 15:19 36.7 69 20 165/81 (109) 97 10/23/17 10:09 Room Air 10/23/17 07:39 36.6 58 20 153/66 (95) 97 10/23/17 00:00 Room Air 10/22/17 23:49 36.6 59 18 176/81 (112) 96 Room Air Physical Exam General Appearance: WD/WN, no apparent distress Respiratory/Chest: lungs clear, normal breath sounds Cardiovascular: regular rate, rhythm, no edema Abdomen: non tender, soft Neurologic/Psychiatric: alert, normal mood/affect, oriented x 3 Laboratory Results Last 24 Hours Test 10/23/17 00:00 10/23/17 05:28 Urine Color YELLOW Urine Appearance CLEAR Urine pH 6.5 Urine Specific [place] 1.010 Urine Protein 1+ Urine Glucose (UA) NEG Urine Ketones NEG Urine Occult Blood 2+ Urine Nitrite NEG Urine Bilirubin NEG Urine Urobilinogen NEG Urine Leukocyte Esterase MODERATE Urine WBC (Auto) >30 /hpf Urine RBC (Auto) >30 /hpf Urine Hyaline Casts (Auto) 1-5 /lpf Urine Epithelial Cells (Auto) 20-30 /lpf Urine Bacteria (Auto) NEG White Blood Count 6.73 K/uL Red Blood Count 2.91 M/uL Hemoglobin 7.8 g/dL Hematocrit 25.1 % Mean Corpuscular Volume 86.3 fL Mean Corpuscular Hemoglobin 26.8 pg Mean Corpuscular Hemoglobin Concent 31.1 g/dl Platelet Count 122 K/uL Mean Platelet Volume 10.0 fL Neutrophils (%) (Auto) 78.2 % Lymphocytes (%) (Auto) 12.8 % Monocytes (%) (Auto) 4.5 % Eosinophils (%) (Auto) 3.6 % Basophils (%) (Auto) 0.3 % Neutrophils # (Auto) 5.27 K/uL Lymphocytes # (Auto) 0.86 K/uL Monocytes # (Auto) 0.30 K/uL Eosinophils # (Auto) 0.24 K/uL Basophils # (Auto) 0.02 K/uL RDW Standard Deviation 72.9 fL RDW Coefficient of Variation 23.5 % Immature Granulocyte % (Auto) 0.6 % Immature Granulocyte # (Auto) 0.04 K/uL Anisocytosis PRESENT Prothrombin Time 11.0 SECONDS Prothromb Time International Ratio 1.0 Sodium Level 138 mmol/L Potassium Level 3.8 mmol/L Chloride Level 108 mmol/L Carbon Dioxide Level 20 mmol/L Anion Gap 10.0 mmol/L Blood Urea Nitrogen 29 mg/dl Creatinine 2.29 mg/dl Est Creatinine Clear Calc Drug Dose 23.5 ml/min Estimated GFR () 30.8 Estimated GFR (Non- 26.5 BUN/Creatinine Ratio 12.5 Random Glucose 85 mg/dl Calcium Level 8.3 mg/dl Assessment and Plan Mr. Hoffman is a 77 year old male with a past medical history of rheumatoid arthritis on prednisone, BPH, Anemia of chronic disease, HTN, HLD, primary OA who was admitted for 12 hours of left-sided CVA pain and suprapubic pain on top of a 3 day hx of increasing sediment, pus, and orange color of urine in his indwelling catheter. Recent admission to [facility] from 09/24- for TYRONE in setting of urinary retention secondary to worsening BPH. During that admission he was found to have left sided hydroureteronephrosis. Was treated for complicated UTI with rocephin x 5 days. He had been seen by urology who had discussed possibility of inserting a stent but as he clinically improved, they decided to opt for outpatient follow up, which has not occurred yet. Bacteremia secondary to Pyelonephritis/Left VUJ obstruction/L Hydroureteronephrosis - urine cultures and blood cultures positive x2 for mckenzie-sensitive staph aureus - thank you to ID for consult - currently on daptomycin day 6 - ECHO negative for endocarditis - pt consented for PICC line - as per ID, will d/c on 2 weeks of IV daptomycin 400mg q48h - will place PICC line on d/c in dominant arm to preserve non dominant arm in case fistula needs to be placed for dialysis - blood cultures positive x2 again, will repeat again today. Awaiting normal blood cultures to place PICC line - urethral swab and culture ordered as well - CT showed moderate left hydroureteronephrosis with dilatation of the left ureter to the level the distal ureter. No ureteral calculi. Moderate left perinephric infiltration. - thank you to urology for consult - left ureteral stent placed - keep wright in - f/u in outpatient setting for TURP once infection resolves - recommend 3 weeks of treatment with bactrim after IV abx for suspected prostatitis - Percocet prn q4h for pain management Acute Kidney Injury - creatinine stable at 2.29. states baseline recently has been around 2, but this is far worse than prior relatively recent baseline of 1 in 2017 - Continue to hold amlodipine (held prior to admission due to concerns it may have caused AIN) - thank you to nephrology for consult - ok to d/c from nephro point of view - outpatient metabolic stone eval once stable - contrast and abdominal CT/MRI for left kidney complex cyst in outpatient setting Anemia - likely anemia of chronic disease related to RA, worsened by hematuria - transfused with 1 unit on 10/20 - decreased slightly today from 8.1 to 7.8 - will continue to monitor - FOBT negative - Continue iron supplementation - 325mg ferrous sulfate bid - Had been given procrit at [facility] as well as 4 units of venofer BPH, chronic x 15 years, worsening - Continue flomax and finasteride - Patient started on indwelling catheter at [facility] RA - Continue to hold leflunomide 2/2 recent weight loss - continue 5mg of prednisone (baseline) - continue folic acid HTN - pt's blood pressure has been on the higher side - as high as 180 systolic - change Metoprolol 25mg BID to daily and add 120mg ER of diltiazem as systolic pressure elevated, but diastolic normal - hold ASA 81 mg given low Hgb & hematuria DVT Prophylaxis: SCDs Code: Full Dispo: remains on med/surg. Pending blood culture results. Resident Tracking Resident Involvement: Resident Care Provided Care Provided: Adult Hospital Medicine Assessment/Plan Resident Physician Supervision Note: I was present with Dr. Schneider during the history and exam. I discussed the case with the resident and agree with the findings and plan as documented in the note. Any exceptions or clarifications are listed here. Pt reports improved fatigue and afebrile. Hgb slightly down, will check again and consider transfusion. Awaiting BCx results as last set 2x +ve.
[2017-10-23 07:39] VITALS: BP 153/66; PULSE 58; TEMP 36.6; O2SAT 97
[2017-10-23] MEDS: TAMSULOSIN HCL 0.4 MG CAP PO SCH (08:30)
[2017-10-23] MEDS: POTASSIUM CHLORIDE 20 MEQ TABCR PO SCH ×2 (08:30→19:58)
[2017-10-23] MEDS: PANTOprazole SOD 40 MG TAB PO SCH (08:31)
[2017-10-23] MEDS: MULTIVITAMIN TAB PO SCH (08:31)
[2017-10-23] MEDS: METOPROLOL TARTRATE 25 MG TAB PO SCH (08:31)
[2017-10-23] MEDS: OXYBUTYNIN CHLORIDE 5 MG TAB PO SCH ×3 (08:31→19:57)
[2017-10-23] MEDS: RANITIDINE HCL 150 MG TAB PO SCH ×2 (08:31→19:59)
[2017-10-23] MEDS: FERROUS SULFATE 325 MG TAB PO SCH ×2 (08:31→17:35)
[2017-10-23 15:19] VITALS: BP 165/81; PULSE 69; TEMP 36.7; O2SAT 97
[2017-10-23] MEDS: FINASTERIDE 5 MG TAB PO SCH (19:58)
[2017-10-24] VITALS (7 sets, daily range): BP systolic 122–167; BP diastolic 63–78; PULSE 45–69; TEMP 36.6–37.3; O2SAT 94–97
[2017-10-24 06:00] LABS: HEMATOCRIT 23.6 % (42-52); HEMOGLOBIN 7.3 g/dL (14.0-18.0); MEAN CELL VOLUME 85.2 fL (80-100); MEAN CORPUSCULAR HEMOGLOBIN 26.4 pg (25-34); MEAN CORPUSCULAR HGB CONC 30.9 g/dl (32-36); MEAN PLATELET VOLUME 9.2 fL (7.4-10.4); PLATELET COUNT 132 K/uL (130-400); RED CELL DISTRIBUTION WIDTH CV 23.6 % (11.5-14.5); RED CELL DISTRIBUTION WIDTH SD 72.5 fL (36.4-46.3); WHITE BLOOD COUNT 7.23 K/uL (4.8-10.8)
[2017-10-24 06:39] LABS: CALCIUM 8.3 mg/dl (8.5-10.1); CREATININE 2.61 mg/dl (0.60-1.40); POTASSIUM 4.3 mmol/L (3.5-5.1)
--- NOTE | 2017-10-24 07:32 | Family Medicine Progress Note ---
Progress Note Date of Service Oct 24, 2017. Subjective Pt evaluation today including: conversation w/ patient, physical exam, chart review, lab review, review of inpatient medication list Pain: No pain reported PO Intake: Tolerating PO intake Voiding: wright catheter in place Mr. Hoffman reports he feels well today. His only complaint is his pain in his buttocks upon sitting for an extended period of time. He denies fever, chills, n /v, abdominal pain and is eating and drinking well. He notes he does not have black tarry stools and has not noticed any blood in his stool. Constitutional: No fever, No chills Respiratory: No shortness of breath Cardiovascular: No chest pain Abdomen: No pain, No nausea, No vomiting, No GI bleeding All Other Systems: Reviewed and Negative Medications Current Inpatient Medications Medications (Trade) Dose Ordered Sig/Yrn Route Start Time Stop Time Status Last Admin Dose Admin Acetaminophen (Tylenol Tab) 650 mg Q4H PRN PO 10/17/17 15:45 11/16/17 15:44 Al Hydrox/Mg Hydrox/Simethicone (Maalox Max Susp) 15 ml Q4H PRN PO 10/17/17 15:45 11/16/17 15:44 Magnesium Hydroxide (Milk Of Magnesia Susp) 30 ml Q6H PRN PO 10/17/17 15:45 11/16/17 15:44 Polyethylene (Miralax Powder Packet) 17 gm DAILY PRN PO 10/17/17 15:45 11/16/17 15:44 Ondansetron HCl (Zofran Inj) 4 mg Q6H PRN IV 10/17/17 15:45 11/16/17 15:44 Aspirin (Ecotrin Tab) 81 mg BID PO 10/17/17 20:00 11/16/17 20:59 Future Hold 10/20/17 08:09 81 MG Finasteride (Proscar Tab) 5 mg HS PO 10/17/17 21:00 11/16/17 20:59 10/23/17 19:58 5 MG Folic Acid (Folvite Tab) 1 mg QAM PO 10/18/17 08:00 11/17/17 08:59 10/24/17 07:41 1 MG Multivitamins (Multivitamin Tab) 1 tab QAM PO 10/18/17 08:00 11/17/17 08:59 10/24/17 07:41 1 TAB Potassium Chloride (Klor-Con Tab) 20 meq BID PO 10/17/17 20:00 11/16/17 20:59 10/24/17 07:41 20 MEQ Ranitidine HCl (zANTac TAB) 150 mg BID PO 10/17/17 20:00 11/16/17 20:59 10/24/17 07:41 150 MG Tamsulosin HCl (Flomax Cap) 0.4 mg DAILY PO 10/18/17 08:00 11/17/17 08:59 10/24/17 07:41 0.4 MG Ferrous Sulfate (Feosol Tab) 325 mg BIDM PO 10/17/17 17:00 11/16/17 17:59 10/24/17 08:19 325 MG Pantoprazole Sodium (Protonix Tab) 40 mg QAM PO 10/18/17 08:00 11/17/17 08:59 10/24/17 07:41 40 MG Oxycodone/ Acetaminophen (Percocet 5-325mg Tab) 1 tab Q4H PRN PO 10/17/17 15:45 10/31/17 15:44 10/24/17 07:41 1 TAB Oxybutynin Chloride (Ditropan Tab) 5 mg TID PO 10/19/17 14:00 11/18/17 13:59 10/24/17 07:41 5 MG Prednisone (PredniSONE TAB) 5 mg DAILY PO 10/20/17 08:00 11/17/17 08:59 10/24/17 07:41 5 MG Daptomycin 400 mg/ Syringe 8 ml @ 4 mls/min Q48H IV 10/22/17 09:00 11/05/17 08:59 10/24/17 07:42 4 MLS/MIN Metoprolol Tartrate (Lopressor Tab) 25 mg DAILY PO 10/24/17 08:00 11/17/17 08:59 10/24/17 07:42 25 MG Diltiazem HCl (Dilacor Xr Cap) 120 mg QAM PO 10/24/17 08:00 11/23/17 07:59 10/24/17 08:19 120 MG Objective Vital Signs Date Time Temp Pulse Resp B/P (MAP) Pulse Ox O2 Delivery O2 Flow Rate FiO2 10/24/17 07:38 37.3 69 20 165/75 (105) 97 10/24/17 00:29 36.7 69 20 167/78 (107) 97 Room Air 10/24/17 00:00 97 Room Air 10/23/17 16:24 Room Air 10/23/17 15:19 36.7 69 20 165/81 (109) 97 10/23/17 10:09 Room Air Physical Exam General Appearance: WD/WN, no apparent distress, + pertinent finding (wright catheter in place, draining moderately dark yellow urine) Respiratory/Chest: chest non-tender, lungs clear, normal breath sounds Cardiovascular: regular rate, rhythm, no edema Abdomen: non tender, soft, + pertinent finding (tender over one spot on left- middle suprapubic region) Laboratory Results Last 24 Hours Test 10/24/17 05:46 White Blood Count 7.23 K/uL Red Blood Count 2.77 M/uL Hemoglobin 7.3 g/dL Hematocrit 23.6 % Mean Corpuscular Volume 85.2 fL Mean Corpuscular Hemoglobin 26.4 pg Mean Corpuscular Hemoglobin Concent 30.9 g/dl RDW Standard Deviation 72.5 fL RDW Coefficient of Variation 23.6 % Platelet Count 132 K/uL Mean Platelet Volume 9.2 fL Sodium Level 136 mmol/L Potassium Level 4.3 mmol/L Chloride Level 106 mmol/L Carbon Dioxide Level 26 mmol/L Anion Gap 5.0 mmol/L Blood Urea Nitrogen 30 mg/dl Creatinine 2.61 mg/dl Est Creatinine Clear Calc Drug Dose 20.6 ml/min Estimated GFR () 26.3 Estimated GFR (Non- 22.7 BUN/Creatinine Ratio 11.6 Random Glucose 92 mg/dl Calcium Level 8.3 mg/dl Assessment and Plan Mr. Hoffman is a 77 year old male with a past medical history of rheumatoid arthritis on prednisone, BPH, Anemia of chronic disease, HTN, HLD, primary OA who was admitted for 12 hours of left-sided CVA pain and suprapubic pain on top of a 3 day hx of increasing sediment, pus, and orange color of urine in his indwelling catheter. Recent admission to [facility] from 09/24- for TYRONE in setting of urinary retention secondary to worsening BPH. During that admission he was found to have left sided hydroureteronephrosis. Was treated for complicated UTI with rocephin x 5 days. He had been seen by urology who had discussed possibility of inserting a stent but as he clinically improved, they decided to opt for outpatient follow up, which has not occurred yet. Bacteremia secondary to Pyelonephritis/Left VUJ obstruction/L Hydroureteronephrosis - urine cultures and blood cultures positive x2 for mckenzie-sensitive staph aureus - thank you to ID for consult - currently on daptomycin day 7 - ECHO negative for endocarditis - pt consented for PICC line - as per ID, will d/c on 2 weeks of IV daptomycin 400mg q48h - will place PICC line on d/c in dominant arm to preserve non dominant arm in case fistula needs to be placed for dialysis - PICC line consent signed and in chart - blood cultures positive x2 again, repeated again x2 yesterday and this morning. Awaiting normal blood cultures to place PICC line - urethral swab and culture pending. Repeat urine culture negative - CT showed moderate left hydroureteronephrosis with dilatation of the left ureter to the level the distal ureter. No ureteral calculi. Moderate left perinephric infiltration. - thank you to urology for consult - left ureteral stent placed - keep wright in - f/u in outpatient setting for TURP once infection resolves - recommend 3 weeks of treatment with bactrim after IV abx for suspected prostatitis - Percocet prn q4h for pain management Acute Kidney Injury - creatinine at 2.6. states baseline recently has been around 2, but this is far worse than prior relatively recent baseline of 1 in 2017 - Continue to hold amlodipine (held prior to admission due to concerns it may have caused AIN) - thank you to nephrology for consult - ok to d/c from nephro point of view - outpatient metabolic stone eval once stable - contrast and abdominal CT/MRI for left kidney complex cyst in outpatient setting Anemia - likely anemia of chronic disease related to RA, worsened by hematuria - transfused with 1 unit on 10/20 - decreased today from 7.8 to 7.3, likely secondary to repeated blood draws - will transfuse one more unit of prbcs and monitor - FOBT negative - Continue iron supplementation - 325mg ferrous sulfate bid - Had been given procrit at [facility] as well as 4 units of venofer BPH, chronic x 15 years, worsening - Continue flomax and finasteride - Patient started on indwelling catheter at [facility] RA - Continue to hold leflunomide 2/2 recent weight loss - continue 5mg of prednisone (baseline) - continue folic acid HTN - pt's blood pressure has been on the higher side - as high as 180 systolic - continue Metoprolol 25mg daily and daily diltiazem as systolic pressure elevated, but diastolic normal -> decrease diltiazem ER from 120mg to 60mg as blood pressure decreased to normal levels, but HR dropped to 45 -> monitor tomorrow - hold ASA 81 mg given low Hgb & hematuria DVT Prophylaxis: SCDs Code: Full Dispo: remains on med/surg. Pending blood culture results. Resident Tracking Resident Involvement: Resident Care Provided Care Provided: Adult [facility] Medicine Assessment/Plan Resident Physician Supervision Note: I was present with Dr. Schneider during the history and exam. I discussed the case with the resident and agree with the findings and plan as documented in the note. Any exceptions or clarifications are listed here. Hgb has been decreasing steadily, likely 2/2 hematuria and frequent blood draws for cultures. 1U PRBC given 2/2 history ischemic nephropathy at Hgb of 7.5. Otherwise, tolerating IV abx well and still awaiting negative BCx for PICC placement, next set will return tomorrow. Can consider drawing another set then if +ve for 48 hrs hence.
[2017-10-24] MEDS: PANTOprazole SOD 40 MG TAB PO SCH (07:41)
[2017-10-24] MEDS: OXYCODONE/ACETAMINOPHEN 5-325 TAB PO PRN ×3 (07:41→20:08)
[2017-10-24] MEDS: OXYBUTYNIN CHLORIDE 5 MG TAB PO SCH ×3 (07:41→20:07)
[2017-10-24] MEDS: POTASSIUM CHLORIDE 20 MEQ TABCR PO SCH ×2 (07:41→20:07)
[2017-10-24] MEDS: MULTIVITAMIN TAB PO SCH (07:41)
[2017-10-24] MEDS: RANITIDINE HCL 150 MG TAB PO SCH ×2 (07:41→20:07)
[2017-10-24] MEDS: TAMSULOSIN HCL 0.4 MG CAP PO SCH (07:41)
[2017-10-24] MEDS: DAPTOmycin IV 400 MG in SYRINGE 0 ML IV SCH (07:42)
[2017-10-24] MEDS: METOPROLOL TARTRATE 25 MG TAB PO SCH (07:42)
[2017-10-24] MEDS ORDERED: DILTIAZEM HCL 120 MG ER CAP PO SCH (08:00)
[2017-10-24] MEDS: FERROUS SULFATE 325 MG TAB PO SCH ×2 (08:19→15:53)
[2017-10-24] MEDS ORDERED: DOCUSATE SODIUM 100 MG CAP PO SCH (16:30)
[2017-10-24] MEDS ORDERED: DOCUSATE SODIUM 100 MG CAP PO PRN (16:30)
[2017-10-24] MEDS: FINASTERIDE 5 MG TAB PO SCH (20:07)
[2017-10-25 00:35] VITALS: BP 149/80; PULSE 59; TEMP 36.8; O2SAT 97
[2017-10-25] MEDS: OXYCODONE/ACETAMINOPHEN 5-325 TAB PO PRN ×3 (05:29→23:48)
[2017-10-25 06:07] LABS: BASO % 0.1 %; BASO ABS # 0.01 K/uL (0-0.2); EOS % 3.2 %; EOS ABS # 0.22 K/uL (0-0.5); HEMATOCRIT 26.4 % (42-52); HEMOGLOBIN 8.6 g/dL (14.0-18.0); IG# 0.05 K/uL (0.00-0.02); LYMPH % 12.5 %; LYMPH ABS # 0.87 K/uL (1.2-3.4); MEAN CELL VOLUME 85.4 fL (80-100); MEAN CORPUSCULAR HEMOGLOBIN 27.8 pg (25-34); MEAN CORPUSCULAR HGB CONC 32.6 g/dl (32-36); MEAN PLATELET VOLUME 9.7 fL (7.4-10.4); MONO % 7.3 %; MONO ABS # 0.51 K/uL (0.11-0.59); NEUT % 76.2 %; NEUT ABS # 5.31 K/uL (1.4-6.5); PLATELET COUNT 163 K/uL (130-400); RED CELL DISTRIBUTION WIDTH SD 71.2 fL (36.4-46.3); WHITE BLOOD COUNT 6.97 K/uL (4.8-10.8)
[2017-10-25 06:39] LABS: CALCIUM 8.7 mg/dl (8.5-10.1); CREATININE 3.11 mg/dl (0.60-1.40); POTASSIUM 4.4 mmol/L (3.5-5.1)
[2017-10-25] MEDS: RANITIDINE HCL 150 MG TAB PO SCH ×2 (07:46→19:31)
[2017-10-25] MEDS: FERROUS SULFATE 325 MG TAB PO SCH ×2 (07:46→16:20)
[2017-10-25] MEDS: DILTIAZEM SR 60 MG CAP PO SCH (07:46)
[2017-10-25] MEDS: OXYBUTYNIN CHLORIDE 5 MG TAB PO SCH ×3 (07:46→19:31)
[2017-10-25] MEDS: MULTIVITAMIN TAB PO SCH (07:47)
[2017-10-25] MEDS: METOPROLOL TARTRATE 25 MG TAB PO SCH (07:47)
[2017-10-25] MEDS: POTASSIUM CHLORIDE 20 MEQ TABCR PO SCH ×2 (07:47→19:32)
[2017-10-25] MEDS: TAMSULOSIN HCL 0.4 MG CAP PO SCH (07:48)
[2017-10-25] MEDS: PANTOprazole SOD 40 MG TAB PO SCH (07:48)
[2017-10-25 08:04] VITALS: BP 162/79; PULSE 62; TEMP 36.6; O2SAT 91
--- NOTE | 2017-10-25 08:35 | Family Medicine Progress Note ---
Progress Note Date of Service Oct 25, 2017. Subjective Pt evaluation today including: conversation w/ patient Spoke with patient briefly this morning and again at length on formal rounds. Overall, he says he's doing physically well. Says his stent and wright are uncomfortable, as is sitting on his bottom (unchanged). Denies any generalized abdominal pain, N/V, or other acute physical concerns. He does ask questions about his overall care plan, including when he might be discharged home. Constitutional: No fever, No chills Respiratory: No cough, No shortness of breath Cardiovascular: No chest pain, No edema Abdomen: No pain, No nausea, No vomiting Medications Current Inpatient Medications Medications (Trade) Dose Ordered Sig/Yrn Route Start Time Stop Time Status Last Admin Dose Admin Acetaminophen (Tylenol Tab) 650 mg Q4H PRN PO 10/17/17 15:45 11/16/17 15:44 Al Hydrox/Mg Hydrox/Simethicone (Maalox Max Susp) 15 ml Q4H PRN PO 10/17/17 15:45 11/16/17 15:44 Magnesium Hydroxide (Milk Of Magnesia Susp) 30 ml Q6H PRN PO 10/17/17 15:45 11/16/17 15:44 Polyethylene (Miralax Powder Packet) 17 gm DAILY PRN PO 10/17/17 15:45 11/16/17 15:44 10/25/17 05:41 17 GM Ondansetron HCl (Zofran Inj) 4 mg Q6H PRN IV 10/17/17 15:45 11/16/17 15:44 Aspirin (Ecotrin Tab) 81 mg BID PO 10/17/17 20:00 11/16/17 20:59 Future Hold 10/20/17 08:09 81 MG Finasteride (Proscar Tab) 5 mg HS PO 10/17/17 21:00 11/16/17 20:59 10/24/17 20:07 5 MG Folic Acid (Folvite Tab) 1 mg QAM PO 10/18/17 08:00 11/17/17 08:59 10/25/17 07:48 1 MG Multivitamins (Multivitamin Tab) 1 tab QAM PO 10/18/17 08:00 11/17/17 08:59 10/25/17 07:47 1 TAB Potassium Chloride (Klor-Con Tab) 20 meq BID PO 10/17/17 20:00 11/16/17 20:59 10/25/17 07:47 20 MEQ Ranitidine HCl (zANTac TAB) 150 mg BID PO 10/17/17 20:00 11/16/17 20:59 10/25/17 07:46 150 MG Tamsulosin HCl (Flomax Cap) 0.4 mg DAILY PO 10/18/17 08:00 11/17/17 08:59 10/25/17 07:48 0.4 MG Ferrous Sulfate (Feosol Tab) 325 mg BIDM PO 10/17/17 17:00 11/16/17 17:59 10/25/17 07:46 325 MG Pantoprazole Sodium (Protonix Tab) 40 mg QAM PO 10/18/17 08:00 11/17/17 08:59 10/25/17 07:48 40 MG Oxycodone/ Acetaminophen (Percocet 5-325mg Tab) 1 tab Q4H PRN PO 10/17/17 15:45 10/31/17 15:44 10/25/17 05:29 1 TAB Oxybutynin Chloride (Ditropan Tab) 5 mg TID PO 10/19/17 14:00 11/18/17 13:59 10/25/17 07:46 5 MG Prednisone (PredniSONE TAB) 5 mg DAILY PO 10/20/17 08:00 11/17/17 08:59 10/25/17 07:48 5 MG Daptomycin 400 mg/ Syringe 8 ml @ 4 mls/min Q48H IV 10/22/17 09:00 11/05/17 08:59 10/24/17 07:42 4 MLS/MIN Metoprolol Tartrate (Lopressor Tab) 25 mg DAILY PO 10/24/17 08:00 11/17/17 08:59 10/25/17 07:47 25 MG Docusate Sodium (coLACE CAP) 100 mg DAILY PRN PO 10/24/17 16:30 11/23/17 16:29 Diltiazem HCl (Cardizem Sr) 60 mg DAILY PO 10/25/17 08:00 11/24/17 07:59 10/25/17 07:46 60 MG Objective Vital Signs Date Time Temp Pulse Resp B/P (MAP) Pulse Ox O2 Delivery O2 Flow Rate FiO2 10/25/17 08:04 36.6 62 18 162/79 (106) 91 Room Air 10/25/17 00:35 36.8 59 18 149/80 (103) 97 Room Air 10/25/17 00:30 Room Air 10/24/17 16:00 Room Air 10/24/17 14:30 36.6 45 18 132/63 94 10/24/17 14:00 36.9 51 20 122/75 94 10/24/17 13:38 36.9 54 16 130/66 10/24/17 12:59 36.9 56 18 124/70 10/24/17 10:26 Room Air Physical Exam Notes: General Appearance: Awake, alert & oriented, sitting in chair, comfortable in general, NAD. CV: +S1S2 RRR. No peripheral edema. Pulm: Clear to auscultation throughout. Abdomen: +BS, soft, non-distended. Mild suprapubic/LLQ tenderness. No guarding. Extremities: No pedal edema or calf tenderness. Neuro: No gross neuro deficits. Lines: Left arm PIV. Wright cath. Laboratory Results 10/25/17 05:44 Red Blood Count 3.09, Mean Corpuscular Volume 85.4, Mean Corpuscular Hemoglobin 27.8, Mean Corpuscular Hemoglobin Concent 32.6, Mean Platelet Volume 9.7, Neutrophils (%) (Auto) 76.2, Lymphocytes (%) (Auto) 12.5, Monocytes (%) (Auto) 7.3, Eosinophils (%) (Auto) 3.2, Basophils (%) (Auto) 0.1, Neutrophils # (Auto) 5.31, Lymphocytes # (Auto) 0.87, Monocytes # (Auto) 0.51, Eosinophils # (Auto) 0.22, Basophils # (Auto) 0.01 10/25/17 05:44 Test 10/25/17 05:44 White Blood Count 6.97 K/uL (4.8-10.8) Red Blood Count 3.09 M/uL (4.7-6.1) Hemoglobin 8.6 g/dL (14.0-18.0) Hematocrit 26.4 % (42-52) Mean Corpuscular Volume 85.4 fL (80-100) Mean Corpuscular Hemoglobin 27.8 pg (25-34) Mean Corpuscular Hemoglobin Concent 32.6 g/dl (32-36) Platelet Count 163 K/uL (130-400) Mean Platelet Volume 9.7 fL (7.4-10.4) Neutrophils (%) (Auto) 76.2 % Lymphocytes (%) (Auto) 12.5 % Monocytes (%) (Auto) 7.3 % Eosinophils (%) (Auto) 3.2 % Basophils (%) (Auto) 0.1 % Neutrophils # (Auto) 5.31 K/uL (1.4-6.5) Lymphocytes # (Auto) 0.87 K/uL (1.2-3.4) Monocytes # (Auto) 0.51 K/uL (0.11-0.59) Eosinophils # (Auto) 0.22 K/uL (0-0.5) Basophils # (Auto) 0.01 K/uL (0-0.2) RDW Standard Deviation 71.2 fL (36.4-46.3) RDW Coefficient of Variation 23.0 % (11.5-14.5) Immature Granulocyte % (Auto) 0.7 % Immature Granulocyte # (Auto) 0.05 K/uL (0.00-0.02) Anisocytosis PRESENT Anion Gap 9.0 mmol/L (3-11) Est Creatinine Clear Calc Drug Dose 17.3 ml/min Estimated GFR () 21.2 Estimated GFR (Non- 18.3 BUN/Creatinine Ratio 11.3 (10-20) Calcium Level 8.7 mg/dl (8.5-10.1) Assessment and Plan 77 yo male admitted on 17 oct 2017 for bacteremia secondary to pyelonephritis, left VUJ obstruction, and left hydroureteronephrosis. PMH: RA on prednisone, BPH, anemia of chronic disease, HTN, HLD, primary OA. Recent admit to [facility] from for [place] & UTI in setting of urinary retention from BPH. Bacteremia secondary to to pyelonephritis, left VUJ obstruction, and left hydroureteronephrosis: 01Mar BCx positive for staph. Follow on 03Mar BCx no growth thus far and 04Mar BCx pending. 25Feb UCx positive for staph, follow on 03Mar UCx no growth. ID onboard. -- Echo negative for endocarditis. -- On daptomycin day 8. Will d/c on two weeks of IV daptomycin 400mg q48h -- Plan for peripheral ultrasound-guided IV for outpatient antibiotics. -- CT showed moderate left hydroureteronephrosis with dilatation of the left ureter to the level the distal ureter. No ureteral calculi. Moderate left perinephric infiltration. -- Urology onboard. Placed left ureteral stent. Rec'd keep wright in for likely outpatient TURP. -- Recommended three weeks of bactrim at outpatient for suspected prostatitis. -- Percocet for pain management. Acute kidney injury: Up to 3.1 today. -- Checking electrolytes. Started IVF. -- Holding amlodipine due to concerns for AIN. -- Previous recommendation for contrast and abdominal CT/MRI for left kidney complex cyst in outpatient setting [facility] nephrology recommendations: --will check urine electrolytes, urine eosinophilia, CBC with differential and repeat renal panel --agree with continuing on IV fluid for now as patient has been persistently net negative over last few days --as patient has MSSA, consider discontinuing daptomycin and switched to Bactrim --consider stopping pantoprazole and continue on H2 faith only --if there is any suggestion of acute interstitial nephritis and renal function continues to worsen, will consider giving high-dose steroid since repeat [place]ano blood culture was negative. [facility] urology recommendations: -- We will order a KUB to check stent position and a renal ultrasound to see if the hydronephrosis has resolved. Anemia: Likely of chronic disease related to RA, worsened by hematuria. Today improved to 8.6 s/p transfusion. -- S/p transfusion on 28Feb and 04Mar (two units PRBCs total). -- FOBT negative. -- On iron supplementation. BPH: chronic x 15 years, worsening -- Continue flomax and finasteride -- Patient started on indwelling catheter at [facility] RA: -- Continue to hold leflunomide 2/2 recent weight loss -- continue 5mg of prednisone (baseline) -- continue folic acid HTN: -- pt's blood pressure has been on the higher side - as high as 180 systolic -- continue Metoprolol 25mg daily and daily diltiazem as systolic pressure elevated, but diastolic normal -- decrease diltiazem ER from 120mg to 60mg as blood pressure decreased to normal levels, but HR dropped to 45. monitoring. -- hold ASA 81 mg given low Hgb & hematuria Code status: Full code. DVT prophy: SCD's. PT/OT: 27Feb PT initial eval, "He appears to be a good candidate for discharge to home from a mobility standpoint." Disbo: Admitted on med/surg. Had lengthy discussion with patient on about his renal and Hb status. Ultimately decided to stay for repeat AM labs and further discussions with nephrology and urology for treatment plan. Resident Physician Supervision Note: I interviewed and examined the patient. Discussed with Dr. Ruelas and agree with findings and plan as documented in the note. Any exceptions or clarifications are listed here: None Patient was seen in the company of the resident he is very agitated and disturbed he was concerned to the fact that he keeps seeing different doctors and no one has the same plan "I loved on the computer and read the plan from Dr. Love the urologist word for word and instructed him how we are following this plan but this did not seem to satisfy the patient he says he is very frustrated and feels like he is going to explode. I personally phoned Dr. Love and requested that he call the patient he should be he would and he would also see the patient personally on 26 October given a very long interaction and phone call with Dr. Love I spent an extended visit of 35 additional minutes to the typical bedside visit on this patient today October 25 His vital signs are stable and 36 6 pulse 60 respiration 18 BP slightly elevated 162/69 Cardiac exam is regular lungs are clear abdomen normal active bowel sounds Wright draining clear yellow yellow liquid Patient is admitted with obstructive uropathy and concern for sepsis from urinary source with stenting of his left ureter by urology Continue renal dosed daptomycin, will hydrate overnight to try to improve his renal function and acute kidney injury watching for signs of adrenal insufficiency given his chronic steroid use for rheumatoid arthritis Documented By: Kang Carlin Resident Tracking Resident Involvement: Resident Care Provided Care Provided: Adult Hospital Medicine (inpatient)
[2017-10-25] MEDS ORDERED: DAPT500I IV (11:41)
[2017-10-25] MEDS: SODIUM CHLORIDE 0.9% 1000ML 1,000 ML IV SCH ×2 (12:21→21:19)
[2017-10-25 13:50] LABS: BASO % 0.3 %; BASO ABS # 0.02 K/uL (0-0.2); EOS % 1.4 %; HEMATOCRIT 27.3 % (42-52); HEMOGLOBIN 8.8 g/dL (14.0-18.0); IG# 0.05 K/uL (0.00-0.02); LYMPH % 10.6 %; LYMPH ABS # 0.74 K/uL (1.2-3.4); MEAN CELL VOLUME 85.3 fL (80-100); MEAN CORPUSCULAR HEMOGLOBIN 27.5 pg (25-34); MEAN CORPUSCULAR HGB CONC 32.2 g/dl (32-36); MEAN PLATELET VOLUME 9.6 fL (7.4-10.4); MONO % 4.7 %; MONO ABS # 0.33 K/uL (0.11-0.59); NEUT % 82.3 %; NEUT ABS # 5.73 K/uL (1.4-6.5); PLATELET COUNT 171 K/uL (130-400); RED CELL DISTRIBUTION WIDTH CV 22.6 % (11.5-14.5); RED CELL DISTRIBUTION WIDTH SD 70.6 fL (36.4-46.3); WHITE BLOOD COUNT 6.97 K/uL (4.8-10.8)
--- NOTE | 2017-10-25 14:00 | Progress Note ---
Progress Note Date of Service Oct 25, 2017. Progress Note Patient with an indwelling Geiger and recently has left stent placement. His creatinine has bumped up slightly today we were asked to reconsult on the patient. His Geiger is patent he is making a large amount of clear yellow urine. He denies any left-sided flank pain. No fevers or chills. Creatinine bumped up to 3.[address] prior to the stent and the retrograde. We will order a KUB to check stent position and a renal ultrasound to see if the hydronephrosis has resolved.
[2017-10-25 14:22] LABS: CALCIUM 8.7 mg/dl (8.5-10.1); CREATININE 3.29 mg/dl (0.60-1.40); POTASSIUM 4.9 mmol/L (3.5-5.1)
--- NOTE | 2017-10-25 14:26 | Nephrology Progress Note ---
Nephrology Progress Note Date of Service Oct 25, 2017. Chief Complaint Follow-up for acute kidney injury. Subjective Mr. Hoffman was seen and examined in his room this afternoon. Overall he has been feeling fine however has been frustrated with prolonged hospital course. Renal function has been slowly worsening have over last few days and creatinine was 3.1 this morning, electrolyte acceptable. Blood pressure seems to be well controlled. He has been voiding normally and has been net negative every day almost more than a liter. Blood pressure has been well controlled. Review of Systems A complete review of systems was performed. Pertinent positives are noted above. All other systems are negative. Vital Signs Last 8 Hrs Date Time Temp Pulse Resp B/P (MAP) Pulse Ox O2 Delivery O2 Flow Rate FiO2 10/25/17 08:04 36.6 62 18 162/79 (106) 91 Room Air 10/25/17 08:00 Room Air Last Recorded Weight Weight (Kilograms): 65.700 Physical Exam GENERAL: Elderly male, AAA x 3, pleasant, healthy-appearing, not in any distress. NECK: Supple, no JVD. RESPIRATORY: Normal breathing efforts, no accessory muscle use, clear to auscultation bilaterally, no wheezes or rales. CARDIOVASCULAR: S1, S2 normal, rate rhythm regular. EXTREMITY: No lower extremity edema NEURO: speech fluent. PSYCHIATRY: Normal mood and judgment Family History FH: CAD (coronary artery disease) BROTHER Negative for CKD / ESRD Social History Smoking Status: Former smoker Marital Status: Housing Status: lives with family Occupation: retired . Retired. 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 Laboratory Results Past 24 Hours 10/25/17 05:44 Red Blood Count 3.09, Mean Corpuscular Volume 85.4, Mean Corpuscular Hemoglobin 27.8, Mean Corpuscular Hemoglobin Concent 32.6, Mean Platelet Volume 9.7, Neutrophils (%) (Auto) 76.2, Lymphocytes (%) (Auto) 12.5, Monocytes (%) (Auto) 7.3, Eosinophils (%) (Auto) 3.2, Basophils (%) (Auto) 0.1, Neutrophils # (Auto) 5.31, Lymphocytes # (Auto) 0.87, Monocytes # (Auto) 0.51, Eosinophils # (Auto) 0.22, Basophils # (Auto) 0.01 10/25/17 13:30 Red Blood Count 3.20, Mean Corpuscular Volume 85.3, Mean Corpuscular Hemoglobin 27.5, Mean Corpuscular Hemoglobin Concent 32.2, Mean Platelet Volume 9.6, Neutrophils (%) (Auto) 82.3, Lymphocytes (%) (Auto) 10.6, Monocytes (%) (Auto) 4.7, Eosinophils (%) (Auto) 1.4, Basophils (%) (Auto) 0.3, Neutrophils # (Auto) 5.73, Lymphocytes # (Auto) 0.74, Monocytes # (Auto) 0.33, Eosinophils # (Auto) 0.10, Basophils # (Auto) 0.02 10/25/17 05:44 Test 10/25/17 05:44 10/25/17 13:30 White Blood Count 6.97 K/uL (4.8-10.8) 6.97 K/uL (4.8-10.8) Red Blood Count 3.09 M/uL (4.7-6.1) 3.20 M/uL (4.7-6.1) Hemoglobin 8.6 g/dL (14.0-18.0) 8.8 g/dL (14.0-18.0) Hematocrit 26.4 % (42-52) 27.3 % (42-52) Mean Corpuscular Volume 85.4 fL (80-100) 85.3 fL (80-100) Mean Corpuscular Hemoglobin 27.8 pg (25-34) 27.5 pg (25-34) Mean Corpuscular Hemoglobin Concent 32.6 g/dl (32-36) 32.2 g/dl (32-36) Platelet Count 163 K/uL (130-400) 171 K/uL (130-400) Mean Platelet Volume 9.7 fL (7.4-10.4) 9.6 fL (7.4-10.4) Neutrophils (%) (Auto) 76.2 % 82.3 % Lymphocytes (%) (Auto) 12.5 % 10.6 % Monocytes (%) (Auto) 7.3 % 4.7 % Eosinophils (%) (Auto) 3.2 % 1.4 % Basophils (%) (Auto) 0.1 % 0.3 % Neutrophils # (Auto) 5.31 K/uL (1.4-6.5) 5.73 K/uL (1.4-6.5) Lymphocytes # (Auto) 0.87 K/uL (1.2-3.4) 0.74 K/uL (1.2-3.4) Monocytes # (Auto) 0.51 K/uL (0.11-0.59) 0.33 K/uL (0.11-0.59) Eosinophils # (Auto) 0.22 K/uL (0-0.5) 0.10 K/uL (0-0.5) Basophils # (Auto) 0.01 K/uL (0-0.2) 0.02 K/uL (0-0.2) RDW Standard Deviation 71.2 fL (36.4-46.3) 70.6 fL (36.4-46.3) RDW Coefficient of Variation 23.0 % (11.5-14.5) 22.6 % (11.5-14.5) Immature Granulocyte % (Auto) 0.7 % 0.7 % Immature Granulocyte # (Auto) 0.05 K/uL (0.00-0.02) 0.05 K/uL (0.00-0.02) Anisocytosis PRESENT PRESENT Anion Gap 9.0 mmol/L (3-11) Est Creatinine Clear Calc Drug Dose 17.3 ml/min Estimated GFR () 21.2 Estimated GFR (Non- 18.3 BUN/Creatinine Ratio 11.3 (10-20) Calcium Level 8.7 mg/dl (8.5-10.1) Allergies Coded Allergies: Lisinopril (Verified Adverse Reaction, Mild, COUGH, 08/04/17) Medications Current Inpatient Medications Medications (Trade) Dose Ordered Sig/Yrn Route Start Time Stop Time Status Last Admin Dose Admin Acetaminophen (Tylenol Tab) 650 mg Q4H PRN PO 10/17/17 15:45 11/16/17 15:44 Al Hydrox/Mg Hydrox/Simethicone (Maalox Max Susp) 15 ml Q4H PRN PO 10/17/17 15:45 11/16/17 15:44 Magnesium Hydroxide (Milk Of Magnesia Susp) 30 ml Q6H PRN PO 10/17/17 15:45 11/16/17 15:44 Polyethylene (Miralax Powder Packet) 17 gm DAILY PRN PO 10/17/17 15:45 11/16/17 15:44 10/25/17 05:41 17 GM Ondansetron HCl (Zofran Inj) 4 mg Q6H PRN IV 10/17/17 15:45 11/16/17 15:44 Aspirin (Ecotrin Tab) 81 mg BID PO 10/17/17 20:00 11/16/17 20:59 Future Hold 10/20/17 08:09 81 MG Finasteride (Proscar Tab) 5 mg HS PO 10/17/17 21:00 11/16/17 20:59 10/24/17 20:07 5 MG Folic Acid (Folvite Tab) 1 mg QAM PO 10/18/17 08:00 11/17/17 08:59 10/25/17 07:48 1 MG Multivitamins (Multivitamin Tab) 1 tab QAM PO 10/18/17 08:00 11/17/17 08:59 10/25/17 07:47 1 TAB Potassium Chloride (Klor-Con Tab) 20 meq BID PO 10/17/17 20:00 11/16/17 20:59 10/25/17 07:47 20 MEQ Ranitidine HCl (zANTac TAB) 150 mg BID PO 10/17/17 20:00 11/16/17 20:59 10/25/17 07:46 150 MG Tamsulosin HCl (Flomax Cap) 0.4 mg DAILY PO 10/18/17 08:00 11/17/17 08:59 10/25/17 07:48 0.4 MG Ferrous Sulfate (Feosol Tab) 325 mg BIDM PO 10/17/17 17:00 11/16/17 17:59 10/25/17 07:46 325 MG Pantoprazole Sodium (Protonix Tab) 40 mg QAM PO 10/18/17 08:00 11/17/17 08:59 10/25/17 07:48 40 MG Oxycodone/ Acetaminophen (Percocet 5-325mg Tab) 1 tab Q4H PRN PO 10/17/17 15:45 10/31/17 15:44 10/25/17 05:29 1 TAB Oxybutynin Chloride (Ditropan Tab) 5 mg TID PO 10/19/17 14:00 11/18/17 13:59 10/25/17 14:03 5 MG Prednisone (PredniSONE TAB) 5 mg DAILY PO 10/20/17 08:00 11/17/17 08:59 10/25/17 07:48 5 MG Daptomycin 400 mg/ Syringe 8 ml @ 4 mls/min Q48H IV 10/22/17 09:00 11/05/17 08:59 10/24/17 07:42 4 MLS/MIN Metoprolol Tartrate (Lopressor Tab) 25 mg DAILY PO 10/24/17 08:00 11/17/17 08:59 10/25/17 07:47 25 MG Docusate Sodium (coLACE CAP) 100 mg DAILY PRN PO 10/24/17 16:30 11/23/17 16:29 Diltiazem HCl (Cardizem Sr) 60 mg DAILY PO 10/25/17 08:00 11/24/17 07:59 10/25/17 07:46 60 MG Sodium Chloride 1,000 ml @ 100 mls/hr Q10H IV 10/25/17 12:00 11/24/17 11:59 10/25/17 12:21 100 MLS/HR Impression (1) Acute renal failure (2) Hydronephrosis (3) Kidney stones (4) Pyelonephritis (5) BPH (benign prostatic hyperplasia) (6) Renal cyst (7) Chronic anemia 77-year-old gentlemen with acute kidney injury with left-sided hydronephrosis status post ureteral stent. Creatinine initially improved from 4.1-2.6 and had , had been stable for several days however started to worsen again, creatinine 3.1 this morning. Electrolyte acceptable. Blood pressure well controlled. Differentials for acute kidney injury include volume depletion with diuresis with net negative more than 1 liter daily, acute interstitial nephritis with different antibiotics including daptomycin which has been over last few days, possible stent dislodgement or dysfunction and recurrent hydronephrosis on the left side. Recommendations --will check urine electrolytes, urine eosinophilia, CBC with differential and repeat renal panel --agree with continuing on IV fluid for now as patient has been persistently net negative over last few days --as patient has MSSA, consider discontinuing daptomycin and switched to Bactrim --consider stopping pantoprazole and continue on H2 faith only --will review renal ultrasound ordered by Urology --if there is any suggestion of acute interstitial nephritis and renal function continues to worsen, will consider giving high-dose steroid since repeat Chano blood culture was negative. Will follow.
--- NOTE | 2017-10-25 15:34 | DIAGNOSTIC IMAGING REPORT ---
KUB HISTORY: Acute suprapubic pelvic pain with a suprapubic catheter. check stent position COMPARISON: , Retrograde cystourethrogram 10/18/2017 CT abdomen and pelvis 10/17/2017 FINDINGS: The bowel gas pattern is non-obstructive. Moderate stool volume of the colon. There is no organomegaly. Left-sided ureteral stent is in place with proximal portion coiled in the left upper abdomen at the level of L2-L3, likely within the region of the left renal pelvis. The distal portion of the stent is within the left hemipelvis in the expected region of the left aspect of the urinary bladder. Suprapubic catheter is present. No definite renal or ureteral calculi. No pneumoperitoneum or pneumatosis. No fracture. Right hip arthroplasty. Degenerative changes are noted about the left hip, pelvis and lumbar spine. Splenic calcifications noted compatible with prior granulomatous disease. IMPRESSION: 1. Left ureteral stent appears to be in satisfactory positioning. No definite nephrolithiasis or ureteral calculi identified. 2. Moderate stool volume suggests constipation. 3. Nonobstructive bowel gas pattern. Electronically signed by: Saji Jefferson M.D. 10/25/2017 3:33 PM Dictated Date/Time: 10/25/2017 3:31 PM
[2017-10-25 16:00] VITALS: BP 164/72; PULSE 51; TEMP 36.4; O2SAT 99
--- NOTE | 2017-10-25 16:02 | DIAGNOSTIC IMAGING REPORT ---
(RENAL)RETROPERITON COMP HISTORY: Nephrocalcinosis R/O hydronephrosis COMPARISON: None. FINDINGS: Right kidney: Maximum dimension 11.7 cm. 3.5 cm mid pole cyst. No evidence for hydronephrosis. Normal corticomedullary differentiation and cortical thickness. Left kidney: Left ureteral stent identified distally within the bladder. ( Left ureteral stent present. Moderate hydronephrosis. IMPRESSION: Mild/moderate left renal hydronephrosis. No definite nephrocalcinosis. Proximal aspect of the renal stent is within the lower renal pelvis Electronically signed by: Carlos Villegas M.D. 10/25/2017 4:00 PM Dictated Date/Time: 10/25/2017 3:57 PM Normal corticomedullary differentiation and cortical thickness. Bladder: No bladder wall thickening. The bilateral ureteral jets were identified. IMPRESSION: Normal renal ultrasound. The above report was generated using voice recognition software. It may contain grammatical, syntax or spelling errors.
[2017-10-25 16:29] VITALS: BP 164/72; PULSE 51; TEMP 36.4; O2SAT 99
[2017-10-25] MEDS: FINASTERIDE 5 MG TAB PO SCH (21:20)
[2017-10-25 23:25] VITALS: BP 179/83; PULSE 66; TEMP 36.7; O2SAT 97
[2017-10-26 06:11] LABS: BASO % 0.5 %; BASO ABS # 0.03 K/uL (0-0.2); EOS % 3.6 %; EOS ABS # 0.23 K/uL (0-0.5); HEMATOCRIT 28.1 % (42-52); HEMOGLOBIN 8.9 g/dL (14.0-18.0); IG# 0.06 K/uL (0.00-0.02); LYMPH % 13.2 %; LYMPH ABS # 0.84 K/uL (1.2-3.4); MEAN CELL VOLUME 85.4 fL (80-100); MEAN CORPUSCULAR HEMOGLOBIN 27.1 pg (25-34); MEAN CORPUSCULAR HGB CONC 31.7 g/dl (32-36); MEAN PLATELET VOLUME 9.3 fL (7.4-10.4); MONO % 7.1 %; MONO ABS # 0.45 K/uL (0.11-0.59); NEUT % 74.7 %; NEUT ABS # 4.77 K/uL (1.4-6.5); PLATELET COUNT 181 K/uL (130-400); RED CELL DISTRIBUTION WIDTH CV 22.8 % (11.5-14.5); RED CELL DISTRIBUTION WIDTH SD 70.8 fL (36.4-46.3); WHITE BLOOD COUNT 6.38 K/uL (4.8-10.8)
[2017-10-26 06:46] LABS: CALCIUM 8.6 mg/dl (8.5-10.1); CREATININE 3.4 mg/dl (0.60-1.40); POTASSIUM 4.6 mmol/L (3.5-5.1)
[2017-10-26 07:27] VITALS: BP 169/85; PULSE 71; TEMP 36.9; O2SAT 95
[2017-10-26] MEDS: SODIUM CHLORIDE 0.9% 1000ML 1,000 ML IV SCH (07:44)
[2017-10-26] MEDS: OXYBUTYNIN CHLORIDE 5 MG TAB PO SCH ×3 (07:45→19:43)
[2017-10-26] MEDS: DILTIAZEM SR 60 MG CAP PO SCH (07:45)
[2017-10-26] MEDS: FERROUS SULFATE 325 MG TAB PO SCH ×2 (07:45→17:08)
[2017-10-26] MEDS: METOPROLOL TARTRATE 25 MG TAB PO SCH (07:45)
[2017-10-26] MEDS: POTASSIUM CHLORIDE 20 MEQ TABCR PO SCH ×2 (07:45→19:44)
[2017-10-26] MEDS: TAMSULOSIN HCL 0.4 MG CAP PO SCH (07:45)
[2017-10-26] MEDS: RANITIDINE HCL 150 MG TAB PO SCH ×2 (07:46→19:43)
[2017-10-26] MEDS: PANTOprazole SOD 40 MG TAB PO SCH (07:46)
[2017-10-26] MEDS: MULTIVITAMIN TAB PO SCH (07:46)
[2017-10-26] MEDS: OXYCODONE/ACETAMINOPHEN 5-325 TAB PO PRN (07:51)
[2017-10-26] MEDS: DAPTOmycin IV 400 MG in SYRINGE 0 ML IV SCH (07:52)
--- NOTE | 2017-10-26 08:00 | Family Medicine Progress Note ---
Progress Note Date of Service Oct 26, 2017. Subjective Pt evaluation today including: conversation w/ patient Found patient sitting in bedside chair. He continues to note some frustration with why some of his lab values have been worsening. Otherwise he says the wright catheter is uncomfortable but the "stent pain" is manageable. No other acute medical concerns. Constitutional: No fever, No chills Respiratory: No cough, No shortness of breath Cardiovascular: No chest pain, No edema Abdomen: + pain ("stent pain"), No nausea, No vomiting, No diarrhea Medications Current Inpatient Medications Medications (Trade) Dose Ordered Sig/Yrn Route Start Time Stop Time Status Last Admin Dose Admin Acetaminophen (Tylenol Tab) 650 mg Q4H PRN PO 10/17/17 15:45 11/16/17 15:44 Al Hydrox/Mg Hydrox/Simethicone (Maalox Max Susp) 15 ml Q4H PRN PO 10/17/17 15:45 11/16/17 15:44 Magnesium Hydroxide (Milk Of Magnesia Susp) 30 ml Q6H PRN PO 10/17/17 15:45 11/16/17 15:44 10/25/17 16:23 30 ML Polyethylene (Miralax Powder Packet) 17 gm DAILY PRN PO 10/17/17 15:45 11/16/17 15:44 10/25/17 05:41 17 GM Ondansetron HCl (Zofran Inj) 4 mg Q6H PRN IV 10/17/17 15:45 11/16/17 15:44 Aspirin (Ecotrin Tab) 81 mg BID PO 10/17/17 20:00 11/16/17 20:59 Future Hold 10/20/17 08:09 81 MG Finasteride (Proscar Tab) 5 mg HS PO 10/17/17 21:00 11/16/17 20:59 10/25/17 21:20 5 MG Folic Acid (Folvite Tab) 1 mg QAM PO 10/18/17 08:00 11/17/17 08:59 10/26/17 07:45 1 MG Multivitamins (Multivitamin Tab) 1 tab QAM PO 10/18/17 08:00 11/17/17 08:59 10/26/17 07:46 1 TAB Potassium Chloride (Klor-Con Tab) 20 meq BID PO 10/17/17 20:00 11/16/17 20:59 10/26/17 07:45 20 MEQ Ranitidine HCl (zANTac TAB) 150 mg BID PO 10/17/17 20:00 11/16/17 20:59 10/26/17 07:46 150 MG Tamsulosin HCl (Flomax Cap) 0.4 mg DAILY PO 10/18/17 08:00 11/17/17 08:59 10/26/17 07:45 0.4 MG Ferrous Sulfate (Feosol Tab) 325 mg BIDM PO 10/17/17 17:00 11/16/17 17:59 10/26/17 07:45 325 MG Pantoprazole Sodium (Protonix Tab) 40 mg QAM PO 10/18/17 08:00 11/17/17 08:59 10/26/17 07:46 40 MG Oxycodone/ Acetaminophen (Percocet 5-325mg Tab) 1 tab Q4H PRN PO 10/17/17 15:45 10/31/17 15:44 10/26/17 07:51 1 TAB Oxybutynin Chloride (Ditropan Tab) 5 mg TID PO 10/19/17 14:00 11/18/17 13:59 10/26/17 07:45 5 MG Prednisone (PredniSONE TAB) 5 mg DAILY PO 10/20/17 08:00 11/17/17 08:59 10/26/17 07:46 5 MG Daptomycin 400 mg/ Syringe 8 ml @ 4 mls/min Q48H IV 10/22/17 09:00 11/05/17 08:59 10/26/17 07:52 4 MLS/MIN Metoprolol Tartrate (Lopressor Tab) 25 mg DAILY PO 10/24/17 08:00 11/17/17 08:59 10/26/17 07:45 25 MG Docusate Sodium (coLACE CAP) 100 mg DAILY PRN PO 10/24/17 16:30 11/23/17 16:29 Diltiazem HCl (Cardizem Sr) 60 mg DAILY PO 10/25/17 08:00 11/24/17 07:59 10/26/17 07:45 60 MG Sodium Chloride 1,000 ml @ 100 mls/hr Q10H IV 10/25/17 12:00 11/24/17 11:59 10/26/17 07:44 100 MLS/HR Objective Vital Signs Date Time Temp Pulse Resp B/P (MAP) Pulse Ox O2 Delivery O2 Flow Rate FiO2 10/26/17 07:27 36.9 71 18 169/85 (113) 95 Room Air 10/26/17 00:00 Room Air 10/25/17 23:25 36.7 66 18 179/83 (115) 97 Room Air 10/25/17 19:30 Room Air 10/25/17 16:29 36.4 51 20 164/72 (102) 99 Room Air 10/25/17 16:00 36.4 51 18 164/72 (102) 99 10/25/17 15:45 Room Air 10/25/17 08:04 36.6 62 18 162/79 (106) 91 Room Air Physical Exam Notes: General Appearance: Awake, alert & oriented, sitting in chair, comfortable in general, NAD. CV: +S1S2 RRR. No peripheral edema. Pulm: Clear to auscultation throughout. Abdomen: +BS, soft, non-distended. Mild suprapubic/LLQ tenderness, unchanged from yesterday. No guarding. Extremities: No pedal edema or calf tenderness. Neuro: No gross neuro deficits. Lines: Right arm PIV. Wright cath. Laboratory Results 10/26/17 05:26 Red Blood Count 3.29, Mean Corpuscular Volume 85.4, Mean Corpuscular Hemoglobin 27.1, Mean Corpuscular Hemoglobin Concent 31.7, Mean Platelet Volume 9.3, Neutrophils (%) (Auto) 74.7, Lymphocytes (%) (Auto) 13.2, Monocytes (%) (Auto) 7.1, Eosinophils (%) (Auto) 3.6, Basophils (%) (Auto) 0.5, Neutrophils # (Auto) 4.77, Lymphocytes # (Auto) 0.84, Monocytes # (Auto) 0.45, Eosinophils # (Auto) 0.23, Basophils # (Auto) 0.03 10/26/17 05:26 Test 10/25/17 14:50 10/26/17 05:26 Urine Random Creatinine 37.0 mg/dl Urine Random Sodium 82 mEq/L White Blood Count 6.38 K/uL (4.8-10.8) Red Blood Count 3.29 M/uL (4.7-6.1) Hemoglobin 8.9 g/dL (14.0-18.0) Hematocrit 28.1 % (42-52) Mean Corpuscular Volume 85.4 fL (80-100) Mean Corpuscular Hemoglobin 27.1 pg (25-34) Mean Corpuscular Hemoglobin Concent 31.7 g/dl (32-36) Platelet Count 181 K/uL (130-400) Mean Platelet Volume 9.3 fL (7.4-10.4) Neutrophils (%) (Auto) 74.7 % Lymphocytes (%) (Auto) 13.2 % Monocytes (%) (Auto) 7.1 % Eosinophils (%) (Auto) 3.6 % Basophils (%) (Auto) 0.5 % Neutrophils # (Auto) 4.77 K/uL (1.4-6.5) Lymphocytes # (Auto) 0.84 K/uL (1.2-3.4) Monocytes # (Auto) 0.45 K/uL (0.11-0.59) Eosinophils # (Auto) 0.23 K/uL (0-0.5) Basophils # (Auto) 0.03 K/uL (0-0.2) RDW Standard Deviation 70.8 fL (36.4-46.3) RDW Coefficient of Variation 22.8 % (11.5-14.5) Immature Granulocyte % (Auto) 0.9 % Immature Granulocyte # (Auto) 0.06 K/uL (0.00-0.02) Anisocytosis PRESENT Anion Gap 9.0 mmol/L (3-11) Est Creatinine Clear Calc Drug Dose 15.8 ml/min Estimated GFR () 19.1 Estimated GFR (Non- 16.5 BUN/Creatinine Ratio 9.7 (10-20) Calcium Level 8.6 mg/dl (8.5-10.1) Assessment and Plan 77 yo male admitted on 17 oct 2017 for bacteremia secondary to pyelonephritis, left VUJ obstruction, and left hydroureteronephrosis. PMH: RA on prednisone, BPH, anemia of chronic disease, HTN, HLD, primary OA. Recent admit to [facility] from for [place] & UTI in setting of urinary retention from BPH. Bacteremia secondary to to pyelonephritis, left VUJ obstruction, and left hydroureteronephrosis: BCx positive for MSSA. Follow on BCx negative to date and BCx negative to date. Feb UCx positive for staph, follow on UCx no growth. Echo not suggestive of endocarditis. ID onboard. Had been on daptomycin for nine days. reviewed sensitivities, switching to cefazolin 1 gram IV q12h (renal dosing) per prior ID recommendations. - Plan for peripheral ultrasound-guided IV for outpatient antibiotics. Left hydronephrosis: S/p stent placement by urology on . renal u/s notes some mild/moderate residual hydronephrosis which has not progressed. KUB notes appropriate stent position. Percocet for pain management. Urology spoke with patient today, provided reassurance and recommended he follow nephrology team recommendations. Still planning future TURP and possible stent removal. Acute kidney injury: Cr 3.4 today, worsening. Nephrology and urology onboard. Urology does not believe this is due to urinary retention (see their full note ). 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 See their note and related discussion with patient about if he agrees to be started on higher dose steroids. Holding on order of steroids at moment for this. - On IVF. Holding amlodipine. Left complex kidney cyst: As noted on CT a/p. Recommended follow-up for same. Anemia: Likely of chronic disease related to RA, worsened by hematuria. S/p transfusion on and (two units PRBCs total). Presently stable at Hb 8.9. FOBT negative. On iron supplementation. BPH: Chronic x 15 years, worsening. On flomax, proscar, ditropan TID. RA: On folic acid. Off his home leflunomide (secondary to recent weight loss) and baseline prednisone 5 mg. HTN: His blood pressure has been on the higher side - as high as 180 systolic. - Holding ASA 81 mg given low Hgb & hematuria - Continue Metoprolol 25 mg daily. -- Previously decreased diltiazem ER from 120mg to 60mg. Monitoring. Code status: Full code. Diet: Regular diet. DVT prophy: SCD's. PT/OT: 27Feb PT initial eval, "He appears to be a good candidate for discharge to home from a mobility standpoint." Disbo: Admitted on med/surg. Continued to discuss that patient is welcome to leave (AMA) at any time, but strongly advised he remain for ongoing management of his above issues. Resident Physician Supervision Note: I interviewed and examined the patient. Discussed with Dr. Ruelas and agree with findings and plan as documented in the note. Any exceptions or clarifications are listed here: None Patient is much better mood today although occasionally getting mildly agitated. There is now some concern he may have interstitial nephritis and the patient is requesting a second opinion by another game and fish protector. The patient is previously seen [facility] nephrology in the past and I personally contacted Dr. Nalini Patiño and she is agreed to see the patient. I did describe the fact that he is we are concerned about interstitial nephritis and she says that was also the working diagnosis when she saw him in the past. I also personally spoke to Dr. Graham Love regarding this being obstructive uropathy and now he is believing this is likely more related to some intrinsic kidney disease then outlet obstruction although there is still plans in the works at retreating for his acute urinary tract infection and likely have a TURP for his BPH and elevated prostate size His vital signs are stable with a temp of 36 9 pulse 71 respiration 18 BP 179/ 55 his cardiac exam is regular lungs are clear is draining good urine with his Wright catheter Attempting to minimize any medications that might be involved with his interstitial cystitis we have changed his daptomycin to cefazolin infectious disease and nephrology are following along with urology to best determine this patient's outcome as his creatinine has now risen for the last 2 days in a row Documented By: Kang Carlin Resident Tracking Resident Involvement: Resident Care Provided Care Provided: Adult Hospital Medicine (inpatient)
--- NOTE | 2017-10-26 14:17 | Nephrology Progress Note ---
Nephrology Progress Note Date of Service Oct 26, 2017. Chief Complaint Follow-up for acute kidney injury. Roosevelt Darden was seen and examined in his room this morning. Renal function worsened further to creatinine 3.4 this morning, electrolyte acceptable. Renal ultrasound and KUB showed left ureteral stent to be in right place. He has been voiding normally. Blood pressure relatively high. Review of Systems A complete review of systems was performed. Pertinent positives are noted above. All other systems are negative. Vital Signs Last 8 Hrs Date Time Temp Pulse Resp B/P (MAP) Pulse Ox O2 Delivery O2 Flow Rate FiO2 10/26/17 08:00 Room Air 10/26/17 07:27 36.9 71 18 169/85 (113) 95 Room Air Last Recorded Weight Weight (Kilograms): 65.700 Physical Exam GENERAL: Elderly male, AAA x 3, pleasant, healthy-appearing, not in any distress. NECK: Supple, no JVD. RESPIRATORY: Normal breathing efforts, no accessory muscle use, clear to auscultation bilaterally, no wheezes or rales. CARDIOVASCULAR: S1, S2 normal, rate rhythm regular. EXTREMITY: No lower extremity edema NEURO: speech fluent. PSYCHIATRY: Normal mood and judgment Family History FH: CAD (coronary artery disease) BROTHER Negative for CKD / ESRD Social History Smoking Status: Former smoker Marital Status: Housing Status: lives with family Occupation: retired . Retired. 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 Laboratory Results Past 24 Hours 10/26/17 05:26 Red Blood Count 3.29, Mean Corpuscular Volume 85.4, Mean Corpuscular Hemoglobin 27.1, Mean Corpuscular Hemoglobin Concent 31.7, Mean Platelet Volume 9.3, Neutrophils (%) (Auto) 74.7, Lymphocytes (%) (Auto) 13.2, Monocytes (%) (Auto) 7.1, Eosinophils (%) (Auto) 3.6, Basophils (%) (Auto) 0.5, Neutrophils # (Auto) 4.77, Lymphocytes # (Auto) 0.84, Monocytes # (Auto) 0.45, Eosinophils # (Auto) 0.23, Basophils # (Auto) 0.03 10/26/17 05:26 Test 10/25/17 14:50 10/26/17 05:26 Urine Random Creatinine 37.0 mg/dl Urine Random Sodium 82 mEq/L White Blood Count 6.38 K/uL (4.8-10.8) Red Blood Count 3.29 M/uL (4.7-6.1) Hemoglobin 8.9 g/dL (14.0-18.0) Hematocrit 28.1 % (42-52) Mean Corpuscular Volume 85.4 fL (80-100) Mean Corpuscular Hemoglobin 27.1 pg (25-34) Mean Corpuscular Hemoglobin Concent 31.7 g/dl (32-36) Platelet Count 181 K/uL (130-400) Mean Platelet Volume 9.3 fL (7.4-10.4) Neutrophils (%) (Auto) 74.7 % Lymphocytes (%) (Auto) 13.2 % Monocytes (%) (Auto) 7.1 % Eosinophils (%) (Auto) 3.6 % Basophils (%) (Auto) 0.5 % Neutrophils # (Auto) 4.77 K/uL (1.4-6.5) Lymphocytes # (Auto) 0.84 K/uL (1.2-3.4) Monocytes # (Auto) 0.45 K/uL (0.11-0.59) Eosinophils # (Auto) 0.23 K/uL (0-0.5) Basophils # (Auto) 0.03 K/uL (0-0.2) RDW Standard Deviation 70.8 fL (36.4-46.3) RDW Coefficient of Variation 22.8 % (11.5-14.5) Immature Granulocyte % (Auto) 0.9 % Immature Granulocyte # (Auto) 0.06 K/uL (0.00-0.02) Anisocytosis PRESENT Anion Gap 9.0 mmol/L (3-11) Est Creatinine Clear Calc Drug Dose 15.8 ml/min Estimated GFR () 19.1 Estimated GFR (Non- 16.5 BUN/Creatinine Ratio 9.7 (10-20) Calcium Level 8.6 mg/dl (8.5-10.1) Allergies Coded Allergies: Lisinopril (Verified Adverse Reaction, Mild, COUGH, 08/04/17) Medications Current Inpatient Medications Medications (Trade) Dose Ordered Sig/Yrn Route Start Time Stop Time Status Last Admin Dose Admin Acetaminophen (Tylenol Tab) 650 mg Q4H PRN PO 10/17/17 15:45 11/16/17 15:44 Al Hydrox/Mg Hydrox/Simethicone (Maalox Max Susp) 15 ml Q4H PRN PO 10/17/17 15:45 11/16/17 15:44 Magnesium Hydroxide (Milk Of Magnesia Susp) 30 ml Q6H PRN PO 10/17/17 15:45 11/16/17 15:44 10/25/17 16:23 30 ML Polyethylene (Miralax Powder Packet) 17 gm DAILY PRN PO 10/17/17 15:45 11/16/17 15:44 10/25/17 05:41 17 GM Ondansetron HCl (Zofran Inj) 4 mg Q6H PRN IV 10/17/17 15:45 11/16/17 15:44 Aspirin (Ecotrin Tab) 81 mg BID PO 10/17/17 20:00 11/16/17 20:59 Future Hold 10/20/17 08:09 81 MG Finasteride (Proscar Tab) 5 mg HS PO 10/17/17 21:00 11/16/17 20:59 10/25/17 21:20 5 MG Folic Acid (Folvite Tab) 1 mg QAM PO 10/18/17 08:00 11/17/17 08:59 10/26/17 07:45 1 MG Multivitamins (Multivitamin Tab) 1 tab QAM PO 10/18/17 08:00 11/17/17 08:59 10/26/17 07:46 1 TAB Potassium Chloride (Klor-Con Tab) 20 meq BID PO 10/17/17 20:00 11/16/17 20:59 10/26/17 07:45 20 MEQ Ranitidine HCl (zANTac TAB) 150 mg BID PO 10/17/17 20:00 11/16/17 20:59 10/26/17 07:46 150 MG Tamsulosin HCl (Flomax Cap) 0.4 mg DAILY PO 10/18/17 08:00 11/17/17 08:59 10/26/17 07:45 0.4 MG Ferrous Sulfate (Feosol Tab) 325 mg BIDM PO 10/17/17 17:00 11/16/17 17:59 10/26/17 07:45 325 MG Oxycodone/ Acetaminophen (Percocet 5-325mg Tab) 1 tab Q4H PRN PO 10/17/17 15:45 10/31/17 15:44 10/26/17 07:51 1 TAB Oxybutynin Chloride (Ditropan Tab) 5 mg TID PO 10/19/17 14:00 11/18/17 13:59 10/26/17 13:12 5 MG Daptomycin 400 mg/ Syringe 8 ml @ 4 mls/min Q48H IV 10/22/17 09:00 11/05/17 08:59 10/26/17 07:52 4 MLS/MIN Metoprolol Tartrate (Lopressor Tab) 25 mg DAILY PO 10/24/17 08:00 11/17/17 08:59 10/26/17 07:45 25 MG Docusate Sodium (coLACE CAP) 100 mg DAILY PRN PO 10/24/17 16:30 11/23/17 16:29 Diltiazem HCl (Cardizem Sr) 60 mg DAILY PO 10/25/17 08:00 11/24/17 07:59 10/26/17 07:45 60 MG Impression (1) Acute renal failure (2) Hydronephrosis (3) Kidney stones (4) Pyelonephritis (5) BPH (benign prostatic hyperplasia) (6) Renal cyst (7) Chronic anemia 77-year-old gentlemen with acute kidney injury with left-sided hydronephrosis status post ureteral stent. Creatinine initially improved from 4.1-2.6 and had , had been stable for several days however started to worsen again, creatinine 3.1 this morning. Electrolyte acceptable. Blood pressure well controlled. Differentials for acute kidney injury include volume depletion with diuresis with net negative more than 1 liter daily, acute interstitial nephritis with different antibiotics including daptomycin which has been over last few days, possible stent dislodgement or dysfunction and recurrent hydronephrosis on the left side. Recommendations --renal function continues to worsen, no evidence of have volume depletion or postrenal obstruction. Urinalysis with pyuria without any evidence of bacteriuria. There is concern for possible acute interstitial nephritis --discontinue IV fluid, DC Protonix, continue on Ranitidine --as patient has MSSA, consider discontinuing daptomycin and switched to Bactrim --recommended starting empirically on high dose steroid for possible acute interstitial nephritis. Considering recent bacteremia, left hydronephrosis status post stent, would hold off on biopsy for now. As biopsy also require transfer to another facility it is reasonable to start on steroid to see response. Explained the risk associated with high dose steroid including poorly -controlled hypertension, hyperglycemia and increased risk of infection or more change. Patient initially agreed to be on steroid however he repeatedly kept saying he points to get discharged and extremely frustrated that he has to stay in hospital. Explained that with progressive worsening of renal function he is at risk for have electrolyte abnormality, change in volume status or further worsening of hypertension and recommended to continue to be inpatient until we see improvement in renal function. Hospital stay would not be for steroid use as will keep the steroid orally and he can be discharged if we see improvement in renal function. However patient became very frustrated and he fell like he needs time to think about and also wanted to get a 2nd opinion from another physician. Offered discussion with Dr. Carlin for consultation with [facility] nephrology however patient wanted to take time and think about it and let us know. Discussed with Dr. Carlin and offered my availability if patient needs to discuss any further or wants the to start on steroid. Will follow.
--- NOTE | 2017-10-26 14:57 | Progress Note ---
Subjective Date of Service: Oct 26, 2017. Subjective Pt evaluation today including: conversation w/ patient, conversation w/ family , physical exam, chart review, lab review Voiding: wright catheter in place Patient has failed to progress over the past several days, and has instead developed worsening renal function Interestingly, his symptoms related to the catheter and stent have largely subsided over the past several days His urine is clear at present He denies significant flank pain He reports he feels quite well overall He is, however, extremely frustrated with this hospitalization Problem List Medical Problems: (1) Acute renal failure Status: Acute (2) Leukocytosis Status: Acute (3) Urinary tract infection Status: Acute Review of Systems Constitutional: No see HPI, No fever, No chills, No sweats, No weight loss, No weakness, No fatigue, No problem reported Abdomen: No see HPI, No pain, No nausea, No vomiting, No diarrhea, No constipation, No GI bleeding, No problem reported Objective Vital Signs Date Time Temp Pulse Resp B/P (MAP) Pulse Ox O2 Delivery O2 Flow Rate FiO2 10/26/17 08:00 Room Air 10/26/17 07:27 36.9 71 18 169/85 (113) 95 Room Air 10/26/17 00:00 Room Air 10/25/17 23:25 36.7 66 18 179/83 (115) 97 Room Air 10/25/17 19:30 Room Air 10/25/17 16:29 36.4 51 20 164/72 (102) 99 Room Air 10/25/17 16:00 36.4 51 18 164/72 (102) 99 10/25/17 15:45 Room Air Physical Exam General Appearance: WD/WN, no apparent distress Eyes: normal inspection ENT: hearing grossly normal Neck: no adenopathy Respiratory/Chest: no respiratory distress, no accessory muscle use Cardiovascular: no edema Abdomen: non tender, soft Extremities: non-tender Neurologic/Psychiatric: alert, normal mood/affect, oriented x 3 Laboratory Results Last 24 Hours Test 10/26/17 05:26 White Blood Count 6.38 K/uL Red Blood Count 3.29 M/uL Hemoglobin 8.9 g/dL Hematocrit 28.1 % Mean Corpuscular Volume 85.4 fL Mean Corpuscular Hemoglobin 27.1 pg Mean Corpuscular Hemoglobin Concent 31.7 g/dl Platelet Count 181 K/uL Mean Platelet Volume 9.3 fL Neutrophils (%) (Auto) 74.7 % Lymphocytes (%) (Auto) 13.2 % Monocytes (%) (Auto) 7.1 % Eosinophils (%) (Auto) 3.6 % Basophils (%) (Auto) 0.5 % Neutrophils # (Auto) 4.77 K/uL Lymphocytes # (Auto) 0.84 K/uL Monocytes # (Auto) 0.45 K/uL Eosinophils # (Auto) 0.23 K/uL Basophils # (Auto) 0.03 K/uL RDW Standard Deviation 70.8 fL RDW Coefficient of Variation 22.8 % Immature Granulocyte % (Auto) 0.9 % Immature Granulocyte # (Auto) 0.06 K/uL Anisocytosis PRESENT Sodium Level 137 mmol/L Potassium Level 4.6 mmol/L Chloride Level 106 mmol/L Carbon Dioxide Level 22 mmol/L Anion Gap 9.0 mmol/L Blood Urea Nitrogen 33 mg/dl Creatinine 3.40 mg/dl Est Creatinine Clear Calc Drug Dose 15.8 ml/min Estimated GFR () 19.1 Estimated GFR (Non- 16.5 BUN/Creatinine Ratio 9.7 Random Glucose 83 mg/dl Calcium Level 8.6 mg/dl Assessment and Plan Urinary retention; left hydronephrosis; leukocytosis; renal failure Patient with ultrasound and KUB yesterday These appear to show an appropriate stent position Although he still has some hydronephrosis of the left kidney, it has not progressed and is likely somewhat better than it was at the time of his prior CT He does not show any evidence of right-sided hydronephrosis His bladder is decompressed Overall, I have informed them that I do not believe his urinary retention and/ or hydronephrosis is the primary cause of his renal dysfunction I have encouraged him to heed the recommendations of the nephrology team and consider treating him for a primary renal process I have reassured him, however, that presuming his renal function improves, we will enact the plan that we previously laid out for TURP and possible stent removal He has expressed good understanding that our priority now must be his renal function with his voiding function a secondary concern in the short term.
[2017-10-26] MEDS: CEFAZOLIN IV 1,000 MG in SYRINGE 0 ML IV SCH (17:10)
--- NOTE | 2017-10-26 18:22 | Nephrology Consultation ---
Nephrology Consultation Date of Consultation: Oct 26, 2017. Attending Physician: Dr Carlin Requesting Physician: Dr Carlin Reason for Consultation: second opinion on interstitial nephritis History of Present Illness 77 year old male who followed recently w/ my partner Dr Haley in CKD clinic in [place]. PMH includes rheumatoid arthritis, "massive" (per urology notes) prostatic hypertrophy, multiple complex renal cysts and chronic L sided hydronephrosis w/o obstructing stone or lesion (as of 03/2017 and 08/2017). He as admitted to [facility] from 09/16-09/20 and again from 09/24-10/06. He had had a baseline creatinine of 0.9 - 1.2 as recently as 06/2017. He presented in late August w/ creatinine 4.1 and volume depletion and was treated for this in [facility] from 09/16-09/20/17; CT of his abdomen/ pelvis during that admission showed chronic L hydronephrosis which urology felt did not need urgent intervention; he had a wright catheter during August admission and PVR of 170 mL; he went home w/o a wright. His creatinine improved to 2.6 by 09/20 discharge. On September 22, repeat labs showed increasing creatinine at 3.3, for which he was readmitted to [facility] from 09/24-10/06. By admission his creatinine was 4.1. The wright was replaced and he had slow improvement w/ this and IV fluids until 09/27-10/01 when his creatinine plateau'd at about 3. Over time his serologic work up came back >> complement was negative, as was spep/cuco / hep panel/ ANCA; cryoglobulins were very mildly but nonspecifically positive with negative cryocrit. Urine eosinophils came back 2 of 3 specimens positive however. He was not a renal biopsy candidate d/t L hydronephrosis on CT scan and sever R kidney lesions, including a hyperdense lower pole lesion, all of which were stable on imaging. On 10/01, he began 60 mg daily prednisone w/ plan to taper over 2-3 mos to 5 mg dose. Possible culprits for interstitial nephritis include leflunomide versus antibiotics given at August admission versus proton pump inhibitor. At no time to my knowledge did he have F or rash. He did however improve on prednisone; by 10/11 d/c, creatinine was 2.0. His PPI was changed to H2 faith at d/c. Urology did a nuclear lasix scan suggestive of partial L upper tract obstruction during the September admission >> a L ureteral stent was planned for late that admission but then when creatinine improved, this was deferred. Plan was made to f/u as outpatient. Urology did note at inpatient eval that prostatectomy would likely need to be open procedure and recommended eval for this at tertiary care center after d/c. The pt appears to have decided to transfer care to [facility] and records were released on 10/12 to this end. The overall renal diagnosis for this pt as of 10/11/17 CKD clinic follow up was combined prerenal and postobstructive processes, but also acute interstitial nephritis which was initially responsive to steroids. At this CKD clinic visit , Dr. Haley lowered prednisone to 40 mg daily d/t pt restlessness/poor sleep. The last outpatient creatinine for this pt in this system is 2.0 on 10/14. He follows w/ Dr. Chang for RA > was to see him w/in 2-4 wks of recent [facility] d /c: he has 11/29/17 appt. had failed methotrexate in the past; leflunomide had been stopped d/t renal function. Had been on lower dose prednisone (5 mg daily ) for RA as recently as 06/2017. The patient was admitted here on 10/17 w/ pyelonephritis after presenting with L flank pain and pus in his catheter and found to have MSSA bacteremia. He specifically requested care from [facility] [place] [place] on presentation and declined to follow w/ Sim[facility]. His creatinine was 2.1 on presentation and trended up to 3.1 on 10/18 , then dropped as low as 2.3 10/21-10/23. Nephrology had signed off but then creatinine trended up again to 3.4 today. They have been seeing pt for the past 2 days as well; there is concern per their notes for interstitial nephritis and mulitple med changes suggested in today's note. His prednisone was rapidly lowered to 5 mg daily on admission > he has been on this dose since 10/20. Inf s recommended treatment with 4 wks of ancef after initial treatment w/ daptomycin. The patient remains on daptomycin currently though. His 10/24/17 blood cultures are so far negative. He had a L ureteral stent placed on 10/18. Urology continues to plan a prostatectomy once his renal function is stabilized but believes that the obstructive concerns are for now relieved. 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 Family History FH: CAD (coronary artery disease) BROTHER Social History Smoking Status: Former Smoker Alcohol Use: none Marital Status: Housing Status: lives with family Occupation Status: retired Allergies Coded Allergies: Lisinopril (Verified Adverse Reaction, Mild, COUGH, 08/04/17) Medications Current Inpatient Medications Medications (Trade) Dose Ordered Sig/Yrn Route Start Time Stop Time Status Last Admin Dose Admin Acetaminophen (Tylenol Tab) 650 mg Q4H PRN PO 10/17/17 15:45 11/16/17 15:44 Al Hydrox/Mg Hydrox/Simethicone (Maalox Max Susp) 15 ml Q4H PRN PO 10/17/17 15:45 11/16/17 15:44 Magnesium Hydroxide (Milk Of Magnesia Susp) 30 ml Q6H PRN PO 10/17/17 15:45 11/16/17 15:44 10/25/17 16:23 30 ML Polyethylene (Miralax Powder Packet) 17 gm DAILY PRN PO 10/17/17 15:45 11/16/17 15:44 10/25/17 05:41 17 GM Ondansetron HCl (Zofran Inj) 4 mg Q6H PRN IV 10/17/17 15:45 11/16/17 15:44 Aspirin (Ecotrin Tab) 81 mg BID PO 10/17/17 20:00 11/16/17 20:59 Future Hold 10/20/17 08:09 81 MG Finasteride (Proscar Tab) 5 mg HS PO 10/17/17 21:00 11/16/17 20:59 10/25/17 21:20 5 MG Folic Acid (Folvite Tab) 1 mg QAM PO 10/18/17 08:00 11/17/17 08:59 10/26/17 07:45 1 MG Multivitamins (Multivitamin Tab) 1 tab QAM PO 10/18/17 08:00 11/17/17 08:59 10/26/17 07:46 1 TAB Potassium Chloride (Klor-Con Tab) 20 meq BID PO 10/17/17 20:00 11/16/17 20:59 10/26/17 07:45 20 MEQ Ranitidine HCl (zANTac TAB) 150 mg BID PO 10/17/17 20:00 11/16/17 20:59 10/26/17 07:46 150 MG Tamsulosin HCl (Flomax Cap) 0.4 mg DAILY PO 10/18/17 08:00 11/17/17 08:59 10/26/17 07:45 0.4 MG Ferrous Sulfate (Feosol Tab) 325 mg BIDM PO 10/17/17 17:00 11/16/17 17:59 10/26/17 07:45 325 MG Oxycodone/ Acetaminophen (Percocet 5-325mg Tab) 1 tab Q4H PRN PO 10/17/17 15:45 10/31/17 15:44 10/26/17 07:51 1 TAB Oxybutynin Chloride (Ditropan Tab) 5 mg TID PO 10/19/17 14:00 11/18/17 13:59 10/26/17 13:12 5 MG Daptomycin 400 mg/ Syringe 8 ml @ 4 mls/min Q48H IV 10/22/17 09:00 11/05/17 08:59 10/26/17 07:52 4 MLS/MIN Metoprolol Tartrate (Lopressor Tab) 25 mg DAILY PO 10/24/17 08:00 11/17/17 08:59 10/26/17 07:45 25 MG Docusate Sodium (coLACE CAP) 100 mg DAILY PRN PO 10/24/17 16:30 11/23/17 16:29 Diltiazem HCl (Cardizem Sr) 60 mg DAILY PO 10/25/17 08:00 11/24/17 07:59 10/26/17 07:45 60 MG Home Meds and Scripts Medications Dose Route/Sig Max Daily Dose Days Date Category Daptomycin 500 Mg Inj 400 Mg IV Q48H 10/25/17 Rx Tylenol (Acetaminophen) 500 Mg Tab 1,000 Mg PO UD PRN 10/17/17 Reported Flomax (Tamsulosin Hcl) 0.4 Mg Cap 0.4 Mg PO DAILY 10/17/17 Reported Zantac (Ranitidine HCl) 150 Mg Tab 150 Mg PO BID 10/17/17 Reported Ascorbic Acid 500 Mg Tab Unknown Dose PO BID 10/17/17 Reported Micro-K Ext Rel (Potassium Chloride) 10 Meq Capcr 20 Meq PO BID 10/17/17 Reported Prednisone 20 Mg Tab 40 Mg PO DAILY 10/17/17 Reported Lopressor (Metoprolol Tartrate) 25 Mg Tab 25 Mg PO DAILY 10/17/17 Reported Aspirin EC Low Dose (Aspirin) 81 Mg Ectab 81 Mg PO BID 30 08/06/17 Rx Colace (Docusate Sodium) 100 Mg Cap 1 Cap PO HS 15 08/04/17 Reported Kp Ferrous Sulfate (Ferrous Sulfate) 325 Mg Tab 1 Tab PO BID 30 04/19/17 Reported Folic Acid 1 Mg Tab 1 Tab PO QAM 04/19/17 Reported Prilosec (Omeprazole) 20 Mg Capcr 20 Mg PO QAM 04/19/17 Reported Proscar (Finasteride) 5 Mg Tab 5 Mg PO HS 02/26/17 Reported Multivitamin (Multivitamins) Tab 1 Tablet PO QAM 02/12/12 Reported Review of Systems Constitutional: + weakness, + fatigue, + problem reported (since last eval appetite improved), No fever, No chills Eyes: No worsening of vision ENT: No hearing loss Respiratory: No cough, No shortness of breath, No dyspnea at rest Cardiac: No chest pain, No edema, No palpitations Abdomen: No pain, No nausea, No vomiting, No diarrhea, No constipation Musculoskeletal: No joint pain, No muscle pain Male : No dysuria, No incontinence Neuro: No memory loss, No weakness Psych: + insomnia, No depression symptoms, No anxiety Heme: No abnormal bleeding/bruising Endo: + fatigue Skin: No rash Physical Exam Date Time Temp Pulse Resp B/P (MAP) Pulse Ox O2 Delivery O2 Flow Rate FiO2 10/26/17 08:00 Room Air 10/26/17 07:27 36.9 71 18 169/85 (113) 95 Room Air 10/26/17 00:00 Room Air 10/25/17 23:25 36.7 66 18 179/83 (115) 97 Room Air 10/25/17 19:30 Room Air 10/25/17 16:29 36.4 51 20 164/72 (102) 99 Room Air 10/25/17 16:00 36.4 51 18 164/72 (102) 99 10/25/17 15:45 Room Air General Appearance: WD/WN, no apparent distress, + pertinent finding ( ambulatory on RA) Eyes: EOMI ENT: hearing grossly normal, + pertinent finding (slight cushingoid features) Neck: supple Respiratory/Chest: lungs clear, normal breath sounds Cardiovascular: regular rate, rhythm, no edema, + systolic murmur Abdomen: normal bowel sounds, non tender, soft, + pertinent finding (wright w/ ample urine) Extremities: normal range of motion, non-tender, no pedal edema Neurologic/Psych: alert, normal mood/affect, oriented x 3 (but has trouble w/ recall and processing information, consistent with previous interviews) Skin: no jaundice, warm/dry, no rash Diagnostics Last 24 Hours Test 10/25/17 14:50 10/26/17 05:26 Urine Random Creatinine 37.0 mg/dl Urine Random Sodium 82 mEq/L White Blood Count 6.38 K/uL Red Blood Count 3.29 M/uL Hemoglobin 8.9 g/dL Hematocrit 28.1 % Mean Corpuscular Volume 85.4 fL Mean Corpuscular Hemoglobin 27.1 pg Mean Corpuscular Hemoglobin Concent 31.7 g/dl Platelet Count 181 K/uL Mean Platelet Volume 9.3 fL Neutrophils (%) (Auto) 74.7 % Lymphocytes (%) (Auto) 13.2 % Monocytes (%) (Auto) 7.1 % Eosinophils (%) (Auto) 3.6 % Basophils (%) (Auto) 0.5 % Neutrophils # (Auto) 4.77 K/uL Lymphocytes # (Auto) 0.84 K/uL Monocytes # (Auto) 0.45 K/uL Eosinophils # (Auto) 0.23 K/uL Basophils # (Auto) 0.03 K/uL RDW Standard Deviation 70.8 fL RDW Coefficient of Variation 22.8 % Immature Granulocyte % (Auto) 0.9 % Immature Granulocyte # (Auto) 0.06 K/uL Anisocytosis PRESENT Sodium Level 137 mmol/L Potassium Level 4.6 mmol/L Chloride Level 106 mmol/L Carbon Dioxide Level 22 mmol/L Anion Gap 9.0 mmol/L Blood Urea Nitrogen 33 mg/dl Creatinine 3.40 mg/dl Est Creatinine Clear Calc Drug Dose 15.8 ml/min Estimated GFR () 19.1 Estimated GFR (Non- 16.5 BUN/Creatinine Ratio 9.7 Random Glucose 83 mg/dl Calcium Level 8.6 mg/dl Diagnostic Radiology: CT admission > reviewed Renal u/s 10/25 >> m- moderate L hydronephrosis, stent present KUB 10/25 >> constipation TTE this admission no vegetation; some elevated R heart pressure Assessment & Plan 77 y/o M w/ recently diagnosed interstitial nephritis, RA, chronic L hydronephrosis, marked prostatism, multiple BL renal lesions including complex R lower pole renal cyst admitted 10/17 w/ MSSA bacteremia from L pyelonephritis s /p 10/18 stent with initial improvement in renal function but past 48 hrs worsening Relapsing acute renal failure, challenging and protracted clinical situation After 2 prolonged [facility] admissions, the impression was that he had multifactorial renal failure from prerenal and obstructive processes as well as acute interstitial nephritis, for which high dose prednisone was given with good response as detailed above. Dx was empiric as well as based on 2 urine specimens positive for eosinophils, again as detailed above -he had been responding to high dose steroids intensified from RA therapy to treat interstitial nephritis at previous hospital stay; these were abruptly tapered here after admission w/ potentially life threatening infection >> defer to primary service, to inf dzs, to nephrology whether to resume these; would have to be balanced w/ infection risk <> he is 48 hrs out from last blood culture which remains negative -agree w/ Dr. Lopez's recommendations regarding IV fluids as tolerated >>>would definitely change from PPI > H2 faith >>>would prefer cefazolin to bactrim however (see today's renal note from MNP) unless I have missed a reason for avoiding the former when/if changing from daptomycin -given his renal anatomy/lesions do not believe he is a renal biopsy candidate I spoke at length as best I could with the patient about above; he continues to struggle to understand his complicated clinical situation and is understandably frustrated though he remains overall satisfied with his care and states that he wishes to continue to follow w/ the [facility] [place] [place] renal group Appreciate opportunity to offer second opinion; will sign off.
[2017-10-26] MEDS ORDERED: METHYLPREDNISOLONE IV 60 MG in SYRINGE 0 ML IV ONE (19:00)
[2017-10-26] MEDS: FINASTERIDE 5 MG TAB PO SCH (19:43)
[2017-10-26] MEDS ORDERED: AMOXICILLIN 500 MG CAP PO SCH (20:00)
[2017-10-27] VITALS: BP 168/76; PULSE 88; TEMP 36.6; O2SAT 94
[2017-10-27] MEDS: CEFAZOLIN IV 1,000 MG in SYRINGE 0 ML IV SCH ×2 (05:02→16:37)
[2017-10-27 06:20] LABS: BASO % 0.2 %; BASO ABS # 0.01 K/uL (0-0.2); HEMATOCRIT 28.2 % (42-52); IG# 0.04 K/uL (0.00-0.02); LYMPH % 7.9 %; LYMPH ABS # 0.44 K/uL (1.2-3.4); MEAN CELL VOLUME 85.5 fL (80-100); MEAN CORPUSCULAR HEMOGLOBIN 27.3 pg (25-34); MEAN CORPUSCULAR HGB CONC 31.9 g/dl (32-36); MEAN PLATELET VOLUME 9.8 fL (7.4-10.4); MONO % 0.9 %; MONO ABS # 0.05 K/uL (0.11-0.59); NEUT % 90.3 %; NEUT ABS # 5.01 K/uL (1.4-6.5); PLATELET COUNT 202 K/uL (130-400); RED CELL DISTRIBUTION WIDTH CV 22.1 % (11.5-14.5); RED CELL DISTRIBUTION WIDTH SD 69.8 fL (36.4-46.3); WHITE BLOOD COUNT 5.55 K/uL (4.8-10.8)
[2017-10-27 07:00] LABS: CALCIUM 8.8 mg/dl (8.5-10.1); CREATININE 3.15 mg/dl (0.60-1.40); POTASSIUM 4.8 mmol/L (3.5-5.1)
[2017-10-27 07:40] VITALS: BP 186/90; PULSE 72; TEMP 36.2; O2SAT 95
[2017-10-27] MEDS: DILTIAZEM SR 60 MG CAP PO SCH (07:49)
[2017-10-27] MEDS: OXYBUTYNIN CHLORIDE 5 MG TAB PO SCH ×3 (07:50→20:53)
[2017-10-27] MEDS: FERROUS SULFATE 325 MG TAB PO SCH ×2 (07:51→16:37)
[2017-10-27] MEDS: TAMSULOSIN HCL 0.4 MG CAP PO SCH (07:52)
[2017-10-27] MEDS: METOPROLOL TARTRATE 25 MG TAB PO SCH (07:53)
[2017-10-27] MEDS: MULTIVITAMIN TAB PO SCH (07:53)
[2017-10-27] MEDS: POTASSIUM CHLORIDE 20 MEQ TABCR PO SCH ×2 (07:53→20:54)
[2017-10-27] MEDS: RANITIDINE HCL 150 MG TAB PO SCH ×2 (07:54→20:54)
--- NOTE | 2017-10-27 07:58 | Family Medicine Progress Note ---
Progress Note Date of Service Oct 27, 2017. Subjective Pt evaluation today including: conversation w/ patient Found patient sitting in bedside chair. He notes unchanged mild suprapubic discomfort but otherwise no new physical concerns. He continues to express improved understanding of his overall medical condition and treatment plan. 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 Constitutional: No fever, No chills Respiratory: No cough, No shortness of breath Cardiovascular: No chest pain, No edema Abdomen: No pain, No nausea, No vomiting Medications Current Inpatient Medications Medications (Trade) Dose Ordered Sig/Yrn Route Start Time Stop Time Status Last Admin Dose Admin Acetaminophen (Tylenol Tab) 650 mg Q4H PRN PO 10/17/17 15:45 11/16/17 15:44 Al Hydrox/Mg Hydrox/Simethicone (Maalox Max Susp) 15 ml Q4H PRN PO 10/17/17 15:45 11/16/17 15:44 Magnesium Hydroxide (Milk Of Magnesia Susp) 30 ml Q6H PRN PO 10/17/17 15:45 11/16/17 15:44 10/25/17 16:23 30 ML Polyethylene (Miralax Powder Packet) 17 gm DAILY PRN PO 10/17/17 15:45 11/16/17 15:44 10/25/17 05:41 17 GM Ondansetron HCl (Zofran Inj) 4 mg Q6H PRN IV 10/17/17 15:45 11/16/17 15:44 Aspirin (Ecotrin Tab) 81 mg BID PO 10/17/17 20:00 11/16/17 20:59 Future Hold 10/20/17 08:09 81 MG Finasteride (Proscar Tab) 5 mg HS PO 10/17/17 21:00 11/16/17 20:59 10/26/17 19:43 5 MG Folic Acid (Folvite Tab) 1 mg QAM PO 10/18/17 08:00 11/17/17 08:59 10/27/17 07:52 1 MG Multivitamins (Multivitamin Tab) 1 tab QAM PO 10/18/17 08:00 11/17/17 08:59 10/27/17 07:53 1 TAB Potassium Chloride (Klor-Con Tab) 20 meq BID PO 10/17/17 20:00 11/16/17 20:59 10/27/17 07:53 20 MEQ Ranitidine HCl (zANTac TAB) 150 mg BID PO 10/17/17 20:00 11/16/17 20:59 10/27/17 07:54 150 MG Tamsulosin HCl (Flomax Cap) 0.4 mg DAILY PO 10/18/17 08:00 11/17/17 08:59 10/27/17 07:52 0.4 MG Ferrous Sulfate (Feosol Tab) 325 mg BIDM PO 10/17/17 17:00 11/16/17 17:59 10/27/17 07:51 325 MG Oxycodone/ Acetaminophen (Percocet 5-325mg Tab) 1 tab Q4H PRN PO 10/17/17 15:45 10/31/17 15:44 10/26/17 07:51 1 TAB Oxybutynin Chloride (Ditropan Tab) 5 mg TID PO 10/19/17 14:00 11/18/17 13:59 10/27/17 07:50 5 MG Metoprolol Tartrate (Lopressor Tab) 25 mg DAILY PO 10/24/17 08:00 11/17/17 08:59 10/27/17 07:53 25 MG Docusate Sodium (coLACE CAP) 100 mg DAILY PRN PO 10/24/17 16:30 11/23/17 16:29 Diltiazem HCl (Cardizem Sr) 60 mg DAILY PO 10/25/17 08:00 11/24/17 07:59 10/27/17 07:49 60 MG Cefazolin Sodium 1000 mg/Syringe 7.5 ml @ 100 mls/hr Q12H IV 10/26/17 17:00 11/09/17 16:59 10/27/17 05:02 100 MLS/HR Prednisone (PredniSONE TAB) 60 mg DAILY PO 10/27/17 08:00 11/26/17 07:59 10/27/17 07:54 60 MG Objective Vital Signs Date Time Temp Pulse Resp B/P (MAP) Pulse Ox O2 Delivery O2 Flow Rate FiO2 10/27/17 07:40 36.2 72 16 186/90 (122) 95 10/27/17 00:00 36.6 88 18 168/76 (106) 94 10/27/17 00:00 94 Room Air 10/26/17 15:45 Room Air 10/26/17 08:00 Room Air Physical Exam Notes: General Appearance: Awake, alert & oriented, sitting in chair, comfortable in general, NAD. CV: +S1S2 RRR. No peripheral edema. Pulm: Clear to auscultation throughout. Abdomen: +BS, soft, non-distended. Mild suprapubic/LLQ tenderness, unchanged from prior two days. No guarding. Extremities: No pedal edema or calf tenderness. Neuro: No gross neuro deficits. Lines: Left arm PIV. Geiger cath. Laboratory Results 10/27/17 05:40 Red Blood Count 3.30, Mean Corpuscular Volume 85.5, Mean Corpuscular Hemoglobin 27.3, Mean Corpuscular Hemoglobin Concent 31.9, Mean Platelet Volume 9.8, Neutrophils (%) (Auto) 90.3, Lymphocytes (%) (Auto) 7.9, Monocytes (%) (Auto) 0.9, Eosinophils (%) (Auto) 0.0, Basophils (%) (Auto) 0.2, Neutrophils # (Auto) 5.01, Lymphocytes # (Auto) 0.44, Monocytes # (Auto) 0.05, Eosinophils # (Auto) 0.00, Basophils # (Auto) 0.01 10/27/17 05:40 Test 10/27/17 05:40 White Blood Count 5.55 K/uL (4.8-10.8) Red Blood Count 3.30 M/uL (4.7-6.1) Hemoglobin 9.0 g/dL (14.0-18.0) Hematocrit 28.2 % (42-52) Mean Corpuscular Volume 85.5 fL (80-100) Mean Corpuscular Hemoglobin 27.3 pg (25-34) Mean Corpuscular Hemoglobin Concent 31.9 g/dl (32-36) Platelet Count 202 K/uL (130-400) Mean Platelet Volume 9.8 fL (7.4-10.4) Neutrophils (%) (Auto) 90.3 % Lymphocytes (%) (Auto) 7.9 % Monocytes (%) (Auto) 0.9 % Eosinophils (%) (Auto) 0.0 % Basophils (%) (Auto) 0.2 % Neutrophils # (Auto) 5.01 K/uL (1.4-6.5) Lymphocytes # (Auto) 0.44 K/uL (1.2-3.4) Monocytes # (Auto) 0.05 K/uL (0.11-0.59) Eosinophils # (Auto) 0.00 K/uL (0-0.5) Basophils # (Auto) 0.01 K/uL (0-0.2) RDW Standard Deviation 69.8 fL (36.4-46.3) RDW Coefficient of Variation 22.1 % (11.5-14.5) Immature Granulocyte % (Auto) 0.7 % Immature Granulocyte # (Auto) 0.04 K/uL (0.00-0.02) Anisocytosis PRESENT Anion Gap 9.0 mmol/L (3-11) Est Creatinine Clear Calc Drug Dose 17.1 ml/min Estimated GFR () 20.9 Estimated GFR (Non- 18.1 BUN/Creatinine Ratio 11.5 (10-20) Calcium Level 8.8 mg/dl (8.5-10.1) Assessment and Plan 77 yo male admitted on 17 oct 2017 for bacteremia secondary to pyelonephritis, left VUJ obstruction, and left hydroureteronephrosis. PMH: RA on prednisone, BPH, anemia of chronic disease, HTN, HLD, primary OA. Recent admit to [facility] from -[id number] for TYRONE & UTI in setting of urinary retention from BPH. Bacteremia secondary to to pyelonephritis, left VUJ obstruction, and left hydroureteronephrosis: 01Mar BCx positive for MSSA. Follow on 03Mar BCx negative to date and 04Mar BCx negative to date. 25Feb UCx positive for staph, follow on 03Mar UCx no growth. 02Mar Echo not suggestive of endocarditis. ID onboard. Had been on daptomycin for nine days. 06Mar switched to cefazolin 1 gram IV q12h (renal dosing) per prior ID recommendations. - Plan for peripheral ultrasound-guided IV for outpatient antibiotics. Goal placement today. Left hydronephrosis: S/p stent placement by urology on . 05Mar renal u/s notes some mild/moderate residual hydronephrosis which has not progressed. 05Mar KUB notes appropriate stent position. Percocet for pain management. Urology spoke with patient, provided reassurance and recommended he follow nephrology team recommendations. Still planning future TURP and possible stent removal. Acute kidney injury: Cr 3.1 today (max 3.4), improved. Nephrology and urology onboard. Urology does not believe this is due to urinary retention (see their full note). 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 See their notes for thorough discussion of recent events. Was placed back on steroids 06Mar evening with planned prednisone 60 mg daily for near future (and eventual goal of taper). - Holding amlodipine. Left complex kidney cyst: As noted on 25Feb CT a/p. Recommended follow-up for same. Anemia: Likely of chronic disease related to RA, worsened by hematuria. S/p transfusion on 28Feb and Mar (two units PRBCs total). Presently stable at Hb 9.0. FOBT negative. On iron supplementation. BPH: Chronic x 15 years, worsening. On flomax, proscar, ditropan TID. Rheumatoid arthritis: On folic acid. Off his home leflunomide (secondary to recent weight loss) and baseline prednisone 5 mg. HTN: Holding ASA 81 mg given low Hb & hematuria. Increased his metoprolol to 50 mg daily and his diltiazem ER to 120 mg daily to help with blood pressure control. Code status: Full code. Diet: Regular diet. DVT prophy: SCD's. PT/OT: 27Feb PT initial eval, "He appears to be a good candidate for discharge to home from a mobility standpoint." Disbo: Admitted on med/surg. Patient agreed to remain in the hospital for 24 more hours to see if Cr continues to improve on steroids. Resident Physician Supervision Note: I interviewed and examined the patient. Discussed with Dr. Ruelas and agree with findings and plan as documented in the note. Any exceptions or clarifications are listed here: None After a second opinion from nephrology at this concur with interstitial nephritis the patient was instituted on steroid therapy last evening he did have a slight improvement in his creatinine patient is encouraged by this he otherwise has no complaints or problems he also did change his medications stopping his PPI and changing his antibiotics to cefazolin Vital signs are stable today cardiac exam is regular lungs clear abdomen normoactive bowel sounds Acute renal failure initially thought to be obstructive uropathy but now may also be involving interstitial nephritis with concurrent urinary tract infection continuing cefazolin plus steroids at 1 mg/kg being 60 mg of prednisone daily if his creatinine continues to improve he may be discharged home with careful outpatient surveillance in the next day or 2 Documented By: Kang Carlin Resident Tracking Resident Involvement: Resident Care Provided Care Provided: Adult Hospital Medicine (inpatient)
[2017-10-27 08:00] VITALS: O2SAT 95
--- NOTE | 2017-10-27 10:58 | Nephrology Progress Note ---
Nephrology Progress Note Date of Service Oct 27, 2017. Chief Complaint Follow-up for acute kidney injury. Subjective Adelso was seen and examined in his room this morning. He otherwise feels well, denies any chest pain or shortness of Breath, appetite has been decent. Blood pressure running high. Urine output decent, net negative. Creatinine slightly improved to 3.2 today, electrolyte acceptable. Review of Systems A complete review of systems was performed. Pertinent positives are noted above. All other systems are negative. Vital Signs Last 8 Hrs Date Time Temp Pulse Resp B/P (MAP) Pulse Ox O2 Delivery O2 Flow Rate FiO2 10/27/17 07:40 36.2 72 16 186/90 (122) 95 Room Air Last Recorded Weight Weight (Kilograms): 65.700 Physical Exam GENERAL: Elderly male, AAA x 3, not in any distress. NECK: Supple, no JVD. RESPIRATORY: Normal breathing efforts, no accessory muscle use, clear to auscultation bilaterally, no wheezes or rales. CARDIOVASCULAR: S1, S2 normal, rate rhythm regular. EXTREMITY: No lower extremity edema NEURO: speech fluent. PSYCHIATRY: Normal mood and judgment Family History FH: CAD (coronary artery disease) BROTHER Negative for CKD / ESRD Social History Smoking Status: Former smoker Marital Status: Housing Status: lives with family Occupation: retired . Retired. 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 Laboratory Results Past 24 Hours 10/27/17 05:40 Red Blood Count 3.30, Mean Corpuscular Volume 85.5, Mean Corpuscular Hemoglobin 27.3, Mean Corpuscular Hemoglobin Concent 31.9, Mean Platelet Volume 9.8, Neutrophils (%) (Auto) 90.3, Lymphocytes (%) (Auto) 7.9, Monocytes (%) (Auto) 0.9, Eosinophils (%) (Auto) 0.0, Basophils (%) (Auto) 0.2, Neutrophils # (Auto) 5.01, Lymphocytes # (Auto) 0.44, Monocytes # (Auto) 0.05, Eosinophils # (Auto) 0.00, Basophils # (Auto) 0.01 10/27/17 05:40 Test 10/27/17 05:40 White Blood Count 5.55 K/uL (4.8-10.8) Red Blood Count 3.30 M/uL (4.7-6.1) Hemoglobin 9.0 g/dL (14.0-18.0) Hematocrit 28.2 % (42-52) Mean Corpuscular Volume 85.5 fL (80-100) Mean Corpuscular Hemoglobin 27.3 pg (25-34) Mean Corpuscular Hemoglobin Concent 31.9 g/dl (32-36) Platelet Count 202 K/uL (130-400) Mean Platelet Volume 9.8 fL (7.4-10.4) Neutrophils (%) (Auto) 90.3 % Lymphocytes (%) (Auto) 7.9 % Monocytes (%) (Auto) 0.9 % Eosinophils (%) (Auto) 0.0 % Basophils (%) (Auto) 0.2 % Neutrophils # (Auto) 5.01 K/uL (1.4-6.5) Lymphocytes # (Auto) 0.44 K/uL (1.2-3.4) Monocytes # (Auto) 0.05 K/uL (0.11-0.59) Eosinophils # (Auto) 0.00 K/uL (0-0.5) Basophils # (Auto) 0.01 K/uL (0-0.2) RDW Standard Deviation 69.8 fL (36.4-46.3) RDW Coefficient of Variation 22.1 % (11.5-14.5) Immature Granulocyte % (Auto) 0.7 % Immature Granulocyte # (Auto) 0.04 K/uL (0.00-0.02) Anisocytosis PRESENT Anion Gap 9.0 mmol/L (3-11) Est Creatinine Clear Calc Drug Dose 17.1 ml/min Estimated GFR () 20.9 Estimated GFR (Non- 18.1 BUN/Creatinine Ratio 11.5 (10-20) Calcium Level 8.8 mg/dl (8.5-10.1) Allergies Coded Allergies: Lisinopril (Verified Adverse Reaction, Mild, COUGH, 08/04/17) Medications Current Inpatient Medications Medications (Trade) Dose Ordered Sig/Yrn Route Start Time Stop Time Status Last Admin Dose Admin Acetaminophen (Tylenol Tab) 650 mg Q4H PRN PO 10/17/17 15:45 11/16/17 15:44 Al Hydrox/Mg Hydrox/Simethicone (Maalox Max Susp) 15 ml Q4H PRN PO 10/17/17 15:45 11/16/17 15:44 Magnesium Hydroxide (Milk Of Magnesia Susp) 30 ml Q6H PRN PO 10/17/17 15:45 11/16/17 15:44 10/25/17 16:23 30 ML Polyethylene (Miralax Powder Packet) 17 gm DAILY PRN PO 10/17/17 15:45 11/16/17 15:44 10/25/17 05:41 17 GM Ondansetron HCl (Zofran Inj) 4 mg Q6H PRN IV 10/17/17 15:45 11/16/17 15:44 Aspirin (Ecotrin Tab) 81 mg BID PO 10/17/17 20:00 11/16/17 20:59 Future Hold 10/20/17 08:09 81 MG Finasteride (Proscar Tab) 5 mg HS PO 10/17/17 21:00 11/16/17 20:59 10/26/17 19:43 5 MG Folic Acid (Folvite Tab) 1 mg QAM PO 10/18/17 08:00 11/17/17 08:59 10/27/17 07:52 1 MG Multivitamins (Multivitamin Tab) 1 tab QAM PO 10/18/17 08:00 11/17/17 08:59 10/27/17 07:53 1 TAB Potassium Chloride (Klor-Con Tab) 20 meq BID PO 10/17/17 20:00 11/16/17 20:59 10/27/17 07:53 20 MEQ Ranitidine HCl (zANTac TAB) 150 mg BID PO 10/17/17 20:00 11/16/17 20:59 10/27/17 07:54 150 MG Tamsulosin HCl (Flomax Cap) 0.4 mg DAILY PO 10/18/17 08:00 11/17/17 08:59 10/27/17 07:52 0.4 MG Ferrous Sulfate (Feosol Tab) 325 mg BIDM PO 10/17/17 17:00 11/16/17 17:59 10/27/17 07:51 325 MG Oxycodone/ Acetaminophen (Percocet 5-325mg Tab) 1 tab Q4H PRN PO 10/17/17 15:45 10/31/17 15:44 10/26/17 07:51 1 TAB Oxybutynin Chloride (Ditropan Tab) 5 mg TID PO 10/19/17 14:00 11/18/17 13:59 10/27/17 07:50 5 MG Docusate Sodium (coLACE CAP) 100 mg DAILY PRN PO 10/24/17 16:30 11/23/17 16:29 Cefazolin Sodium 1000 mg/Syringe 7.5 ml @ 100 mls/hr Q12H IV 10/26/17 17:00 11/09/17 16:59 10/27/17 05:02 100 MLS/HR Prednisone (PredniSONE TAB) 60 mg DAILY PO 10/27/17 08:00 11/26/17 07:59 10/27/17 07:54 60 MG Diltiazem HCl (Cardizem Cd Cap) 120 mg DAILY PO 10/28/17 08:00 11/27/17 07:59 Metoprolol Tartrate (Lopressor Tab) 50 mg DAILY PO 10/28/17 08:00 11/27/17 07:59 Impression (1) Acute renal failure (2) Hydronephrosis (3) Kidney stones (4) Pyelonephritis (5) BPH (benign prostatic hyperplasia) (6) Renal cyst (7) Chronic anemia 77-year-old gentlemen with acute kidney injury with left-sided hydronephrosis status post ureteral stent. Creatinine initially improved from 4.1-2.6 and had , had been stable for several days however started to worsen again, creatinine 3.1 this morning. Electrolyte acceptable. Blood pressure well controlled. Differentials for acute kidney injury include volume depletion with diuresis with net negative more than 1 liter daily, acute interstitial nephritis with different antibiotics including daptomycin which has been over last few days, possible stent dislodgement or dysfunction and recurrent hydronephrosis on the left side. Recommendations --he was seen by Dr. Basilia Patiño yesterday, who signed off as patient eventually wanted to continue with [facility] nephrology. --was started on prednisone 60 milligram p.o. daily --renal function slightly improved, otherwise electrolyte, volume status acceptable remain non-oliguric --continue to monitor renal function closely will hold off on discharge until creatinine below 3 --dose medications for GFR less than 30 --avoid nephrotoxic medications --avoid IV fluid --increase metoprolol and Cardizem Will follow.
[2017-10-27 11:43] VITALS: BP 174/76
--- NOTE | 2017-10-27 12:47 | Progress Note ---
Progress Note Date of Service Oct 27, 2017. Progress Note Continues to feel quite well - catheter and stent tolerable 10/27/17 05:40 Red Blood Count 3.30, Mean Corpuscular Volume 85.5, Mean Corpuscular Hemoglobin 27.3, Mean Corpuscular Hemoglobin Concent 31.9, Mean Platelet Volume 9.8, Neutrophils (%) (Auto) 90.3, Lymphocytes (%) (Auto) 7.9, Monocytes (%) (Auto) 0.9, Eosinophils (%) (Auto) 0.0, Basophils (%) (Auto) 0.2, Neutrophils # (Auto) 5.01, Lymphocytes # (Auto) 0.44, Monocytes # (Auto) 0.05, Eosinophils # (Auto) 0.00, Basophils # (Auto) 0.01 10/27/17 05:40 Test 10/27/17 05:40 White Blood Count 5.55 K/uL (4.8-10.8) Red Blood Count 3.30 M/uL (4.7-6.1) Hemoglobin 9.0 g/dL (14.0-18.0) Hematocrit 28.2 % (42-52) Mean Corpuscular Volume 85.5 fL (80-100) Mean Corpuscular Hemoglobin 27.3 pg (25-34) Mean Corpuscular Hemoglobin Concent 31.9 g/dl (32-36) Platelet Count 202 K/uL (130-400) Mean Platelet Volume 9.8 fL (7.4-10.4) Neutrophils (%) (Auto) 90.3 % Lymphocytes (%) (Auto) 7.9 % Monocytes (%) (Auto) 0.9 % Eosinophils (%) (Auto) 0.0 % Basophils (%) (Auto) 0.2 % Neutrophils # (Auto) 5.01 K/uL (1.4-6.5) Lymphocytes # (Auto) 0.44 K/uL (1.2-3.4) Monocytes # (Auto) 0.05 K/uL (0.11-0.59) Eosinophils # (Auto) 0.00 K/uL (0-0.5) Basophils # (Auto) 0.01 K/uL (0-0.2) RDW Standard Deviation 69.8 fL (36.4-46.3) RDW Coefficient of Variation 22.1 % (11.5-14.5) Immature Granulocyte % (Auto) 0.7 % Immature Granulocyte # (Auto) 0.04 K/uL (0.00-0.02) Anisocytosis PRESENT Anion Gap 9.0 mmol/L (3-11) Est Creatinine Clear Calc Drug Dose 17.1 ml/min Estimated GFR () 20.9 Estimated GFR (Non- 18.1 BUN/Creatinine Ratio 11.5 (10-20) Calcium Level 8.8 mg/dl (8.5-10.1) Vital Signs Past 12 Hours Date Time Temp Pulse Resp B/P (MAP) Pulse Ox O2 Delivery O2 Flow Rate FiO2 10/27/17 11:43 174/76 (108) 10/27/17 07:40 36.2 72 16 186/90 (122) 95 Room Air NAD aaox 3 no resp distress abd soft - urine clear A./P: Renal failure, unilateral hydro, urinary retention - improvement in renal function overnight - reassured him and encouraged him to be patient - hold on any intervention until acute issues are resolved
[2017-10-27 14:28] VITALS: BP 193/89; PULSE 64; TEMP 36.6; O2SAT 97
[2017-10-27] MEDS: FINASTERIDE 5 MG TAB PO SCH (20:53)
[2017-10-28] VITALS: BP 198/99; PULSE 61; TEMP 36.4; O2SAT 96
[2017-10-28] MEDS ORDERED: HydrALAZINE HCL 20 MG/ML VIAL IV. STA (00:29)
[2017-10-28 04:18] VITALS: BP 176/89; PULSE 70; TEMP 36.6; O2SAT 97
[2017-10-28] MEDS: CEFAZOLIN IV 1,000 MG in SYRINGE 0 ML IV SCH (05:20)
[2017-10-28 05:45] LABS: HEMATOCRIT 29.1 % (42-52); HEMOGLOBIN 9.3 g/dL (14.0-18.0); MEAN CELL VOLUME 84.6 fL (80-100); MEAN PLATELET VOLUME 9.6 fL (7.4-10.4); PLATELET COUNT 222 K/uL (130-400); RED CELL DISTRIBUTION WIDTH CV 21.8 % (11.5-14.5); RED CELL DISTRIBUTION WIDTH SD 67.9 fL (36.4-46.3); WHITE BLOOD COUNT 11.19 K/uL (4.8-10.8)
[2017-10-28 06:23] LABS: EOS % 0.1 %; EOS ABS # 0.01 K/uL (0-0.5); IG# 0.05 K/uL (0.00-0.02); LYMPH % 9.1 %; LYMPH ABS # 1.02 K/uL (1.2-3.4); MONO % 7.1 %; MONO ABS # 0.79 K/uL (0.11-0.59); NEUT % 83.3 %; NEUT ABS # 9.32 K/uL (1.4-6.5)
[2017-10-28 06:40] LABS: CALCIUM 9.2 mg/dl (8.5-10.1); CREATININE 2.26 mg/dl (0.60-1.40)
[2017-10-28 07:53] VITALS: BP 181/91; PULSE 106; TEMP 36.5; O2SAT 96
[2017-10-28] MEDS ORDERED: METOPROLOL TARTRATE 50 MG TAB PO SCH (08:00)
[2017-10-28] MEDS ORDERED: DILTIAZEM HCL 120 MG CAPCR PO SCH (08:00)
--- NOTE | 2017-10-28 08:05 | Family Medicine Progress Note ---
Progress Note Date of Service Oct 28, 2017. Medications Current Inpatient Medications Medications (Trade) Dose Ordered Sig/Yrn Route Start Time Stop Time Status Last Admin Dose Admin Acetaminophen (Tylenol Tab) 650 mg Q4H PRN PO 10/17/17 15:45 11/16/17 15:44 10/28/17 06:34 650 MG Al Hydrox/Mg Hydrox/Simethicone (Maalox Max Susp) 15 ml Q4H PRN PO 10/17/17 15:45 11/16/17 15:44 Magnesium Hydroxide (Milk Of Magnesia Susp) 30 ml Q6H PRN PO 10/17/17 15:45 11/16/17 15:44 10/25/17 16:23 30 ML Polyethylene (Miralax Powder Packet) 17 gm DAILY PRN PO 10/17/17 15:45 11/16/17 15:44 10/25/17 05:41 17 GM Ondansetron HCl (Zofran Inj) 4 mg Q6H PRN IV 10/17/17 15:45 11/16/17 15:44 Aspirin (Ecotrin Tab) 81 mg BID PO 10/17/17 20:00 11/16/17 20:59 Future Hold 10/20/17 08:09 81 MG Finasteride (Proscar Tab) 5 mg HS PO 10/17/17 21:00 11/16/17 20:59 10/27/17 20:53 5 MG Folic Acid (Folvite Tab) 1 mg QAM PO 10/18/17 08:00 11/17/17 08:59 10/27/17 07:52 1 MG Multivitamins (Multivitamin Tab) 1 tab QAM PO 10/18/17 08:00 11/17/17 08:59 10/27/17 07:53 1 TAB Potassium Chloride (Klor-Con Tab) 20 meq BID PO 10/17/17 20:00 11/16/17 20:59 10/27/17 20:54 20 MEQ Ranitidine HCl (zANTac TAB) 150 mg BID PO 10/17/17 20:00 11/16/17 20:59 10/27/17 20:54 150 MG Tamsulosin HCl (Flomax Cap) 0.4 mg DAILY PO 10/18/17 08:00 11/17/17 08:59 10/27/17 07:52 0.4 MG Ferrous Sulfate (Feosol Tab) 325 mg BIDM PO 10/17/17 17:00 11/16/17 17:59 10/27/17 16:37 325 MG Oxycodone/ Acetaminophen (Percocet 5-325mg Tab) 1 tab Q4H PRN PO 10/17/17 15:45 10/31/17 15:44 10/26/17 07:51 1 TAB Oxybutynin Chloride (Ditropan Tab) 5 mg TID PO 10/19/17 14:00 11/18/17 13:59 10/27/17 20:53 5 MG Docusate Sodium (coLACE CAP) 100 mg DAILY PRN PO 10/24/17 16:30 11/23/17 16:29 Cefazolin Sodium 1000 mg/Syringe 7.5 ml @ 100 mls/hr Q12H IV 10/26/17 17:00 11/09/17 16:59 10/28/17 05:20 100 MLS/HR Prednisone (PredniSONE TAB) 60 mg DAILY PO 10/27/17 08:00 11/26/17 07:59 10/27/17 07:54 60 MG Diltiazem HCl (Cardizem Cd Cap) 120 mg DAILY PO 10/28/17 08:00 11/27/17 07:59 Metoprolol Tartrate (Lopressor Tab) 50 mg DAILY PO 10/28/17 08:00 11/27/17 07:59 Objective Vital Signs Date Time Temp Pulse Resp B/P (MAP) Pulse Ox O2 Delivery O2 Flow Rate FiO2 10/28/17 07:53 36.5 106 20 181/91 (121) 96 Room Air 10/28/17 04:18 36.6 70 20 176/89 (118) 97 Room Air 10/28/17 00:15 Room Air 10/28/17 00:00 36.4 61 20 198/99 (132) 96 Room Air 10/27/17 16:20 Room Air 10/27/17 14:28 36.6 64 17 193/89 (123) 97 10/27/17 11:43 174/76 (108) Laboratory Results 10/28/17 05:16 Red Blood Count 3.44, Mean Corpuscular Volume 84.6, Mean Corpuscular Hemoglobin 27.0, Mean Corpuscular Hemoglobin Concent 32.0, Mean Platelet Volume 9.6, Neutrophils (%) (Auto) 83.3, Lymphocytes (%) (Auto) 9.1, Monocytes (%) (Auto) 7.1, Eosinophils (%) (Auto) 0.1, Basophils (%) (Auto) 0.0, Neutrophils # (Auto) 9.32, Lymphocytes # (Auto) 1.02, Monocytes # (Auto) 0.79, Eosinophils # (Auto) 0.01, Basophils # (Auto) 0.00 10/28/17 05:16 Test 10/27/17 20:20 10/28/17 05:16 Bedside Glucose 209 mg/dl (70-99) White Blood Count 11.19 K/uL (4.8-10.8) Red Blood Count 3.44 M/uL (4.7-6.1) Hemoglobin 9.3 g/dL (14.0-18.0) Hematocrit 29.1 % (42-52) Mean Corpuscular Volume 84.6 fL (80-100) Mean Corpuscular Hemoglobin 27.0 pg (25-34) Mean Corpuscular Hemoglobin Concent 32.0 g/dl (32-36) Platelet Count 222 K/uL (130-400) Mean Platelet Volume 9.6 fL (7.4-10.4) Neutrophils (%) (Auto) 83.3 % Lymphocytes (%) (Auto) 9.1 % Monocytes (%) (Auto) 7.1 % Eosinophils (%) (Auto) 0.1 % Basophils (%) (Auto) 0.0 % Neutrophils # (Auto) 9.32 K/uL (1.4-6.5) Lymphocytes # (Auto) 1.02 K/uL (1.2-3.4) Monocytes # (Auto) 0.79 K/uL (0.11-0.59) Eosinophils # (Auto) 0.01 K/uL (0-0.5) Basophils # (Auto) 0.00 K/uL (0-0.2) RDW Standard Deviation 67.9 fL (36.4-46.3) RDW Coefficient of Variation 21.8 % (11.5-14.5) Immature Granulocyte % (Auto) 0.4 % Immature Granulocyte # (Auto) 0.05 K/uL (0.00-0.02) Anisocytosis PRESENT Anion Gap 9.0 mmol/L (3-11) Est Creatinine Clear Calc Drug Dose 23.8 ml/min Estimated GFR () 31.3 Estimated GFR (Non- 27.0 BUN/Creatinine Ratio 16.1 (10-20) Calcium Level 9.2 mg/dl (8.5-10.1) Resident Tracking Resident Involvement: Resident Care Provided Care Provided: Adult Hospital Medicine (inpatient)
[2017-10-28] MEDS: MULTIVITAMIN TAB PO SCH (09:02)
[2017-10-28] MEDS: FERROUS SULFATE 325 MG TAB PO SCH ×2 (09:02→16:13)
[2017-10-28] MEDS: OXYBUTYNIN CHLORIDE 5 MG TAB PO SCH ×2 (09:03→13:32)
[2017-10-28] MEDS: RANITIDINE HCL 150 MG TAB PO SCH (09:03)
[2017-10-28] MEDS: POTASSIUM CHLORIDE 20 MEQ TABCR PO SCH (09:03)
[2017-10-28] MEDS: TAMSULOSIN HCL 0.4 MG CAP PO SCH (09:04)
--- NOTE | 2017-10-28 10:11 | Nephrology Progress Note ---
Nephrology Progress Note Date of Service Oct 28, 2017. Chief Complaint Follow-up for acute kidney injury. Subjective Adelso was seen and examined in his room this morning. He otherwise feels well, denies any chest pain or shortness of Breath, appetite has been decent. Blood pressure running high. Urine output decent, net negative. Creatinine improved to 2.3 today, electrolyte acceptable. Review of Systems A complete review of systems was performed. Pertinent positives are noted above. All other systems are negative. Vital Signs Last 8 Hrs Date Time Temp Pulse Resp B/P (MAP) Pulse Ox O2 Delivery O2 Flow Rate FiO2 10/28/17 07:53 36.5 106 20 181/91 (121) 96 Room Air 10/28/17 04:18 36.6 70 20 176/89 (118) 97 Room Air Last Recorded Weight Weight (Kilograms): 65.700 Physical Exam GENERAL: Elderly male, AAA x 3, not in any distress. NECK: Supple, no JVD. RESPIRATORY: Normal breathing efforts, no accessory muscle use, clear to auscultation bilaterally, no wheezes or rales. CARDIOVASCULAR: S1, S2 normal, rate rhythm regular. EXTREMITY: No lower extremity edema NEURO: speech fluent. PSYCHIATRY: Normal mood and judgment Family History FH: CAD (coronary artery disease) BROTHER Negative for CKD / ESRD Social History Smoking Status: Former smoker Marital Status: Housing Status: lives with family Occupation: retired . Retired. 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 Laboratory Results Past 24 Hours 10/28/17 05:16 Red Blood Count 3.44, Mean Corpuscular Volume 84.6, Mean Corpuscular Hemoglobin 27.0, Mean Corpuscular Hemoglobin Concent 32.0, Mean Platelet Volume 9.6, Neutrophils (%) (Auto) 83.3, Lymphocytes (%) (Auto) 9.1, Monocytes (%) (Auto) 7.1, Eosinophils (%) (Auto) 0.1, Basophils (%) (Auto) 0.0, Neutrophils # (Auto) 9.32, Lymphocytes # (Auto) 1.02, Monocytes # (Auto) 0.79, Eosinophils # (Auto) 0.01, Basophils # (Auto) 0.00 10/28/17 05:16 Test 10/27/17 17:01 10/27/17 20:20 10/28/17 05:16 10/28/17 08:02 Bedside Glucose 298 mg/dl (70-99) 209 mg/dl (70-99) 139 mg/dl (70-99) White Blood Count 11.19 K/uL (4.8-10.8) Red Blood Count 3.44 M/uL (4.7-6.1) Hemoglobin 9.3 g/dL (14.0-18.0) Hematocrit 29.1 % (42-52) Mean Corpuscular Volume 84.6 fL (80-100) Mean Corpuscular Hemoglobin 27.0 pg (25-34) Mean Corpuscular Hemoglobin Concent 32.0 g/dl (32-36) Platelet Count 222 K/uL (130-400) Mean Platelet Volume 9.6 fL (7.4-10.4) Neutrophils (%) (Auto) 83.3 % Lymphocytes (%) (Auto) 9.1 % Monocytes (%) (Auto) 7.1 % Eosinophils (%) (Auto) 0.1 % Basophils (%) (Auto) 0.0 % Neutrophils # (Auto) 9.32 K/uL (1.4-6.5) Lymphocytes # (Auto) 1.02 K/uL (1.2-3.4) Monocytes # (Auto) 0.79 K/uL (0.11-0.59) Eosinophils # (Auto) 0.01 K/uL (0-0.5) Basophils # (Auto) 0.00 K/uL (0-0.2) RDW Standard Deviation 67.9 fL (36.4-46.3) RDW Coefficient of Variation 21.8 % (11.5-14.5) Immature Granulocyte % (Auto) 0.4 % Immature Granulocyte # (Auto) 0.05 K/uL (0.00-0.02) Anisocytosis PRESENT Anion Gap 9.0 mmol/L (3-11) Est Creatinine Clear Calc Drug Dose 23.8 ml/min Estimated GFR () 31.3 Estimated GFR (Non- 27.0 BUN/Creatinine Ratio 16.1 (10-20) Calcium Level 9.2 mg/dl (8.5-10.1) Allergies Coded Allergies: Lisinopril (Verified Adverse Reaction, Mild, COUGH, 08/04/17) Uncoded Allergies: ppi (Adverse Reaction, Severe, worsened Cr, 10/28/17) may be associated with interstitial neprhitis Medications Current Inpatient Medications Medications (Trade) Dose Ordered Sig/Yrn Route Start Time Stop Time Status Last Admin Dose Admin Acetaminophen (Tylenol Tab) 650 mg Q4H PRN PO 10/17/17 15:45 11/16/17 15:44 10/28/17 06:34 650 MG Al Hydrox/Mg Hydrox/Simethicone (Maalox Max Susp) 15 ml Q4H PRN PO 10/17/17 15:45 11/16/17 15:44 Magnesium Hydroxide (Milk Of Magnesia Susp) 30 ml Q6H PRN PO 10/17/17 15:45 11/16/17 15:44 10/25/17 16:23 30 ML Polyethylene (Miralax Powder Packet) 17 gm DAILY PRN PO 10/17/17 15:45 11/16/17 15:44 10/25/17 05:41 17 GM Ondansetron HCl (Zofran Inj) 4 mg Q6H PRN IV 10/17/17 15:45 11/16/17 15:44 Aspirin (Ecotrin Tab) 81 mg BID PO 10/17/17 20:00 11/16/17 20:59 Future Hold 10/20/17 08:09 81 MG Finasteride (Proscar Tab) 5 mg HS PO 10/17/17 21:00 11/16/17 20:59 10/27/17 20:53 5 MG Folic Acid (Folvite Tab) 1 mg QAM PO 10/18/17 08:00 11/17/17 08:59 10/28/17 09:03 1 MG Multivitamins (Multivitamin Tab) 1 tab QAM PO 10/18/17 08:00 11/17/17 08:59 10/28/17 09:02 1 TAB Potassium Chloride (Klor-Con Tab) 20 meq BID PO 10/17/17 20:00 11/16/17 20:59 10/28/17 09:03 20 MEQ Ranitidine HCl (zANTac TAB) 150 mg BID PO 10/17/17 20:00 11/16/17 20:59 10/28/17 09:03 150 MG Tamsulosin HCl (Flomax Cap) 0.4 mg DAILY PO 10/18/17 08:00 11/17/17 08:59 10/28/17 09:04 0.4 MG Ferrous Sulfate (Feosol Tab) 325 mg BIDM PO 10/17/17 17:00 11/16/17 17:59 10/28/17 09:02 325 MG Oxycodone/ Acetaminophen (Percocet 5-325mg Tab) 1 tab Q4H PRN PO 10/17/17 15:45 10/31/17 15:44 10/26/17 07:51 1 TAB Oxybutynin Chloride (Ditropan Tab) 5 mg TID PO 10/19/17 14:00 11/18/17 13:59 10/28/17 09:03 5 MG Docusate Sodium (coLACE CAP) 100 mg DAILY PRN PO 10/24/17 16:30 11/23/17 16:29 Cefazolin Sodium 1000 mg/Syringe 7.5 ml @ 100 mls/hr Q12H IV 10/26/17 17:00 11/09/17 16:59 10/28/17 05:20 100 MLS/HR Prednisone (PredniSONE TAB) 60 mg DAILY PO 10/27/17 08:00 11/26/17 07:59 10/28/17 09:02 60 MG Diltiazem HCl (Cardizem Cd Cap) 120 mg DAILY PO 10/28/17 08:00 11/27/17 07:59 10/28/17 09:04 120 MG Metoprolol Tartrate (Lopressor Tab) 50 mg DAILY PO 10/28/17 08:00 11/27/17 07:59 10/28/17 09:03 50 MG Impression (1) Acute renal failure (2) Hydronephrosis (3) Kidney stones (4) Pyelonephritis (5) BPH (benign prostatic hyperplasia) (6) Renal cyst (7) Chronic anemia 77-year-old gentlemen with acute kidney injury with left-sided hydronephrosis status post ureteral stent. Creatinine initially improved from 4.1-2.6 and had , had been stable for several days however started to worsen again, creatinine 3.1 this morning. Electrolyte acceptable. Blood pressure well controlled. Differentials for acute kidney injury include volume depletion with diuresis with net negative more than 1 liter daily, acute interstitial nephritis with different antibiotics including daptomycin which has been over last few days, possible stent dislodgement or dysfunction and recurrent hydronephrosis on the left side. Recommendations --continue on prednisone 60 milligram p.o. daily --renal function improving, electrolyte, volume status acceptable, remain non- oliguric --dose medications for GFR less than 30 --avoid nephrotoxic medications -- OK to be discharge when antibiotic can be switched to orally --repeat renal function 2/3 days after discharge and result send to Dr. Dey. Please schedule out pt visit within a week with Dr. Dey. Plan to continue prednisone 60 mg /d for 1 week and then decrease to 50 mg/d and further dose adjustment by Dr. Dey during out pt visit. Will follow while in patient.
[2017-10-28 11:19] VITALS: BP 182/80; PULSE 52; TEMP 36.3; O2SAT 98
[2017-10-28 13:29] VITALS: BP 182/80; PULSE 52; TEMP 36.3; O2SAT 98
[2017-10-28] MEDS ORDERED: PRED10TA PO (15:17)
[2017-10-28] MEDS ORDERED: DTR5 PO (15:17)
[2017-10-28] MEDS ORDERED: METO50TA16 PO (15:17)
[2017-10-28] MEDS ORDERED: DILT-202 PO (15:17)
[2017-10-28] MEDS ORDERED: CEPH500T PO (15:17)
--- NOTE | 2017-10-28 15:26 | Discharge Instructions ---
Discharge Instructions Date of Service Oct 28, 2017. Admission Reason for Admission: Cva Tenderness, Suprapubic Pain, Acute Discharge Discharge Diagnosis / Problem: Bacteremia secondary to pyelonephritis, left UVJ obstruction Discharge Goals Goal(s): Increase independence, Improve disease control, Learn about illness Activity Recommendations Activity Limitations: resume your previous activity . Instructions / Follow-Up Instructions / Follow-Up You were admitted to the hospital for bacteremia (a bacterial infection in your blood) caused by a kidney infection linked to an obstruction of the ability of your urine to properly drain. This has been treated by a course of antibiotics as well as by placement of a left ureteral stent (with plans for an outpatient TURP by the urologists in the future). You were also seen by nephrology (the kidney doctors) due to a rising level of creatinine in your blood. This improved once you were started on a higher dose of steroids. - You will go home with your wright catheter. Please follow up with urology ( Dr. Love) per their recommendations. - You need to get repeat blood work on Wednesday, October 30 (if available from your local clinic/hospital), or Wednesday at the latest. A physical prescription for this lab work was provided to you. Please discuss the results of the lab work with Dr. Dey (driller's offsider) in about a week. Please call their office to schedule this appointment. - You have a known history of anemia which was stable in the hospital. Part of your lab work will check to make sure it remains stable in the initial couple of days after hospital discharge. Please discuss this with either the driller's offsider or your primary care provider. - You are going home on the following new medications: 1) Increased dose of metoprolol (blood pressure). 2) Increased dose of diltiazem (blood pressure). 3) Prednisone taper: All pills are 10 mg. You only take a single dose per day. You were started on a 60 mg dose in the hospital, so starting on WednesdayMar take 60 mg daily for the next four days. Then decrease by 10 mg every week, such that you take 50 mg daily for 7 days, 40 mg daily for 7 days, etc. Your driller's offsider may modify this regimen at your appointment with them. 4) Keflex every six hours for the next three days, to complete a total 14 day antibiotic course. 5) Oxybutynin, a new medication that may help with bladder symptoms. ) Please stop taking the prilosec. - Finally, please follow up with your primary care provider panfilo for close post- hospital continuity of care and ongoing management of your health. - Return to the emergency department if you have any fevers, uncontrolled pain, notice blood in your wright bag, or for any other acute concerns. Current Hospital Diet Patient's current hospital diet: Regular Diet Discharge Diet Recommended Diet: Regular Diet Procedures Procedures Performed: - Cystoscopy, Left Ureteral Stent Insertion ([id number]). - CT scan of your abdomen and pelvis - Retrograde Pyelogram (after stent placement) - Renal ultrasound Pending Studies Studies pending at discharge: yes List of pending studies: Final results of blood cultures on October 23 and . Medical Emergencies . Who to Call and When: Medical Emergencies: If at any time you feel your situation is an emergency, please call 911 immediately. . Non-Emergent Contact Non-Emergency issues call your: Primary Care Provider .
--- NOTE | 2017-10-28 17:17 | Discharge Summary ---
Discharge Summary Date of Service Oct 26, 2017. Discharge Summary Admission Date: Oct 17, 2017 at 15:33 Discharge Date: Oct 28, 2017 Discharge Disposition: Home Principal Diagnosis: Bacteremia secondary to pyelonephritis and left UVJ obstruction Problems/Secondary Diagnoses: - Left hydroureteronephrosis - Acute kidney injury - Left complex kidney cyst - Anemia - Benign prostatic hyperplasia - Hypertension Procedures: 17Oct2017 - CT OF THE ABDOMEN AND PELVIS WITHOUT CONTRAST, STONE PROTOCOL IMPRESSION: 1. Moderate left hydroureteronephrosis with dilatation of the left ureter to the level the distal ureter. No ureteral calculi. Moderate left perinephric infiltration. Differential considerations for the dilatation include a recently passed calculus, occult distal left ureteral/bladder urothelial lesion or infectious process. Urologic consultation might be considered. A short-term follow-up CT could be obtained to evaluate for resolution of the left hydroureteronephrosis. No right hydronephrosis. Marked enlargement of the prostate. 2. Punctate bilateral nephrolithiasis. 3. Numerous bilateral renal lesions are suboptimally assessed on this exam but likely reflect cysts. 4 cm cystic left renal lesion contains thin septations within calcification. This is probably benign but a follow-up nonemergent renal protocol CT or MRI is recommended. 1.5 cm hypodense right renal lesion which favors a hyperdense cyst which can be assessed on subsequent study. 18Oct2017 - Cystoscopy and left ureteral stent placement (Dr. Love) 18Oct2017 - RETROGRADE INCLUDES KUB (Pyelogram) IMPRESSION: Intraprocedural radiographs demonstrating left-sided hydronephrosis and placement of a left-sided nephroureteral stent 18Oct2017 - CHEST 2 VIEWS ROUTINE IMPRESSION: 1. No acute cardiopulmonary disease. 22Oct2017 - Transthoracic echocardiogram - Left ventricular systolic function is normal. - Diastolic dysfunction, Grade II, consistent with elevated left atrial pressure. - Right ventricular systolic pressure is elevated at 30-40mmHg. - The inferior vena cava is mildly dilated. 25Oct2017 - (RENAL)RETROPERITON COMP (Renal ultrasound) IMPRESSION: Mild/moderate left renal hydronephrosis. No definite nephrocalcinosis. Proximal aspect of the renal stent is within the lower renal pelvis 25Oct2017 - KUB IMPRESSION: 1. Left ureteral stent appears to be in satisfactory positioning. No definite nephrolithiasis or ureteral calculi identified. 2. Moderate stool volume suggests constipation. 3. Nonobstructive bowel gas pattern. Consultations: Nephrology note on 26Oct2017 History of Present Illness 77 year old male who followed recently w/ my partner Dr Haley in CKD clinic in [place]. PMH includes rheumatoid arthritis, "massive" (per urology notes) prostatic hypertrophy, multiple complex renal cysts and chronic L sided hydronephrosis w/o obstructing stone or lesion (as of 03/2017 and 08/2017). He as admitted to [facility] from 09/16-09/20 and again from 09/24-10/06. He had had a baseline creatinine of 0.9 - 1.2 as recently as 06/2017. He presented in late August w/ creatinine 4.1 and volume depletion and was treated for this in [facility] from 09/16-09/20/17; CT of his abdomen/ pelvis during that admission showed chronic L hydronephrosis which urology felt did not need urgent intervention; he had a wright catheter during August admission and PVR of 170 mL; he went home w/o a wright. His creatinine improved to 2.6 by 09/20 discharge. On September 22, repeat labs showed increasing creatinine at 3.3, for which he was readmitted to [facility] from 09/24-10/06. By admission his creatinine was 4.1. The wright was replaced and he had slow improvement w/ this and IV fluids until 09/27-10/01 when his creatinine plateau'd at about 3. Over time his serologic work up came back >> complement was negative, as was spep/cuco / hep panel/ ANCA; cryoglobulins were very mildly but nonspecifically positive with negative cryocrit. Urine eosinophils came back 2 of 3 specimens positive however. He was not a renal biopsy candidate d/t L hydronephrosis on CT scan and sever R kidney lesions, including a hyperdense lower pole lesion, all of which were stable on imaging. On 10/01, he began 60 mg daily prednisone w/ plan to taper over 2-3 mos to 5 mg dose. Possible culprits for interstitial nephritis include leflunomide versus antibiotics given at August admission versus proton pump inhibitor. At no time to my knowledge did he have F or rash. He did however improve on prednisone; by 10/11 d/c, creatinine was 2.0. His PPI was changed to H2 faith at d/c. Urology did a nuclear lasix scan suggestive of partial L upper tract obstruction during the September admission >> a L ureteral stent was planned for late that admission but then when creatinine improved, this was deferred. Plan was made to f/u as outpatient. Urology did note at inpatient eval that prostatectomy would likely need to be open procedure and recommended eval for this at tertiary care center after d/c. The pt appears to have decided to transfer care to [facility] and records were released on 10/12 to this end. The overall renal diagnosis for this pt as of 10/11/17 CKD clinic follow up was combined prerenal and postobstructive processes, but also acute interstitial nephritis which was initially responsive to steroids. At this CKD clinic visit , Dr. Haley lowered prednisone to 40 mg daily d/t pt restlessness/poor sleep. The last outpatient creatinine for this pt in this system is 2.0 on 10/14. He follows w/ Dr. Chang for RA > was to see him w/in 2-4 wks of recent [facility] d /c: he has 11/29/17 appt. had failed methotrexate in the past; leflunomide had been stopped d/t renal function. Had been on lower dose prednisone (5 mg daily ) for RA as recently as 06/2017. The patient was admitted here on 10/17 w/ pyelonephritis after presenting with L flank pain and pus in his catheter and found to have MSSA bacteremia. He specifically requested care from [facility] [place] and declined to follow w/ [facility]. His creatinine was 2.1 on presentation and trended up to 3.1 on 10/18 , then dropped as low as 2.3 10/21-10/23. Nephrology had signed off but then creatinine trended up again to 3.4 today. They have been seeing pt for the past 2 days as well; there is concern per their notes for interstitial nephritis and mulitple med changes suggested in today's note. His prednisone was rapidly lowered to 5 mg daily on admission > he has been on this dose since 10/20. Inf s recommended treatment with 4 wks of ancef after initial treatment w/ daptomycin. The patient remains on daptomycin currently though. His 10/24/17 blood cultures are so far negative. He had a L ureteral stent placed on 10/18. Urology continues to plan a prostatectomy once his renal function is stabilized but believes that the obstructive concerns are for now relieved. Assessment & Plan 77 y/o M w/ recently diagnosed interstitial nephritis, RA, chronic L hydronephrosis, marked prostatism, multiple BL renal lesions including complex R lower pole renal cyst admitted 10/17 w/ MSSA bacteremia from L pyelonephritis s /p 10/18 stent with initial improvement in renal function but past 48 hrs worsening Relapsing acute renal failure, challenging and protracted clinical situation After 2 prolonged [facility] admissions, the impression was that he had multifactorial renal failure from prerenal and obstructive processes as well as acute interstitial nephritis, for which high dose prednisone was given with good response as detailed above. Dx was empiric as well as based on 2 urine specimens positive for eosinophils, again as detailed above -he had been responding to high dose steroids intensified from RA therapy to treat interstitial nephritis at previous hospital stay; these were abruptly tapered here after admission w/ potentially life threatening infection >> defer to primary service, to inf dzs, to nephrology whether to resume these; would have to be balanced w/ infection risk <> he is 48 hrs out from last blood culture which remains negative -agree w/ Dr. Lopez's recommendations regarding IV fluids as tolerated >>>would definitely change from PPI > H2 faith >>>would prefer cefazolin to bactrim however (see today's renal note from [facility] unless I have missed a reason for avoiding the former when/if changing from daptomycin -given his renal anatomy/lesions do not believe he is a renal biopsy candidate Nephrology recommendations on 28Oct2017 --continue on prednisone 60 milligram p.o. daily --renal function improving, electrolyte, volume status acceptable, remain non- oliguric --dose medications for GFR less than 30 --avoid nephrotoxic medications -- OK to be discharge when antibiotic can be switched to orally --repeat renal function 2/3 days after discharge and result send to Dr. Dey. Please schedule out pt visit within a week with Dr. Dey. Plan to continue prednisone 60 mg /d for 1 week and then decrease to 50 mg/d and further dose adjustment by Dr. Dey during out pt visit. Urology recommendations on 28Oct2017 A./P: Renal failure, unilateral hydro, urinary retention - improvement in renal function overnight - reassured him and encouraged him to be patient - hold on any intervention until acute issues are resolved Medication Reconciliation New Medications: Cephalexin (Cephalexin) 500 Mg Tab 2 TAB PO Q6 for 3 Days, #24 TAB Diltiazem HCl (Diltiazem Cd) 120 Mg Capcr 120 MG PO DAILY for 30 Days, #30 UNIT 0 Refills Metoprolol Tartrate (Lopressor) (Lopressor) 50 Mg Tab 50 MG PO DAILY for 30 Days, #30 TAB 0 Refills Oxybutynin Chloride (Oxybutynin Chloride) 5 Mg Tab 5 MG PO TID for 30 Days, #90 TAB 0 Refills Prednisone Tab (Prednisone) 10 Mg Tab 10 MG PO DAILY for 45 Days, #129 TAB Each dose is daily. Taper: 60mg x 4 days, 50 mg x7d, 40mg x7d, 30mg x7d, 20mg x7d, 10mg x7d. Continued Medications: Acetaminophen (Tylenol) 500 Mg Tab 1000 MG PO UD PRN for Pain, TAB Ascorbic Acid (Ascorbic Acid) 500 Mg Tab Unknown Dose PO BID, TAB Aspirin (Aspirin EC Low Dose) 81 Mg Ectab 81 MG PO BID for 30 Days, #60 Docusate Sodium (Colace) 100 Mg Cap 1 CAP PO HS for 15 Days, CAP Ferrous Sulfate (Kp Ferrous Sulfate) 325 Mg Tab 1 TAB PO BID for 30 Days, #60 TAB 3 Refills Finasteride (Proscar) 5 Mg Tab 5 MG PO HS, TAB Folic Acid (Folic Acid) 1 Mg Tab 1 TAB PO QAM Multivitamin (Multivitamin) Tab 1 TABLET PO QAM, TAB Potassium Chloride (Micro-K Ext Rel) 10 Meq Capcr 20 MEQ PO BID, CAP Ranitidine (Zantac) 150 Mg Tab 150 MG PO BID, TAB Tamsulosin Hcl (Flomax) 0.4 Mg Cap 0.4 MG PO DAILY, CAP Discontinued Medications: Metoprolol Tartrate (Lopressor) (Lopressor) 25 Mg Tab 25 MG PO DAILY, TAB Omeprazole (Prilosec) 20 Mg Capcr 20 MG PO QAM, CAP Prednisone (Prednisone) 20 Mg Tab 40 MG PO DAILY, TAB Discharge Exam General Appearance: Awake, alert & oriented, sitting in chair, comfortable in general, NAD. CV: +S1S2 RRR. No peripheral edema. Pulm: Clear to auscultation throughout. Abdomen: +BS, soft, non-distended. Mild suprapubic/LLQ tenderness, unchanged from prior two days. No guarding. Extremities: No pedal edema or calf tenderness. Neuro: No gross neuro deficits. Lines: Left arm PIV. Wright cath. Review of Systems: Constitutional: No fever, No chills Respiratory: No cough, No shortness of breath Cardiovascular: No chest pain, No edema Abdomen: No nausea, No vomiting, No diarrhea Hospital Course HPI at time of admission on Oct 17, 2017 at 15:27 77 yo male PMH: Rheumatoid arthritis on prednisone, BPH, Anemia of chronic disease, HTN, HLD, primary OA, presents to ED with 12 hour hx of Left-sided CVA pain and suprapubic pain on top of a 3 day hx of increasing sediment, pus, and orange color of urine in his indwelling catheter. He was recently admitted to [facility] from 09/24- for TYRONE in setting of urinary retention 2/2 worsening BPH. During that admission he was found to have left sided hydroureteronephrosis. Was treated for complicated UTI with rocephin x 5 days. He had been seen by urology who had discussed possibility of inserting a stent but as he clinically improved, they decided to opt for outpatient follow up, which has not occurred yet. He has been afebrile, no chills/nausea/vomiting/ chest pain/dyspnea Discharge summary on 28Oct2017 77 yo male admitted on 17 oct 2017 for bacteremia secondary to pyelonephritis, left VUJ obstruction, and left hydroureteronephrosis. PMH: RA on prednisone, BPH, anemia of chronic disease, HTN, HLD, primary OA. Recent admit to [facility] from for TYRONE & UTI in setting of urinary retention from BPH. Bacteremia secondary to to pyelonephritis, left VUJ obstruction, and left hydroureteronephrosis: BCx positive for MSSA. Follow on BCx negative to date and BCx negative to date. 25Feb UCx positive for staph, follow on 03Mar UCx no growth. 02Mar Echo not suggestive of endocarditis. ID onboard. Had been on daptomycin for nine days. 06Mar switched to cefazolin 1 gram IV q12h (renal dosing) per prior ID recommendations. On day of discharge, spoke with ID, and they agreed since only three more days of antibiotics needed to stop IV form and convert to keflex. Prescription for same given. Left hydronephrosis: S/p stent placement by urology on 26Feb. 05Oct renal u/s notes some mild/moderate residual hydronephrosis which has not progressed. Mar KUB notes appropriate stent position. Percocet prn as inpatient for pain management. Urology spoke with patient, provided reassurance and recommended he follow nephrology team recommendations. Still planning future TURP and possible stent removal. Home with wright and planned urology f/u per their instructions. Acute kidney injury: Cr max 3.4, improved. Nephrology and urology onboard. Urology did not believe this is due to urinary retention. 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 See their notes for thorough discussion of recent events. Was placed back on steroids evening with planned prednisone 60 mg daily with 10 mg per week taper. Stopped his PPI. - Wrote paper prescription so patient can get BMP prior to planned nephrology follow up with Dr. Dey early the week after discharge. Left complex kidney cyst: As noted on 25Feb CT a/p. Recommended follow-up for same. Anemia: Likely of chronic disease related to RA, worsened by hematuria. S/p transfusion on 28Feb and Mar (two units PRBCs total). Presently stable at Hb 9.3. FOBT negative. On iron supplementation. BPH: Chronic x 15 years, worsening. On flomax, proscar, ditropan TID. Rheumatoid arthritis: On folic acid. Off his home leflunomide (secondary to recent weight loss) and baseline prednisone 5 mg. HTN: Holding ASA 81 mg given low Hb & hematuria. Increased his metoprolol to 50 mg daily and his diltiazem ER to 120 mg daily to help with blood pressure control. Resident Physician Supervision Note: I interviewed and examined the patient. Discussed with Dr. Ruelas and agree with findings and plan as documented in the note. Any exceptions or clarifications are listed here: None This patient is improved the addition of steroids his creatinine is come down now into the 2 range he feels markedly improved also we discussed his long-term antibiotic use with infectious disease in the of agreed to go to with oral antibiotics which will negate the need for any type of outpatient infusion this will be for additional 3 days complete a 14 day regimen of antibiotic care patient did voice a understanding by repeating back is the need for his steroids continued higher doses and taper as listed in his discharge summary he also is willing to follow-up with Dr. Cy Dey in about any physician group nephrology for his likely interstitial nephritis we have also listed PPIs on his allergy list of this may be implicated in his disease Vital signs show temperature 36 5 pulse 106 respiration rate 20 BP slightly elevated 181/91 His current exam is regular lungs are clear extremities without edema This patient initially presented with obstructive uropathy status post stenting a concurrent pyelonephritis and then considered interstitial nephritis likely due to medications all of improved he has had stenting of his left ureter he will be discharged with a Wright catheter and leg bag for follow-up with urology for possible TURP and he will follow up with nephrology for his likely interstitial nephritis with a long-term tapering dose of prednisone therapy Documented By: Kang Carlin Total Time Spent: Greater than 30 minutes This includes examination of the patient, discharge planning, medication reconciliation, and communication with other providers. Discharge Instructions Please refer to the electronic Patient Visit Report (Discharge Instructions) for additional information. Additional Copies To Cy Dey M.D.; Haider Calvo M.D.; Graham Love M.D. Resident Tracking Resident Involvement: Resident Care Provided Care Provided: Adult Hospital Medicine (inpatient)
--- NOTE | 2017-11-01 09:11 | EDITING REQUIRED CODING QUERY ---
SEPSIS To promote full compliance with coding requirements relating to patient care, physician participation is requested in all cases of composing machine operator uncertainty. Please assist us with the question(s) below: In responding to this query, please exercise your independent professional judgement. The fact that a question is asked does not imply that any particular answer is desired or expected. We appreciate your clarification on this issue. Throughout the medical record, you have clearly documented a localized infection and your patient has clinical evidence of a generalized sepsis or severe sepsis. The term urosepsis is a nonspecific entity and is coded as an UTI. If the patient has sepsis, severe sepsis, from an urinary source or some other source, please clarify in your response below. The medical record reflects the following clinical findings: Patient admitted with bacteremia/MSSA in the setting of pyelonephritis and acute renal failure. Progress notes document sepsis- D/S - documents bacteremia. Please select below the diagnosis that was treated during this inpatient encounter. Thank you! Gilmer Fernandez [facility] ( )Bacteremia (Nonspecific laboratory finding of bacteria in the blood) Specify Organism ( ) Present on Admission ( ) Not present on admission ( ) Unable to clinically determine ( x) Septicemia (Systemic disease associated with the presence of pathogenic microorganisms in the blood): Specify Organism (x ) Present on Admission ( ) Not present on admission ( ) Unable to clinically determine ( ) Sepsis Specify Organism Specify Associated Condition/Diagnosis ( ) Present on Admission ( ) Not present on admission ( ) Unable to clinically determine ( ) Severe Sepsis (Sepsis associated with acute organ dysfunction) Specify Organism Specify Associated Condition/Diagnosis ( ) Present on Admission ( ) Not present on admission ( ) Unable to clinically determine ( ) Septic Shock (Severe sepsis with acute circulatory failure, unexplained by other causes) ( ) Present on Admission ( ) Not present on admission ( ) Unable to clinically determine ( ) Other, patient has:
== END 2017-10-28 16:45 | disposition home health service (06) | DRG 872 ==
LOC: C.EDB 11:44 → C.4E 15:33 → ENRESERV 15:51
PROVIDERS: ADMIT Family Medicine; ATTEND Internal Medicine
PROC: 0T778DZ Dilation of Left Ureter with Intraluminal Device, Via Natural or Artificial Opening Endoscopic (ICD-10-PCS; principal; 2017-10-18 15:00)
DX: A41.01 Sepsis due to Methicillin susceptible Staphylococcus aureus (principal); N13.6 Pyonephrosis; N12 Tubulo-interstitial nephritis, not specified as acute or chronic; N17.9 Acute kidney failure, unspecified; N10 Acute pyelonephritis; N40.0 Benign prostatic hyperplasia without lower urinary tract symptoms; N28.1 Cyst of kidney, acquired; M06.9 Rheumatoid arthritis, unspecified; Z96.652 Presence of left artificial knee joint; Z96.641 Presence of right artificial hip joint; I10 Essential (primary) hypertension; R33.9 Retention of urine, unspecified; Z87.891 Personal history of nicotine dependence; Z79.52 Long term (current) use of systemic steroids; Z82.49 Family history of ischemic heart disease and other diseases of the circulatory system; K21.9 Gastro-esophageal reflux disease without esophagitis; N30.91 Cystitis, unspecified with hematuria; D64.89 Other specified anemias

== ENCOUNTER → 2017-11-03 | Outpatient (CLI) | payer OTHER ==
[~2017-11-03] MED LIST changes: +ASCO500T16 PO; +DILT-202 PO; +DTR5 PO; -HYDR-5688 PO; -LEFL20TA PO; +METO50TA16 PO; +POTA10CA28 PO; -PRED-301 PO; +PRED10TA PO; -PRLSR20 PO; -PSEU30TA3 PO; +RANI150T85 PO; +TAMS0.4C38 PO; -TERA1CAP63 PO; +TYLOTC500 PO
[2017-11-03 17:54] LABS: BASO % 0.2 %; BASO ABS # 0.02 K/uL (0-0.2); EOS % 0.1 %; EOS ABS # 0.01 K/uL (0-0.5); HEMATOCRIT 33.6 % (42-52); HEMOGLOBIN 10.7 g/dL (14.0-18.0); LYMPH % 7.2 %; LYMPH ABS # 0.95 K/uL (1.2-3.4); MEAN CELL VOLUME 86.4 fL (80-100); MEAN CORPUSCULAR HEMOGLOBIN 27.5 pg (25-34); MEAN CORPUSCULAR HGB CONC 31.8 g/dl (32-36); MONO % 2.5 %; MONO ABS # 0.33 K/uL (0.11-0.59); NEUT % 86.2 %; NEUT ABS # 11.42 K/uL (1.4-6.5); PLATELET COUNT 302 K/uL (130-400); RED CELL DISTRIBUTION WIDTH SD 70.3 fL (36.4-46.3); WHITE BLOOD COUNT 13.23 K/uL (4.8-10.8)
[2017-11-03 18:17] LABS: TRANSFERRIN 152 mg/dl (200-360)
[2017-11-03 18:18] LABS: ALBUMIN 3.3 gm/dl (3.4-5.0); ALKALINE PHOSPHATASE 69 U/L (45-117); ALT/SGPT 27 U/L (12-78); AST/SGOT 16 U/L (15-37); BLOOD UREA NITROGEN 48 mg/dl (7-18); CALCIUM 9.2 mg/dl (8.5-10.1); CARBON DIOXIDE 25 mmol/L (21-32); CREATININE 1.95 mg/dl (0.60-1.40); GLUCOSE 166 mg/dl (70-99); POTASSIUM 4.2 mmol/L (3.5-5.1); SODIUM 137 mmol/L (136-145); TOTAL PROTEIN 7.5 gm/dl (6.4-8.2)
== END | disposition home or self-care (01) ==
LOC: C.LABMFLN 15:50
PROVIDERS: ATTEND Family Medicine
DX: I10 Essential (primary) hypertension (principal); N17.9 Acute kidney failure, unspecified

== ENCOUNTER → 2017-11-04 | Outpatient (CLI) | payer OTHER | END | disposition home or self-care (01) | LOC: C.LABMFLN 10:42 | PROVIDERS: ATTEND Internal Medicine Nephrology | DX: I10 Essential (primary) hypertension (principal); N17.9 Acute kidney failure, unspecified ==

== ENCOUNTER 2017-11-24 20:49 | Emergency (ER) | payer OTHER ==
[~2017-11-24] VITALS: Ht 165.1 cm; Wt 63.1 kg
[2017-11-24 21:03] VITALS: Ht 165.1 cm; Wt 63.1 kg
--- NOTE | 2017-11-24 21:24 | EMERGENCY ROOM VISIT NOTE ---
History Report prepared by Esther: Darrick Lizarraga Under the Supervision of: Dr. Chris Padilla M.D. First contact with patient: 21:06 Chief Complaint: CATHETER REPLACEMENT Stated Complaint: APPEARS IF CATHERTER IS NOT DRAINING History of Present Illness The patient is a 77 year old male with a past medical history of an enlarged prostate, hydronephrosis, pyelonephritis, and kidney stones who presents to the ED with a cc of constant burning abdominal pain beginning five hours ago. Negative for nausea, vomiting, fevers, and chills. The patient states that he has a catheter placed for his enlarged prostate and is feeling a pressure in his bladder. He notes that his symptoms feel as though he needs to urinate. He reports that the last time his bag was changed was five hours ago, and that he has not been able to drain a significant amount of urine since. The patient states that he has had a catheter that has been blocked before and needed to be replaced. He notes that he had his previous catheter changed 5 days ago. Source of History: patient Onset: five hours ago Position: abdomen Quality: pressure, burning Associated Symptoms: No fevers, No chills, No nausea, No vomiting Note: The patient states that his catheter is not draining. Review of Systems See HPI for pertinent positives and negatives. A total of ten systems were reviewed and were otherwise negative. Past Medical & Surgical Medical Problems: (1) Acute renal failure (2) BPH (benign prostatic hyperplasia) (3) Chronic anemia (4) CVA tenderness (5) Deviated nasal septum (6) Enlarged prostate (7) Hernia (8) Hydronephrosis (9) Kidney stones (10) MSSA (methicillin susceptible Staphylococcus aureus) septicemia (11) Pyelonephritis (12) Renal cyst (13) Rheumatoid arthritis (14) Suprapubic pain, acute Surgical Problems: (1) H/O inguinal hernia repair (2) History of hip replacement (3) History of knee replacement (4) History of left knee replacement (5) History of right hip replacement (6) Hx of nasal septoplasty (7) S/P carpal tunnel release (8) S/P rotator cuff repair Family History FH: CAD (coronary artery disease) BROTHER FH: cancer Social History Smoking Status: Former Smoker Alcohol Use: none Marital Status: Housing Status: lives with family Occupation Status: retired Current/Historical Medications Scheduled Ascorbic Acid (Ascorbic Acid), 500 MG PO BID Aspirin (Aspirin EC Low Dose), 81 MG PO BID Diltiazem Hcl Ext Rel (Tiazac), 180 MG PO DAILY Docusate Sodium (Colace), 100 MG PO HS Ferrous Sulfate (Kp Ferrous Sulfate), 325 MG PO BID Finasteride (Proscar), 5 MG PO HS Folic Acid (Folic Acid), 1 MG PO QAM Metoprolol Tartrate (Lopressor) (Lopressor), 25 MG PO BID Multivitamin (Multivitamin), 1 TABLET PO QAM Oxybutynin Chloride (Oxybutynin Chloride), 5 MG PO TID Potassium Chloride (Micro-K Ext Rel), 20 MEQ PO BID Prednisone Tab (Prednisone), 10 MG PO DAILY Ranitidine (Zantac), 150 MG PO BID Tamsulosin Hcl (Flomax), 0.4 MG PO DAILY Scheduled PRN Acetaminophen (Tylenol), 1,000 MG PO UD PRN for Pain Allergies Coded Allergies: Lisinopril (Verified Adverse Reaction, Mild, COUGH, 11/24/17) Uncoded Allergies: ppi (Adverse Reaction, Severe, worsened Cr, 10/28/17) may be associated with interstitial neprhitis Physical Exam Vital Signs Date Time Temp Pulse Resp B/P (MAP) Pulse Ox O2 Delivery O2 Flow Rate FiO2 11/24/17 22:48 59 18 137/89 99 11/24/17 21:03 36.5 66 18 156/97 95 Room Air Physical Exam GENERAL: Awake, alert, well-appearing, NAD, wearing glasses. HENT: Normocephalic, atraumatic. EYES: Normal conjunctiva. Sclera non-icteric. NECK: Supple. No nuchal rigidity. FROM. RESPIRATORY: CTAB, no rhonchi, wheezing, crackles CARDIAC: RRR, no MRG ABDOMEN: Soft, BS+, suprapubic discomfort, fullness. MSK: No chest wall TTP, no LE edema NEURO: GCS 15, CN 2-12 intact, moves all 4s on command SKIN: No rash or jaundice noted. Medical Decision & Procedures ED Course 2113: The patient was evaluated in room B12. A complete history and physical exam was performed. 2229: I reevaluated the patient. Discussed results and discharge instructions: He verbalized understanding and agreement. The patient is ready for discharge. Medical Decision Nursing notes reviewed. Ancillary studies and prior records reviewed. The patient is a 77 year old male with a past medical history of an enlarged prostate, hydronephrosis, pyelonephritis, kidney stones and who presents to the ED with a cc of constant burning abdominal pain beginning five hours ago. Negative for nausea, vomiting, fevers, and chills. Differential diagnoses include: catheter malfunction, worsening BPH, urethral calculi, and stricture. Patient was seen and evaluated the bedside. Patient had had some worsening output from his Geiger catheter. The patient does use this for BPH. This was recently changed an outpatient urology visit on Wednesday. Patient does complain of some mild suprapubic discomfort and fullness. Patient denies any trauma. The patient was unsuccessfully irrigated at the bedside. The patient did have a daily that was placed. The patient did have resolution of his discomfort at approximately 6 50 cc of straw-colored urine in the bag. Given that the patient has normal vital signs, is not febrile, and his decreased urine output was transient I do not believe that he requires any further blood work or treatment at this time. The patient again has resolution of his symptoms. Patient was told to follow-up with urology as needed and to return if he had any worsening symptoms. Patient was agreeable to this plan of care. Patient was given strict follow-up, discharge, and return precautions. All questions were answered. Patient was deemed suitable for outpatient follow-up at this time. Patient agreed with the plan of care and was safely discharged home. Blood Pressure Screening Patient's blood pressure: Elevated blood pressure Blood pressure disposition: Elevated BP felt to be situational Impression Primary Impression: Complication of catheter Additional Impression: History of left knee replacement Scribe Attestation The scribe's documentation has been prepared under my direction and personally reviewed by me in its entirety. I confirm that the note above accurately reflects all work, treatment, procedures, and medical decision making performed by me. Departure Information Dispostion Home / Self-Care Referrals No Doctor, Assigned (PCP) Forms HOME CARE DOCUMENTATION FORM, IMPORTANT VISIT INFORMATION Patient Instructions Benign Prostatic Hyperplasia, ED Catheter Care Dee Ge[facility] Additional Instructions Please return to the emergency department if you have worsening or recurrent symptoms not amenable to at-home treatment. Please call for a follow-up appointment with her primary care physician. Please take your medications as prescribed. If you have other concerns and/or complaints please feel free to also call your primary care physician's office or return the ED for further evaluation, management, and treatment. Take your medications as prescribed. Please follow-up with your urologist as scheduled. Return if you do not have good flow of urine. You have been examined and treated today on an emergency basis only. This is not a substitute for, or an effort to provide, complete comprehensive medical care. It is impossible to recognize and treat all injuries or illnesses in a single emergency department visit. It is therefore important that you follow up closely with [facility], your PCP, and/or your specialist(s). Call as soon as possible for an appointment. Thank you for your time and consideration. I look forward to speaking with you again soon. Please don't hesitate to call us if you have any questions. Problem Qualifiers Primary Impression: Complication of catheter Encounter type: initial encounter Qualified Codes: T85.9XXA - Unspecified complication of internal prosthetic device, implant and graft, initial encounter
[2017-11-24] MEDS ORDERED: DILT-113 PO (22:47)
[2017-11-24 22:48] VITALS: BP 137/89; PULSE 59; O2SAT 99
[2017-11-24] MEDS ORDERED: METO50TA16 PO (22:51)
== END 2017-11-24 22:48 | disposition home or self-care (01) ==
LOC: C.EDB 20:52
DX: T85.9XXA Unspecified complication of internal prosthetic device, implant and graft, initial encounter (principal); Z96.652 Presence of left artificial knee joint; X58.XXXA Exposure to other specified factors, initial encounter; N17.9 Acute kidney failure, unspecified; N40.0 Benign prostatic hyperplasia without lower urinary tract symptoms; I63.9 Cerebral infarction, unspecified; A41.01 Sepsis due to Methicillin susceptible Staphylococcus aureus; Z87.891 Personal history of nicotine dependence; Z79.82 Long term (current) use of aspirin; Z88.8 Allergy status to other drugs, medicaments and biological substances

== ENCOUNTER → 2017-11-29 | Outpatient (CLI) | payer OTHER ==
[~2017-11-29] MED LIST changes: -ASPEC81 PO; +ASPI-320 PO; +ASPI81TA28 PO; +CHOL1000 PO; +DILT-113 PO; -DILT-202 PO; +DTR/5 PO; +NYSS/ PO; +OXYBUTYNIN PO
[2017-11-29 17:59] LABS: BASO % 0.1 %; BASO ABS # 0.01 K/uL (0-0.2); HEMATOCRIT 32.2 % (42-52); IG# 0.14 K/uL (0.00-0.02); LYMPH % 8.8 %; LYMPH ABS # 0.83 K/uL (1.2-3.4); MEAN CELL VOLUME 90.7 fL (80-100); MEAN CORPUSCULAR HEMOGLOBIN 28.2 pg (25-34); MEAN CORPUSCULAR HGB CONC 31.1 g/dl (32-36); MEAN PLATELET VOLUME 10.4 fL (7.4-10.4); MONO % 3.2 %; NEUT % 86.4 %; NEUT ABS # 8.15 K/uL (1.4-6.5); PLATELET COUNT 194 K/uL (130-400); RED CELL DISTRIBUTION WIDTH CV 20.5 % (11.5-14.5); RED CELL DISTRIBUTION WIDTH SD 68.7 fL (36.4-46.3); WHITE BLOOD COUNT 9.43 K/uL (4.8-10.8)
[2017-11-29 18:12] LABS: PTT PATIENT 27.7 SECONDS (21.0-31.0)
[2017-11-29 18:14] LABS: ALBUMIN 3.1 gm/dl (3.4-5.0); ALT/SGPT 16 U/L (12-78); AST/SGOT 9 U/L (15-37); BLOOD UREA NITROGEN 47 mg/dl (7-18); CALCIUM 9.8 mg/dl (8.5-10.1); CARBON DIOXIDE 27 mmol/L (21-32); CREATININE 2.36 mg/dl (0.60-1.40); GLUCOSE 162 mg/dl (70-99); POTASSIUM 4.8 mmol/L (3.5-5.1); SODIUM 137 mmol/L (136-145)
[2017-11-29 18:19] LABS: ALKALINE PHOSPHATASE 72 U/L (45-117); TOTAL PROTEIN 7.3 gm/dl (6.4-8.2); TRANSFERRIN 182 mg/dl (200-360)
== END | disposition home or self-care (01) ==
LOC: C.LABMFLN 16:18
PROVIDERS: ATTEND Urology
DX: N17.9 Acute kidney failure, unspecified (principal); N40.1 Benign prostatic hyperplasia with lower urinary tract symptoms; M85.80 Other specified disorders of bone density and structure, unspecified site; D64.9 Anemia, unspecified

== ENCOUNTER 2017-12-06 21:28 | Emergency (ER) | payer OTHER ==
[~2017-12-06] VITALS: Ht 165.1 cm; Wt 64.4 kg
[~2017-12-06 21:28] MED LIST changes: -ASPI-320 PO; -DTR/5 PO; -DTR5 PO
[2017-12-06 21:31] VITALS: TEMP 36.6; Ht 165.1 cm; Wt 64.4 kg
--- NOTE | 2017-12-06 22:31 | EMERGENCY ROOM VISIT NOTE ---
History Report prepared by Esther: Ella Basurto Under the Supervision of: Dr. Omero Elam D.O. First contact with patient: 21:34 Chief Complaint: CATHETER REPLACEMENT Stated Complaint: CATHETER DISLODGED History of Present Illness The patient is a 77 year old male who presents to the Emergency Room with complaints of an episode of catheter dislodgement 1 hour ago. The patient has had a catheter for several months now because of an enlarged prostate. The current catheter has been in for 2 weeks now. It fell out around 1 hour ago. He denies any abdominal pain, nausea, or vomiting. He currently does not have any other concerns. Source of History: patient, spouse/significant other Onset: 1 hour ago Position: other (catheter) Quality: other (dislodged) Timing: other (episodic) Associated Symptoms: No nausea, No vomiting, No abdominal pain Review of Systems See HPI for pertinent positives & negatives. A total of 10 systems reviewed and were otherwise negative. Past Medical & Surgical Medical Problems: (1) Acute renal failure (2) BPH (benign prostatic hyperplasia) (3) Chronic anemia (4) CVA tenderness (5) Deviated nasal septum (6) Enlarged prostate (7) Hernia (8) Hydronephrosis (9) Kidney stones (10) MSSA (methicillin susceptible Staphylococcus aureus) septicemia (11) Pyelonephritis (12) Renal cyst (13) Rheumatoid arthritis (14) Suprapubic pain, acute Surgical Problems: (1) H/O inguinal hernia repair (2) History of hip replacement (3) History of knee replacement (4) History of left knee replacement (5) History of right hip replacement (6) Hx of nasal septoplasty (7) S/P carpal tunnel release (8) S/P rotator cuff repair Family History FH: CAD (coronary artery disease) BROTHER FH: cancer Social History Smoking Status: Former Smoker Alcohol Use: none Marital Status: Housing Status: lives with family Occupation Status: retired Current/Historical Medications Scheduled Ascorbic Acid (Ascorbic Acid), 500 MG PO BID Aspirin (Aspirin Ec), 81 MG PO QAM Cholecalciferol (Vitamin D3), 1 TAB PO QAM Diltiazem Hcl Ext Rel (Tiazac), 180 MG PO QAM Docusate Sodium (Colace), 100 MG PO HS Ferrous Sulfate (Kp Ferrous Sulfate), 325 MG PO BID Finasteride (Proscar), 5 MG PO HS Folic Acid (Folic Acid), 1 MG PO QAM Metoprolol Tartrate (Lopressor) (Lopressor), 25 MG PO BID Multivitamin (Multivitamin), 1 TABLET PO QAM Nystatin (Nystatin Suspension), 1 DOSE PO UD Oxybutynin Chloride (Ditropan), 5 MG PO TID Potassium Chloride (Micro-K Ext Rel), 20 MEQ PO BID Prednisone Tab (Prednisone), 10 MG PO UD Ranitidine (Zantac), 150 MG PO BID Tamsulosin Hcl (Flomax), 0.4 MG PO QPM Scheduled PRN Acetaminophen (Tylenol), 1,000 MG PO UD PRN for Pain Allergies Coded Allergies: Amoxicillin (Verified Allergy, Unknown, AFFECTED KIDNEY, 12/06/17) Clavulanic Acid (Verified Allergy, Unknown, AFFECTED KIDNEY, 12/06/17) Unclassified Drugs (Verified Allergy, Unknown, PPI'S AFFFECTED KIDNEYS, ) Lisinopril (Verified Adverse Reaction, Mild, COUGH, 12/06/17) Physical Exam Vital Signs Date Time Temp Pulse Resp B/P (MAP) Pulse Ox O2 Delivery O2 Flow Rate FiO2 12/06/17 22:35 59 18 156/84 95 12/06/17 21:31 36.6 72 18 141/86 97 Room Air Physical Exam GENERAL: Patient is awake, alert, and in no acute distress. Patient is resting comfortably and showing no signs of anxiety EYES: The conjunctivae are clear. The pupils are round and reactive. EARS, NOSE, MOUTH AND THROAT: The nose is without any evidence of any deformity. Mucous membranes are moist tongue is midline NECK: The neck is nontender and supple. RESPIRATORY: Normal respiratory effort is noted there is no evidence of wheezing rhonchi or rales CARDIOVASCULAR: Regular rate and rhythm noted to auscultation. Systolic murmur noted. GASTROINTESTINAL: The abdomen is soft. Bowel sounds are present in all quadrants. Abdomen is nontender MUSCULOSKELETAL/EXTREMITIES: There is no evidence of gross deformity full range of motion is noted in the hips and shoulders SKIN: There is no obvious evidence of any rash. There are no petechiae, pallor or cyanosis noted. NEUROLOGIC: Gait was steady. Patient is awake alert and oriented x3. Medical Decision & Procedures ED Course 2134: The patient was evaluated in room C10. A complete history and physical examination were performed. I discussed the results and treatment plan with him. He verbalized agreement of the treatment plan. He was discharged home after Geiger catheter replacement. Medical Decision Nursing notes reviewed. Patient's previous electronic medical records reviewed. The patient is a 77-year-old male who presented to the emergency department because his Geiger catheter dislodged. He has had trouble with Geiger catheter and enlarged prostate issues. The Geiger catheter was replaced without difficulty by the nursing staff. The patient was encouraged to follow-up with his primary urologist as scheduled. Medication Reconcilliation Current Medication List: was personally reviewed by me Impression Primary Impression: Encounter for Geiger catheter replacement Scribe Attestation The scribe's documentation has been prepared under my direction and personally reviewed by me in its entirety. I confirm that the note above accurately reflects all work, treatment, procedures, and medical decision making performed by me. Departure Information Dispostion Home / Self-Care Referrals No Doctor, Assigned (PCP) Graham Love M.D. Forms HOME CARE DOCUMENTATION FORM, IMPORTANT VISIT INFORMATION Patient Instructions ED Catheter Care Juanjo, Dee [facility] Additional Instructions Continue to use the Geiger catheter as before. Follow-up with your primary urologist for further evaluation. Return to the emergency department immediately if symptoms change worsening the need arises.
[2017-12-06 22:35] VITALS: BP 156/84; PULSE 59; O2SAT 95
[2017-12-06] MEDS ORDERED: DTR/5 PO (22:42)
== END 2017-12-06 22:36 | disposition home or self-care (01) ==
LOC: C.EDB 21:29 → C.EDC 22:36
DX: Z46.6 Encounter for fitting and adjustment of urinary device (principal); N40.0 Benign prostatic hyperplasia without lower urinary tract symptoms; D64.9 Anemia, unspecified; Z87.442 Personal history of urinary calculi; Z86.19 Personal history of other infectious and parasitic diseases; M06.9 Rheumatoid arthritis, unspecified; Z96.641 Presence of right artificial hip joint; Z96.652 Presence of left artificial knee joint; Z82.49 Family history of ischemic heart disease and other diseases of the circulatory system; Z80.9 Family history of malignant neoplasm, unspecified; Z79.82 Long term (current) use of aspirin; Z79.899 Other long term (current) drug therapy; Z88.0 Allergy status to penicillin; Z88.8 Allergy status to other drugs, medicaments and biological substances

== ENCOUNTER 2017-12-13 07:45 | Observation (INO) | payer OTHER ==
[2017-11-30 10:47] VITALS: BMI 23.0
--- NOTE | 2017-11-30 11:26 | PAT Medication Instructions ---
Service Date Nov 30, 2017. Current Home Medication List Acetaminophen (Tylenol), 1,000 MG PO UD PRN for Pain Ascorbic Acid (Ascorbic Acid), 500 MG PO BID Aspirin (Aspirin Ec), 81 MG PO QAM Cholecalciferol (Vitamin D3), 1 TAB PO QAM Diltiazem Hcl Ext Rel (Tiazac), 180 MG PO QAM Docusate Sodium (Colace), 100 MG PO HS Ferrous Sulfate (Kp Ferrous Sulfate), 325 MG PO BID Finasteride (Proscar), 5 MG PO HS Folic Acid (Folic Acid), 1 MG PO QAM Metoprolol Tartrate (Lopressor) (Lopressor), 25 MG PO BID Multivitamin (Multivitamin), 1 TABLET PO QAM Nystatin (Nystatin Suspension), 1 DOSE PO UD Potassium Chloride (Micro-K Ext Rel), 20 MEQ PO BID Prednisone Tab (Prednisone), 10 MG PO UD Ranitidine (Zantac), 150 MG PO BID Tamsulosin Hcl (Flomax), 0.4 MG PO QPM [Oxybutynin], 5 MG PO TID Medication Instructions For Your Scheduled Surgery - Hold the following medications starting 12/08 per your surgeon's instructions: Aspirin (Aspirin Ec), 81 MG PO QAM - Continue as directed (OK to take on day of surgery): Prednisone Tab (Prednisone), 10 MG PO UD - Hold the following medications the morning of surgery: Ascorbic Acid (Ascorbic Acid), 500 MG PO BID Cholecalciferol (Vitamin D3), 1 TAB PO QAM Ferrous Sulfate (Kp Ferrous Sulfate), 325 MG PO BID Folic Acid (Folic Acid), 1 MG PO QAM Multivitamin (Multivitamin), 1 TABLET PO QAM Nystatin (Nystatin Suspension), 1 DOSE PO UD Potassium Chloride (Micro-K Ext Rel), 20 MEQ PO BID [Oxybutynin], 5 MG PO TID - Take the following medications the morning of surgery with a sip of water: Acetaminophen (Tylenol), 1,000 MG PO UD PRN for Pain (if needed, can be taken up to four hours before surgery) Diltiazem Hcl Ext Rel (Tiazac), 180 MG PO QAM Metoprolol Tartrate (Lopressor) (Lopressor), 25 MG PO BID Ranitidine (Zantac), 150 MG PO BID - Take the following medications as scheduled the night before surgery: Acetaminophen (Tylenol), 1,000 MG PO UD PRN for Pain (if needed) Ascorbic Acid (Ascorbic Acid), 500 MG PO BID Docusate Sodium (Colace), 100 MG PO HS Ferrous Sulfate (Kp Ferrous Sulfate), 325 MG PO BID Finasteride (Proscar), 5 MG PO HS Tamsulosin Hcl (Flomax), 0.4 MG PO QPM [Oxybutynin], 5 MG PO TID If you have any questions please call us at [phone] or [phone] or [phone]
[2017-11-30 12:18] LABS: CALCIUM 9.3 mg/dl (8.5-10.1); CREATININE 2.18 mg/dl (0.60-1.40); POTASSIUM 4.9 mmol/L (3.5-5.1)
[~2017-12-13] VITALS: Ht 165.1 cm; Wt 63.7 kg
[2017-12-13] VITALS (11 sets, daily range): BP systolic 125–175; BP diastolic 62–89; PULSE 56–83; TEMP 36.3–36.6; O2SAT 96–98; Ht 165.1 cm; Wt 63.7 kg
[~2017-12-13 07:45] MED LIST changes: +CIPROFLOXACIN / D5W 400 MG IV SCH; +DTR/5 PO; +LACTATED RINGER'S 1000ML 1,000 ML IV SCH; -OXYBUTYNIN PO; +SODIUM CHLORIDE 0.9% 1000ML 1,000 ML IV SCH
[2017-12-13] MEDS ORDERED: BACTRIM PO (08:15)
[2017-12-13] MEDS ORDERED: EpHEDrine SULFATE INJ 50 MG/ML AMP IV PRN (08:30)
[2017-12-13] MEDS ORDERED: ATROPINE SULFATE 0.1 MG/ML 5ML SYR IV PRN (08:30)
[2017-12-13] MEDS ORDERED: ONDANSETRON INJ 2 MG/ML 2 ML VIAL IV PRN ×2 (08:30→12:15)
[2017-12-13 08:44] LABS: CALCIUM 9.1 mg/dl (8.5-10.1); CREATININE 3.03 mg/dl (0.60-1.40); POTASSIUM 5.2 mmol/L (3.5-5.1)
[2017-12-13] MEDS ORDERED: ONDANSETRON INJ 2 MG/ML 2 ML VIAL ONE (08:52)
[2017-12-13] MEDS ORDERED: FENTANYL CITRATE INJ 50 MCG/1 ML 2 ML VIAL ONE ×2 (08:52→10:51)
[2017-12-13] MEDS ORDERED: LIDOCAINE HCL 2% 2 ML VIAL (20MG/ML) ONE (08:52)
[2017-12-13] MEDS ORDERED: DEXAMETHASONE SOD INJ 4 MG/ML VIAL ONE (08:52)
[2017-12-13] MEDS ORDERED: PROPOFOL IV EMULSION 10 MG/ML 20 ML VIAL IV ONE (08:52)
[2017-12-13] MEDS ORDERED: MIDAZOLAM HCL 1 MG/ML 2ML VIAL ONE (08:52)
[2017-12-13] MEDS ORDERED: EpHEDrine SULFATE 50MG/5ML SYR ONE (10:41)
--- NOTE | 2017-12-13 11:48 | [facility] Operative Report ---
Operative Report Operative Date Dec 13, 2017. Pre-Operative Diagnosis benign prostatic hyperplasia with urinary obstruction Post-Operative Diagnosis benign prostatic hyperplasia with urinary obstruction Procedure(s) Performed Cystoscopy; TURP; left ureteral stent exchange6 German by 2232 cm Surgeon Kate Estimated Blood Loss 20 cc Specimens Prostate chips Drains Geiger catheter Anesthesia Type General Complication(s) none Disposition yes Recovery Room / PACU Indications Urinary retention; renal failure; hydronephrosis Description of Procedure The patient was identified in the preoperative holding area, appropriate informed consents reviewed and completed and the patient was transported to the operating suite. Upon arrival he received appropriate preoperative antibiotics in the form of ciprofloxacin. Adequate general anesthesia was achieved and he was placed in dorsal lithotomy position. Of note he has been in retention and had his Geiger catheter removed prior to sterile prep and drape. I began the case by passing a 27 German resectoscope with visual obturator and 30 lens. Inspection revealed no evidence of stricture disease. His prostate was extremely large lateral lobe hypertrophy as well as a significant intravesical component. He had a previously placed left ureteral stent which was identified protruding from the left ureteral orifice. Full evaluation of the bladder was carried out to the best of my ability identifying no mucosal abnormalities. After my inspection, exchanged the visual obturator for a button electrode and resecting element. I incised the bladder neck at 5 and 7:00 with care to avoid encroachment upon the ureteral orifices. I then stented this incision down to the verumontanum. I exchanged the button for a loop element and resected the tissue between the 2 incisions. After completing this resection of intravesical median lobe, I had a much improved [id number] as well as significantly decreased obstruction from the prostate. I proceeded to use a combination of the button and loop to resect the left lateral lobe and the right lateral lobe. I completed my dissection by using a button electrode to trim the apical tissue adjacent to the verumontanum. I ensured excellent hemostasis before concluding the resecting portion of this case. I then withdrew my scope and reentered with a standard 22 German cystoscope and 30 lens. I grasped the distal end of the left ureteral stent withdrew to the urethral meatus. I intubated with a sensor wire and advanced a new stent over the wire. 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 This appears to straighten appropriately with relief of the obstruction from the stent. The new stent showed a good curl in the bladder as well as the kidney. I reconfirmed hemostasis before concluding the case entirely. I withdrew my scope and placed a 22 German Geiger catheter without difficulty. He was subsequently extubated and taken to the PACU in stable condition. I attest to the content of the Intraoperative Record and any orders documented therein. Any exceptions are noted below.
[2017-12-13] MEDS: FENTANYL CITRATE INJ 50 MCG/1 ML 2 ML VIAL IV PRN ×3 (12:00→12:16)
[2017-12-13] MEDS ORDERED: LACTATED RINGER'S 1000ML 1,000 ML IV SCH (12:04)
[2017-12-13] MEDS ORDERED: ACETAMINOPHEN 325 MG TAB PO PRN (12:15)
[2017-12-13] MEDS ORDERED: ACETAMINOPHEN/CODEINE 300/30MG TAB PO PRN (12:15)
[2017-12-13 12:32] LABS: BASO % 0.5 %; BASO ABS # 0.05 K/uL (0-0.2); EOS % 2.8 %; HEMATOCRIT 30.6 % (42-52); HEMOGLOBIN 9.8 g/dL (14.0-18.0); IG# 0.51 K/uL (0.00-0.02); LYMPH % 18.1 %; LYMPH ABS # 1.94 K/uL (1.2-3.4); MEAN CELL VOLUME 89.5 fL (80-100); MEAN CORPUSCULAR HEMOGLOBIN 28.7 pg (25-34); MONO % 2.3 %; MONO ABS # 0.25 K/uL (0.11-0.59); NEUT % 71.5 %; NEUT ABS # 7.65 K/uL (1.4-6.5); PLATELET COUNT 228 K/uL (130-400); RED CELL DISTRIBUTION WIDTH CV 18.9 % (11.5-14.5); RED CELL DISTRIBUTION WIDTH SD 62.5 fL (36.4-46.3)
--- NOTE | 2017-12-13 12:48 | DIAGNOSTIC IMAGING REPORT ---
KUB'S DURING STENT EXCHANGE CLINICAL HISTORY: STENT EXCHANGE COMPARISON STUDY: KUB dated 10/25/2017 FINDINGS: 4 fluoroscopic spot images were provided for interpretation. 14 seconds of fluoroscopic time was utilized. Image #2 demonstrates the proximal aspect of a nephroureteral stent. Images #3 and 4 demonstrate the introduction of a guidewire into the left-sided nephroureteral stent. Image #5 demonstrates the proximal pigtail of a left-sided nephroureteral stent. IMPRESSION: Intraoperative KUBs obtained during left-sided stent exchange. Electronically signed by: Cheng Duarte M.D. 12/13/2017 12:47 PM Dictated Date/Time: 12/13/2017 12:45 PM
--- NOTE | 2017-12-13 12:50 | Anesthesiology Progress Note ---
Anesthesia Post Op Note Date & Time Dec 13, 2017 at 12:50 Vital Signs Pain Intensity: 3 Vital Signs Past 12 Hours Date Time Temp Pulse Resp B/P (MAP) Pulse Ox O2 Delivery O2 Flow Rate FiO2 12/13/17 12:40 36.8 67 15 153/81 97 Nasal Cannula 2 12/13/17 12:30 80 18 131/85 97 Nasal Cannula 2 12/13/17 12:20 72 18 139/79 96 Nasal Cannula 2 12/13/17 12:10 59 17 168/97 99 Oxymask 10 12/13/17 12:00 66 14 158/93 98 Oxymask 10 12/13/17 11:52 36.9 80 16 127/90 99 Oxymask 10 12/13/17 08:21 36.6 56 20 125/75 (92) 96 Room Air Notes Mental Status: alert / awake / arousable, participated in evaluation Pt Amnestic to Procedure: Yes Nausea / Vomiting: adequately controlled Pain: adequately controlled Airway Patency, RR, SpO2: stable & adequate BP & HR: stable & adequate Hydration State: stable & adequate Anesthetic Complications: no major complications apparent
[2017-12-13 13:04] LABS: CALCIUM 8.9 mg/dl (8.5-10.1); CREATININE 2.92 mg/dl (0.60-1.40); POTASSIUM 5.7 mmol/L (3.5-5.1)
[2017-12-13] MEDS ORDERED: IV FLUIDS COMPLETED PRN (14:00)
--- NOTE | 2017-12-13 14:14 | Progress Note ---
Progress Note Date of Service Dec 13, 2017. Progress Note Pt with know CKD - post op labs revealed hyperkalemia in addition to known renal dysfunction - stop LR - start 1/2 NSS - add a single dose of kayexalate - no pot supplements - spoke with pharmacy - renal dose zantac
[2017-12-13] MEDS ORDERED: BELLADONNA/OPIUM SUPP 60 MG SUPP PR PRN (14:15)
[2017-12-13] MEDS ORDERED: SODIUM POLYST. SULF SUSP 15G/60ML PO ONE (14:30)
[2017-12-13] MEDS: SODIUM CHLORIDE 0.45% 1000ML 1,000 ML IV SCH (14:40)
[2017-12-13] MEDS ORDERED: LORAZEPAM 1 MG TAB PO PRN (15:30)
[2017-12-13] MEDS ORDERED: POTASSIUM CHLORIDE 20 MEQ TABCR PO SCH (21:00)
[2017-12-13] MEDS ORDERED: RANITIDINE HCL 150 MG TAB PO SCH (21:00)
[2017-12-13] MEDS ORDERED: FINASTERIDE 5 MG TAB PO SCH (21:00)
[2017-12-13] MEDS ORDERED: DOCUSATE SODIUM 100 MG CAP PO SCH (21:00)
[2017-12-13] MEDS: CEFUROXIME AXETIL 250 MG TAB PO SCH (21:09)
[2017-12-13] MEDS: METOPROLOL TARTRATE 25 MG TAB PO SCH (21:10)
[2017-12-13] MEDS ORDERED: NURSING VERBAL MED ORDER ONE (23:30)
[2017-12-14] MEDS ORDERED: HYDROmorphone INJ 2 MG/ML SYR/VIAL IV PRN (00:15)
[2017-12-14 02:40] VITALS: BP 156/84; PULSE 75; TEMP 36.7; O2SAT 97
[2017-12-14] MEDS: SODIUM CHLORIDE 0.45% 1000ML 1,000 ML IV SCH (04:12)
[2017-12-14 07:03] VITALS: BP 174/94; PULSE 73; TEMP 36.6; O2SAT 98
[2017-12-14 07:12] LABS: BASO % 0.2 %; BASO ABS # 0.03 K/uL (0-0.2); EOS % 0.2 %; EOS ABS # 0.03 K/uL (0-0.5); HEMATOCRIT 30.9 % (42-52); HEMOGLOBIN 9.9 g/dL (14.0-18.0); LYMPH ABS # 1.49 K/uL (1.2-3.4); MEAN CELL VOLUME 88.3 fL (80-100); MEAN CORPUSCULAR HEMOGLOBIN 28.3 pg (25-34); MEAN PLATELET VOLUME 9.1 fL (7.4-10.4); MONO ABS # 0.74 K/uL (0.11-0.59); NEUT % 79.2 %; NEUT ABS # 9.78 K/uL (1.4-6.5); PLATELET COUNT 250 K/uL (130-400); RED CELL DISTRIBUTION WIDTH CV 18.6 % (11.5-14.5); RED CELL DISTRIBUTION WIDTH SD 60.5 fL (36.4-46.3); WHITE BLOOD COUNT 12.37 K/uL (4.8-10.8)
[2017-12-14 07:44] LABS: CALCIUM 8.7 mg/dl (8.5-10.1); CREATININE 2.83 mg/dl (0.60-1.40)
--- NOTE | 2017-12-14 08:12 | Anesthesiology Progress Note ---
Anesthesia Post Op Note Date & Time Dec 14, 2017 at 08:06 Vital Signs Pain Intensity: 0.0 Vital Signs Past 12 Hours Date Time Temp Pulse Resp B/P (MAP) Pulse Ox O2 Delivery O2 Flow Rate FiO2 12/14/17 07:03 36.6 73 18 174/94 (120) 98 Room Air 12/14/17 02:40 36.7 75 14 156/84 (108) 97 Room Air 12/13/17 23:30 97 Room Air 2.0 12/13/17 23:08 36.5 82 14 159/84 (109) 97 Room Air 12/13/17 22:45 175/89 (117) 12/13/17 21:34 83 171/77 (108) Notes Mental Status: alert / awake / arousable, participated in evaluation Pt Amnestic to Procedure: Yes Nausea / Vomiting: adequately controlled Pain: adequately controlled Airway Patency, RR, SpO2: stable & adequate BP & HR: stable & adequate Hydration State: stable & adequate Anesthetic Complications: no major complications apparent pt states he was told he was combative coming out of anesthesia/PACU.
[2017-12-14] MEDS: CEFUROXIME AXETIL 250 MG TAB PO SCH (08:30)
[2017-12-14] MEDS: METOPROLOL TARTRATE 25 MG TAB PO SCH (08:30)
--- NOTE | 2017-12-14 08:30 | Progress Note ---
Progress Note Date of Service Dec 14, 2017. Progress Note Pt subjectively feeling very well this AM - denies pain - slept well - tolerating his diet O: 12/14/17 06:55 Red Blood Count 3.50, Mean Corpuscular Volume 88.3, Mean Corpuscular Hemoglobin 28.3, Mean Corpuscular Hemoglobin Concent 32.0, Mean Platelet Volume 9.1, Neutrophils (%) (Auto) 79.2, Lymphocytes (%) (Auto) 12.0, Monocytes (%) (Auto) 6.0, Eosinophils (%) (Auto) 0.2, Basophils (%) (Auto) 0.2, Neutrophils # (Auto) 9.78, Lymphocytes # (Auto) 1.49, Monocytes # (Auto) 0.74, Eosinophils # (Auto) 0.03, Basophils # (Auto) 0.03 12/14/17 06:55 Test 12/14/17 06:55 White Blood Count 12.37 K/uL (4.8-10.8) Red Blood Count 3.50 M/uL (4.7-6.1) Hemoglobin 9.9 g/dL (14.0-18.0) Hematocrit 30.9 % (42-52) Mean Corpuscular Volume 88.3 fL (80-100) Mean Corpuscular Hemoglobin 28.3 pg (25-34) Mean Corpuscular Hemoglobin Concent 32.0 g/dl (32-36) Platelet Count 250 K/uL (130-400) Mean Platelet Volume 9.1 fL (7.4-10.4) Neutrophils (%) (Auto) 79.2 % Lymphocytes (%) (Auto) 12.0 % Monocytes (%) (Auto) 6.0 % Eosinophils (%) (Auto) 0.2 % Basophils (%) (Auto) 0.2 % Neutrophils # (Auto) 9.78 K/uL (1.4-6.5) Lymphocytes # (Auto) 1.49 K/uL (1.2-3.4) Monocytes # (Auto) 0.74 K/uL (0.11-0.59) Eosinophils # (Auto) 0.03 K/uL (0-0.5) Basophils # (Auto) 0.03 K/uL (0-0.2) RDW Standard Deviation 60.5 fL (36.4-46.3) RDW Coefficient of Variation 18.6 % (11.5-14.5) Immature Granulocyte % (Auto) 2.4 % Immature Granulocyte # (Auto) 0.30 K/uL (0.00-0.02) Anion Gap 7.0 mmol/L (3-11) Est Creatinine Clear Calc Drug Dose 19.0 ml/min Estimated GFR () 23.8 Estimated GFR (Non- 20.5 BUN/Creatinine Ratio 13.2 (10-20) Calcium Level 8.7 mg/dl (8.5-10.1) Vital Signs Past 12 Hours Date Time Temp Pulse Resp B/P (MAP) Pulse Ox O2 Delivery O2 Flow Rate FiO2 12/14/17 07:40 Room Air 12/14/17 07:03 36.6 73 18 174/94 (120) 98 Room Air 12/14/17 02:40 36.7 75 14 156/84 (108) 97 Room Air 12/13/17 23:30 97 Room Air 2.0 12/13/17 23:08 36.5 82 14 159/84 (109) 97 Room Air 12/13/17 22:45 175/89 (117) 12/13/17 21:34 83 171/77 (108) NAD - slight trouble maintaining his thoughts this AM no resp distress moving all extremities urine relatively clear A/P: POD #1 s/p TURP and left ureteral stent exchange - very large prostate - retention for several months - CKD - no significant change from pre-op to present - adjusted meds, etc yesterday secondary to hyperkalemia - hope that there is some improvement overall from relief of obstruction - attempt a voiding trial this AM - if he does well, plan for d/c home and f/u next week as an outpt
[2017-12-14] MEDS ORDERED: RANITIDINE HCL 150 MG TAB PO SCH (09:00)
[2017-12-14] MEDS ORDERED: DILTIAZEM HCL (TIAzac) 180 MG CAPCR PO SCH (09:00)
[2017-12-14] MEDS ORDERED: MULTIVITAMIN TAB PO SCH (09:00)
[2017-12-14] MEDS ORDERED: TRAM-10 PO (09:38)
--- NOTE | 2017-12-14 09:44 | Discharge Instructions ---
Discharge Instructions Date of Service Dec 14, 2017. Admission Reason for Admission: Benign Prostatic Hyperplasia W/Urinary Obstruction Discharge Discharge Diagnosis / Problem: Benign prostatic hyperplasia with urinary obstruction Discharge Goals Goal(s): Decrease discomfort, Increase independence, Improve disease control, Therapeutic intervention Activity Recommendations Activity Limitations: as noted below Lifting Limitations: no more than 25 pounds (x 2 weeks ) Exercise/Sports Limitations: rest today, gradually increase as tolerated ( light activity x 2 weeks; No heavy lifting, yard work, or riding lawn mowers or farm equipment x 2 weeks ) May Resume Sexual Activity: after follow-up appointment Shower/Bathe: no limitations Driving or Machine Use: resume 3 days after discharge (Do not drive while taking narcotics ) . Instructions / Follow-Up Instructions / Follow-Up 12-16-17 Dr. Dey 2:45pm- Follow-up for kidney function. Please discuss Zantac dosing with Dr. Dey at this time. Discontinue until follow-up with Dr. Dey. The medication needs to be dosed based on kidney function. 12-27-17 Dr. Love 3:20pm- Follow-up for BPH. 01-14-18 Dr. Calvo 10:45am- Follow-up with primary care physician. Recommend you call Dr. Calvo's office to move up appointment for recent abdominal symptoms and high potassium levels while in the hospital. You may resume taking Aspirin in 3 days. You have been prescribed the antibiotic cefuroxime. You have been prescribed 2 doses. Please finish all as directed. Current Hospital Diet Patient's current hospital diet: Regular Diet Discharge Diet Recommended Diet: Regular Diet Procedures Procedures Performed: Transurethral Resection of the Prostate and Stent Exchange Pending Studies Studies pending at discharge: yes (prostate tissue ) List of pending studies: prostate tissue Medical Emergencies . Who to Call and When: Medical Emergencies: If at any time you feel your situation is an emergency, please call 911 immediately. . Non-Emergent Contact Non-Emergency issues call your: Urologist Call Non-Emergent contact if: temperature is above 101.5, your pain is not controlled, your pain is worsening, your pain is unusual for you, your pain is concerning you, you have any medication questions . . "Provider Documentation" section prepared by Sherry Ruelas. . [place] Drug Monitoring Program Search Results: patient reviewed within database, see additional documentation (history of multiple tramadol prescriptions in 2017; nothing since July 2017 )
[2017-12-14] MEDS ORDERED: CEFU1TAB36 PO (10:02)
[2017-12-14 10:25] VITALS: BP 174/94; PULSE 73; TEMP 36.6; O2SAT 98
[2017-12-14 11:15] VITALS: BP 145/90; PULSE 68; O2SAT 97
== END 2017-12-14 11:39 | disposition home or self-care (01) ==
LOC: C.ACU 07:45 → C.MSN 12:09 → ENRESERV 12:33
PROVIDERS: ADMIT Urology; ATTEND Urology
DX: N40.1 Benign prostatic hyperplasia with lower urinary tract symptoms (principal); N13.8 Other obstructive and reflux uropathy; N13.30 Unspecified hydronephrosis; N17.9 Acute kidney failure, unspecified; I10 Essential (primary) hypertension; D64.9 Anemia, unspecified; K21.9 Gastro-esophageal reflux disease without esophagitis; E78.5 Hyperlipidemia, unspecified; M19.90 Unspecified osteoarthritis, unspecified site; M06.9 Rheumatoid arthritis, unspecified; Z82.49 Family history of ischemic heart disease and other diseases of the circulatory system; Z80.3 Family history of malignant neoplasm of breast; Z81.8 Family history of other mental and behavioral disorders; Z87.891 Personal history of nicotine dependence; Z79.82 Long term (current) use of aspirin; Z96.641 Presence of right artificial hip joint; Z96.652 Presence of left artificial knee joint; Z92.241 Personal history of systemic steroid therapy

== ENCOUNTER → 2017-12-23 | Outpatient (CLI) | payer OTHER ==
[~2017-12-23] MED LIST changes: -ASPI81TA28 PO; -CIPROFLOXACIN / D5W 400 MG IV SCH; -DTR/5 PO; -LACTATED RINGER'S 1000ML 1,000 ML IV SCH; -NYSS/ PO; -POTA10CA28 PO; -RANI150T85 PO; -SODIUM CHLORIDE 0.9% 1000ML 1,000 ML IV SCH; -TAMS0.4C38 PO; +TRAM-10 PO
[2017-12-23 17:50] LABS: HEMATOCRIT 27.4 % (42-52); HEMOGLOBIN 8.6 g/dL (14.0-18.0); MEAN CELL VOLUME 91.3 fL (80-100); MEAN CORPUSCULAR HEMOGLOBIN 28.7 pg (25-34); MEAN CORPUSCULAR HGB CONC 31.4 g/dl (32-36); MEAN PLATELET VOLUME 9.8 fL (7.4-10.4); PLATELET COUNT 267 K/uL (130-400); RED CELL DISTRIBUTION WIDTH SD 60.3 fL (36.4-46.3); WHITE BLOOD COUNT 11.87 K/uL (4.8-10.8)
[2017-12-23 18:29] LABS: ALBUMIN 2.7 gm/dl (3.4-5.0); BLOOD UREA NITROGEN 38 mg/dl (7-18); CALCIUM 8.8 mg/dl (8.5-10.1); CARBON DIOXIDE 25 mmol/L (21-32); CREATININE 1.95 mg/dl (0.60-1.40); GLUCOSE 186 mg/dl (70-99); POTASSIUM 4.1 mmol/L (3.5-5.1); SODIUM 140 mmol/L (136-145)
== END | disposition home or self-care (01) ==
LOC: C.LABMFLN 14:16
PROVIDERS: ATTEND Internal Medicine Nephrology
DX: N17.9 Acute kidney failure, unspecified (principal)

== ENCOUNTER → 2017-12-27 | Outpatient (CLI) | payer OTHER ==
[2017-12-27 17:55] LABS: BASO % 0.2 %; BASO ABS # 0.02 K/uL (0-0.2); EOS % 2.3 %; EOS ABS # 0.25 K/uL (0-0.5); HEMATOCRIT 26.6 % (42-52); HEMOGLOBIN 8.5 g/dL (14.0-18.0); IG# 0.21 K/uL (0.00-0.02); LYMPH ABS # 1.92 K/uL (1.2-3.4); MEAN CELL VOLUME 90.8 fL (80-100); MEAN PLATELET VOLUME 9.8 fL (7.4-10.4); MONO % 5.5 %; MONO ABS # 0.59 K/uL (0.11-0.59); NEUT ABS # 7.68 K/uL (1.4-6.5); PLATELET COUNT 275 K/uL (130-400); RED CELL DISTRIBUTION WIDTH CV 17.8 % (11.5-14.5); RED CELL DISTRIBUTION WIDTH SD 59.1 fL (36.4-46.3); WHITE BLOOD COUNT 10.67 K/uL (4.8-10.8)
== END | disposition home or self-care (01) ==
LOC: C.LAB 17:10
PROVIDERS: ATTEND Family Medicine
DX: D50.0 Iron deficiency anemia secondary to blood loss (chronic) (principal); R31.0 Gross hematuria

== ENCOUNTER → 2018-03-08 | Outpatient (CLI) | payer OTHER ==
[2018-01-28 06:09] VITALS: Ht 165.1 cm; Wt 65.9 kg
[2018-02-22 10:02] VITALS: BMI 24.0
[~2018-03-08] VITALS: Ht 165.1 cm; Wt 65.9 kg
[~2018-03-08] MED LIST changes: +AMOX500C3 PO; -FINA5TAB PO; +METO25TA3 PO; -METO50TA16 PO; -TRAM-10 PO
--- NOTE | 2018-03-18 16:19 | CODING QUERY NO DIAGNOSIS ---
TREATMENT RENDERED WITHOUT A DIAGNOSIS 40 To promote full compliance with coding requirements relating to patient care, physician participation is requested in all cases of moth exterminator uncertainty. Please assist us with providing a diagnosis/symptom for the test(s) below: A diagnosis/symptom was not documented on your Order. A valid diagnosis/symptom is required to bill all insurances. Please remember that we are unable to code a diagnosis of rule out, probable, possible, questionable, or suspected. DOS 03/08/18 Tests that require a diagnosis: * TYPE/SCREEN PROFILE DIAGNOSIS: Provider Signature: Date: Thank you Michelle Gurrola Health Information Management Once completed, please kindly fax back to [phone] For questions please call [phone]
== END | disposition home or self-care (01) ==
LOC: C.LAB 08:00 → EDSTATUS 04-06 10:00
PROVIDERS: ATTEND Orthopaedic Surgery Sports Medicine
DX: Z01.818 Encounter for other preprocedural examination (principal)

== ENCOUNTER → 2018-03-18 | Outpatient (CLI) | payer OTHER ==
--- NOTE | 2018-03-18 15:30 | DIAGNOSTIC IMAGING REPORT ---
EXAMINATION: RENAL ULTRASOUND CLINICAL HISTORY: HYDRONEPHROSIS COMPARISON STUDY: 02/21/2018 FINDINGS: The lower pole the right kidney was poorly visualized. There is a 4 mm mid pole right renal cyst. There is no right-sided hydronephrosis. There is moderate left-sided hydronephrosis. This remain similar to the preceding examination. There is a 3.3 cm complex midpole left renal septated lesion. There is bladder wall thickening and irregularity. A right ureteral jet was visualized. The left ureteral jet was not identified. IMPRESSION : 1. Persistent moderate left-sided hydronephrosis 2. Indeterminate 3.3 cm complex mid pole left renal septated lesion 3. Nonvisualization the left ureteral jet 4. Mild lobular bladder wall thickening Electronically signed by: Cheng Duarte M.D. 03/18/2018 3:29 PM Dictated Date/Time: 03/18/2018 3:25 PM
== END | disposition home or self-care (01) ==
LOC: C.ULTRBC 14:47
PROVIDERS: ATTEND Urology
DX: N13.30 Unspecified hydronephrosis (principal)

== ENCOUNTER → 2018-03-21 | Outpatient (CLI) | payer OTHER ==
[2018-03-21 12:49] LABS: HEMATOCRIT 33.4 % (42-52); HEMOGLOBIN 10.5 g/dL (14.0-18.0); MEAN CELL VOLUME 91.5 fL (80-100); MEAN CORPUSCULAR HEMOGLOBIN 28.8 pg (25-34); MEAN CORPUSCULAR HGB CONC 31.4 g/dl (32-36); MEAN PLATELET VOLUME 10.6 fL (7.4-10.4); PLATELET COUNT 216 K/uL (130-400); RED CELL DISTRIBUTION WIDTH CV 15.5 % (11.5-14.5); RED CELL DISTRIBUTION WIDTH SD 52.8 fL (36.4-46.3); WHITE BLOOD COUNT 7.69 K/uL (4.8-10.8)
[2018-03-21 13:18] LABS: ALBUMIN 3.3 gm/dl (3.4-5.0); BLOOD UREA NITROGEN 38 mg/dl (7-18); CALCIUM 8.9 mg/dl (8.5-10.1); CARBON DIOXIDE 23 mmol/L (21-32); CREATININE 2.15 mg/dl (0.60-1.40); GLUCOSE 90 mg/dl (70-99); PHOSPHORUS 2.8 mg/dl (2.5-4.9); POTASSIUM 4.1 mmol/L (3.5-5.1); SODIUM 139 mmol/L (136-145)
== END | disposition home or self-care (01) ==
LOC: C.LABMFLN 10:34
PROVIDERS: ATTEND Internal Medicine Nephrology
DX: E55.9 Vitamin D deficiency, unspecified (principal)

== ENCOUNTER 2018-04-06 07:14 | Inpatient (IN) | payer OTHER ==
[2018-02-22 10:02] VITALS: BMI 24.0
--- NOTE | 2018-04-05 23:59 | HISTORY & PHYSICAL EXAMINATION ---
DATE OF ADMISSION: 04/06/2018 CHIEF COMPLAINT: Chronic right knee pain. HISTORY OF PRESENT ILLNESS: This is a 78-year-old male patient of Dr. Mendoza'becki complaining of chronic right knee pain, longstanding, now progressively getting worse. The patient has failed conservative treatment including intraarticular injections and the use of a cane or walker as well as the use of [id number] Tylenol. The patient has increased pain with weightbearing activities and his pain does interfere with his activities of daily living. PAST MEDICAL HISTORY: Heart murmur, anemia, rheumatoid arthritis, osteoarthritis, BPH, kidney failure, kidney stones. SOCIAL HISTORY: Nonsmoker, nondrinker. PAST SURGICAL HISTORY: Carpal tunnel, vocal cord nodule, right total hip and hernia, both shoulders and a left knee replacement. REVIEW OF SYSTEMS: Chronic right knee pain, otherwise denies any shortness of breath, chest pain, nausea, vomiting, or any other joint complaints. FAMILY HISTORY: Noncontributory. MEDICATIONS: Folic acid 1 mg daily, vitamin C 500 mg daily, a multivitamin daily, Tylenol 325 mg as needed, vitamin D3 1000 units twice daily, prednisone 5 mg daily, Colace 100 mg at bedtime, ferrous sulfate 325 mg daily, ranitidine 150 mg twice daily, Cardizem 180 mg daily, metoprolol 25 mg daily. ALLERGIES: No known drug allergies. PHYSICAL EXAMINATION: GENERAL: Well-developed, well-nourished 78-year-old male in no acute distress. He is alert and oriented x3 and pleasant. HEENT: Normocephalic, atraumatic. Extraocular motions are intact. Pupils are equal and reactive to light. HEART: Regular rate and rhythm. No murmurs appreciated. LUNGS: Clear. ABDOMEN: Soft and nontender. Bowel sounds are present. EXTREMITIES: Right knee: He has a mild effusion with negative 10-130 degrees of motion. There is a varus deformity with medial joint line tenderness. He has 5/5 strength. NEUROLOGICAL: Neurovascularly, he is intact in his right lower extremity. DIAGNOSES: Right knee end-stage osteoarthritis, history of a heart murmur, anemia, rheumatoid arthritis, osteoarthritis, kidney stones, kidney failure, and benign prostatic hypertrophy. PLAN: The patient was advised of his diagnosis. Indications, risks, benefits, postop course have all been reviewed. The patient wished to proceed with a right total knee arthroplasty. Necessary consent forms, preoperative testing, and clearances will be obtained.
[~2018-04-06] VITALS: Ht 165.1 cm; Wt 63.7 kg
[2018-04-06] VITALS (8 sets, daily range): BP systolic 138–165; BP diastolic 69–93; PULSE 59–74; TEMP 36.3–36.6; O2SAT 95–99; Ht 165.1 cm; Wt 63.7 kg
[~2018-04-06 07:14] MED LIST changes: +ACETAMINOPHEN 500 MG TAB PO SCH; +BUPIVACAINE 0.5 % 5 MG/1 ML PF 10ML VIAL ONE; +CEFAZOLIN 1000MG IV PUSH 7.5 ML IV SCH; +CeleBREX 200 MG CAP PO SCH; +DEXAMETHASONE 4 MG TAB PO SCH; +FAMOTIDINE 20 MG TAB PO SCH; +GABAPENTIN 300 MG CAP PO SCH; +HYDROCORTISONE SOD SUCCINATE 100 MG/2 ML VIAL IV SCH; +METOCLOPRAMIDE HCL 10 MG TAB PO SCH; +ROPIVACAINE 0.5% 5 MG/ML 30 ML VIAL ONE; +ROPIVACAINE 5MG/ML 30 ML 150 MG, BUPIVACAINE 0.5% MPF INJ 30 ML, EpINEphrine HCL INJ 0.... INFIL SCH; +SODIUM CHLORIDE 0.9% 1000ML 1,000 ML IV SCH
[2018-04-06] MEDS: TRANEXAMIC ACID INJ 1,000 MG x 2 Bags IV SCH ×4 (10:10→14:22)
[2018-04-06] MEDS ORDERED: POVIDONE-IODINE OP SOLN 30 ML BTL ONE (10:33)
[2018-04-06] MEDS ORDERED: BACITRACIN 50000 UNIT VIAL ONE (10:33)
[2018-04-06] MEDS ORDERED: ORTHO JOINT ANESTHETIC ONE (10:33)
--- NOTE | 2018-04-06 12:54 | [facility] Post Operative Brief Note ---
Immediate Operative Summary Operative Date Apr 06, 2018. Pre-Operative Diagnosis Right Knee End-Stage Osteoarthritis and rheumatoid arthritis Post-Operative Diagnosis Right Knee End-Stage Osteoarthritis and rheumatoid arthritis Procedure(s) Performed Right Total Knee Arthroplasty Surgeon Dr Mendoza Cleaning Custodian Surgeon(s) Kalia Walls Pa-C Estimated Blood Loss 5cc Findings Consistent with Post-Op Diagnosis Specimens A: Right Knee Bone and Tissue Drains 2 hemovac Anesthesia Type MAC Spinal Regional Complication(s) none Disposition Accompanied Pt To Recover: no Disposition: Recovery Room / PACU Overlapping Procedure I was immediately available: during the entire case
[2018-04-06] MEDS ORDERED: ONDANSETRON INJ 2 MG/ML 2 ML VIAL IV PRN (13:00)
[2018-04-06] MEDS ORDERED: TAMSULOSIN HCL 0.4 MG CAP PO PRN (13:00)
[2018-04-06] MEDS ORDERED: OXYCODONE HCL IR 5 MG TAB (IMMEDIATE RELEASE) PO PRN (13:00)
[2018-04-06] MEDS ORDERED: MAGNESIUM HYDROXIDE SUSP 30 ML UDC PO PRN (13:00)
[2018-04-06] MEDS ORDERED: SILVER SULFADIAZINE 1% CR 50 GM JAR EXT PRN (13:00)
[2018-04-06] MEDS ORDERED: BISACODYL 10 MG SUPP PR PRN (13:00)
[2018-04-06] MEDS ORDERED: MoRPHine SULFATE 2 MG/ML CARP IV PRN (13:00)
--- NOTE | 2018-04-06 13:04 | [facility] Operative Report ---
Operative Report Operative Date Apr 06, 2018. Pre-Operative Diagnosis Right Knee End-Stage Osteoarthritis and rheumatoid arthritis Post-Operative Diagnosis Same Procedure(s) Performed Right total knee arthroplasty Surgeon Dr Mendoza [place] Attendant Surgeon(s) Kalia Walls Pa-C Estimated Blood Loss 5cc Findings Tricompartmental DJD grade 4 [id number] medial compartment grade 4 patellofemoral joint evidence of osteo-and rheumatoid arthritis Specimens A: Right Knee Bone and Tissue Drains 2 hemovac Anesthesia Spinal sedation adductor nerve block and orthomix Complication(s) None Disposition Recovery Room / PACU Indications End-stage right knee osteoarthritis and rheumatoid arthritis [id number] medial compartment and patellofemoral joint history of successful left knee replacement. Description of Procedure The patient was taken to the operating room and anesthetized under spinal sedation adductor nerve block. Patient was placed supine on the the operating table. A pneumatic tourniquet was placed about the right upper thigh. The knee exam demonstrated good range of motion slight flexion contracture only, flexion to 145, varus knee [id number] crepitation and moderately large effusion. The involved leg was elevated exsanguinated with Esmarch bandage and the pneumatic tourniquet was raised to 300 millimeters mercury. A longitudinal incision was made across the anterior knee. Skin flaps were elevated. An incision was made into the medial retinaculum and extended up into the mid third of the quadriceps tendon and extended down to the tibial tubercle. Intra- articular findings demonstrated tricompartmental DJD osteoarthritis and rheumatoid arthritis with grade 4 patellofemoral DJD lateral patellofemoral joint and grade 4 medial compartment DJD but tricompartmental osteoarthritis. The knee was exposed by excising cruciate ligaments and menisci. The infrapatellar fat pad was resected. The fat pad over the anterior femur at the upper aspect of the articular surface was resected for placement of the component in that area. A subperiosteal peel lateral release was performed around the patella. To balance the knee had to perform subperiosteal and posterior medial releases around the medial side and piecrust the MCL. The [employer] journey 2.0 total knee arthroplasty system was utilized for the procedure. The custom femoral cutting guide was pinned in position. The distal femoral cut was made. The size 6 femoral, 5 in 1 cutting block was placed. The anterior posterior and chamfer cuts were made. The knee was extended and a free hand cut technique was performed to the patella. The patella with was measured and the width was reproduced using a 38 symmetrical patella component. 3 drill holes are made for the patella component pegs. The tibia was then subluxed. The custom tibial cutting block was pinned in position and the proximal tibial cut was made with the oscillating saw. The size 5 tibial trial was externally rotated in line with the tibial tubercle and pinned in position. The punch for the stem was used. The femoral trial was inserted and centered the notch cutting devices were used and the collet was placed. Tibial trials were used for the insert. The size 15 trial gave balanced ligaments through full range of motion. Patella tracking was assessed with range of motion. The patella tracked centrally. The trials were removed. The Orthomix anesthetic cocktail was injected per protocol. The cut bone surfaces and soft tissue were copiously irrigated with antibiotic solution with bacitracin. The final components were cemented with Simplex cement. The final components were [employer] journey 2.0 size 6 right femur, 5 tibial baseplate, 15 high flex poly-posterior stabilized insert, 38 symmetrical patella. While the cement cured the Betadine soak was used per protocol. When the cement cured the knee was copiously irrigated with pulsatile lavage antibiotic solution with bacitracin. 2 drains were brought out laterally connected to Hemovac. The quadriceps tendon and medial retinaculum were closed with interrupted [id number] #1 Vicryl sutures. The knee was taken through full range of motion and repair was secure. The subcutaneous tissues were closed with 2-0 Vicryl sutures. The skin was closed with corinne. A sterile Silverlon dressing was applied. The tourniquet was let down and the patient had good capillary refill to the extremity. The patient tolerated the procedure well. My physician medical assistant prn Kalia Walls assisted in the procedure including prepping draping leg positioning soft tissue retraction instrument management and assisted in the closure ,dressings application and will participate in postoperative care the patient. I attest to the content of the Intraoperative Record and any orders documented therein. Any exceptions are noted below.
--- NOTE | 2018-04-06 13:28 | DIAGNOSTIC IMAGING REPORT ---
TWO VIEWS RIGHT KNEE CLINICAL HISTORY: Postoperative examination. FINDINGS: AP and crosstable lateral portable views of the right knee are obtained. A right knee arthroplasty is in near anatomic alignment. There has been undersurface remodeling of the patella. No acute fracture is seen. There are expected postoperative changes around the knee including skin clips, a surgical drain, soft tissue edema, and subcutaneous gas. IMPRESSION: Expected postoperative changes status post right knee arthroplasty. No acute fracture is seen. Electronically signed by: Haider Mullins M.D. 04/06/2018 1:27 PM Dictated Date/Time: 04/06/2018 1:27 PM
--- NOTE | 2018-04-06 13:31 | Anesthesiology Progress Note ---
Anesthesia Post Op Note Date & Time Apr 06, 2018 at 13:30 Vital Signs Pain Intensity: 0 Vital Signs Past 12 Hours Date Time Temp Pulse Resp B/P (MAP) Pulse Ox O2 Delivery O2 Flow Rate FiO2 04/06/18 13:25 67 16 145/84 100 Room Air 04/06/18 13:15 59 16 145/77 100 Room Air 04/06/18 13:05 60 16 143/81 99 Room Air 04/06/18 12:57 36.0 60 16 141/74 98 Room Air 04/06/18 07:49 36.6 63 18 148/93 99 Room Air Notes Mental Status: alert / awake / arousable, participated in evaluation Pt Amnestic to Procedure: Yes Nausea / Vomiting: adequately controlled Pain: adequately controlled Airway Patency, RR, SpO2: stable & adequate BP & HR: stable & adequate Hydration State: stable & adequate Anesthetic Complications: no major complications apparent
[2018-04-06] MEDS ORDERED: NURSING VERBAL MED ORDER ONE (14:30)
[2018-04-06] MEDS: ACETAMINOPHEN 500 MG TAB PO SCH ×2 (14:59→22:05)
[2018-04-06] MEDS: HYDROCORTISONE IV 100 MG in SYRINGE 0 ML IV SCH ×2 (15:46→23:36)
[2018-04-06] MEDS: CEFAZOLIN IV 1,000 MG in SYRINGE 0 ML IV SCH ×2 (15:46→23:36)
[2018-04-06] MEDS: D5W AND 1/2NSS + 20MEQ KCL 1,000 ML IV SCH (20:00)
[2018-04-06] MEDS: SENNA 8.6 MG TAB PO SCH (22:03)
[2018-04-06] MEDS: FERROUS SULFATE 325 MG TAB PO SCH (22:03)
[2018-04-06] MEDS: DOCUSATE SODIUM 100 MG CAP PO SCH (22:05)
[2018-04-06] MEDS: ASPIRIN 81 MG ECTAB PO SCH (22:07)
[2018-04-07] VITALS (8 sets, daily range): BP systolic 151–182; BP diastolic 74–88; PULSE 45–81; TEMP 36.4–36.7; O2SAT 96–100
--- NOTE | 2018-04-07 01:28 | Medical Consult ---
Consultation Date of Consultation: Apr 07, 2018. Attending Physician: Javy Mendoza M.D. Past Medical/Surgical History Medical Problems: Osteoarthritis Anemia of chronic disease Rheumatoid arthritis on Prednisone BPH CKD Nephrolithiasis Past Surgical History: Inguinal hernia Left knee Left hip Nasal septoplasty CT release Rotator cuff Family History FH: CAD (coronary artery disease) BROTHER FH: cancer Social History Smoking Status: Former Smoker Marital Status: Housing Status: lives with family Occupation Status: retired Allergies Coded Allergies: Clavulanic Acid (Verified Allergy, Unknown, AFFECTED KIDNEY, 04/06/18) Lisinopril (Verified Adverse Reaction, Mild, COUGH, 04/06/18) Proton Pump Inhibitors (Unverified Adverse Reaction, Unknown, 'affected kidneys' per chart, 04/06/18) Current Inpatient Medications Current Inpatient Medications Medications (Trade) Dose Ordered Sig/Yrn Route Start Time Stop Time Status Last Admin Dose Admin Ascorbic Acid (Vitamin C Tab) 500 mg QAM PO 04/07/18 09:00 05/07/18 08:59 Diltiazem HCl (TIAzac CAP) 180 mg QAM PO 04/07/18 09:00 05/07/18 08:59 Folic Acid (Folvite Tab) 1 mg QAM PO 04/07/18 09:00 05/07/18 08:59 Metoprolol Succinate (Toprol Xl Tab) 25 mg QAM PO 04/07/18 09:00 05/07/18 08:59 Prednisone (PredniSONE TAB) 5 mg DAILY PO 04/07/18 09:00 05/07/18 08:59 Ferrous Sulfate (Feosol Tab) 325 mg BID PO 04/06/18 21:00 05/06/18 20:59 04/06/18 22:03 325 MG Hydrocortisone Sodium Succinate 100 mg/Syringe 2 ml @ 4 mls/min Q8H IV 04/06/18 16:00 04/07/18 08:01 04/06/18 23:36 4 MLS/MIN Potassium Chloride/Dextrose/ Sod Cl 1,000 ml @ 100 mls/hr Q10H IV 04/06/18 15:00 04/07/18 12:55 04/06/18 20:00 100 MLS/HR Oxycodone HCl (Roxicodone Immediate Rel Tab) 1 TABLET FOR PAIN RATING... Q4H PRN PO 04/06/18 13:00 8/29/18 12:59 Morphine Sulfate (MoRPHine SULFATE INJ) 2 mg Q4H PRN IV 04/06/18 13:00 04/20/18 12:59 Acetaminophen (Tylenol Tab) 1,000 mg Q8H PO 04/06/18 14:00 05/06/18 12:59 04/06/18 22:05 1,000 MG Magnesium Hydroxide (Milk Of Magnesia Susp) 30 ml Q6H PRN PO 04/06/18 13:00 05/06/18 12:59 Bisacodyl (Dulcolax Supp) 10 mg DAILY PRN CA 04/06/18 13:00 05/06/18 12:59 Senna (Senokot Tab) 17.2 mg HS PO 04/06/18 21:00 05/06/18 20:59 04/06/18 22:03 17.2 MG Docusate Sodium (coLACE CAP) 100 mg BID PO 04/06/18 21:00 05/06/18 20:59 04/06/18 22:05 100 MG Multivitamins (Multivitamin Tab) 1 tab QAM PO 04/07/18 09:00 05/07/18 08:59 Ondansetron HCl (Zofran Inj) 4 mg Q6H PRN IV 04/06/18 13:00 05/06/18 12:59 Silver Sulfadiazine (Silvadene 1% Crm 50GM Jar) 1 appln BID PRN EXT 04/06/18 13:00 05/06/18 12:59 Tamsulosin HCl (Flomax Cap) 0.4 mg QAM PRN PO 04/06/18 13:00 05/06/18 12:59 Aspirin (Ecotrin Tab) 81 mg BID PO 04/06/18 21:00 05/06/18 20:59 04/06/18 22:07 81 MG Haloperidol Lactate (Haldol Inj) 0.5 mg HS PRN IV 04/07/18 01:30 05/07/18 01:29 UNV Physical Exam Date Time Temp Pulse Resp B/P (MAP) Pulse Ox O2 Delivery O2 Flow Rate FiO2 04/06/18 23:01 36.4 63 18 161/89 (113) 97 Room Air 04/06/18 19:30 36.4 72 17 149/83 (105) 98 Room Air 8/15/18 16:50 36.5 74 17 139/72 (94) 96 Room Air 04/06/18 15:54 Room Air 04/06/18 15:50 36.5 72 17 138/69 (92) 97 Room Air 04/06/18 14:57 36.3 73 17 165/88 (113) 98 Room Air 04/06/18 14:25 36.4 59 18 161/85 (110) 95 Room Air 04/06/18 13:50 Room Air 04/06/18 13:50 36.5 66 15 152/75 (100) 99 Room Air 04/06/18 13:50 Room Air 04/06/18 13:35 64 16 144/80 100 Room Air 04/06/18 13:25 36.2 67 16 145/84 100 Room Air 04/06/18 13:15 59 16 145/77 100 Room Air 04/06/18 13:05 60 16 143/81 99 Room Air 04/06/18 12:57 36.0 60 16 141/74 98 Room Air 04/06/18 07:49 36.6 63 18 148/93 99 Room Air
[2018-04-07] MEDS ORDERED: HALOPERIDOL LACTATE 5 MG/ML 1 ML VIAL IM PRN ×2 (01:30→02:00)
[2018-04-07] MEDS ORDERED: HALOPERIDOL LACTATE 5 MG/ML 1 ML VIAL IV PRN (01:30)
[2018-04-07] MEDS: D5W AND 1/2NSS + 20MEQ KCL 1,000 ML IV SCH (05:38)
[2018-04-07] MEDS: ACETAMINOPHEN 500 MG TAB PO SCH ×3 (05:39→20:53)
[2018-04-07 07:15] LABS: HEMOGLOBIN 10.1 g/dL (14.0-18.0); MEAN CELL VOLUME 90.7 fL (80-100); MEAN CORPUSCULAR HEMOGLOBIN 28.6 pg (25-34); MEAN CORPUSCULAR HGB CONC 31.6 g/dl (32-36); MEAN PLATELET VOLUME 10.4 fL (7.4-10.4); PLATELET COUNT 246 K/uL (130-400); RED CELL DISTRIBUTION WIDTH CV 15.1 % (11.5-14.5); RED CELL DISTRIBUTION WIDTH SD 50.3 fL (36.4-46.3); WHITE BLOOD COUNT 16.01 K/uL (4.8-10.8)
[2018-04-07 07:44] LABS: CALCIUM 8.8 mg/dl (8.5-10.1); CREATININE 2.28 mg/dl (0.60-1.40); POTASSIUM 4.8 mmol/L (3.5-5.1)
--- NOTE | 2018-04-07 07:48 | Orthopedic Progress Note ---
Orthopedic Progress Note Date of Service Apr 07, 2018. Subjective Post OP Day: 1 Reports: feeling well, Denies: complaints Additional Notes: Pt had EKG this AM due to bradycardia (45). Pt states that his heart rate is normally slow. Denies LH, SOB, CP, vertigo. Pain controlled presently. Objective calves soft nontender, N/V intact, dressing C/D/I, A&O x3, toes mobile, hemovac drainage (150ml latest shift) Date Time Temp Pulse Resp B/P (MAP) Pulse Ox O2 Delivery O2 Flow Rate FiO2 04/07/18 07:41 36.6 45 16 151/76 (101) 98 Room Air 04/07/18 02:53 36.6 81 16 152/77 (102) 96 Room Air 04/06/18 23:40 Room Air 04/06/18 23:01 36.4 63 18 161/89 (113) 97 Room Air 04/06/18 19:30 36.4 72 17 149/83 (105) 98 Room Air 04/06/18 16:50 36.5 74 17 139/72 (94) 96 Room Air 04/06/18 15:54 Room Air 04/06/18 15:50 36.5 72 17 138/69 (92) 97 Room Air 04/06/18 14:57 36.3 73 17 165/88 (113) 98 Room Air 04/06/18 14:25 36.4 59 18 161/85 (110) 95 Room Air 04/06/18 13:50 Room Air 04/06/18 13:50 36.5 66 15 152/75 (100) 99 Room Air 04/06/18 13:50 Room Air 04/06/18 13:35 64 16 144/80 100 Room Air 04/06/18 13:25 36.2 67 16 145/84 100 Room Air 04/06/18 13:15 59 16 145/77 100 Room Air 04/06/18 13:05 60 16 143/81 99 Room Air 04/06/18 12:57 36.0 60 16 141/74 98 Room Air 04/06/18 07:49 36.6 63 18 148/93 99 Room Air Laboratory Results 24 Hours: Test 04/07/18 06:11 Hematocrit 32.0 % Hemoglobin 10.1 g/dL Assessment & Plan Assessment: POD 1 s/p Right TKA asymptomatic bradycardia Plan: Medical management to assess bradycardia PT/OT if continues to remain asymptomatic Planning for HH PT Inhouse Planning Pain Management: Morphine, PO Tylenol, Oxy IR DVT Prophylaxis: TEDs, SCDs, ASA Discharge Planning Discharge Planning: home with home health
[2018-04-07] MEDS: METOPROLOL SUCC 25MG EXT REL TAB PO SCH (09:00)
[2018-04-07] MEDS: DILTIAZEM HCL (TIAzac) 180 MG CAPCR PO SCH ×2 (09:00→09:27)
[2018-04-07] MEDS: FERROUS SULFATE 325 MG TAB PO SCH ×2 (09:21→20:52)
[2018-04-07] MEDS: MULTIVITAMIN TAB PO SCH (09:26)
[2018-04-07] MEDS: ASCORBIC ACID 500 MG TAB PO SCH (09:27)
[2018-04-07] MEDS: DOCUSATE SODIUM 100 MG CAP PO SCH ×2 (09:27→20:52)
[2018-04-07] MEDS: ASPIRIN 81 MG ECTAB PO SCH ×2 (09:28→20:52)
--- NOTE | 2018-04-07 09:55 | Anesthesiology Progress Note ---
Anesthesia Post Op Note Date & Time Apr 07, 2018 at 09:54 Vital Signs Pain Intensity: 1.0 Vital Signs Past 12 Hours Date Time Temp Pulse Resp B/P (MAP) Pulse Ox O2 Delivery O2 Flow Rate FiO2 04/07/18 07:50 Room Air 04/07/18 07:41 36.6 45 16 151/76 (101) 98 Room Air 04/07/18 07:20 48 04/07/18 02:53 36.6 81 16 152/77 (102) 96 Room Air 04/06/18 23:40 Room Air 04/06/18 23:01 36.4 63 18 161/89 (113) 97 Room Air Notes Mental Status: alert / awake / arousable, participated in evaluation Pt Amnestic to Procedure: Yes Nausea / Vomiting: adequately controlled Pain: adequately controlled Airway Patency, RR, SpO2: stable & adequate BP & HR: stable & adequate Hydration State: stable & adequate Neuraxial Anesthesia: sensory block resolved Anesthetic Complications: no major complications apparent
--- NOTE | 2018-04-07 10:25 | Medical Consult ---
Consultation Date of Consultation: Apr 07, 2018. Attending Physician: Javy Mendoza M.D. Reason for Consultation: Medical management History of Present Illness This is a 78 y/o male with a history of HTN, HLD, CKD stage IV, RA, BPH, h/o urinary retention and hydronephrosis s/p TURP, recurrent UTI, chronic anemia, osteopenia, and GERD who presents s/p right TKA with Dr. Mendoza on 04/06 for medical management. The patient reports feeling well postoperatively. He states his pain is very well controlled. He denies any numbness or tingling. He was up walking with physical therapy and states that went well without any DENNY, dizziness, lightheadedness, chest pain, or unsteadiness. He is tolerating a PO diet well. He is voiding on his own but states that the stream is somewhat decreased compared to normal. He has not yet passed gas or had a bowel movement. The patient denies fevers, chills, sweats, chest pain, palpitations, claudication, cough, wheezing, shortness of breath, nausea, vomiting, abdominal pain, dysuria, hematuria, urinary retention, paralysis, weakness, numbness and tingling. Per nursing, the patient did have delirium and agitation last night, but he has a history of this. He is currently oriented, calm and cooperative. Past Medical/Surgical History Medical Problems: (1) Acute renal failure Status: Acute (2) Acute urinary retention Status: Acute (3) Complication of catheter Status: Acute (4) Encounter for Geiger catheter replacement Status: Acute (5) Leukocytosis Status: Acute (6) Urinary tract infection Status: Acute (7) UTI (urinary tract infection) Status: Acute HTN HLD CKD stage IV RA BPH Urinary retention and hydronephrosis s/p TURP Recurrent UTI Chronic anemia Osteopenia GERD Surgical history: Hernia Repair Nasal septoplasty Rotator cuff repair Carpal tunnel release Family History FH: CAD (coronary artery disease) BROTHER FH: cancer (prostate, breast) Hypertension Myocardial infarction Social History Smoking Status: Former Smoker (quit 40 years ago) Smokeless Tobacco Use: No Alcohol Use: occasionally (wine) Marital Status: Housing Status: lives with significant other Occupation Status: retired Allergies Coded Allergies: Clavulanic Acid (Verified Allergy, Unknown, AFFECTED KIDNEY, 04/06/18) Lisinopril (Verified Adverse Reaction, Mild, COUGH, 04/06/18) Proton Pump Inhibitors (Unverified Adverse Reaction, Unknown, 'affected kidneys' per chart, 04/06/18) Current Inpatient Medications Current Inpatient Medications Medications (Trade) Dose Ordered Sig/Yrn Route Start Time Stop Time Status Last Admin Dose Admin Ascorbic Acid (Vitamin C Tab) 500 mg QAM PO 04/07/18 09:00 05/07/18 08:59 Diltiazem HCl (TIAzac CAP) 180 mg QAM PO 04/07/18 09:00 05/07/18 08:59 Folic Acid (Folvite Tab) 1 mg QAM PO 04/07/18 09:00 05/07/18 08:59 Metoprolol Succinate (Toprol Xl Tab) 25 mg QAM PO 04/07/18 09:00 05/07/18 08:59 Prednisone (PredniSONE TAB) 5 mg DAILY PO 04/07/18 09:00 05/07/18 08:59 Ferrous Sulfate (Feosol Tab) 325 mg BID PO 04/06/18 21:00 05/06/18 20:59 04/06/18 22:03 325 MG Potassium Chloride/Dextrose/ Sod Cl 1,000 ml @ 100 mls/hr Q10H IV 04/06/18 15:00 04/07/18 12:55 04/07/18 05:38 100 MLS/HR Oxycodone HCl (Roxicodone Immediate Rel Tab) 1 TABLET FOR PAIN RATING... Q4H PRN PO 04/06/18 13:00 04/20/18 12:59 Morphine Sulfate (MoRPHine SULFATE INJ) 2 mg Q4H PRN IV 04/06/18 13:00 04/20/18 12:59 Acetaminophen (Tylenol Tab) 1,000 mg Q8H PO 04/06/18 14:00 05/06/18 12:59 04/07/18 05:39 1,000 MG Magnesium Hydroxide (Milk Of Magnesia Susp) 30 ml Q6H PRN PO 04/06/18 13:00 05/06/18 12:59 Bisacodyl (Dulcolax Supp) 10 mg DAILY PRN [place] 04/06/18 13:00 05/06/18 12:59 Senna (Senokot Tab) 17.2 mg HS PO 04/06/18 21:00 05/06/18 20:59 04/06/18 22:03 17.2 MG Docusate Sodium (coLACE CAP) 100 mg BID PO 04/06/18 21:00 05/06/18 20:59 04/06/18 22:05 100 MG Multivitamins (Multivitamin Tab) 1 tab QAM PO 04/07/18 09:00 05/07/18 08:59 Ondansetron HCl (Zofran Inj) 4 mg Q6H PRN IV 04/06/18 13:00 05/06/18 12:59 Silver Sulfadiazine (Silvadene 1% Crm 50GM Jar) 1 appln BID PRN EXT 04/06/18 13:00 05/06/18 12:59 Tamsulosin HCl (Flomax Cap) 0.4 mg QAM PRN PO 04/06/18 13:00 05/06/18 12:59 Aspirin (Ecotrin Tab) 81 mg BID PO 04/06/18 21:00 05/06/18 20:59 04/06/18 22:07 81 MG Haloperidol Lactate (Haldol Inj) 0.5 mg HS PRN IM 04/07/18 02:00 05/07/18 01:59 Review of Systems See HPI for pertinent positives and negatives. All other systems reviewed and negative. Physical Exam Date Time Temp Pulse Resp B/P (MAP) Pulse Ox O2 Delivery O2 Flow Rate FiO2 04/07/18 07:50 Room Air 04/07/18 07:41 36.6 45 16 151/76 (101) 98 Room Air 04/07/18 07:20 48 04/07/18 02:53 36.6 81 16 152/77 (102) 96 Room Air 04/06/18 23:40 Room Air 04/06/18 23:01 36.4 63 18 161/89 (113) 97 Room Air 04/06/18 19:30 36.4 72 17 149/83 (105) 98 Room Air 04/06/18 16:50 36.5 74 17 139/72 (94) 96 Room Air 04/06/18 15:54 Room Air 04/06/18 15:50 36.5 72 17 138/69 (92) 97 Room Air 04/06/18 14:57 36.3 73 17 165/88 (113) 98 Room Air 04/06/18 14:25 36.4 59 18 161/85 (110) 95 Room Air 04/06/18 13:50 Room Air 04/06/18 13:50 36.5 66 15 152/75 (100) 99 Room Air 04/06/18 13:50 Room Air 04/06/18 13:35 64 16 144/80 100 Room Air 04/06/18 13:25 36.2 67 16 145/84 100 Room Air 04/06/18 13:15 59 16 145/77 100 Room Air 04/06/18 13:05 60 16 143/81 99 Room Air 04/06/18 12:57 36.0 60 16 141/74 98 Room Air General appearance: Well-developed, well-nourished, no apparent distress Head: Normocephalic, atraumatic Eyes: Normal inspection, PERRL, EOMI ENT: Normal ENT inspection, hearing grossly normal, pharynx normal Neck: Supple, no JVD, trachea midline Respiratory/Chest: Lungs clear to auscultation, normal breath sounds, no respiratory distress Cardiovascular: +Systolic murmur. Bradycardic. Regular rhythm, no gallop Abdomen/GI: Normal bowel sounds, non-tender, soft Extremities/Musculoskeletal: +RLE wrapped in chente bandage, hemovac in place. No calf tenderness, no pedal edema Neurological/Psych: Alert, normal mood/affect, oriented x 3 Skin: Normal color, warm/dry, no rash Laboratory Results Last 24 Hours Test 04/07/18 06:11 White Blood Count 16.01 K/uL Red Blood Count 3.53 M/uL Hemoglobin 10.1 g/dL Hematocrit 32.0 % Mean Corpuscular Volume 90.7 fL Mean Corpuscular Hemoglobin 28.6 pg Mean Corpuscular Hemoglobin Concent 31.6 g/dl RDW Standard Deviation 50.3 fL RDW Coefficient of Variation 15.1 % Platelet Count 246 K/uL Mean Platelet Volume 10.4 fL Sodium Level 137 mmol/L Potassium Level 4.8 mmol/L Chloride Level 108 mmol/L Carbon Dioxide Level 23 mmol/L Anion Gap 6.0 mmol/L Blood Urea Nitrogen 42 mg/dl Creatinine 2.28 mg/dl Est Creatinine Clear Calc Drug Dose 23.2 ml/min Estimated GFR () 30.7 Estimated GFR (Non- 26.5 BUN/Creatinine Ratio 18.6 Random Glucose 155 mg/dl Calcium Level 8.8 mg/dl Assessment & Plan 78 y/o male with a history of HTN, HLD, CKD stage IV, RA, BPH, h/o urinary retention and hydronephrosis s/p TURP, recurrent UTI, chronic anemia, osteopenia , and GERD who presents s/p right TKA with Dr. Mendoza on 04/06 for medical management. S/p right TKA--POD #1 -Pain management, DVT prophylaxis, and PT/OT as per primary team Delirium--resolved -Pt had some postop delirium/agitation last night, per nursing he has a history of this after surgery -Haldol 0.5 mg IM hs prn agitation ordered Asymptomatic bradycardia -HR in 40s this morning. Pt states he has always had a slower HR even when he was young -Hold Toprol and diltiazem for now -EKG unremarkable, sinus bradycardia in the 50s HTN, HLD--stable -Hold Toprol and diltiazem as above given bradycardia, continue to hold for HR less than 60 -Cover with hydralazine 10 mg IV q6h prn SBP >180 CKD stage IV--stable -Baseline creatinine is highly variable, between 1.9-2.5 -Creatinine 2.28 on 04/07, similar to preop labs (2.15 at that time) RA--stable -Continue prednisone 5 mg PO qd -Hemodynamically stable, would not give further stress dose steroids at this time BPH, h/o urinary retention and hydronephrosis s/p recent TURP--stable, voiding on his own postop -Pt follows with urology, had recent TURP due to enlarged prostate causing urinary retention, hydronephrosis and TYRONE. May need another TURP per outpt records Anemia of chronic disease, JESS--stable -Baseline Hgb 9-10 -Hgb 10.1 on 04/07 -Continue iron supplement and vitamin C Osteopenia -Continue vitamin D supplement GERD -Pt states he no longer takes Zantac, does not tolerate PPIs per allergy list Code Status -Level I, FULL RESUSCITATION STATUS Thank you for this consultation. We will continue to follow.
[2018-04-07] MEDS: HYDROCORTISONE IV 100 MG in SYRINGE 0 ML IV SCH (10:45)
[2018-04-07] MEDS ORDERED: HydrALAZINE HCL 20 MG/ML VIAL IV. PRN (11:15)
[2018-04-07] MEDS: TRAMADOL HCL 50 MG TAB PO PRN (16:26)
[2018-04-07] MEDS: SENNA 8.6 MG TAB PO SCH (20:52)
[2018-04-08 00:12] VITALS: BP 163/91
[2018-04-08] MEDS: TRAMADOL HCL 50 MG TAB PO PRN ×3 (04:09→13:13)
[2018-04-08] MEDS: ACETAMINOPHEN 500 MG TAB PO SCH (05:35)
[2018-04-08 06:11] LABS: HEMATOCRIT 30.5 % (42-52); HEMOGLOBIN 9.5 g/dL (14.0-18.0); MEAN CORPUSCULAR HGB CONC 31.1 g/dl (32-36); MEAN PLATELET VOLUME 10.3 fL (7.4-10.4); PLATELET COUNT 208 K/uL (130-400); RED CELL DISTRIBUTION WIDTH CV 15.2 % (11.5-14.5); RED CELL DISTRIBUTION WIDTH SD 49.7 fL (36.4-46.3)
[2018-04-08 06:38] LABS: CALCIUM 8.9 mg/dl (8.5-10.1); CREATININE 2.09 mg/dl (0.60-1.40); POTASSIUM 4.3 mmol/L (3.5-5.1)
[2018-04-08 06:47] VITALS: BP 165/89; PULSE 57; TEMP 36.7; O2SAT 99
[2018-04-08] MEDS: DOCUSATE SODIUM 100 MG CAP PO SCH (08:12)
[2018-04-08] MEDS: METOPROLOL SUCC 25MG EXT REL TAB PO SCH (08:12)
[2018-04-08] MEDS: MULTIVITAMIN TAB PO SCH (08:13)
[2018-04-08] MEDS: ASPIRIN 81 MG ECTAB PO SCH (08:14)
[2018-04-08] MEDS: FERROUS SULFATE 325 MG TAB PO SCH (08:14)
[2018-04-08] MEDS: ASCORBIC ACID 500 MG TAB PO SCH (08:14)
[2018-04-08] MEDS: DILTIAZEM HCL (TIAzac) 180 MG CAPCR PO SCH (08:15)
--- NOTE | 2018-04-08 08:39 | Orthopedic Progress Note ---
Orthopedic Progress Note Date of Service Apr 08, 2018. Subjective Post OP Day: 2 Reports: feeling well Additional Notes: Mild knee soreness today but otherwise feeling well. Objective calves soft nontender, N/V intact, dressing C/D/I (Silverlon intact), A&O x3, toes mobile Date Time Temp Pulse Resp B/P (MAP) Pulse Ox O2 Delivery O2 Flow Rate FiO2 04/08/18 08:22 Room Air 04/08/18 06:47 36.7 57 16 165/89 (114) 99 Room Air 04/08/18 00:12 163/91 (115) 04/07/18 22:48 36.7 60 16 182/87 (118) 97 Room Air 04/07/18 19:45 Room Air 04/07/18 15:25 36.6 70 16 153/88 (109) 96 Room Air 04/07/18 13:14 71 168/74 (105) 04/07/18 11:58 36.4 46 16 170/84 (112) 99 Room Air 04/07/18 11:54 70 100 Laboratory Results 24 Hours: Test 04/08/18 05:31 Hematocrit 30.5 % Hemoglobin 9.5 g/dL Assessment & Plan Assessment: POD 2 s/p Right TKA asymptomatic bradycardia Plan: Medical management PT/OT Planning for HH PT Plan for dc today if ok with Med Service Inhouse Planning Pain Management: Morphine, PO Tylenol, Oxy IR DVT Prophylaxis: TEDs, SCDs, ASA Discharge Planning Discharge Planning: home with home health
[2018-04-08] MEDS ORDERED: SENN-61 PO (08:44)
[2018-04-08] MEDS ORDERED: TYLOTC500 PO (08:44)
[2018-04-08] MEDS ORDERED: ASPI-461 PO (08:44)
[2018-04-08] MEDS ORDERED: RXC5 PO ×2 (08:44→09:00)
--- NOTE | 2018-04-08 08:48 | Discharge Instructions ---
Discharge Instructions Date of Service Apr 08, 2018. Admission Reason for Admission: Right Knee Djd Discharge Discharge Diagnosis / Problem: Right Knee Djd Discharge Goals Goal(s): Decrease discomfort, Improve function, Increase independence Activity Recommendations Activity Limitations: per Instructions/Follow-up section Weightbearing Status: Right weightbearing (as tolerated) . Instructions / Follow-Up Instructions / Follow-Up ACTIVITY RECOMMENDATIONS: SELF CARE INSTRUCTIONS AFTER TOTAL KNEE REPLACEMENT A. You may need to continue a physical therapy program after discharge from the hospital. There are several options available to you. Your doctor will assist you in selecting the best one for you. 1. An out-patient facility 2 to 3 times a week for therapy or home therapy. 2. Continue working on all exercises taught to you in the hospital. Your goals should be to increase bending of your knee to 90 degrees and beyond and to fully straighten your knee. B. You may progress at your own pace from walking with a walker or crutches to a cane; then to no assistive devices. C. Make walking a part of your daily routine. Be up as much as comfortable with rest periods throughout the day. Rest with leg elevation is very important. Use the ice wrap frequently for the first 3-4 weeks. D. There are no restrictions on activities. You may ride in a car, shop, participate in director banking and all social activities. E. Wear the long elastic stockings (MERVAT hose) 20 hours a day for 2 weeks after surgery. They can be removed several times a day for laundering and for a bath. F. You may shower, no tub baths until cleared by your doctor. SPECIAL CARE INSTRUCTIONS: VERY IMPORTANT TO READ AND REVIEW A. There are a few signs you need to watch for after you are home. Call [facility] if you notice any of the followin. Increased severe knee pain. Some pain is expected especially when you exercise. 2. Increased swelling in your leg or knee; pain or swelling of the calf muscle in either lower leg. 3. Any fluid drainage from the incision. 4. Shortness of breath or chest pain. B. Please call [facility] at if you have any concerns or questions about your operation or recovery. The doctor or his nurse will return your call promptly. C. You must take antibiotics before dental work, bladder, bowel or other surgery. Your doctor will provide you with a permanent care to carry describing this precaution. IMPORTANT: * REMEMBER TO TAKE ASPIRIN, 81 MG, TWICE DAILY FOR 4 WEEKS UNLESS OTHERWISE DIRECTED. THIS IS YOUR BLOOD THINNER. * HIGH RISK PATIENTS MAY BE PRESCRIBED A STRONGER BLOOD THINNER. THIS WILL BE PROVIDED AT DISCHARGE. * CALL IF INCREASED PAIN, REDNESS, DRAINAGE OR FEVER GREATER THAT 101. * WEAR MERVAT HOSE 20 HOURS PER DAY FOR 2 WEEKS. * Silverlon- This is a large adhesive bandage that contains silver ions. This helps your incision heal by fighting off bacteria and protecting it from the outside environment. You are permitted to shower with this dressing. This will remain on your incision for 7 days and then should be removed. Some visible blood or drainage through the dressing window is normal. If there is significant drainage or leaking noted before the 7 days notify your doctor's office immediately. Once removed, keep incision clean and dry. If there is any drainage or redness noted, please call your surgeon. . FOLLOW UP VISIT: If appointment is not already scheduled: Please call [facility] to make a follow-up appointment for 2 weeks after your surgery at . Current Hospital Diet Patient's current hospital diet: Regular Diet Discharge Diet Recommended Diet: Regular Diet Procedures Procedures Performed: Right Total Knee Arthroplasty Pending Studies Studies pending at discharge: no Laboratory Results Hemoglobin A1c Test 03/08/18 14:50 Range/Units Estimated Average Glucose 120 mg/dl Hemoglobin A1c 5.8 H 4.5-5.6 % Medical Emergencies . Who to Call and When: Medical Emergencies: If at any time you feel your situation is an emergency, please call 911 immediately. . Non-Emergent Contact Non-Emergency issues call your: Surgeon Call Non-Emergent contact if: temperature is above 101.5, your pain is not controlled, your pain is worsening, wound has increased drainage, wound has increased redness . "Provider Documentation" section prepared by Sourav Botello. . [place] Drug Monitoring Program Search Results: patient reviewed within database, no issues identified
--- NOTE | 2018-04-08 10:15 | Hospitalist Progress Note ---
Hospitalist Progress Note Date of Service Apr 08, 2018. Subjective Pt evaluation today including: conversation w/ patient, physical exam, chart review, lab review, review of inpatient medication list Pain: Controlled PO Intake: Tolerating PO diet Voiding: no voiding problems Patient reports feeling well. Did not appear to have any significant delirium overnight and patient oriented now. He states his pain is well controlled. He is tolerating a PO diet and voiding on his own. He is passing gas but has not yet moved his bowels. The patient denies fevers, chills, sweats, chest pain, palpitations, claudication, cough, wheezing, shortness of breath, nausea, vomiting, abdominal pain, dysuria, hematuria, urinary retention, paralysis, weakness, numbness and tingling. Additional Comments: See HPI for pertinent positives and negatives. All other systems reviewed and negative. Objective Vital Signs Date Time Temp Pulse Resp B/P (MAP) Pulse Ox O2 Delivery O2 Flow Rate FiO2 04/08/18 08:22 Room Air 04/08/18 06:47 36.7 57 16 165/89 (114) 99 Room Air 04/08/18 00:12 163/91 (115) 04/07/18 22:48 36.7 60 16 182/87 (118) 97 Room Air 04/07/18 19:45 Room Air 04/07/18 15:25 36.6 70 16 153/88 (109) 96 Room Air 04/07/18 13:14 71 168/74 (105) 04/07/18 11:58 36.4 46 16 170/84 (112) 99 Room Air 04/07/18 11:54 70 100 Physical Exam Notes: General appearance: Well-developed, well-nourished, no apparent distress Head: Normocephalic, atraumatic Eyes: Normal inspection, PERRL, EOMI ENT: Normal ENT inspection, hearing grossly normal, pharynx normal Neck: Supple, no JVD, trachea midline Respiratory/Chest: Lungs clear to auscultation, normal breath sounds, no respiratory distress Cardiovascular: +Systolic murmur. Regular rate & rhythm, no gallop Abdomen/GI: Normal bowel sounds, non-tender, soft Extremities/Musculoskeletal: +RLE wrapped in chente bandage. No calf tenderness, no pedal edema Neurological/Psych: Alert, normal mood/affect, oriented x 3 Skin: Normal color, warm/dry, no rash Laboratory Results Last 24 Hours Test 04/08/18 05:31 White Blood Count 11.40 K/uL Red Blood Count 3.39 M/uL Hemoglobin 9.5 g/dL Hematocrit 30.5 % Mean Corpuscular Volume 90.0 fL Mean Corpuscular Hemoglobin 28.0 pg Mean Corpuscular Hemoglobin Concent 31.1 g/dl RDW Standard Deviation 49.7 fL RDW Coefficient of Variation 15.2 % Platelet Count 208 K/uL Mean Platelet Volume 10.3 fL Sodium Level 141 mmol/L Potassium Level 4.3 mmol/L Chloride Level 109 mmol/L Carbon Dioxide Level 25 mmol/L Anion Gap 8.0 mmol/L Blood Urea Nitrogen 42 mg/dl Creatinine 2.09 mg/dl Est Creatinine Clear Calc Drug Dose 25.3 ml/min Estimated GFR () 34.1 Estimated GFR (Non- 29.4 BUN/Creatinine Ratio 20.1 Random Glucose 82 mg/dl Calcium Level 8.9 mg/dl Assessment and Plan 78 y/o male with a history of HTN, HLD, CKD stage IV, RA, BPH, h/o urinary retention and hydronephrosis s/p TURP, recurrent UTI, chronic anemia, osteopenia , and GERD who presents s/p right TKA with Dr. Mendoza on 04/06 for medical management. S/p right TKA--POD #2 -Pain management, DVT prophylaxis, and PT/OT as per primary team Delirium--resolved -Pt had some postop delirium/agitation first night after surgery, per nursing he has a history of this after surgery -Haldol 0.5 mg IM hs prn agitation ordered Asymptomatic bradycardia--improving -HR improved today, able to take his metoprolol and diltiazem -EKG unremarkable, sinus bradycardia in the 50s HTN, HLD--stable -Continue Toprol 25 mg PO qd and diltiazem 180 mg PO qd -Cover with hydralazine 10 mg IV q6h prn SBP >180 CKD stage IV--stable -Baseline creatinine is highly variable, between 1.9-2.5 -Creatinine 2.09 on 04/08, down from 2.28 RA--stable -Continue prednisone 5 mg PO qd -Hemodynamically stable, would not give further stress dose steroids at this time BPH, h/o urinary retention and hydronephrosis s/p recent TURP--stable, voiding on his own postop -Pt follows with urology, had recent TURP due to enlarged prostate causing urinary retention, hydronephrosis and TYRONE. May need another TURP per outpt records Anemia of chronic disease, JESS--stable -Baseline Hgb 9-10 -Hgb 9.5 on 04/08 -Continue iron supplement and vitamin C Osteopenia -Continue vitamin D supplement GERD -Pt states he no longer takes Zantac, does not tolerate PPIs per allergy list Code Status -Level I, FULL RESUSCITATION STATUS Pt. is stable from a medical standpoint, we will sign off. Clear for discharge as per primary team.
[2018-04-08 10:49] VITALS: BP 165/89; PULSE 57; TEMP 36.7; O2SAT 99
[2018-04-08] MEDS ORDERED: ULT50X PO (12:47)
--- NOTE | 2018-04-09 09:25 | Discharge Summary ---
Orthopedic Discharge Summary Admission Date/Reason Apr 06, 2018 at 10:00 Right knee Osteoarthritis Discharge Date/Disposition Apr 08, 2018 Home with services Diagnosis Principal Diagnosis: Right knee Osteoarthritis Secondary Diagnoses/Problems: -Hypertension -CKD IV -Rheumatoid arthritis -BPH -GERD -Chronic anemia -Asymptomatic bradycardia Procedure(s) Performed Right Total Knee Arthroplasty Consultations Dr. Terell Kunz of [facility] hospitalist service Medication Reconciliation New Medications: Aspirin (Aspirin) 81 Mg Tab 81 MG PO BID for 30 Days, #60 TAB Senna (Senokot) 8.6 Mg Tab 17.2 MG PO HS, #30 TAB HOld for loose stools Tramadol HCl (Tramadol HCl) 50 Mg Tab 50-100 MG PO Q4H PRN for Pain, #36 TAB Changed Medications: Acetaminophen (Tylenol) 500 Mg Tab 1000 MG PO Q8H PRN for Pain for 14 Days, #84 TAB (Changed from: UD) Resume your regular dose of tylenol after 14 days Continued Medications: Ascorbic Acid (Ascorbic Acid) 500 Mg Tab 500 MG PO QAM, TAB Cholecalciferol (Vitamin D3) 1,000 Unit Tab 1 TAB PO BID for 90 Days, #180 TAB 3 Refills Diltiazem Hcl Ext Rel (Tiazac) 180 Mg Capcr 180 MG PO QAM, CAP Docusate Sodium (Colace) 100 Mg Cap 100 MG PO HS for 15 Days, CAP Ferrous Sulfate (Kp Ferrous Sulfate) 325 Mg Tab 325 MG PO BID for 30 Days, #60 TAB 3 Refills Folic Acid (Folic Acid) 1 Mg Tab 1 MG PO QAM Metoprolol Succ (Toprol Xl) (Toprol-Xl) 25 Mg Tabcr 25 MG PO QAM, #30 TAB Multivitamin (Multivitamin) Tab 1 TABLET PO QAM, TAB Prednisone Tab (Prednisone) 10 Mg Tab 5 MG PO QAM, TAB Admission Physical Exam As per Admitting History & Physical. Hospital Course Patient presented for same day admission following Right total knee arthroplasty on 04/06/18. He tolerated procedure well. Post-operatively, patient received a stress dose of hydrocortisone 100mg IV every 8 hours for 3 doses per his PCP's recommendations. On POD#0 patient was given Haldol as needed for post operative delirium. This resolved by POD#1. He did have an EKG done for asymptomatic bradycardia on POD#1 due to HR in the 40's. EKG showed sinus bradycardia with HR in the 50's. Patient stated he normally has a low heart rate. Dr. Terell Kunz of medical service was consulted for medical management during admission. His activity was progressed and well tolerated throughout his hospital stay. Please refer to daily progress notes and PT notes for complete details. After exam on 04/08/18, patient was felt to be stable for discharge home with home health services. Patient will f/u in the office with Dr. Mendoza or his PA in about 2 weeks for further evaluation including x-rays and incision check, sooner if having any issues or concerns. Discharge Instructions Please refer to the electronic Patient Visit Report (Discharge Instructions) for additional information.
== END 2018-04-08 13:20 | disposition home health service (06) | DRG 470 ==
LOC: C.ACU 07:14 → C.3E 10:00 → ENRESERV 13:27 → C.3E 20:57
PROVIDERS: ADMIT Orthopaedic Surgery Sports Medicine; ATTEND Orthopaedic Surgery Sports Medicine
PROC: 0SRC0J9 Replacement of Right Knee Joint with Synthetic Substitute, Cemented, Open Approach (ICD-10-PCS; principal; 2018-04-06 09:45)
DX: M17.11 Unilateral primary osteoarthritis, right knee (principal); F05 Delirium due to known physiological condition; N18.4 Chronic kidney disease, stage 4 (severe); M06.9 Rheumatoid arthritis, unspecified; R00.1 Bradycardia, unspecified; I12.9 Hypertensive chronic kidney disease with stage 1 through stage 4 chronic kidney disease, or unspecified chronic kidney disease; N40.0 Benign prostatic hyperplasia without lower urinary tract symptoms; D63.8 Anemia in other chronic diseases classified elsewhere; D50.9 Iron deficiency anemia, unspecified; M85.80 Other specified disorders of bone density and structure, unspecified site; K21.9 Gastro-esophageal reflux disease without esophagitis; Z86.79 Personal history of other diseases of the circulatory system; Z87.440 Personal history of urinary (tract) infections; Z87.442 Personal history of urinary calculi; Z87.891 Personal history of nicotine dependence; Z96.652 Presence of left artificial knee joint; Z96.641 Presence of right artificial hip joint; Z96.611 Presence of right artificial shoulder joint; Z96.612 Presence of left artificial shoulder joint; Z79.52 Long term (current) use of systemic steroids; Z79.899 Other long term (current) drug therapy; Z88.8 Allergy status to other drugs, medicaments and biological substances

== ENCOUNTER 2019-03-20 10:22 | Inpatient (IN) ==
--- NOTE | 2019-03-20 11:01 | XRay Report ---
XR chest 1V portable HISTORY: 79 years-old Male Sepsis acute sepsis. COMPARISON: Chest radiographs 10/18/2017 TECHNIQUE: Portable supine AP view of the chest FINDINGS: Cardiomediastinal and hilar silhouettes are unchanged. Linear subsegmental perihilar opacities are no blanca bilaterally with mild pulmonary vascular congestion. There is no pneumothorax, pleural effusion o r overt pulmonary edema. Degenerative changes of the shoulders and spine. Postoperative changes of th e right humeral head. Suggestion of a remote fracture deformity about the proximal left humerus. IMPRESSION: 1. Cardiomegaly without overt pulmonary edema. 2. Linear subsegmental perihilar opacities are suggestive of probable atelectasis. The above report was generated using voice recognition software. It may contain grammatical, syntax o r spelling errors. Electronically signed by: Saji Jefferson M.D. 03/20/2019 11:00 AM
[2019-03-20 11:21] LABS: Hematocrit (blood only) 26.9 % (42-52); Hemoglobin 8.6 g/dL (14.0-18.0); Mean Corpuscular Volume 94.7 fL (80-100); Mean Platelet Volume 10.2 fL (7.4-10.4); Nucleated RBC # (auto) 0.12 K/uL (0-0); Nucleated RBC % (auto) 0.4 %; Platelet Count 627 K/uL (130-400); RDW Coefficient of Variation 14.6 % (11.5-14.5); RDW Standard Deviation 50.5 fL (36.4-46.3); Red Blood Count 2.84 M/uL (4.7-6.1); White Blood Count 25.89 K/uL (4.8-10.8)
[2019-03-20 11:24] LABS: iSTAT Creatinine 6.2 mg/dl (0.6-1.3); iSTAT Hemoglobin 8.5 g/dl (14.0-18.0); iSTAT Ionized Calcium 0.98 mmol/l (1.12-1.32); iSTAT Potassium 5.9 mEq/L (3.3-5.0)
[2019-03-20] MEDS ORDERED: CEFEPIME 2,000 MG in SYRINGE 7.5 ML IV STA (11:28)
[2019-03-20] MEDS ORDERED: SODIUM CHLORIDE 0.9% 1000ML 500 ML IV ONE (11:30)
[2019-03-20 11:32] LABS: INR 1.1 (0.9-1.1); Partial Thromboplastin Ratio 1.2; Partial Thromboplastin Time 33.1 Seconds (21.0-31.0); Prothrombin Time 11.5 Seconds (9.0-12.0)
[2019-03-20 11:43] LABS: Basophils # (auto) 0.04 K/uL (0-0.2); Basophils % (auto) 0.2 %; Dohle Bodies 1+; Eosinophils # (auto) 0.04 K/uL (0-0.5); Eosinophils % (auto) 0.2 %; Immature Granulocytes # (auto) 0.65 K/uL (0.00-0.02); Immature Granulocytes % (auto) 2.5 %; Lymphocytes # (auto) 1.66 K/uL (1.2-3.4); Lymphocytes % (auto) 6.4 %; Monocytes # (auto) 2.11 K/uL (0.11-0.59); Monocytes % (auto) 8.1 %; Neutrophils # (auto) 21.39 K/uL (1.4-6.5); Neutrophils % (auto) 82.6 %
[2019-03-20 11:48] LABS: Alanine Aminotransferase 15 U/L (12-78); Albumin Globulin Ratio 0.4 (0.9-2); Albumin Level 1.8 gm/dl (3.4-5.0); Alkaline Phosphatase 90 U/L (45-117); Aspartate Aminotransferase 31 U/L (15-37); BUN Creatinine Ratio 21.7 (10-20); Bilirubin,Total 0.5 mg/dl (0.2-1); Blood Urea Nitrogen 113 mg/dl (7-18); Calcium 7.7 mg/dl (8.5-10.1); Carbon Dioxide 20 mmol/L (21-32); Chloride 95 mmol/L (98-107); Est GFR (African American) 10.8; Est GFR (Non-African American) 9.3; Globulin 4.6 gm/dl (2.5-4.0); Glucose 134 mg/dl (70-99); Potassium 5.8 mmol/L (3.5-5.1); Sodium 130 mmol/L (136-145); Total Protein 6.4 gm/dl (6.4-8.2); Troponin I < 0.015 ng/ml (0-0.045)
--- NOTE | 2019-03-20 12:01 | CT Scan Report ---
CT chest wo con CT DOSE: 1284.22 mGy.cm HISTORY: Pain. Infection. eval for infection TECHNIQUE: Multiaxial CT images of the chest were performed without contrast. A dose lowering techni que was utilized adhering to the principles of ALARA. COMPARISON: None. FINDINGS: Mild bibasilar atelectatic change. Subsegmental atelectasis mid lung regions bilaterally. No well-defined acute infiltrate. No evidence for pneumothorax. Minimal cardiac enlargement. IMPRESSION: 1. Mild bibasilar atelectatic change. 2. Minimal scattered segmental atelectasis mid and lower lung regions. 3. Otherwise negative study. The above report was generated using voice recognition software. It may contain grammatical, syntax or spelling errors. Electronically signed by: Carlos Villegas M.D. 03/20/2019 12:00 PM
--- NOTE | 2019-03-20 12:11 | CT Scan Report ---
CT abd pelvis wo con CT DOSE: HISTORY: Pain. Obstruction. eval for kidney obst TECHNIQUE: Multiaxial CT images of the abdomen and pelvis were performed without contrast. A dose lo wering technique was utilized adhering to the principles of ALARA. COMPARISON STUDY: 10/17/2017. FINDINGS: mild bibasilar atelectatic change. Trace low-density subcapsular fluid considered to be not acute given its low-density characteristics. Several calcified granulomas in the spleen. Somewhat progressive left hydroureteronephrosis. Well-defined etiology is not determined. Trace amount of free fluid within the right as well as left paracolic gutter region. Geiger catheter w ithin the bladder. Thickening of the bulk of the colonic wall. No evidence for abscess collection or obstruction. IMPRESSION: 1. Generalized colonic wall thickening suggesting nonspecific colitis. 2. Small amount of free fluid within the right as well as left pelvic paracolic gutter regions. 3. Trace amount of subcapsular fluid surrounding the right hepatic lobe with a trace amount of fluid inferior to the right hepatic lobe. 4. Slight compression deformity superior endplate L1 with no significant retropulsion of the posterio r aspect of the vertebral body. There is loss of vertebral body height at 20%. 5. Slightly progressive left hydroureteronephrosis of uncertain etiology. The above report was generated using voice recognition software. It may contain grammatical, syntax or spelling errors. Electronically signed by: Carlos Villegas M.D. 03/20/2019 12:09 PM
--- NOTE | 2019-03-20 12:15 | CT Scan Report ---
CT head/brain wo con CLINICAL HISTORY: 79 years-old Male with eval for altered loc. Acutely altered mental status TECHNIQUE: Multiple axial CT images of the head were obtained without contrast. A dose lowering tech nique was utilized adhering to the principles of ALARA. COMPARISON: None. 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 No acute intracranial hemorrhage, midline shift, intracranial mass, hydrocephalus, territorial i schemia or abnormal extra-axial collection. Age-related involutional change. Patchy white matter hypo densities suggest chronic microvascular ischemic disease. Cerebral vascular calcifications are noted. The calvarium is intact. The paranasal sinuses, mastoid air cells, and middle ear cavities are clear . IMPRESSION: No acute intracranial abnormality. The above report was generated using voice recognition software. It may contain grammatical, syntax o r spelling errors. Electronically signed by: Saji Jefferson M.D. 03/20/2019 12:14 PM
[2019-03-20] MEDS ORDERED: ICU PROTOCOL FOR HYPERGLYCEMIA PRN (14:12)
[2019-03-20] MEDS ORDERED: ALBUT/IPRATROP 3MG/0.5MG NEB 3 ML VIAL INH PRN (14:27)
--- NOTE | 2019-03-20 14:46 | Emergency Department Note ---
Entered by April Sebastian acting as a scribe for Marbin Humphrey MD History of Present Illness General Chief complaint: Confusion Time Seen by Provider: 03/20/19 10:30 Source: patient, EMS and old records reviewed Mode of arrival: EMS History of Present Illness Onset (ago): hour(s) (this morning) Location: head Pain Consistency: + other (episode) Maximum Pain Intensity: 10 Quality: + other (confusion) Associated symptoms: + denies other symptoms (abdominal pain, shortness of breath) and + other (dark stools, hypotension) The patient is a 79 year old male that is presenting to the Emergency Room with complaints of an episode of confusion that started this morning. The patient is a resident at the [facility] in [place] and was brought to the ED via EMS. The patient is a poor historian secondary to his confusion. According to EMS, the patient was hypotensive this morning even after receiving a liter of fluid. EMS notes that the patients blood pressure was in the 70s and briefly deana to the 90s before falling again. EMS states that the patient had Morphine at 0800. The patient denies any abdominal pain or shortness of breath. He is able to state where he is and todays date. The patient is a resident at [facility] post a 16 foot fall that cause multiple left- sided fractures. He notes that he has pain with movement secondary to his injuries. His blood pressure on arrival is 79/56 and his O2 sat is 88%. The patients records indicate that the patient was started on Bactrim for an unknown reason. His records indicate the patient has had dark stools for the past week. On review of the patients past records, the patient fell off a ladder on 03/09/19. He fractured multiple areas on his left side. The patient is anemic. Home Medications Home Medications Medication Instructions Recorded Confirmed Type acetaminophen 500 mg tablet 1,000 mg PO Q6H PRN #90 tab 03/10/19 03/20/19 Rx clindamycin HCl 150 mg capsule 600 mg PO UD cap 03/10/19 03/20/19 History zoledronic acid 5 mg/100 mL in 5 mg IV Q8WK #1 ml 03/10/19 03/20/19 History mannitol 5 %-water intravenous piggybck amlodipine 5 mg PO QAM 03/20/19 03/20/19 History cholecalciferol (vitamin D3) 1,000 units PO BID 03/20/19 03/20/19 History metoprolol succinate 75 mg PO HS 03/20/19 03/20/19 History morphine 15 mg PO Q4H PRN 03/20/19 03/20/19 History morphine [MS Contin] 15 mg PO Q12H 03/20/19 03/20/19 History multivitamin 1 tab PO QAM 03/20/19 03/20/19 History prednisone 5 mg PO QAM 03/20/19 03/20/19 History Allergies Allergy/AdvReac Type Severity Reaction Status Date / Time clavulanic acid Allergy Unknown AFFECTED Verified 03/20/19 12:28 KIDNEY amoxicillin [From Augmentin] Allergy Verified 03/20/19 12:28 lisinopril AdvReac Mild COUGH Verified 03/20/19 12:28 Proton Pump Inhibitors AdvReac Unknown 'affected Unverified 03/20/19 12:28 kidneys' per chart Past Med/Surg History Medical History Multiple traumatic injuries (Acute) Metabolic encephalopathy (Acute) Acute renal failure (Acute) FCI systemic steroid user (Chronic) Sepsis (Acute) BPH (benign prostatic hyperplasia) (Chronic) Rheumatoid arthritis (Chronic) Renal cyst (Chronic) Chronic anemia (Chronic) Suprapubic pain, acute CVA tenderness Hydronephrosis Enlarged prostate Acute renal failure Kidney stones Pyelonephritis MSSA (methicillin susceptible Staphylococcus aureus) septicemia Hypertrophy of prostate with urinary retention Right knee DJD Surgical History S/P carpal tunnel release (Chronic) H/O inguinal hernia repair (Chronic) Hx of nasal septoplasty (Chronic) S/P rotator cuff repair (Chronic) 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 and A total of 10 systems reviewed and were otherwise negative Physical Exam Vital Signs Vital Signs - 24 hr 03/20/19 10:41 03/20/19 10:51 03/20/19 11:00 Temperature 36.5 C Temperature Source Oral Sepsis Recent Fever Within 48 Hours No Sepsis New/Unexplained Change in Mental Status Yes Sepsis Action Taken by Nursing No Action Required Pulse Rate 82 84 83 Pulse Rate from SpO2 Sensor 84 82 Respiratory Rate 18 16 17 Respiratory Effort / Characteristics Non-Labored Respiratory Depth Normal Blood Pressure 79/56 L 88/66 L 92/56 L Blood Pressure Mean 63 73 68 Pulse Oximetry 93 98 88 L Oxygen Delivery Method Nasal Cannula Oxygen Flow Rate 4 03/20/19 11:15 03/20/19 11:30 03/20/19 11:32 Temperature Temperature Source Sepsis Recent Fever Within 48 Hours Sepsis New/Unexplained Change in Mental Status Sepsis Action Taken by Nursing Pulse Rate 83 77 Pulse Rate from SpO2 Sensor 82 77 Respiratory Rate 15 19 Respiratory Effort / Characteristics Respiratory Depth Blood Pressure 85/61 L 99/55 L Blood Pressure Mean 69 69 Pulse Oximetry 97 97 97 Oxygen Delivery Method Nasal Cannula Oxygen Flow Rate 4 03/20/19 11:56 03/20/19 11:57 03/20/19 12:00 Temperature Temperature Source Sepsis Recent Fever Within 48 Hours Sepsis New/Unexplained Change in Mental Status Sepsis Action Taken by Nursing Pulse Rate 77 79 82 Pulse Rate from SpO2 Sensor 78 82 Respiratory Rate 16 19 14 Respiratory Effort / Characteristics Respiratory Depth Blood Pressure 98/55 L 106/60 Blood Pressure Mean 69 75 Pulse Oximetry 96 96 Oxygen Delivery Method Oxygen Flow Rate 03/20/19 12:10 03/20/19 12:15 03/20/19 12:20 Temperature Temperature Source Sepsis Recent Fever Within 48 Hours Sepsis New/Unexplained Change in Mental Status Sepsis Action Taken by Nursing Pulse Rate 81 81 80 Pulse Rate from SpO2 Sensor 79 81 82 Respiratory Rate 12 15 16 Respiratory Effort / Characteristics Respiratory Depth Blood Pressure 93/63 L Blood Pressure Mean 73 Pulse Oximetry 97 98 97 Oxygen Delivery Method Oxygen Flow Rate 03/20/19 12:30 03/20/19 12:40 03/20/19 12:46 Temperature Temperature Source Sepsis Recent Fever Within 48 Hours Sepsis New/Unexplained Change in Mental Status Sepsis Action Taken by Nursing Pulse Rate 85 79 89 Pulse Rate from SpO2 Sensor 89 80 90 Respiratory Rate 28 H 25 H 15 Respiratory Effort / Characteristics Respiratory Depth Blood Pressure 103/54 L Blood Pressure Mean 70 Pulse Oximetry 95 97 97 Oxygen Delivery Method Oxygen Flow Rate 03/20/19 12:50 03/20/19 13:00 03/20/19 13:10 Temperature Temperature Source Sepsis Recent Fever Within 48 Hours Sepsis New/Unexplained Change in Mental Status Sepsis Action Taken by Nursing Pulse Rate 89 80 83 Pulse Rate from SpO2 Sensor 88 84 83 Respiratory Rate 20 15 22 Respiratory Effort / Characteristics Respiratory Depth Blood Pressure 81/59 L Blood Pressure Mean 66 Pulse Oximetry 94 95 97 Oxygen Delivery Method Oxygen Flow Rate 03/20/19 13:16 03/20/19 13:20 03/20/19 13:30 Temperature Temperature Source Sepsis Recent Fever Within 48 Hours Sepsis New/Unexplained Change in Mental Status Sepsis Action Taken by Nursing Pulse Rate 84 80 83 Pulse Rate from SpO2 Sensor 87 83 84 Respiratory Rate 17 16 15 Respiratory Effort / Characteristics Respiratory Depth Blood Pressure 85/50 L Blood Pressure Mean 61 Pulse Oximetry 95 94 97 Oxygen Delivery Method Oxygen Flow Rate 03/20/19 13:32 03/20/19 13:40 03/20/19 13:45 Temperature Temperature Source Sepsis Recent Fever Within 48 Hours Sepsis New/Unexplained Change in Mental Status Sepsis Action Taken by Nursing Pulse Rate 86 85 82 Pulse Rate from SpO2 Sensor 84 86 82 Respiratory Rate 20 16 16 Respiratory Effort / Characteristics Respiratory Depth Blood Pressure 87/49 L 94/78 L Blood Pressure Mean 61 83 Pulse Oximetry 84 L 95 96 Oxygen Delivery Method Oxygen Flow Rate 03/20/19 13:50 03/20/19 14:00 03/20/19 14:10 Temperature Temperature Source Sepsis Recent Fever Within 48 Hours Sepsis New/Unexplained Change in Mental Status Sepsis Action Taken by Nursing Pulse Rate 81 84 74 Pulse Rate from SpO2 Sensor 85 86 77 Respiratory Rate 22 18 20 Respiratory Effort / Characteristics Respiratory Depth Blood Pressure Blood Pressure Mean Pulse Oximetry 95 96 94 Oxygen Delivery Method Oxygen Flow Rate General: Chronically-ill appearing older male in no acute distress. Eyes open and alert to person and place. Answers some questions appropriately but not all. HEENT: Normal cephalic atraumatic. Pupils are equal round and reactive to light. Extraocular movements are intact. Oropharynx is pink with moist mucous membranes. No swelling of the mouth lips or tongue. Neck: Supple with a midline trachea. No meningeal signs or stiffness, no JVD or bruits. No Stridor. Chest: Clear to auscultation bilaterally. No wheezes or rhonchi. No increased work of breathing. Heart: regular rate and rhythm. Abdomen: Soft nontender, mildly distended without rebound guarding or rigidity. Extremities: No cyanosis clubbing or edema. No calf tenderness or asymmetry Spine/Back. Non tender to palpation. No CVA tenderness. External fixer on left leg. Brace on left arm. Skin: Good turgor without rashes. Neurologic exam: Cranial nerves two through 12 are intact. Motor and sensation are intact and symmetrical throughout. Course 1030:The patient was evaluated in room B10. A complete history and physical examination was performed. 1048:: I rechecked the patient at this time. He is receiving his chest x-ray. 1106: I reevaluated the patient at this time. He was having his blood drawn and his blood pressure was up to 90. 1123: Bladder scan showed minimal urine. 1126: I discussed the patient's case with a pharmacist who recommended cefepime and stated I use Daptomycin over Vancomycin if required. 1147: I spoke to the patient's at this time and updated her on the patient's current results. She is amenable to the plan. She confirms that the patient has had kidney issues for some times. She states that the patient has not been eating and drinking normally. The patient's creatine is found to be 5.38 at this time. 1226: I rechecked the patient at this time. The patient is resting comfortably and his BP is in the 90s. 1238: I discussed the patients case with Dr. Burleson, ICU, who will evaluate the patient further. 1315: Upon evaluation of the patient, Dr. Burleson agrees to take the patient into the ICU. 1320: Upon reevaluation, the patient is resting comfortably. I discussed laboratory and radiographic results with the patient and his . They verbalized agreement of the treatment plan. The patient will be evaluated for further management and care. 1443: I discussed the patient's case with Dr. Mcdermott [facility], who will evaluate the patient further alongside the ICU. Consultations Consultation #1: I discussed the patients case with Dr. Burleson, ICU, who will evaluate the patient further. Time: 12:38 Administered Medications Sodium Bicarbonate 150 meq/ (Sterile Water) 1,150 mls @ 125 mls/hr IV .Q9H12M ACACIA Stop: 04/19/19 15:44 Last Admin: 03/20/19 16:00 Dose: 125 mls/hr Documented by: [id number] Discontinued Medications Cefepime HCl 2,000 mg/ Syringe 20 mls @ 5.5 mls/min IV NOW STA; Protocol Stop: 03/20/19 11:31 Last Admin: 03/20/19 12:34 Dose: 5.5 mls/min Documented by: [id number] Sodium Chloride (Nss 1000ml) 500 mls @ 999 mls/hr IV .Q31M ONE Stop: 03/20/19 12:00 Last Infusion: 03/20/19 11:34 Dose: 0 mls/hr Documented by: [id number] Admin: 03/20/19 11:00 Dose: 999 mls/hr Documented by: [id number] Medical Decision Making Differential Diagnosis Differential diagnosis: Etiologies such as sepsis, trauma, GI bleed, electrolyte or metabolic abnormalit ies as well as others were entertained. Medical Records Attestation: I reviewed the patient's medical records. Home Medications Current Medication List: was personally reviewed by me Laboratory Data Attestation: I reviewed the patient's lab results. Result diagrams: 03/20/19 11:02 03/20/19 11:02 Lab Results 03/20/19 03/20/19 03/20/19 Range/Units 11:02 11:02 11:02 WBC 25.89 H (4.8-10.8) K/uL RBC 2.84 L (4.7-6.1) M/uL Hgb 8.6 L (14.0-18.0) g/dL POC Hgb (14.0-18.0) g/dl Hct 26.9 L (42-52) % POC Hct (42-52) % MCV 94.7 (80-100) fL MCH 30.3 (25-34) pg MCHC 32.0 (32-36) g/dL RDW Std Deviation 50.5 H (36.4-46.3) fL RDW Coeff of [place] 14.6 H (11.5-14.5) % Plt Count 627 H (130-400) K/uL MPV 10.2 (7.4-10.4) fL Immature Gran % (Auto) 2.5 % Neut % (Auto) 82.6 % Lymph % (Auto) 6.4 % Lincoln % (Auto) 8.1 % Eos % (Auto) 0.2 % Baso % (Auto) 0.2 % Immature Gran # (Auto) 0.65 H (0.00-0.02) K/uL Neut # (Auto) 21.39 H (1.4-6.5) K/uL Lymph # (Auto) 1.66 (1.2-3.4) K/uL Lincoln # (Auto) 2.11 H (0.11-0.59) K/uL Eos # (Auto) 0.04 (0-0.5) K/uL Baso # (Auto) 0.04 (0-0.2) K/uL Absolute Nucleated RBC 0.12 H (0-0) K/uL Nucleated RBC % (auto) 0.4 % Dohle Bodies 1+ PT 11.5 (9.0-12.0) Seconds INR 1.1 (0.9-1.1) APTT 33.1 H (21.0-31.0) Seconds PTT Ratio 1.2 POC Sodium (135-144) mEq/L Sodium 130 L (136-145) mmol/L POC Potassium (3.3-5.0) mEq/L Potassium 5.8 H (3.5-5.1) mmol/L POC Chloride (101-112) mEq/L Chloride 95 L (98-107) mmol/L Carbon Dioxide 20 L (21-32) mmol/L POC Total CO2 (24-31) mEq/l Anion Gap 15.0 H (3-11) POC Anion Gap (16-25) mmol/L POC BUN (7-18) mg/dl BUN 113 H (7-18) mg/dl Creatinine 5.38 H* (0.6-1.4) mg/dl POC Creatinine (0.6-1.3) mg/dl Est Cr Clr Drug Dosing Not Reportable Est GFR ( Amer) 10.8 Est GFR (Non-Af Amer) 9.3 BUN/Creatinine Ratio 21.7 H (10-20) Glucose 134 H (70-99) mg/dl POC Glucose (other) (70-99) mg/dl Lactate (0.4-2.0) mmol/L Calcium 7.7 L (8.5-10.1) mg/dl POC Ioniz Calcium Bandar (1.12-1.32) mmol/l Total Bilirubin 0.5 (0.2-1) mg/dl AST 31 (15-37) U/L ALT 15 (12-78) U/L Alkaline Phosphatase 90 (45-117) U/L Troponin I < 0.015 (0-0.045) ng/ml Total Protein 6.4 (6.4-8.2) gm/dl Albumin 1.8 L (3.4-5.0) gm/dl Globulin 4.6 H (2.5-4.0) gm/dl Albumin/Globulin Ratio 0.4 L (0.9-2) Procalcitonin (0-0.5) ng/ml Blood Type Antibody Screen 03/20/19 03/20/19 03/20/19 Range/Units 11:02 11:02 11:02 WBC (4.8-10.8) K/uL RBC (4.7-6.1) M/uL Hgb (14.0-18.0) g/dL POC Hgb (14.0-18.0) g/dl Hct (42-52) % POC Hct (42-52) % MCV (80-100) fL MCH (25-34) pg MCHC (32-36) g/dL RDW Std Deviation (36.4-46.3) fL RDW Coeff of [place] (11.5-14.5) % Plt Count (130-400) K/uL MPV (7.4-10.4) fL Immature Gran % (Auto) % Neut % (Auto) % Lymph % (Auto) % Lincoln % (Auto) % Eos % (Auto) % Baso % (Auto) % Immature Gran # (Auto) (0.00-0.02) K/uL Neut # (Auto) (1.4-6.5) K/uL Lymph # (Auto) (1.2-3.4) K/uL Lincoln # (Auto) (0.11-0.59) K/uL Eos # (Auto) (0-0.5) K/uL Baso # (Auto) (0-0.2) K/uL Absolute Nucleated RBC (0-0) K/uL Nucleated RBC % (auto) % Dohle Bodies PT (9.0-12.0) Seconds INR (0.9-1.1) APTT (21.0-31.0) Seconds PTT Ratio POC Sodium (135-144) mEq/L Sodium (136-145) mmol/L POC Potassium (3.3-5.0) mEq/L Potassium (3.5-5.1) mmol/L POC Chloride (101-112) mEq/L Chloride (98-107) mmol/L Carbon Dioxide (21-32) mmol/L POC Total CO2 (24-31) mEq/l Anion Gap (3-11) POC Anion Gap (16-25) mmol/L POC BUN (7-18) mg/dl BUN (7-18) mg/dl Creatinine (0.6-1.4) mg/dl POC Creatinine (0.6-1.3) mg/dl Est Cr Clr Drug Dosing Est GFR ( Amer) Est GFR (Non-Af Amer) BUN/Creatinine Ratio (10-20) Glucose (70-99) mg/dl POC Glucose (other) (70-99) mg/dl Lactate 2.1 H* (0.4-2.0) mmol/L Calcium (8.5-10.1) mg/dl POC Ioniz Calcium Bandar (1.12-1.32) mmol/l Total Bilirubin (0.2-1) mg/dl AST (15-37) U/L ALT (12-78) U/L Alkaline Phosphatase (45-117) U/L Troponin I (0-0.045) ng/ml Total Protein (6.4-8.2) gm/dl Albumin (3.4-5.0) gm/dl Globulin (2.5-4.0) gm/dl Albumin/Globulin Ratio (0.9-2) Procalcitonin 58.92 H (0-0.5) ng/ml Blood Type O Negative Antibody Screen NEGATIVE 03/20/19 Range/Units 11:09 WBC (4.8-10.8) K/uL RBC (4.7-6.1) M/uL Hgb (14.0-18.0) g/dL POC Hgb 8.5 L (14.0-18.0) g/dl Hct (42-52) % POC Hct 25 L (42-52) % MCV (80-100) fL MCH (25-34) pg MCHC (32-36) g/dL RDW Std Deviation (36.4-46.3) fL RDW Coeff of [place] (11.5-14.5) % Plt Count (130-400) K/uL MPV (7.4-10.4) fL Immature Gran % (Auto) % Neut % (Auto) % Lymph % (Auto) % Lincoln % (Auto) % Eos % (Auto) % Baso % (Auto) % Immature Gran # (Auto) (0.00-0.02) K/uL Neut # (Auto) (1.4-6.5) K/uL Lymph # (Auto) (1.2-3.4) K/uL Lincoln # (Auto) (0.11-0.59) K/uL Eos # (Auto) (0-0.5) K/uL Baso # (Auto) (0-0.2) K/uL Absolute Nucleated RBC (0-0) K/uL Nucleated RBC % (auto) % Dohle Bodies PT (9.0-12.0) Seconds INR (0.9-1.1) APTT (21.0-31.0) Seconds PTT Ratio POC Sodium 128 L (135-144) mEq/L Sodium (136-145) mmol/L POC Potassium 5.9 H (3.3-5.0) mEq/L Potassium (3.5-5.1) mmol/L POC Chloride 96 L (101-112) mEq/L Chloride (98-107) mmol/L Carbon Dioxide (21-32) mmol/L POC Total CO2 20 L (24-31) mEq/l Anion Gap (3-11) POC Anion Gap 19.0 (16-25) mmol/L POC BUN 120 H* (7-18) mg/dl BUN (7-18) mg/dl Creatinine (0.6-1.4) mg/dl POC Creatinine 6.2 H* (0.6-1.3) mg/dl Est Cr Clr Drug Dosing Est GFR ( Amer) Est GFR (Non-Af Amer) BUN/Creatinine Ratio (10-20) Glucose (70-99) mg/dl POC Glucose (other) 137 H (70-99) mg/dl Lactate (0.4-2.0) mmol/L Calcium (8.5-10.1) mg/dl POC Ioniz Calcium Bandar 0.98 L (1.12-1.32) mmol/l Total Bilirubin (0.2-1) mg/dl AST (15-37) U/L ALT (12-78) U/L Alkaline Phosphatase (45-117) U/L Troponin I (0-0.045) ng/ml Total Protein (6.4-8.2) gm/dl Albumin (3.4-5.0) gm/dl Globulin (2.5-4.0) gm/dl Albumin/Globulin Ratio (0.9-2) Procalcitonin (0-0.5) ng/ml Blood Type Antibody Screen Imaging Data Radiologist's Impression: Radiology results as stated below per my review and the radiologist's interpretation: XR chest 1V portable HISTORY: 79 years-old Male Sepsis acute sepsis. COMPARISON: Chest radiographs 10/18/2017 TECHNIQUE: Portable supine AP view of the chest FINDINGS: Cardiomediastinal and hilar silhouettes are unchanged. Linear subsegmental perihilar opacities are noted bilaterally with mild pulmonary vascular congestion. There is no pneumothorax, pleural effusion or overt pulmonary edema. Degenerative changes of the shoulders and spine. Postoperative changes of the right humeral head. Suggestion of a remote fracture deformity about the proximal left humerus. IMPRESSION: 1. Cardiomegaly without overt pulmonary edema. 2. Linear subsegmental perihilar opacities are suggestive of probable atelectasis. The above report was generated using voice recognition software. It may contain grammatical, syntax or spelling errors. Electronically signed by: Saji Jefferson M.D. 03/20/2019 11:[address] abd pelvis wo con CT DOSE: HISTORY: Pain. Obstruction. eval for kidney obst TECHNIQUE: Multiaxial CT images of the abdomen and pelvis were performed without contrast. A dose lowering technique was utilized adhering to the principles of ALARA. COMPARISON STUDY: 10/17/2017. FINDINGS: mild bibasilar atelectatic change. Trace low-density subcapsular fluid considered to be not acute given its low-density characteristics. Several calcified granulomas in the spleen. Somewhat progressive left hydroureteronephrosis. Well-defined etiology is not determined. Trace amount of free fluid within the right as well as left paracolic gutter region. Geiger catheter within the bladder. Thickening of the bulk of the colonic wall. No evidence for abscess collection or obstruction. IMPRESSION: 1. Generalized colonic wall thickening suggesting nonspecific colitis. 2. Small amount of free fluid within the right as well as left pelvic paracolic gutter regions. 3. Trace amount of subcapsular fluid surrounding the right hepatic lobe with a trace amount of fluid inferior to the right hepatic lobe. 4. Slight compression deformity superior endplate L1 with no significant ret ropulsion of the posterior aspect of the vertebral body. There is loss of vertebral body height at 20%. 5. Slightly progressive left hydroureteronephrosis of uncertain etiology. The above report was generated using voice recognition software. It may contain grammatical, syntax or spelling errors. Electronically signed by: Carlos Villegas M.D. 03/20/2019 12:[address] head/brain wo con CLINICAL HISTORY: 79 years-old Male with eval for altered loc. Acutely altered mental status TECHNIQUE: Multiple axial CT images of the head were obtained without contrast. A dose lowering technique was utilized adhering to the principles of ALARA. COMPARISON: None. FINDINGS: Age-indeterminate proximal left humeral fracture noted on the large [id number] w flatwork folder localizer images. No acute intracranial hemorrhage, midline shift, intracranial mass, hydrocephalus, territorial ischemia or abnormal extra-axial collection. Age-related involutional change. Patchy white matter hypodensities suggest chronic microvascular ischemic disease. Cerebral vascular calcifications are noted. The calvarium is intact. The paranasal sinuses, mastoid air cells, and middle ear cavities are clear. IMPRESSION: No acute intracranial abnormality. The above report was generated using voice recognition software. It may contain grammatical, syntax or spelling errors. Electronically signed by: Saji Jefferson M.D. 03/20/2019 12:[address] chest wo con CT DOSE: 1284.22 mGy.cm HISTORY: Pain. Infection. eval for infection TECHNIQUE: Multiaxial CT images of the chest were performed without contrast. A dose lowering technique was utilized adhering to the principles of ALARA. COMPARISON: None. FINDINGS: Mild bibasilar atelectatic change. Subsegmental atelectasis mid lung regions bilaterally. No well-defined acute infiltrate. No evidence for pneumothorax. Minimal cardiac enlargement. IMPRESSION: 1. Mild bibasilar atelectatic change. 2. Minimal scattered segmental atelectasis mid and lower lung regions. 3. Otherwise negative study. The above report was generated using voice recognition software. It may contain grammatical, syntax or spelling errors. Electronically signed by: Carlos Villegas M.D. 03/20/2019 12:00 PM ECG Data Attestation: I personally reviewed and interpreted this ECG as follows: Indication: altered mental status Rate (beats per minute): 79 Rhythm: normal sinus Findings: + other (no significant peak t-waves); no PAC, no PVC, no ST depression, no ST elevation, no acute ischemic change and no ectopy Comparison ECG Date: from (04/07/2018) Change: the following changes noted (t-wave amplitude has decreased) Blood Pressure Blood Pressure Findings: Low blood pressure MDM Narrative This patient comes in as described above. He has a very complex medical history as of late. He suffered a significant fall about 12 days ago and was seen in [place] and sent to [facility] where his further treatment there he has external fixator in his left leg is had multiple other orthopedic injuries including a spinal fracture for which he is in a brace. Apparently he has had decreased urine output with minimal urine output since yesterday he has had some increasing confusion as well as he had decreased p.o. intake. He has had no fever reported. When he came in his blood pressure was in the high 70s and the nurse asked me to see him I promptly went and saw him. we had to large IVs established and he was bolused with IV fluid. He was also given empiric IV antibiotics with cefepime IV. his lactic acid moderately elevated at 2.1. He was noted to be in renal failure with a creatinine of greater than 5. His potassium is 5.8. He has no EKG changes and if anything is T waves are less peaked than before. I did a CAT scan of his head, chest, abdomen and pelvis. There are no acute findings which would explain his symptoms. I did consult Dr. Burleson and he promptly saw him in the emergency department and he is going to admit him to the ICU. I also called and talked to Dr. Mcdermott as he is with the [facility] team who will be involved in his care as well. Impression & Plan Sepsis, Renal failure, Dehydration, Post-operative state Critical Care Time Critical Care Time: Yes Total Critical Care Time: 45 I have personally spent 45 minutes of critical care time in the direct management of this patient. This includes bedside care, interpretation of diagnostic studies, and testing, discussion with consultants, patient, and family members, and other required patient management activities. This 45 minutes is in excess of all separately billable procedures. Discharge Plan Visit Data *Final* Discharge Date/Time: 03/20/19 15:21 Chief Complaint: Confusion ED Provider: Marbin Humphrey Discharge Problem: Sepsis, Renal failure, Dehydration, Post-operative state Patient Disposition: Admitted As Inpatient Discharge Instructions Interventions: ED Discharge Assessment Last Done: 03/20/19 15:21 The scribe's documentation has been prepared under my direction and personally reviewed by me in its entirety. I confirm that the note above accurately reflects all work, treatment, procedures, and medical decision making performed by me.
--- NOTE | 2019-03-20 14:47 | Critical Care Consultation ---
Date of Consultation March 20, 2019 Assessment & Plan (1) TYRONE (acute kidney injury): Reason Critically Ill: 79-year-old male with concern for sepsis, hypotension, acute kidney injury PLAN: Neuro: Acute encephalopathy -Metabolic secondary to uremia versus sepsis Resp: Wean oxygen tolerated -Keep oxygen saturation 94-98 CV: Hx Hypertension -Holding antihypertensives Hypotension -Fluid boluses -May require vasopressors, consented for central line Fluids/Renal: Acute kidney injury in the setting of chronic kidney disease History of interstitial nephritis confirmed via 2 urine eosinophils -Nephrology consult -50 mg prednisone x1 -Deferring additional steroids to urology -Bicarbonate and sterile water at 125/h Left-sided hydronephrosis -Consulted urology, I personally spoke with Dr. Love ID: Possible sepsis -Urine from indwelling catheter most likely source -Blood cultures urine cultures pending -Geiger catheter required secondary to immobility from pelvic fracture spinal fractures, lower extremity fixator and need for hygiene -Geiger was pre-existing prior to this admission GI/Nutrition: Bowel regimen for constipation Heme: Anemia -Type and screen completed DVT prophylaxis: Heparin 5000 3 times daily -Bilateral lower extremity venous duplex along with left upper extremity venous duplex -Concern for provoked DVT, venous engorgement noted Endocrine: ICU hyperglycemia protocol Chronic steroid dependence -Hydrocortisone bolus and 50 mg IV every 8 hours Vascular access: Peripheral IVs -Consented for central line, arterial line, bronchoscopy, endotracheal intubation Code Status: DNR in event of cardiac arrest. Would be comfortable with temporary intubation for short-term mechanical ventilation as well as possible temporary dialysis. An extensive discussion regarding the patient's current condition as well as concern for complications and long-term prognosis. Given multiple traumatic comorbidities greatly affecting his functional status and likelihood of worsening of these comorbidities in the event of cardiac arrest he would not want heroic measures in event of cardiac arrest. I have personally spent 80 minutes of critical care time in the direct management of this patient. This is a life/limb threatening event. This includes time spent evaluating patient, direct bedside care, chart review, placing orders, interpretation of diagnostic studies, discussion with consultants, patient, and/or family members regarding treatment decisions, as well as other required patient management activities. This time is exclusive of all separately billable procedures, and teaching time and separate from and in addition to any other critical care service time. 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 Patient now having large volume NG output approximately 1 L, continued black stools, severe septic shock with multisystem organ failure in the setting of C. difficile colitis with con commitment acute kidney injury on chronic kidney disease with associated hyperkalemia and recent polytrauma. Family desires to focus on comfort. I agree that the patient has likely entered in end-stage medical condition without reasonable chance of significant recovery. Family did not want intubation and mechanical ventilation preferred to spend time with the patient as what is available as patient has waxing and waning lucidity. We will proceed with expectant management. I have personally spent 30 minutes of critical care time in the direct management of this patient. This is a life/limb threatening event. This includes time spent evaluating patient, direct bedside care, chart review, placing orders, interpretation of diagnostic studies, discussion with consultants, patient, and/or family members regarding treatment decisions, as well as other required patient management activities. This time is exclusive of all separately billable procedures, and teaching time and separate from and in addition to any other critical care service time. History of Present Illness Reason for Consultation: Fever: Possible sepsis, acute kidney injury Requesting Physician: Marbin Humphrey Attending Physician: Ahmet Brower MD History of Present Illness Patient is a 79-year-old male who was read charged from [facility] secondary to a fall off of a ladder and sudden deceleration injuries to the left side of his body. He was transferred to a assisted facility after some formal repairs as well as partial repairs of other traumatic orthopedic injuries. He was transferred to [facility] in the emergency department for increasing confusion and low urine output. In the emergency department he was found to have a significant acute kidney injury in the setting of chronic kidney disease as well as fever with probable sepsis of unclear source at this time. Patient is redirectable mildly confused which is a change from his baseline of the last several days. I discussed the case and his history with the patient's at the bedside. Patient has long-standing high blood pressure as well as chronic kidney disease. She reports last year the patient had significant kidney infection and she felt the patient was not going to survive at that time. However he had significant improvement was in his normal state of health until he fell off the ladder attempting to do home repairs. In the last 24 hours he has not produced any urine. He has had an indwelling Geiger since the time of injury which is been changed once per the patient's 's report. He currently has a fixator and will be a left lower extremity, the patient's reports that they have been attempting to clean the pins. His left open wrist fracture was repaired, he has multiple spine fractures which he is in a back brace. He has a left humeral fracture that is unrepaired and in a sling and nonoperative management is currently planned. He has been taking DVT prophylaxis: Lovenox without a formal diagnosis of DVT at this point. He has known chronic kidney disease area Allergies Allergy/AdvReac Type Severity Reaction Status Date / Time clavulanic acid Allergy Unknown AFFECTED Verified 03/20/19 12:28 KIDNEY amoxicillin [From Augmentin] Allergy Verified 03/20/19 12:28 lisinopril AdvReac Mild COUGH Verified 03/20/19 12:28 Proton Pump Inhibitors AdvReac Unknown 'affected Unverified 03/20/19 12:28 kidneys' per chart Home Medications Home Medications Medication Instructions Recorded Confirmed Type acetaminophen 500 mg tablet 1,000 mg PO Q6H PRN #90 tab 03/10/19 03/20/19 Rx clindamycin HCl 150 mg capsule 600 mg PO UD cap 03/10/19 03/20/19 History zoledronic acid 5 mg/100 mL in 5 mg IV Q8WK #1 ml 03/10/19 03/20/19 History mannitol 5 %-water intravenous piggybck amlodipine 5 mg PO QAM 03/20/19 03/20/19 History cholecalciferol (vitamin D3) 1,000 units PO BID 03/20/19 03/20/19 History metoprolol succinate 75 mg PO HS 03/20/19 03/20/19 History morphine 15 mg PO Q4H PRN 03/20/19 03/20/19 History morphine [MS Contin] 15 mg PO Q12H 03/20/19 03/20/19 History multivitamin 1 tab PO QAM 03/20/19 03/20/19 History prednisone 5 mg PO QAM 03/20/19 03/20/19 History Patient History Medical History Multiple traumatic injuries (Acute) Metabolic encephalopathy (Acute) 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) Sepsis (Acute) BPH (benign prostatic hyperplasia) (Chronic) Rheumatoid arthritis (Chronic) Renal cyst (Chronic) Chronic anemia (Chronic) Suprapubic pain, acute CVA tenderness Hydronephrosis Enlarged prostate Acute renal failure Kidney stones Pyelonephritis MSSA (methicillin susceptible Staphylococcus aureus) septicemia Hypertrophy of prostate with urinary retention Right knee DJD Surgical History S/P carpal tunnel release (Chronic) H/O inguinal hernia repair (Chronic) Hx of nasal septoplasty (Chronic) S/P rotator cuff repair (Chronic) History of right hip replacement (Chronic) History of left knee replacement (Chronic) Family History Other Family history non-contributory Social History Preferred Language: Croatian Communication Ability: Effective Beliefs That Will Affect Care: None Current Living Situation: Spouse current occupational status: retired Feels Safe at Home: Yes Smoking Status: Former smoker Hx Alcohol Use: No Hx Substance Use: No Review of Systems Review of Systems: All systems reviewed & are unremarkable except as noted in HPI & below No chest pain, no shortness of breath Physical Exam Physical Exam: General: Alert. Redirectable with questioning. Skin: Warm, dry, Head: Atraumatic Ears, nose, mouth and throat: airway patent Cardiovascular: Normal peripheral perfusion Respiratory: no respiratory distress Gastrointestinal: Non distended, no tenderness with deep palpation, normal bowel sounds Musculoskeletal: External fixator to left lower extremity: Pins appear to be clean without evidence of purulence: No lymphangitis Left upper extremity is in a sling, significant ecchymoses and swelling in the upper arm. Engorgement of the superficial veins of the left forearm Ecchymoses of the left lateral chest wall without crepitance or flail segment Results & Data Vital Signs (Past 12 Hours) Vital Signs Temp Pulse Resp BP Pulse Ox 03/20/19 14:31 84 19 86/43 L 91 03/20/19 14:30 82 20 93 03/20/19 14:20 82 17 94 03/20/19 14:16 82 15 112/38 L 97 03/20/19 14:10 74 20 94 03/20/19 14:00 84 18 96 03/20/19 13:50 81 22 95 03/20/19 13:45 82 16 94/78 L 96 03/20/19 13:40 85 16 95 03/20/19 13:32 86 20 87/49 L 84 L 03/20/19 13:30 83 15 97 03/20/19 13:20 80 16 94 03/20/19 13:16 84 17 85/50 L 95 03/20/19 13:10 83 22 97 03/20/19 13:00 80 15 81/59 L 95 03/20/19 12:50 89 20 94 03/20/19 12:46 89 15 103/54 L 97 03/20/19 12:40 79 25 H 97 03/20/19 12:30 85 28 H 95 03/20/19 12:20 80 16 97 03/20/19 12:15 81 15 93/63 L 98 03/20/19 12:10 81 12 97 03/20/19 12:00 82 14 106/60 96 03/20/19 11:57 79 19 98/55 L 96 03/20/19 11:56 77 16 03/20/19 11:32 97 03/20/19 11:30 77 19 99/55 L 97 03/20/19 11:15 83 15 85/61 L 97 03/20/19 11:00 83 17 92/56 L 88 L 03/20/19 10:51 84 16 88/66 L 98 03/20/19 10:41 36.5 C 82 18 79/56 L 93 Diagnostic Findings I reviewed the radiology report independently reviewed the images of the CT of the chest, head, abdomen pelvis. ECG Additional Comments: I have independently reviewed the EKG as well as the report by Dr. Centeno of the EKG dated 20 March 2019 PG Care Time/CCT Total # of Minutes Spent Total Time Spent with Patient: Total time spent is greater than 50% in coordination of care (as documented) at patient's floor/unit and/or counseling patient: Critical Care Time: Yes Total Critical Care Time: 110 (1) Fall from ladder Encounter type: sequela Qualified Code(s): W11.XXXS - Fall on and from ladder, sequela (2) Hydronephrosis Hydronephrosis type: other Qualified Code(s): N13.39 - Other hydronephrosis (3) Rheumatoid arthritis Rheumatoid arthritis location: multiple sites Rheumatoid factor presence: unspecified presence Qualified Code(s): M06.9 - Rheumatoid arthritis, unspecified (4) Left humeral fracture Encounter type: sequela Fracture type: closed (5) Renal failure Acute renal failure type: unspecified Chronic kidney disease stage: unspecified stage Renal failure chronicity: acute on chronic Qualified Code(s): N17.9 - Acute kidney failure, unspecified; N18.9 - Chronic kidney disease, unspecified (6) Lumbar compression fracture Encounter type: sequela Lumbar vertebra fracture level: L1 Qualified Code(s): S32.010S - Wedge compression fracture of first lumbar vertebra, sequela (7) Sepsis Sepsis type: sepsis due to unspecified organism Qualified Code(s): A41.9 - Sepsis, unspecified organism (8) Pelvic fracture Encounter type: sequela (9) Closed left ankle fracture Encounter type: sequela Qualified Code(s): S82.892S - Other fracture of left lower leg, sequela
--- NOTE | 2019-03-20 15:23 | History & Physical Report ---
Date of Service March 20, 2019 Assessment & Plan (1) Acute renal failure: Acute on chronic renal failure. Nephrology will be consulted. Administer IV fluids. Geiger catheter to monitor urine output. Serial lab studies. Left hydroureteronephrosis noted on CT scan Present on Admission?: Yes (2) Sepsis: Leukocytosis with elevated lactic acid levels. Urine analysis appears negative. Blood cultures have been obtained. Continue cefepime Present on Admission?: Yes (3) Metabolic encephalopathy: Provide supportive care. 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 External fixator on the left lower extremity for left ankle fracture Present on Admission?: Yes (6) DVT prophylaxis: Low-dose Lovenox subcu or heparin subcu Present on Admission?: Yes (7) DNR (do not resuscitate): Per family request History of Present Illness Chief Complaint: Altered mental status, low blood pressure Primary Care Provider: Haider Calvo MD Unfortunate 79-year-old male who recently suffered a fall from height resulting in multiple left-sided bodily injuries and fractures. He was treated at [facility] and has been at [facility] for several days. He became hypotensive today with altered mental status and was sent for evaluation. He has acute renal failure with creatinine 5.3 accompanied by hyperkalemia. He may be septic. Lactic acid is 2.1. White count 25,890. Urine analysis appears to be negative. He was treated with intravenous steroids in the ED since he is prednisone dependent due to his rheumatoid arthritis and he was also given cefepime. He has been evaluated by ICU, Dr. Tiwari, who has entered admission orders and he will be admitted to the ICU for further care. He is a DNR patient per family request. Allergies Allergy/AdvReac Type Severity Reaction Status Date / Time clavulanic acid Allergy Unknown AFFECTED Verified 03/20/19 12:28 KIDNEY amoxicillin [From Augmentin] Allergy Verified 03/20/19 12:28 lisinopril AdvReac Mild COUGH Verified 03/20/19 12:28 Proton Pump Inhibitors AdvReac Unknown 'affected Unverified 03/20/19 12:28 kidneys' per chart Home Medications Home Medications Medication Instructions Recorded Confirmed Type acetaminophen 500 mg tablet 1,000 mg PO Q6H PRN #90 tab 03/10/19 03/20/19 Rx clindamycin HCl 150 mg capsule 600 mg PO UD cap 03/10/19 03/20/19 History zoledronic acid 5 mg/100 mL in 5 mg IV Q8WK #1 ml 03/10/19 03/20/19 History mannitol 5 %-water intravenous piggybck amlodipine 5 mg PO QAM 03/20/19 03/20/19 History cholecalciferol (vitamin D3) 1,000 units PO BID 03/20/19 03/20/19 History metoprolol succinate 75 mg PO HS 03/20/19 03/20/19 History morphine 15 mg PO Q4H PRN 03/20/19 03/20/19 History morphine [MS Contin] 15 mg PO Q12H 03/20/19 03/20/19 History multivitamin 1 tab PO QAM 03/20/19 03/20/19 History prednisone 5 mg PO QAM 03/20/19 03/20/19 History Past Med/Surg History Medical History BPH (benign prostatic hyperplasia) (Chronic) Rheumatoid arthritis (Chronic) Renal cyst (Chronic) Chronic anemia (Chronic) Suprapubic pain, acute CVA tenderness Hydronephrosis Enlarged prostate Acute renal failure Kidney stones Pyelonephritis MSSA (methicillin susceptible Staphylococcus aureus) septicemia Hypertrophy of prostate with urinary retention Right knee DJD Surgical History S/P carpal tunnel release (Chronic) H/O inguinal hernia repair (Chronic) Hx of nasal septoplasty (Chronic) S/P rotator cuff repair (Chronic) History of right hip replacement (Chronic) History of left knee replacement (Chronic) Family History Other Family history non-contributory Social History Current Living Situation: Rehab current occupational status: retired Feels Safe at Home: Yes Smoking Status: Unknown if ever smoked Review of Systems Review of Systems: Unobtainable due to cognitive status Physical Exam Physical Exam: General-altered mental status. Oriented to name only HEENT-head atraumatic and normocephalic, TMs intact bilaterally, pupils equal and reactive to light, extraocular muscles intact Neck-no lymphadenopathy or thyromegaly, trachea midline Chest-clear to auscultation percussion. No rales wheezing or rhonchi Cardiac-regular rate and rhythm, normal S1 and S2, no JVD Abdomen-normal bowel sounds, no hepatosplenomegaly. Tender suprapubic area Extremities-external fixator noted left ankle. Neuro-baseline confusion. No apparent focal motor deficits. Psych-depressed affect Results & Data Vital Signs (Past 12 Hours) Vital Signs Temp Pulse Resp BP Pulse Ox 03/20/19 14:31 84 19 86/43 L 91 03/20/19 14:30 82 20 93 03/20/19 14:20 82 17 94 03/20/19 14:16 82 15 112/38 L 97 03/20/19 14:10 74 20 94 03/20/19 14:00 84 18 96 03/20/19 13:50 81 22 95 03/20/19 13:45 82 16 94/78 L 96 03/20/19 13:40 85 16 95 03/20/19 13:32 86 20 87/49 L 84 L 03/20/19 13:30 83 15 97 03/20/19 13:20 80 16 94 03/20/19 13:16 84 17 85/50 L 95 03/20/19 13:10 83 22 97 03/20/19 13:00 80 15 81/59 L 95 03/20/19 12:50 89 20 94 03/20/19 12:46 89 15 103/54 L 97 03/20/19 12:40 79 25 H 97 03/20/19 12:30 85 28 H 95 03/20/19 12:20 80 16 97 03/20/19 12:15 81 15 93/63 L 98 03/20/19 12:10 81 12 97 03/20/19 12:00 82 14 106/60 96 03/20/19 11:57 79 19 98/55 L 96 03/20/19 11:56 77 16 03/20/19 11:32 97 03/20/19 11:30 77 19 99/55 L 97 03/20/19 11:15 83 15 85/61 L 97 03/20/19 11:00 83 17 92/56 L 88 L 03/20/19 10:51 84 16 88/66 L 98 03/20/19 10:41 36.5 C 82 18 79/56 L 93 Laboratory Results 03/20/19 11:02 03/20/19 11:02 PG Care Time/CCT Total # of Minutes Spent Total Time Spent with Patient: Total time spent is greater than 50% in coordination of care (as documented) at patient's floor/unit and/or counseling patient: (1) Sepsis Sepsis type: sepsis due to unspecified organism Qualified Code(s): A41.9 - Sepsis, unspecified organism
[2019-03-20] MEDS ORDERED: HYDROCORTISONE SOD SUCCINATE 100 MG/2 ML VIAL IV STA (15:35)
[2019-03-20] MEDS ORDERED: MoRPHine SULFATE CR 15 MG TABCR PO SCH ×2 (15:57→19:00)
[2019-03-20] MEDS ORDERED: MoRPHine SULFATE 5 MG/0.25 ML UDP PO PRN (15:57)
[2019-03-20] MEDS: SODIUM BICARBONATE 8.4% 150 MEQ in WATER, STERILE 1,000 ML IV SCH (16:00)
[2019-03-20 16:33] LABS: BUN Creatinine Ratio 22.7 (10-20); Creatinine Clr Calc Pharmacy 9.7 ml/min; Est GFR (African American) 10.4; Est GFR (Non-African American) 8.9; Potassium 6.2 mmol/L (3.5-5.1)
[2019-03-20] MEDS ORDERED: SODIUM CHLORIDE 0.9% 250 ML IV PRN (16:58)
[2019-03-20 17:02] LABS: Hematocrit (blood only) 26.7 % (42-52); Hemoglobin 8.5 g/dL (14.0-18.0)
--- NOTE | 2019-03-20 17:08 | Nephrology Consultation ---
Date of Consultation March 20, 2019 Assessment & Plan (1) TYRONE (acute kidney injury): -- Clinically consistent with ATN and prerenal azotemia -- Continue aggressive fluid resuscitation with IV NaHCO3 -- Oligoanuric, prognosis for renal recovery is guarded -- Hyperkalemia without acute EKG changes: treatment to include stopping Bactrim, providing HCO3 replacement, and close monitoring -- CT reviewed, urology consult pending -- Urine studies pending -- Medications appropriately dosed for kidney function -- Dialysis catheter to be placed by ICU team -- Will await repeat labs this evening. The patient's family is aware that if there is worsening hyperkalemia hemodialysis will be provided -- 60 minutes of critical care time provided to patient today (2) CKD (chronic kidney disease): -- Baseline creatinine 1.8 to 2.4 mg/dL -- Follows with Dr. Dey as outpatient (3) Sepsis: -- Cultures pending -- Urine studies pending -- Cefepime and daptomycin ordered (4) Rheumatoid arthritis: (5) Hydronephrosis: -- Urology consult pending -- Unclear at this time if there is a urinary source of infection (6) Lumbar compression fracture: (7) detention systemic steroid user: -- Stress dose steroids are appropriately being provided (8) Left humeral fracture: (9) Pelvic fracture: History of Present Illness Reason for Consultation: TYRONE/CKD Requesting Physician: Ahmet Mcdermott MD Attending Physician: Ahmet Mcdermott MD History of Present Illness Mr. 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 Baseline creatinine has been 1.8-2.4 mg/dL. This is consistent with an eGFR of 25-30 ml/min. Manish follows in the nephrology clinic with Dr. Dey. The most recent evaluation in the nephrology clinic was in October 2018. CKD has been attributed to TYRONE due to sepsis, chronic left hydronephrosis, as well as a history of suspected AIN. Mr. Hoffman was hospitalized with recurrent TYRONE in Sep. Evaluation at [facility] revealed pyuria with eosinophilia as well as chronic left hydronephrosis. Treatment at that time included steroids for suspected AIN. Unfortunately, the patient's condition failed to improve and he was subsequently hospitalized at [facility]. Manish subsequently underwent evaluation for left sided hydronephrosis and BPH. Left ureteral stent was placed and raya pus was drained from the L renal collecting system. Urine cultures were positive for MSSA. TURP was performed in November 2017. Cystoscopy and stent removal in February 2018. The patient follows with Dr. Love in the urology clinic. US obtained in September 2018 demonstrated stable chronic left hydronephrosis with hydroureter in the visualized proximal portions as well as a 3.5 cm cyst in the left kidney. Past medical history is notable for rheumatoid arthritis which is treated with chronic steroid therapy. Manish has hypertension treated with amlodipine and metoprolol succinate.-- The patient presented to the ER at [facility] today via EMS. He is currently a resident in nursing home care at [facility] following a hospitalization at [facility] earlier this month. Manish suffered a fall from 16 feet earlier this month which resulted in multiple injuries including lumbar fracture, fracture of the left leg and left humerus. He initially presented to [facility] prior to transfer to [facility]. Left lower extremity external fixation device was placed. A bracing of the arm and back has been performed. He has a chronic indwelling Geiger catheter. Manish was recently started on a course of Bactrim for suspected UTI. This morning, Manish was found to be significantly confused and hypotensive. During my evaluation, he was not able to provide any medical history or answer questions appropriately. The patient's family reports poor appetite with decreased oral intake for several days. They describe increasing weakness and persistent pain requiring regular opiate medications for relief. There was also concern for persistent melena for several days. Lovenox had been provided for DVT prophylaxis. Laboratory studies from March 14 are available for review which are notable for a creatinine of 1.8 mg/dL and significant anemia. Urine output has been low. The patient's history and the current plan of care were discussed with Dr. Burleson as well as Manish's family including his . 2 liters of IV saline have been provided between EMS and the ER. Blood pressure remains low. Serum lactic has risen from 2.1 to 3.9. Manish has oligoanuric TYRONE with hyperkalemia. There were no acute EKG changes. IV bicarbonate is now infusing. Stress dose steroids and being provided as well as antibiotics, daptomycin and cefepime ordered. CT head, chest, abdomen and pelvis are available for review. CT of the abdomen demonstrates persistent left hydronephrosis. Bladder is decompressed with a Geiger catheter. Allergies Allergy/AdvReac Type Severity Reaction Status Date / Time clavulanic acid Allergy Unknown AFFECTED Verified 03/20/19 12:28 KIDNEY amoxicillin [From Augmentin] Allergy Verified 03/20/19 12:28 lisinopril AdvReac Mild COUGH Verified 03/20/19 12:28 Proton Pump Inhibitors AdvReac Unknown 'affected Unverified 03/20/19 12:28 kidneys' per chart Home Medications Home Medications Medication Instructions Recorded Confirmed Type acetaminophen 500 mg tablet 1,000 mg PO Q6H PRN #90 tab 03/10/19 03/20/19 Rx clindamycin HCl 150 mg capsule 600 mg PO UD cap 03/10/19 03/20/19 History zoledronic acid 5 mg/100 mL in 5 mg IV Q8WK #1 ml 03/10/19 03/20/19 History mannitol 5 %-water intravenous piggybck amlodipine 5 mg PO QAM 03/20/19 03/20/19 History cholecalciferol (vitamin D3) 1,000 units PO BID 03/20/19 03/20/19 History metoprolol succinate 75 mg PO HS 03/20/19 03/20/19 History morphine 15 mg PO Q4H PRN 03/20/19 03/20/19 History morphine [MS Contin] 15 mg PO Q12H 03/20/19 03/20/19 History multivitamin 1 tab PO QAM 03/20/19 03/20/19 History prednisone 5 mg PO QAM 03/20/19 03/20/19 History Patient History Medical History Multiple traumatic injuries (Acute) Metabolic encephalopathy (Acute) Acute renal failure (Acute) detention systemic steroid user (Chronic) Sepsis (Acute) BPH (benign prostatic hyperplasia) (Chronic) Rheumatoid arthritis (Chronic) Renal cyst (Chronic) Chronic anemia (Chronic) Suprapubic pain, acute CVA tenderness Hydronephrosis Enlarged prostate Acute renal failure Kidney stones Pyelonephritis MSSA (methicillin susceptible Staphylococcus aureus) septicemia Hypertrophy of prostate with urinary retention Right knee DJD Surgical History S/P carpal tunnel release (Chronic) H/O inguinal hernia repair (Chronic) Hx of nasal septoplasty (Chronic) S/P rotator cuff repair (Chronic) History of right hip replacement (Chronic) History of left knee replacement (Chronic) Family History Other Family history non-contributory Social History Preferred Language: Persian Communication Ability: Effective Beliefs That Will Affect Care: None Current Living Situation: Spouse current occupational status: retired Feels Safe at Home: Yes Smoking Status: Former smoker Hx Alcohol Use: No Hx Substance Use: No Review of Systems Review of Systems: Unobtainable due to cognitive status Physical Exam Constitutional: + ill appearing, + altered mental status and + frail appearing Eyes: no scleral abnormality and no corneal abnormality ENMT: Mouth: + dry oral mucous membranes; no oral mucosal abnormality Neck: normal visual inspection and trachea midline Respiratory: no respiratory distress Auscultation: lungs clear to auscultation bilaterally Cardiovascular: Heart Sounds: normal S1 and normal S2; no gallop and no murmur Gastrointestinal (Abdomen): Inspection/Auscultation: + abdomen distended and + hypoactive bowel sounds Percussion/Palpation: abdomen nontender, no guarding and abdomen not rigid Musculoskeletal: Extremities: no cyanosis and no clubbing External fixation device on left lower extremity, left arm in sling with notable bruising to the shoulder and humerus. Turtle shell brace applied. Skin: normal turgor; no rashes Neurologic: Motor/Sensory: no tremor and no asterixis Results & Data Vital Signs (Past 12 Hours) Vital Signs Temp Pulse Pulse Resp BP BP Pulse Ox 03/20/19 16:01 36.8 C 84 16 88/65 L 93 03/20/19 15:10 85 17 96 03/20/19 15:01 84 21 95/73 L 96 03/20/19 15:00 80 23 95 03/20/19 14:50 89 15 95 03/20/19 14:40 85 16 96 03/20/19 14:31 84 19 86/43 L 91 03/20/19 14:30 82 20 93 03/20/19 14:20 82 17 94 03/20/19 14:16 82 15 112/38 L 97 03/20/19 14:10 74 20 94 03/20/19 14:00 84 18 96 03/20/19 13:50 81 22 95 03/20/19 13:45 82 16 94/78 L 96 03/20/19 13:40 85 16 95 03/20/19 13:32 86 20 87/49 L 84 L 03/20/19 13:30 83 15 97 03/20/19 13:20 80 16 94 03/20/19 13:16 84 17 85/50 L 95 03/20/19 13:10 83 22 97 03/20/19 13:00 80 15 81/59 L 95 03/20/19 12:50 89 20 94 03/20/19 12:46 89 15 103/54 L 97 03/20/19 12:40 79 25 H 97 03/20/19 12:30 85 28 H 95 03/20/19 12:20 80 16 97 03/20/19 12:15 81 15 93/63 L 98 03/20/19 12:10 81 12 97 03/20/19 12:00 82 14 106/60 96 03/20/19 11:57 79 19 98/55 L 96 03/20/19 11:56 77 16 03/20/19 11:32 97 03/20/19 11:30 77 19 99/55 L 97 03/20/19 11:15 83 15 85/61 L 97 03/20/19 11:00 83 17 92/56 L 88 L 03/20/19 10:51 84 16 88/66 L 98 03/20/19 10:41 36.5 C 82 18 79/56 L 93 Laboratory Results Laboratory Results - last 24 hr 03/20/19 03/20/19 03/20/19 11:02 11:02 11:02 WBC 25.89 H RBC 2.84 L Hgb 8.6 L POC Hgb Hct 26.9 L POC Hct MCV 94.7 MCH 30.3 MCHC 32.0 RDW Std Deviation 50.5 H RDW Coeff of [place] 14.6 H Plt Count 627 H MPV 10.2 Immature Gran % (Auto) 2.5 Neut % (Auto) 82.6 Lymph % (Auto) 6.4 Archer % (Auto) 8.1 Eos % (Auto) 0.2 Baso % (Auto) 0.2 Immature Gran # (Auto) 0.65 H Neut # (Auto) 21.39 H Lymph # (Auto) 1.66 Archer # (Auto) 2.11 H Eos # (Auto) 0.04 Baso # (Auto) 0.04 Absolute Nucleated RBC 0.12 H Nucleated RBC % (auto) 0.4 Dohle Bodies 1+ PT 11.5 INR 1.1 APTT 33.1 H PTT Ratio 1.2 Fibrinogen POC Sodium Sodium 130 L POC Potassium Potassium 5.8 H POC Chloride Chloride 95 L Carbon Dioxide 20 L POC Total CO2 Anion Gap 15.0 H POC Anion Gap POC BUN BUN 113 H Creatinine 5.38 H* POC Creatinine Est Cr Clr Drug Dosing Not Reportable Est GFR ( Amer) 10.8 Est GFR (Non-Af Amer) 9.3 BUN/Creatinine Ratio 21.7 H Glucose 134 H POC Glucose (other) Lactate Calcium 7.7 L POC Ioniz Calcium Bandar Total Bilirubin 0.5 AST 31 ALT 15 Alkaline Phosphatase 90 Troponin I < 0.015 Total Protein 6.4 Albumin 1.8 L Globulin 4.6 H Albumin/Globulin Ratio 0.4 L Procalcitonin Urine Color Urine Appearance Urine pH Ur Specific [place] Urine Protein Urine Glucose (UA) Urine Ketones Urine Blood Urine Nitrite Urine Bilirubin Urine Urobilinogen Ur Leukocyte Esterase Nasal Screen MRSA (PCR) Stl C. diff Tox B Gene Blood Type Antibody Screen Crossmatch 03/20/19 03/20/19 03/20/19 11:02 11:02 11:02 WBC RBC Hgb POC Hgb Hct POC Hct MCV MCH MCHC RDW Std Deviation RDW Coeff of [place] Plt Count MPV Immature Gran % (Auto) Neut % (Auto) Lymph % (Auto) Archer % (Auto) Eos % (Auto) Baso % (Auto) Immature Gran # (Auto) Neut # (Auto) Lymph # (Auto) Archer # (Auto) Eos # (Auto) Baso # (Auto) Absolute Nucleated RBC Nucleated RBC % (auto) Dohle Bodies PT INR APTT PTT Ratio Fibrinogen POC Sodium Sodium POC Potassium Potassium POC Chloride Chloride Carbon Dioxide POC Total CO2 Anion Gap POC Anion Gap POC BUN BUN Creatinine POC Creatinine Est Cr Clr Drug Dosing Est GFR ( Amer) Est GFR (Non-Af Amer) BUN/Creatinine Ratio Glucose POC Glucose (other) Lactate 2.1 H* Calcium POC Ioniz Calcium Bandar Total Bilirubin AST ALT Alkaline Phosphatase Troponin I Total Protein Albumin Globulin Albumin/Globulin Ratio Procalcitonin 58.92 H Urine Color Urine Appearance Urine pH Ur Specific [place] Urine Protein Urine Glucose (UA) Urine Ketones Urine Blood Urine Nitrite Urine Bilirubin Urine Urobilinogen Ur Leukocyte Esterase Nasal Screen MRSA (PCR) Stl C. diff Tox B Gene Blood Type O Negative Antibody Screen NEGATIVE Crossmatch See Detail 03/20/19 03/20/19 03/20/19 11:09 15:48 15:48 WBC RBC Hgb POC Hgb 8.5 L Hct POC Hct 25 L MCV MCH MCHC RDW Std Deviation RDW Coeff of [place] Plt Count MPV Immature Gran % (Auto) Neut % (Auto) Lymph % (Auto) Archer % (Auto) Eos % (Auto) Baso % (Auto) Immature Gran # (Auto) Neut # (Auto) Lymph # (Auto) Archer # (Auto) Eos # (Auto) Baso # (Auto) Absolute Nucleated RBC Nucleated RBC % (auto) Dohle Bodies PT INR APTT PTT Ratio Fibrinogen POC Sodium 128 L Sodium 132 L POC Potassium 5.9 H Potassium 6.2 H* POC Chloride 96 L Chloride 98 Carbon Dioxide 18 L POC Total CO2 20 L Anion Gap 16.0 H POC Anion Gap 19.0 POC BUN 120 H* BUN 127 H Creatinine 5.57 H* POC Creatinine 6.2 H* Est Cr Clr Drug Dosing 9.7 Est GFR ( Amer) 10.4 Est GFR (Non-Af Amer) 8.9 BUN/Creatinine Ratio 22.7 H Glucose 161 H POC Glucose (other) 137 H Lactate 3.9 H* Calcium 8.0 L POC Ioniz Calcium Bandar 0.98 L Total Bilirubin AST ALT Alkaline Phosphatase Troponin I Total Protein Albumin Globulin Albumin/Globulin Ratio Procalcitonin Urine Color Urine Appearance Urine pH Ur Specific [place] Urine Protein Urine Glucose (UA) Urine Ketones Urine Blood Urine Nitrite Urine Bilirubin Urine Urobilinogen Ur Leukocyte Esterase Nasal Screen MRSA (PCR) Stl C. diff Tox B Gene Blood Type Antibody Screen Crossmatch 03/20/19 03/20/19 03/20/19 15:49 16:00 16:47 WBC RBC Hgb 8.5 L POC Hgb Hct 26.7 L POC Hct MCV MCH MCHC RDW Std Deviation RDW Coeff of [place] Plt Count MPV Immature Gran % (Auto) Neut % (Auto) Lymph % (Auto) Archer % (Auto) Eos % (Auto) Baso % (Auto) Immature Gran # (Auto) Neut # (Auto) Lymph # (Auto) Archer # (Auto) Eos # (Auto) Baso # (Auto) Absolute Nucleated RBC Nucleated RBC % (auto) Dohle Bodies PT INR APTT PTT Ratio Fibrinogen POC Sodium Sodium POC Potassium Potassium POC Chloride Chloride Carbon Dioxide POC Total CO2 Anion Gap POC Anion Gap POC BUN BUN Creatinine POC Creatinine Est Cr Clr Drug Dosing Est GFR ( Amer) Est GFR (Non-Af Amer) BUN/Creatinine Ratio Glucose POC Glucose (other) Lactate Calcium POC Ioniz Calcium Bandar Total Bilirubin AST ALT Alkaline Phosphatase Troponin I Total Protein Albumin Globulin Albumin/Globulin Ratio Procalcitonin Urine Color Urine Appearance Urine pH Ur Specific [place] Urine Protein Urine Glucose (UA) Urine Ketones Urine Blood Urine Nitrite Urine Bilirubin Urine Urobilinogen Ur Leukocyte Esterase Nasal Screen MRSA (PCR) Pending Stl C. diff Tox B Gene Pending Blood Type Antibody Screen Crossmatch 03/20/19 03/20/19 16:47 16:58 WBC RBC Hgb POC Hgb Hct POC Hct MCV MCH MCHC RDW Std Deviation RDW Coeff of [place] Plt Count MPV Immature Gran % (Auto) Neut % (Auto) Lymph % (Auto) Archer % (Auto) Eos % (Auto) Baso % (Auto) Immature Gran # (Auto) Neut # (Auto) Lymph # (Auto) Archer # (Auto) Eos # (Auto) Baso # (Auto) Absolute Nucleated RBC Nucleated RBC % (auto) Dohle Bodies PT 11.9 INR 1.2 H APTT 34.0 H PTT Ratio 1.3 Fibrinogen > 860 H POC Sodium Sodium POC Potassium Potassium POC Chloride Chloride Carbon Dioxide POC Total CO2 Anion Gap POC Anion Gap POC BUN BUN Creatinine POC Creatinine Est Cr Clr Drug Dosing Est GFR ( Amer) Est GFR (Non-Af Amer) BUN/Creatinine Ratio Glucose POC Glucose (other) Lactate Calcium POC Ioniz Calcium Bandar Total Bilirubin AST ALT Alkaline Phosphatase Troponin I Total Protein Albumin Globulin Albumin/Globulin Ratio Procalcitonin Urine Color Pending Urine Appearance Pending Urine pH Pending Ur Specific [place] Pending Urine Protein Pending Urine Glucose (UA) Pending Urine Ketones Pending Urine Blood Pending Urine Nitrite Pending Urine Bilirubin Pending Urine Urobilinogen Pending Ur Leukocyte Esterase Pending Nasal Screen MRSA (PCR) Stl C. diff Tox B Gene Blood Type Antibody Screen Crossmatch (1) Sepsis Sepsis type: sepsis due to unspecified organism Qualified Code(s): A41.9 - Sepsis, unspecified organism (2) Rheumatoid arthritis Rheumatoid arthritis location: multiple sites Rheumatoid factor presence: unspecified presence Qualified Code(s): M06.9 - Rheumatoid arthritis, unsp ecified (3) Hydronephrosis Hydronephrosis type: other Qualified Code(s): N13.39 - Other hydronephrosis (4) Lumbar compression fracture Encounter type: sequela Lumbar vertebra fracture level: L1 Qualified Code(s): S32.010S - Wedge compression fracture of first lumbar vertebra, sequela (5) Left humeral fracture Encounter type: sequela Fracture type: closed (6) Pelvic fracture Encounter type: sequela
[2019-03-20] MEDS ORDERED: predniSONE 50 MG TAB PO ONE (17:15)
[2019-03-20 17:34] LABS: Fibrinogen > 860 mg/dl (184-400); INR 1.2 (0.9-1.1); Partial Thromboplastin Ratio 1.3; Prothrombin Time 11.9 Seconds (9.0-12.0)
[2019-03-20 17:36] LABS: Appearance Urine Turbid (Clear); Bacteria Urine Automated Negative (Negative); Blood Urine 2+ (Negative); Color Urine Dark Yellow; Epithelial Cell Urine Auto >30 /lpf (0-5); Glucose Urine UA Negative (Negative); Ketones Urine Trace (Negative); Leukocyte Esterase Urine 1+ (Negative); Nitrite Urine Negative (Negative); Protein Urine 1+ (Negative); RBC Urine Automated 0-4 /hpf (0-4); Specific Gravity Urine 1.027 (1.000-1.030); Urobilinogen Urine Negative (Negative)
[2019-03-20] MEDS ORDERED: ASCORBIC ACID 1,500 MG, THIAMINE HCL 100 MG in 0.9 % SODIUM CHLORIDE 100 ML IV SCH (18:00)
[2019-03-20 18:08] LABS: Bilirubin Urine Negative (Negative); Ictotest Urine Negative (Negative)
[2019-03-20 18:11] LABS: Cast Urine Automated 0 /lpf (0-5)
--- NOTE | 2019-03-20 18:24 | Communication Note ---
Date of Service: March 20, 2019 Patient's TLSO back brace required removal as patient is critically ill and brace was preventing adequate respiratory motion with risk for atelectasis. Had extensive discussion with the family, high risk for poor prognosis. Patient having black stools, I have consulted GI who recommended octreotide in addition to PPI infusion. Discussed PPI and steroids with nephrology given history of interstitial nephritis. Patient is critically ill and will optimize patient for dialysis and other confounding factors, patient needs PPI for possible gastrointestinal bleeding which I think would be secondary to a stress ulcer. He is received 1 unit of blood and we are trending additional labs. I have personally spent 25 minutes of critical care time in the direct management of this patient. This is a life/limb threatening event. This includes time spent evaluating patient, direct bedside care, chart review, placing orders, interpretation of diagnostic studies, discussion with consultants, patient, and/or family members regarding treatment decisions, as well as other required patient management activities. This time is exclusive of all separately billable procedures, and teaching time and separate from and in addition to any other critical care service time.
[2019-03-20] MEDS ORDERED: PANTOprazole 80 MG in DEXTROSE 5% 100 ML IV SCH (18:45)
[2019-03-20] MEDS ORDERED: SODIUM POLYSTYRENE SULFONATE 15G/60ML SUSP PO STA (18:45)
--- NOTE | 2019-03-20 18:52 | Procedure Note ---
Procedure Note Date of Service March 20, 2019 Procedure date: Noted above Procedure: Central venous access with associated temporary dialysis catheter Pre-procedure indication: Hyperkalemia, acute kidney injury, need for vasoactive medication administration Post-procedure Diagnosis: same as above Prior to Procedure: Informed Consent: The risks, benefits, indications, potential complications, and alternatives were explained to the patient's family and informed consent obtained. Attending Staff: Sam Burleson DO Resident/APC: Lorenzo Skin Prep: Chlorhexidine Anesthesia: 4 mL 1% lidocaine without epinephrine The identity of the patient was confirmed and a bedside time out was performed. Description of Procedure: After sterile prep and sterile drape utilizing standard sterile technique the superficial skin of the left internal jugular area was anesthetized. The target vessel was identified and entered with an 18- gauge needle. Dark venous blood return was noted. A guidewire was inserted through the needle and into the vessel. The needle was withdrawn and a skin brock was made. A tissue dilator was advanced via Seldinger technique and removed. A triple lumen catheter was inserted via Seldinger technique and the guidewire removed. All ports marcello and flushed easily. A Biopatch was placed, and the catheter was secured via nylon suture. A sterile dressing was then applied. Complications: None Estimated blood loss: Trace Patient tolerated the procedure well. Procedure Date: Noted Above Procedure: Procedural Ultrasound Indication: Central venous access Attending: Sam Burleson DO Resident/Physician Economic Research Analyst: Lorenzo Artery visualized: Yes Vein visualized: Yes Compressible Vein: Yes Vein patent: Yes Guidewire or Short Catheter seen in vein prior to dilation: Yes Line confirmed in Vein with ultrasound: Yes Lung Sliding on side of attempt (if applicable): NA If no lung sliding or not obtained has CXR been ordered: Yes Impression: Successful central venous access placement Images obtained are saved for permanent record Coding CPT Codes Tubes, Drains, and Vasc Access - Tubes, Drains, and Vasc Access: Insertion Of Non-tunneled Catheter Age 5 Yrs> ([id number]) Tubes, Drains, and Vasc Access - Tubes, Drains, and Vasc Access: Ultrasound Guidance For Vascular ([id number])
--- NOTE | 2019-03-20 18:57 | Procedure Note ---
Procedure Note Date of Service March 20, 2019 Procedure date: Noted above Procedure: Radial artery cannulation Pre-procedure Diagnosis: Need for invasive monitoring, frequent blood draws Post-procedure Diagnosis: same as above Prior to Procedure: Informed Consent: The risks, benefits, indications, potential complications, and alternatives were explained to the patient's family and informed consent obtained. Attending Staff: Sam Burleson DO Skin Prep: Chlorhexidine Anesthesia: 3 mL 1% lidocaine without epinephrine The identity of the patient was confirmed and a bedside time out was performed. Left radial artery was chosen to be cannulated. Known fracture in that area however the patient was minimally moving this arm and had adequate pulse with good contralateral flow with allens test. Patient moving right arm rather significantly. Femoral area is contraindicated as patient is having frequent bowel movements. Description of Procedure: After sterile prep and sterile drape utilizing standard sterile technique the superficial skin of the left radial artery was anesthetized. The target artery was identified via dynamic ultrasound guidance and entered with a 20-gauge arrow Angiocath. Pulsatile bright red blood return was noted. Via modified Seldinger technique the self-contained guidewire was advanced and the Angiocath advanced over the guidewire. The guidewire was removed and brisk arterial blood return was noted. The pressure monitor was connected, and the arterial line was secured via commercial securement device. A sterile dressing was then applied. Complications: Initially had adequate blood return and waveform this was lost rather quickly patient had been moving arm and left arterial line was discontinued Estimated blood loss: Trace Patient tolerated the procedure well. Coding
[2019-03-20] MEDS ORDERED: PANTOprazole 40 MG in DEXTROSE 5% 100 ML IV SCH (19:00)
--- NOTE | 2019-03-20 19:12 | XRay Report ---
XR chest 1V portable CLINICAL HISTORY: s/p central line to left jugular COMPARISON STUDY: 03/20/2019 FINDINGS: There is been interval placement of a left internal jugular central venous catheter. The ti p projects over the left innominate vein at the level of the right T5 pedicle. There is no pneumothor ax. The heart is normal in size. There is no failure. There are persistent perihilar opacities, likel y atelectatic. There are no pleural effusions[. A left humeral neck fracture is again evident IMPRESSION: No evidence of pneumothorax status post placement of a left internal jugular central veno us catheter Electronically signed by: Cheng Duarte M.D. 03/20/2019 7:11 PM
[2019-03-20 19:15] LABS: Base Excess VBG -9.9 mEq/L; HCO3 VBG 17 mmol/L; PCO2 VBG 45 mmHg (38-50); PO2 VBG 25 mmHg; pH VBG 7.21 (7.36-7.41)
[2019-03-20 19:19] LABS: Oxygen Saturation VBG < 60.0 %
[2019-03-20 19:23] LABS: Cdiff Antigen Positive
[2019-03-20 19:24] LABS: Cdiff Toxin A+B Positive Cdiff Toxin (Negative)
[2019-03-20] MEDS ORDERED: RASPBERRY SYRUP 5 ML UDP PO SCH (19:30)
[2019-03-20] MEDS ORDERED: OCTREOTIDE ACETATE 500 MCG in 0.9 % SODIUM CHLORIDE 100 ML IV SCH (19:30)
[2019-03-20] MEDS ORDERED: VANCOMYCIN HCL 500 MG/10 ML SOLN PO SCH (19:30)
[2019-03-20] MEDS ORDERED: fentaNYL citrate 100 MCG/2 ML VIAL IV PRN (19:31)
[2019-03-20] MEDS ORDERED: metroNIDAZOLE 500 MG/100 ML BAG IV SCH (20:00)
--- NOTE | 2019-03-20 20:37 | Urology Consultation ---
Date of Consultation March 20, 2019 Assessment & Plan (1) TYRONE (acute kidney injury): Acute on chronic renal failure with L hydro - all in the setting of numerous, severe injuries and multi-organ failure from a critical illness - pt has understandably opted for comfort care - we will avoid intervention unless plans change History of Present Illness Attending Physician: Ahmet Mcdermott MD History of Present Illness Pt well known from prior visits and outpt care - hx of renal failure - hx of significant left hydronephrosis (prior ureteral stent did not resolve t he hydro) - prior urinary retention - now s/p TURP - now admitted after a fall and subsequent rehab stay with declining status/function - septic shock state, multiorgan failure - acute on chronic renal failure, persistent left hydro - grossly elevated WBC - by the time I arrived, the family had decided to limit escalation of care and focus on patient's comfort - numerous family members at the bedside when I arrived - and I opted to avoid interrupting their family visit Allergies Allergy/AdvReac Type Severity Reaction Status Date / Time clavulanic acid Allergy Unknown AFFECTED Verified 03/20/19 12:28 KIDNEY amoxicillin [From Augmentin] Allergy Verified 03/20/19 12:28 lisinopril AdvReac Mild COUGH Verified 03/20/19 12:28 Proton Pump Inhibitors AdvReac Unknown 'affected Unverified 03/20/19 12:28 kidneys' per chart Home Medications Home Medications Medication Instructions Recorded Confirmed Type acetaminophen 500 mg tablet 1,000 mg PO Q6H PRN #90 tab 03/10/19 03/20/19 Rx clindamycin HCl 150 mg capsule 600 mg PO UD cap 03/10/19 03/20/19 History zoledronic acid 5 mg/100 mL in 5 mg IV Q8WK #1 ml 03/10/19 03/20/19 History mannitol 5 %-water intravenous piggybck amlodipine 5 mg PO QAM 03/20/19 03/20/19 History cholecalciferol (vitamin D3) 1,000 units PO BID 03/20/19 03/20/19 History metoprolol succinate 75 mg PO HS 03/20/19 03/20/19 History morphine 15 mg PO Q4H PRN 03/20/19 03/20/19 History morphine [MS Contin] 15 mg PO Q12H 03/20/19 03/20/19 History multivitamin 1 tab PO QAM 03/20/19 03/20/19 History prednisone 5 mg PO QAM 03/20/19 03/20/19 History Patient History Medical History Multiple traumatic injuries (Acute) Metabolic encephalopathy (Acute) Acute renal failure (Acute) 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) Sepsis (Acute) BPH (benign prostatic hyperplasia) (Chronic) Rheumatoid arthritis (Chronic) Renal cyst (Chronic) Chronic anemia (Chronic) Suprapubic pain, acute CVA tenderness Hydronephrosis Enlarged prostate Acute renal failure Kidney stones Pyelonephritis MSSA (methicillin susceptible Staphylococcus aureus) septicemia Hypertrophy of prostate with urinary retention Right knee DJD Surgical History S/P carpal tunnel release (Chronic) H/O inguinal hernia repair (Chronic) Hx of nasal septoplasty (Chronic) S/P rotator cuff repair (Chronic) History of right hip replacement (Chronic) History of left knee replacement (Chronic) Family History Other Family history non-contributory Social History Preferred Language: Colombian Communication Ability: Effective Beliefs That Will Affect Care: None Current Living Situation: Spouse current occupational status: retired Feels Safe at Home: Yes Smoking Status: Former smoker Hx Alcohol Use: No Hx Substance Use: No Review of Systems Review of Systems: Other (pt visiting with family - currently on comfort care) Results & Data Vital Signs (Past 12 Hours) Vital Signs Temp Pulse Pulse Resp BP BP Pulse Ox 03/20/19 18:45 82 15 94 03/20/19 18:37 80 15 109/54 L 91 03/20/19 18:31 80 16 84/25 L 03/20/19 18:30 81 19 95 03/20/19 18:20 37.0 C 82 14 94/58 L 96 03/20/19 17:32 89 15 91/61 L 96 03/20/19 17:30 90 21 92 03/20/19 17:01 90 18 90/58 L 92 03/20/19 17:00 92 H 22 03/20/19 16:33 91 H 25 H 87/59 L 96 03/20/19 16:30 88 25 H 71/59 L 93 03/20/19 16:01 36.8 C 88 84 20 88/65 L 88/65 L 93 03/20/19 16:00 37.0 C 82 15 97 03/20/19 15:39 37.0 C 87 88/63 L 03/20/19 15:30 83 03/20/19 15:10 85 17 96 03/20/19 15:01 84 21 95/73 L 96 03/20/19 15:00 80 23 95 03/20/19 14:50 89 15 95 03/20/19 14:40 85 16 96 03/20/19 14:31 84 19 86/43 L 91 03/20/19 14:30 82 20 93 03/20/19 14:20 82 17 94 03/20/19 14:16 82 15 112/38 L 97 03/20/19 14:10 74 20 94 03/20/19 14:00 84 18 96 03/20/19 13:50 81 22 95 03/20/19 13:45 82 16 94/78 L 96 03/20/19 13:40 85 16 95 03/20/19 13:32 86 20 87/49 L 84 L 03/20/19 13:30 83 15 97 03/20/19 13:20 80 16 94 03/20/19 13:16 84 17 85/50 L 95 03/20/19 13:10 83 22 97 03/20/19 13:00 80 15 81/59 L 95 03/20/19 12:50 89 20 94 03/20/19 12:46 89 15 103/54 L 97 03/20/19 12:40 79 25 H 97 03/20/19 12:30 85 28 H 95 03/20/19 12:20 80 16 97 03/20/19 12:15 81 15 93/63 L 98 03/20/19 12:10 81 12 97 03/20/19 12:00 82 14 106/60 96 03/20/19 11:57 79 19 98/55 L 96 03/20/19 11:56 77 16 03/20/19 11:32 97 03/20/19 11:30 77 19 99/55 L 97 03/20/19 11:15 83 15 85/61 L 97 03/20/19 11:00 83 17 92/56 L 88 L 03/20/19 10:51 84 16 88/66 L 98 03/20/19 10:41 36.5 C 82 18 79/56 L 93
[2019-03-20] MEDS ORDERED: SENNA 8.6 MG TAB PO SCH (21:00)
[2019-03-20] MEDS: MoRPHine SULFATE 2 MG/ML CARP IV PRN (21:47)
[2019-03-20] MEDS ORDERED: HYDROCORTISONE SOD 100 MG in SYRINGE 0 ML IV SCH (22:00)
[2019-03-20] MEDS ORDERED: HYDROCORTISONE SOD 50 MG in SYRINGE 0 ML IV SCH (22:00)
[2019-03-20] MEDS ORDERED: HEPARIN SOD 5,000 UNIT/0.5 ML VIAL SQ SCH (22:00)
[2019-03-20] MEDS ORDERED: FAMOTIDINE 20MG/5ML IV PUSH IV SCH (23:00)
[2019-03-21] MEDS: FAMOTIDINE 20 MG in SYRINGE 3 ML IV SCH ×2 (01:32→10:35)
[2019-03-21] MEDS: MoRPHine SULFATE 2 MG/ML CARP IV PRN ×5 (01:35→13:16)
[2019-03-21] MEDS: SODIUM BICARBONATE 8.4% 150 MEQ in WATER, STERILE 1,000 ML IV SCH (01:54)
--- NOTE | 2019-03-21 08:34 | Critical Care Consultation ---
Date of Consultation March 21, 2019 History of Present Illness Attending Physician: Ahmet Mcdermott MD Allergies Allergy/AdvReac Type Severity Reaction Status Date / Time clavulanic acid Allergy Unknown AFFECTED Verified 03/20/19 12:28 KIDNEY amoxicillin [From Augmentin] Allergy Verified 03/20/19 12:28 lisinopril AdvReac Mild COUGH Verified 03/20/19 12:28 Proton Pump Inhibitors AdvReac Unknown 'affected Unverified 03/20/19 12:28 kidneys' per chart Home Medications Home Medications Medication Instructions Recorded Confirmed Type acetaminophen 500 mg tablet 1,000 mg PO Q6H PRN #90 tab 03/10/19 03/20/19 Rx clindamycin HCl 150 mg capsule 600 mg PO UD cap 03/10/19 03/20/19 History zoledronic acid 5 mg/100 mL in 5 mg IV Q8WK #1 ml 03/10/19 03/20/19 History mannitol 5 %-water intravenous piggybck amlodipine 5 mg PO QAM 03/20/19 03/20/19 History cholecalciferol (vitamin D3) 1,000 units PO BID 03/20/19 03/20/19 History metoprolol succinate 75 mg PO HS 03/20/19 03/20/19 History morphine 15 mg PO Q4H PRN 03/20/19 03/20/19 History morphine [MS Contin] 15 mg PO Q12H 03/20/19 03/20/19 History multivitamin 1 tab PO QAM 03/20/19 03/20/19 History prednisone 5 mg PO QAM 03/20/19 03/20/19 History Patient History Medical History Multiple traumatic injuries (Acute) Metabolic encephalopathy (Acute) 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 renal 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 (Acute) 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) 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 (Acute) BPH (benign prostatic hyperplasia) (Chronic) Rheumatoid arthritis (Chronic) Renal cyst (Chronic) Chronic anemia (Chronic) Suprapubic pain, acute CVA tenderness Hydronephrosis Enlarged prostate Acute renal failure Kidney stones Pyelonephritis MSSA (methicillin susceptible Staphylococcus aureus) septicemia Hypertrophy of prostate with urinary retention Right knee DJD Surgical History S/P carpal tunnel release (Chronic) H/O inguinal hernia repair (Chronic) Hx of nasal septoplasty (Chronic) S/P rotator cuff repair (Chronic) History of right hip replacement (Chronic) History of left knee replacement (Chronic) Family History Other Family history non-contributory Social History Preferred Language: Azerbaijani Communication Ability: Effective Beliefs That Will Affect Care: None Current Living Situation: Spouse current occupational status: retired Feels Safe at Home: Yes Smoking Status: Former smoker Hx Alcohol Use: No Hx Substance Use: No Results & Data Vital Signs (Past 12 Hours) Vital Signs Temp Pulse Resp BP Pulse Ox 03/21/19 06:30 115 H 12 115/42 L 88 L 03/21/19 06:16 134 H 17 109/49 L 69 L 03/21/19 06:00 154 H 31 H 110/67 80 L 03/21/19 05:45 101 H 14 119/70 89 L 03/21/19 05:30 113 H 20 104/80 90 03/21/19 05:15 160 H 19 132/73 89 L 03/21/19 05:00 169 H 20 124/62 90 03/21/19 04:45 173 H 25 H 107/76 91 03/21/19 04:30 140 H 25 H 65/50 L 89 L 03/21/19 04:00 95 H 18 123/65 87 L 03/21/19 03:30 112 H 17 121/69 90 03/21/19 03:00 95 H 15 116/49 L 88 L 03/21/19 02:30 120 H 22 87/63 L 93 03/21/19 02:01 183 H 23 104/56 L 88 L 03/21/19 01:30 195 H 15 81/64 L 94 03/21/19 01:00 191 H 12 104/49 L 90 03/21/19 00:30 191 H 19 91/54 L 91 03/21/19 00:00 37.0 C 120 H 15 112/70 03/20/19 23:30 114 H 15 118/42 L 03/20/19 23:03 118 H 03/20/19 23:01 113 H 21 118/75 03/20/19 23:00 103 H 20 07/29/19 22:30 112 H 19 55/44 L 03/20/19 22:01 94 H 14 79/64 L 03/20/19 22:00 93 H 13 03/20/19 21:30 92 H 16 111/93 PG Care Time/CCT Total # of Minutes Spent Total Time Spent with Patient: Total time spent is greater than 50% in coordination of care (as documented) at patient's floor/unit and/or counseling patient:
--- NOTE | 2019-03-21 08:35 | Critical Care Progress Note ---
Date of Service March 21, 2019 Assessment & Plan (1) TYRONE (acute kidney injury): Reason Critically Ill: 79-year-old male with concern for sepsis, hypotension, acute kidney injury PLAN: Neuro: Acute encephalopathy -Worsening Resp: Acute hypoxic respiratory failure -Box fan and morphine for signs of respiratory distress CV: Hx Hypertension Hypotension Tachycardia -Expectant management Fluids/Renal: Acute kidney injury in the setting of chronic kidney disease History of interstitial nephritis confirmed via 2 urine eosinophils -Family proceeding with comfort measures declining dialysis Left-sided hydronephrosis ID: Sepsis with multisystem organ failure -C. difficile -No antibiotics: Comfort measures GI/Nutrition: C. difficile colitis Heme: Anemia -Type and screen completed -Received 1 unit packed red blood cells, discontinuing additional transfusion orders DVT prophylaxis: Contraindicated -DVT screens canceled Endocrine: Discontinue active medical interventions Vascular access: Peripheral IVs Patient is in end-stage medical condition without meaningful chance of recovery. Family desires comfort measures. Expectant management I have personally spent 35 minutes of critical care time in the direct management of this patient. This is a life/limb threatening event. This includes time spent evaluating patient, direct bedside care, chart review, placing orders, interpretation of diagnostic studies, discussion with consultants, patient, and/or family members regarding treatment decisions, as well as other required patient management activities. This time is exclusive of all separately billable procedures, and teaching time and separate from and in addition to any other critical care service time. (2) Interstitial nephritis: (3) Dehydration: (4) Renal failure: (5) Sepsis: (6) Rheumatoid arthritis: (7) Hydronephrosis: (8) Lumbar compression fracture: (9) CKD (chronic kidney disease): (10) Closed left ankle fracture: (11) Post-operative state: (12) Fall from ladder: (13) Left humeral fracture: (14) Pelvic fracture: (15) [facility] systemic steroid user: Supervising Physician Co-Signing Physician Notes Dr. Ventura was resident physician during care of patient. I separately evaluated patient for ocampo portions of the history and the exam. I was present during the critical portion of medical decision making, and I discussed the case with the resident. I generally agree with the findings and plan. Patient has been transitioned to comfort measures and engaging in expectant management. Patient will be transferred to fourth floor to continue expectant management. Subjective Appears comfortable, minimally responsive to deep stimuli Caveat: History Limited by AMS. Currently on comfort care measures. Review of Systems Review of Systems: All systems reviewed & are unremarkable except as noted in HPI & below Physical Exam Constitutional: + ill appearing and comfortable Neck: trachea midline Cardiovascular: Rate/Rhythm: + tachycardic Musculoskeletal: Left arm ecchymosis and left trunk ecchymosis that is old, LLE in external fixation device Results & Data Vital Signs (Past 12 Hours) Vital Signs Temp Pulse Resp BP Pulse Ox 03/21/19 06:30 115 H 12 115/42 L 88 L 03/21/19 06:16 134 H 17 109/49 L 69 L 03/21/19 06:00 154 H 31 H 110/67 80 L 03/21/19 05:45 101 H 14 119/70 89 L 03/21/19 05:30 113 H 20 104/80 90 03/21/19 05:15 160 H 19 132/73 89 L 03/21/19 05:00 169 H 20 124/62 90 03/21/19 04:45 173 H 25 H 107/76 91 03/21/19 04:30 140 H 25 H 65/50 L 89 L 03/21/19 04:00 95 H 18 123/65 87 L 03/21/19 03:30 112 H 17 121/69 90 03/21/19 03:00 95 H 15 116/49 L 88 L 03/21/19 02:30 120 H 22 87/63 L 93 03/21/19 02:01 183 H 23 104/56 L 88 L 03/21/19 01:30 195 H 15 81/64 L 94 03/21/19 01:00 191 H 12 104/49 L 90 03/21/19 00:30 191 H 19 91/54 L 91 03/21/19 00:00 37.0 C 120 H 15 112/70 03/20/19 23:30 114 H 15 118/42 L 03/20/19 23:03 118 H 03/20/19 23:01 113 H 21 118/75 03/20/19 23:00 103 H 20 03/20/19 22:30 112 H 19 55/44 L 03/20/19 22:01 94 H 14 79/64 L 03/20/19 22:00 93 H 13 07/29/19 21:30 92 H 16 111/93 PG Care Time/CCT Total # of Minutes Spent Total Time Spent with Patient: Total time spent is greater than 50% in coordination of care (as documented) at patient's floor/unit and/or counseling patient: Critical Care Time: Yes Total Critical Care Time: 35 Resident Activity Tracking Resident Involvement: Resident Care Provided Care Provided: Adult Hospital Medicine (ICU) (1) Fall from ladder Encounter type: sequela Qualified Code(s): W11.XXXS - Fall on and from ladder, sequela (2) Hydronephrosis Hydronephrosis type: other Qualified Code(s): N13.39 - Other hydronephrosis (3) Rheumatoid arthritis Rheumatoid arthritis location: multiple sites Rheumatoid factor presence: unspecified presence Qualified Code(s): M06.9 - Rheumatoid arthritis, unspecified (4) Left humeral fracture Encounter type: sequela Fracture type: closed (5) Renal failure Acute renal failure type: unspecified Chronic kidney disease stage: unspecified stage Renal failure chronicity: acute on chronic Qualified Code(s): N17.9 - Acute kidney failure, unspecified; N18.9 - Chronic kidney dise ase, unspecified (6) Lumbar compression fracture Encounter type: sequela Lumbar vertebra fracture level: L1 Qualified Code(s): S32.010S - Wedge compression fracture of first lumbar vertebra, sequela (7) Sepsis Sepsis type: sepsis due to unspecified organism Qualified Code(s): A41.9 - Sepsis, unspecified organism (8) Pelvic fracture Encounter type: sequela (9) Closed left ankle fracture Encounter type: sequela Qualified Code(s): S82.892S - Other fracture of left lower leg, sequela
[2019-03-21] MEDS ORDERED: SODIUM CHLORIDE 0.9% 1000ML 1,000 ML IV SCH (08:45)
[2019-03-21] MEDS ORDERED: GLYCOPYRROLATE 0.2 MG/ML VIAL IV PRN (08:48)
[2019-03-21] MEDS ORDERED: SCOPOLAMINE 1.5 MG TDSY TD SCH (09:00)
[2019-03-21] MEDS ORDERED: predniSONE 5 MG TAB PO SCH (09:00)
[2019-03-21] MEDS ORDERED: MULTIVITAMIN TAB PO SCH (09:00)
--- NOTE | 2019-03-21 09:27 | Palliative Care Consultation ---
Date of Consultation March 21, 2019 Assessment & Plan (1) Goals of care, counseling/discussion: -79 year old male patient who presented to the hospital yesterday with low urine output and altered mental status. He was found to have a significant acute kidney injury in the setting of chronic kidney disease as well as fever with probable sepsis of unclear source. Patient was admitted to the ICU with sepsis, hypotension and acute renal failure. Patient was recently treated at [facility] after a fall and left sided injuries and fractures. he was sent to [facility] for rehab. He began having low urine output and was mildly confused. Creatinine on arrival was 5.38, deana to 5.57 a few hours later; baseline appears to be ~2.2-2.5 per record. Patient was then found to be positive for C. difficile colitis. Patient is severely acidotic with pH 7.21 on ABG, family stated NO intubation or heroic measures. Despite medical management, patient's condition continued to worsen. Family, including yobany's who is an RN, three sons and one daughter, collectively made the decision to transition to comfort measures only as the patient would have wanted. Patient did not want dialysis, CPR, intubation or other heroic measures. Palliative care is consulted. -Met with patient and his Chris in room 104 this morning. Chris confirmed that goal is strictly for comfort. We discussed some EOL issues. -I returned to the room when patient's and two other songs and a [id number] were present. confirmed that goal is for comfort. We have discontinued all IV abx, IVF, and medications unrelated to comfort. -Patient has some moist secretions, so i have ordered Robinul 0.2mg IV Q4h PRN secretions and Atropine 1% oph soln 4 drops SL Q1h PRN secretions. -Discussion about comfort care with patient's family, their questions were answered. Patient's extended her thanks to the medical team for taking care of patient. -Morphine 2mg IV Q2h PRN pain or SOB. -Transfer out of ICU. -Prognosis is poor, time is likely hours to days. -PPS 10%. (2) Acute renal failure: (3) Sepsis: Sepsis type: sepsis due to unspecified organism Qualified Code(s): A41.9 - Sepsis, unspecified organism (4) C. difficile colitis: History of Present Illness Attending Physician: Ander Patton History of Present Illness This 79 year old male patient who presented to the hospital yesterday with low urine output and altered mental status. He was found to have a significant acute kidney injury in the setting of chronic kidney disease as well as fever with probable sepsis of unclear source. Patient was admitted to the ICU with sepsis, hypotension and acute renal failure. Patient was recently treated at [facility] after a fall and left sided injuries and fractures. he was sent to [facility] for rehab. He began having low urine output and was mildly confused. Creatinine on arrival was 5.38, deana to 5.57 a few hours later; baseline appears to be ~2.2-2.5 per record. Patient was then found to be positive for C. difficile colitis. Patient is severely acidotic with pH 7.21 on ABG, family stated NO intubation or heroic measures. Despite medical management, patient's condition continued to worsen. Family, including yobany's who is an RN, three sons and one daughter, collectively made the decision to transition to comfort measures only as the patient would have wanted. Patient did not want dialysis, CPR, intubation or other heroic measures. Palliative care is consulted. Thank you kindly for consulting us on this lang patient and family. Allergies Allergy/AdvReac Type Severity Reaction Status Date / Time clavulanic acid Allergy Unknown AFFECTED Verified 03/20/19 12:28 KIDNEY amoxicillin [From Augmentin] Allergy Verified 03/20/19 12:28 lisinopril AdvReac Mild COUGH Verified 03/20/19 12:28 Proton Pump Inhibitors AdvReac Unknown 'affected Unverified 03/20/19 12:28 kidneys' per chart Home Medications Home Medications Medication Instructions Recorded Confirmed Type acetaminophen 500 mg tablet 1,000 mg PO Q6H PRN #90 tab 03/10/19 03/20/19 Rx clindamycin HCl 150 mg capsule 600 mg PO UD cap 03/10/19 03/20/19 History zoledronic acid 5 mg/100 mL in 5 mg IV Q8WK #1 ml 03/10/19 03/20/19 History mannitol 5 %-water intravenous piggybck amlodipine 5 mg PO QAM 03/20/19 03/20/19 History cholecalciferol (vitamin D3) 1,000 units PO BID 03/20/19 03/20/19 History metoprolol succinate 75 mg PO HS 03/20/19 03/20/19 History morphine 15 mg PO Q4H PRN 03/20/19 03/20/19 History morphine [MS Contin] 15 mg PO Q12H 03/20/19 03/20/19 History multivitamin 1 tab PO QAM 03/20/19 03/20/19 History prednisone 5 mg PO QAM 03/20/19 03/20/19 History Patient History Medical History Multiple traumatic injuries (Acute) Metabolic encephalopathy (Acute) 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 renal 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 (Acute) 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) Sepsis (Acute) BPH (benign prostatic hyperplasia) (Chronic) Rheumatoid arthritis (Chronic) Renal cyst (Chronic) Chronic anemia (Chronic) Suprapubic pain, acute CVA tenderness Hydronephrosis Enlarged prostate Acute renal failure Kidney stones Pyelonephritis MSSA (methicillin susceptible Staphylococcus aureus) septicemia Hypertrophy of prostate with urinary retention Right knee DJD Surgical History S/P carpal tunnel release (Chronic) H/O inguinal hernia repair (Chronic) Hx of nasal septoplasty (Chronic) S/P rotator cuff repair (Chronic) History of right hip replacement (Chronic) History of left knee replacement (Chronic) Family History Other Family history non-contributory Social History Preferred Language: Arabic Communication Ability: Unable Beliefs That Will Affect Care: None Current Living Situation: Spouse current occupational status: retired Feels Safe at Home: Yes Smoking Status: Former smoker Hx Alcohol Use: No Hx Substance Use: No Review of Systems Review of Systems: Unobtainable due to cognitive status Physical Exam Constitutional: well developed, well nourished and + ill appearing (acutely) ENMT: external ear and nose normal, oropharynx normal Neck: normal visual inspection Respiratory: normal respiratory effort and + labored breathing (occasionally) Auscultation: + rhonchi (moist throughout) Cardiovascular: RRR, no murmur, no edema Gastrointestinal (Abdomen): Inspection/Auscultation: normal bowel sounds Percussion/Palpation: abdomen soft Skin: no rashes, warm and dry Neurologic: moves all extremities; + not awake (stuporous) Psychiatric: Orientation: + not oriented x 3 Results & Data Vital Signs (Past 12 Hours) Vital Signs Temp Pulse Resp BP Pulse Ox 03/21/19 06:30 115 H 12 115/42 L 88 L 03/21/19 06:16 134 H 17 109/49 L 69 L 03/21/19 06:00 154 H 31 H 110/67 80 L 03/21/19 05:45 101 H 14 119/70 89 L 03/21/19 05:30 113 H 20 104/80 90 03/21/19 05:15 160 H 19 132/73 89 L 03/21/19 05:00 169 H 20 124/62 90 03/21/19 04:45 173 H 25 H 107/76 91 03/21/19 04:30 140 H 25 H 65/50 L 89 L 03/21/19 04:00 95 H 18 123/65 87 L 03/21/19 03:30 112 H 17 121/69 90 03/21/19 03:00 95 H 15 116/49 L 88 L 03/21/19 02:30 120 H 22 87/63 L 93 03/21/19 02:01 183 H 23 104/56 L 88 L 03/21/19 01:30 195 H 15 81/64 L 94 03/21/19 01:00 191 H 12 104/49 L 90 03/21/19 00:30 191 H 19 91/54 L 91 03/21/19 00:00 37.0 C 120 H 15 112/70 03/20/19 23:30 114 H 15 118/42 L 03/20/19 23:03 118 H 03/20/19 23:01 113 H 21 118/75 03/20/19 23:00 103 H 20 03/20/19 22:30 112 H 19 55/44 L 03/20/19 22:01 94 H 14 79/64 L 03/20/19 22:00 93 H 13 03/20/19 21:30 92 H 16 111/93 PG Care Time/CCT Prolonged Care Time Prolonged Care Time: Yes Total Prolonged Care Time: 100 Time Spent Midlevel 100 minutes with >50% of time spent at bedside during multiple visits with patient and family discussing comfort measures, EOL issues, and symptom management; as well as discussing with IDT about plan of care.
[2019-03-21] MEDS ORDERED: LORazepam 0.5 MG TAB SL PRN (09:29)
[2019-03-21] MEDS ORDERED: CEFEPIME 1,000 MG in SYRINGE 0 ML IV SCH (12:00)
[2019-03-21] MEDS ORDERED: LORazepam 0.5 MG/1 ML VIAL IV STA (13:09)
[2019-03-21] MEDS: MoRPHine SULFATE 4 MG/ML 1 ML CARP\\VIAL IV PRN ×3 (16:08→20:54)
[2019-03-21] MEDS: LORazepam 1 MG/2 ML VIAL IV PRN ×3 (16:08→20:55)
[2019-03-21] MEDS: CHECK SCOPOLAMINE PATCH PLACEMENT SCH (16:22)
--- NOTE | 2019-03-21 17:59 | Gastroenterology Progress Note ---
Date of Service March 21, 2019 Assessment & Plan (1) C. difficile colitis: Patient was made comfort measures today, and therefore, I did not see the patient. Subjective Patient was made comfort measures only today. Results & Data Vital Signs (Past 12 Hours) Vital Signs Pulse Resp BP Pulse Ox 03/21/19 06:30 115 H 12 115/42 L 88 L 03/21/19 06:16 134 H 17 109/49 L 69 L 03/21/19 06:00 154 H 31 H 110/67 80 L
--- NOTE | 2019-03-21 20:04 | Hospitalist Progress Note ---
Date of Service March 21, 2019 Assessment & Plan (1) Septic shock due to Clostridium difficile: (2) C. difficile colitis: (3) Metabolic encephalopathy: (4) Acute renal failure: (5) Left humeral fracture: (6) Closed left ankle fracture: (7) CKD (chronic kidney disease): (8) Rheumatoid arthritis: (9) Anemia: (10) Hyponatremia: (11) Hyperkalemia: (12) Lactic acidosis: (13) Need for comfort care: Patient now on full comfort care measures. Critically ill due to ARF and septic shock 2nd to c diff infection. Discontinue all labs, vitals, and unnecessary medications. Continue morphine - increase to 4mg IV q2h prn; low threshold for morphine infusion. Continue ativan - change to 1mg IV q2h prn; low threshold for changing the frequency. Continue scopalamine patch. Add atropine drops, if needed. NC O2. Support given to family. Continue wright and rectal tube. Leave all hardware in place (left leg fixator, etc). Discussed contact precautions with family and need for gowning, good handwashing to prevent spread of c diff infection, etc. Night physician informed of patient's current status. Subjective events of last 24 hours noted. received maximal medical efforts last pm for septic shock and ARF. despite such his lactates continued to rise and he remained critically ill. decision was made early this AM to transition to comfort care measures. supportive care was stopped. he was transferred to [facility] for comfort care pathway. I saw the patient twice today -- first was early afternoon; multiple family members were at bedside including his . he was restless, reaching for objects in the air and shifting constantly in bed. He was altered with eyes closed. during my 2nd visit later in the day (about 1829) he was more calm and comfortable-appearing. he had visible hypopneas. again multiple family members at bedside. Review of Systems Review of Systems: Unobtainable due to reduced consciousness Physical Exam Constitutional: + acute distress, + ill appearing, + altered mental status and + frail appearing ENMT: Mouth: + dry oral mucous membranes Respiratory: + labored breathing and + tachypneic course BS b/l Cardiovascular: Rate/Rhythm: regular rhythm and + tachycardic Heart Sounds: normal S1 and normal S2; no murmur Vessels: posterior tibial pulses present and dorsalis pedis pulses present; no JVD Gastrointestinal (Abdomen): Inspection/Auscultation: + abdomen distended; + abnormal bowel sounds Percussion/Palpation: + abdomen tender Musculoskeletal: external fixator device left leg Psychiatric: Orientation: + not alert and + not oriented x 3 Results & Data Vital Signs (Past 12 Hours) Vital Signs Temp Pulse Resp BP Pulse Ox 03/21/19 06:30 115 H 12 115/42 L 88 L 03/21/19 06:16 134 H 17 109/49 L 69 L 03/21/19 06:00 154 H 31 H 110/67 80 L 03/21/19 05:45 101 H 14 119/70 89 L 03/21/19 05:30 113 H 20 104/80 90 03/21/19 05:15 160 H 19 132/73 89 L 03/21/19 05:00 169 H 20 124/62 90 03/21/19 04:45 173 H 25 H 107/76 91 03/21/19 04:30 140 H 25 H 65/50 L 89 L 03/21/19 04:00 95 H 18 123/65 87 L 03/21/19 03:30 112 H 17 121/69 90 03/21/19 03:00 95 H 15 116/49 L 88 L 03/21/19 02:30 120 H 22 87/63 L 93 03/21/19 02:01 183 H 23 104/56 L 88 L 03/21/19 01:30 195 H 15 81/64 L 94 03/21/19 01:00 191 H 12 104/49 L 90 03/21/19 00:30 191 H 19 91/54 L 91 03/21/19 00:00 37.0 C 120 H 15 112/70 03/20/19 23:30 114 H 15 118/42 L 03/20/19 23:03 118 H 03/20/19 23:01 113 H 21 118/75 03/20/19 23:00 103 H 20 03/20/19 22:30 112 H 19 55/44 L 03/20/19 22:01 94 H 14 79/64 L 03/20/19 22:00 93 H 13 03/20/19 21:30 92 H 16 111/93 03/20/19 20:32 85 17 03/20/19 20:30 87 21 126/48 L Intake and Output 03/21/19 03/21/19 03/21/19 06:59 14:59 22:59 Intake Total 1771.667 / 3877.667 293.75 / 293.75 Output Total 135 / 1060 Balance 1636.667 / 2817.667 293.75 / 293.75 Intake: IV 1771.667 / 3495.667 293.75 / 293.75 Sandostatin 500 Mcg In Sodium 105 / 105 Chloride 100 ml @ 50 MCG/HR 10. 5 mls/hr IV .Q10H [facility]ACIA Rx#: [id number] Protonix 40 mg In D5 100 ml @ 100 / 100 20 mls/hr IV Q5H [facility]ACIA Rx#: [id number] Sodium Bicarbonate 8.4% 150 Meq 1566.667 / 1566.667 293.75 / 293.75 In Sterile Water 1,000 ml @ 75 mls/hr IV .[id number] [facility]IA Rx#: [id number] Oral 0 / 0 Output: Stool 125 / 125 Urine Amount (Catheter) Wright/Indwelling PG Care Time/CCT Total # of Minutes Spent Total Time Spent with Patient: Total time spent is greater than 50% in coordination of care (as documented) at patient's floor/unit and/or counseling p atient: (1) Acute renal failure Acute renal failure type: with acute tubular necrosis Qualified Code(s): N17.0 - Acute kidney failure with tubular necrosis (2) Left humeral fracture Encounter type: subsequent encounter Fracture type: closed Fracture morphology: other fracture Fracture alignment: nondisplaced Fracture healing: with routine healing (3) Closed left ankle fracture Encounter type: sequela Qualified Code(s): S82.892S - Other fracture of left lower leg, sequela (4) CKD (chronic kidney disease) Chronic kidney disease stage: stage 4 (severe) Qualified Code(s): N18.4 - Chronic kidney disease, stage 4 (severe) (5) Rheumatoid arthritis Rheumatoid arthritis location: multiple sites Rheumatoid factor presence: unspecified presence Qualified Code(s): M06.9 - Rheumatoid arthritis, unspecified (6) Anemia Anemia type: other cause Other causes of anemia: other cause, not classified Qualified Code(s): D64.89 - Other specified anemias
[2019-03-22] MEDS: FAMOTIDINE 20 MG in SYRINGE 3 ML IV SCH (00:10)
[2019-03-22] MEDS: CHECK SCOPOLAMINE PATCH PLACEMENT SCH (00:10)
--- NOTE | 2019-03-22 20:09 | Death Summary ---
Date of Service March 22, 2019 Pronouncement Note Date and Time of Date of : 03/21/19 Time of : 22:14 PCOD Preliminary cause of : Septic shock due to Clostridioides difficile Contributing Factors (1) TYRONE (acute kidney injury): (2) Interstitial nephritis: (3) Dehydration: (4) Renal failure: Contributing factors: acute renal failure in setting of CKD stage 4 (5) Sepsis: (6) Rheumatoid arthritis: Contributing factors: steroid dependent (7) Hydronephrosis: (8) Lumbar compression fracture: (9) CKD (chronic kidney disease): Contributing factors: stage 4 (10) Closed left ankle fracture: Contributing factors: 2nd to trauma (11) Post-operative state: (12) Fall from ladder: (13) Left humeral fracture: (14) Pelvic fracture: (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 He was found to have a significant acute kidney injury in the setting of chronic kidney disease stage 4 as well as fever with probable sepsis of unclear source. Patient was admitted to the ICU with sepsis/septic shock and acute renal failure. Shock worsened to the point of needing pressor agents. He ultimately was found to have c.diff colitis. Of note, patient was recently treated at [facility] after a fall. He had multiple left sided injuries and fractures (left humerus, left ankle, etc). He was then discharged to [facility] for rehab. Despite aggressive supportive care measures for his c.diff colitis and shock his acute renal failure, acidosis, and overall status worsened. Palliative care was consulted, and he was ultimately transitioned to comfort care measures. He remained on comfort care measures until he passed peacefully on the evening of 03/21/19. Additional Data Confirmation of : no pulse, no respirations, no heart sounds and pupils fixed and dilated Family: at bedside Attending physician: Ander Patton Was code activated?: No Autopsy requested?: No drapery examiner notified?: No
== END 2019-03-22 04:53 | disposition expired | DRG 871 ==
LOC: ED 10:22 → 1E 14:12 → SUATTDRO 14:12 → 1E 15:21 → 4W 03-21 11:53
DX: E86.0 Dehydration; N13.30 Unspecified hydronephrosis; J96.01 Acute respiratory failure with hypoxia; Z51.81 Encounter for therapeutic drug level monitoring; Z87.891 Personal history of nicotine dependence; R65.21 Severe sepsis with septic shock; A41.9 Sepsis, unspecified organism; Z66 Do not resuscitate; A04.72 Enterocolitis due to Clostridium difficile, not specified as recurrent; S32.9XXD Fracture of unspecified parts of lumbosacral spine and pelvis, subsequent encounter for fracture with routine healing; E87.1 Hypo-osmolality and hyponatremia; Z51.5 Encounter for palliative care; G93.41 Metabolic encephalopathy; S82.892D Other fracture of left lower leg, subsequent encounter for closed fracture with routine healing; D64.9 Anemia, unspecified; M06.9 Rheumatoid arthritis, unspecified; S42.302D Unspecified fracture of shaft of humerus, left arm, subsequent encounter for fracture with routine healing; W11.XXXD Fall on and from ladder, subsequent encounter; Z88.0 Allergy status to penicillin; K27.4 Chronic or unspecified peptic ulcer, site unspecified, with hemorrhage; Z79.899 Other long term (current) drug therapy; E87.5 Hyperkalemia; Z88.8 Allergy status to other drugs, medicaments and biological substances; E87.2 Acidosis; N18.9 Chronic kidney disease, unspecified; N17.0 Acute kidney failure with tubular necrosis; Z79.52 Long term (current) use of systemic steroids